=== PATIENT | female | born 1950 | race Caucasian/White ===

== ENCOUNTER 2019-05-24 14:28 | Outpatient (CLI) | payer MEDICARE, SELFPAY ==
--- NOTE | 2019-05-24 13:46 | DI.US_ITS ---
EXAM: US SOFT TISSUE HEAD OR NECK CLINICAL HISTORY: R22.1, LT NECK SWELLING TECHNIQUE: Ultrasound performed using standard protocol. COMPARISON: THYROID ULTRASOUND from 10/21/2012 FINDINGS: There is a 3.3 centimeter nodule in the left lobe of the thyroid. This is not changed from previous ultrasound from 2013. In the area of swelling indicated by the patient, no mass, or adenopathy or fl uid collection is seen. IMPRESSION: Stable left thyroid nodule. A full thyroid ultrasound was not performed.
== END 2019-05-24 14:48 ==
PROVIDERS: PCP Physician Assistant Medical; Visit Provider Physician Assistant Medical
DX: R22.1 Localized swelling, mass and lump, neck (principal); E04.1 Nontoxic single thyroid nodule
CPT/HCPCS: 76536

== ENCOUNTER → 2019-06-17 11:32 | Outpatient (BNVA) | payer MEDICARE, SELFPAY | PROVIDERS: PCP Physician Assistant Medical; Referring Provider Physician Assistant Medical; Visit Provider Physical Therapy Assistant | DX: Z12.11 Encounter for screening for malignant neoplasm of colon (principal); Z80.0 Family history of malignant neoplasm of digestive organs; I10 Essential (primary) hypertension ==

== ENCOUNTER 2019-06-27 01:40 | Outpatient (CLI) | payer MEDICARE, SELFPAY ==
--- NOTE | 2019-06-27 16:15 | DI.MAMMO_ITS ---
EXAM: MAMMO SCREENING CLINICAL HISTORY: SCREENING, Z12.31. TECHNIQUE: Bilateral full field digital CC and MLO mammographic images were obtained with 3D tomosyn thesis and utilizing computer aided detection (CAD). COMPARISON: Available for comparison. FINDINGS: Masses/Architectural Distortion: There is a focal asymmetric density in the outer left breast seen on the craniocaudad view. A biopsy clip is again seen in the upper outer quadrant of the left breast. Microcalcifications: No suspicious pleomorphic-type are seen. Skin Thickening/Nipple Retraction: None. IMPRESSION: 1. Asymmetric density in the outer left breast on the craniocaudad view. 2. Spot compression views of the left breast and left breast ultrasound are recommended for further e valuation. BI-RADS Cat 0 - Assessment Incomplete: Need additional imaging evaluation Breast Density - Category B - Scattered areas of fibroglandular density A negative radiographic report should not delay biopsy if a dominant or clinically suspicious mass is present. Up to ten percent of cancers are not identified on mammography. A negative report may reinforce clinical impression. Adenosis and dense breasts may obscure an underlying neoplasm. False positive reports average 6 to 10%. Patient will receive a letter notifying them of these results.
== END 2019-06-27 02:00 ==
PROVIDERS: PCP Physician Assistant Medical; Visit Provider Physician Assistant Medical
DX: Z12.31 Encounter for screening mammogram for malignant neoplasm of breast (principal); R92.8 Other abnormal and inconclusive findings on diagnostic imaging of breast
CPT/HCPCS: 77063; 77067

== ENCOUNTER 2019-07-01 01:52 | Outpatient (CLI) | payer MEDICARE, SELFPAY ==
--- NOTE | 2019-07-01 14:56 | DI.MAMMO_ITS ---
EXAM: MG MAMMO SCREEN CALL BACK UNI LEFT BREAST CLINICAL HISTORY: F/U MAMMO, ASYMMETRIC DENSITY OUTER LT BREAST, R92.8 TECHNIQUE: A CC spot compression view with tomography was performed of the lateral left breast for a n area of nodular asymmetry. COMPARISON: Is made with exams from 2010 through 2013. FINDINGS: There has been no change in the appearance of the nodule in the upper outer quadrant of the left [address] st when compared with the previous examinations. Biopsy marker is seen adjacent to this nodule. The re are no suspicious findings. IMPRESSION: BI-RADS category 2, negative with benign findings. Yearly screening mammography is recommended. BI-RADS Cat 2 - Benign Findings Breast Density - Category B - Scattered areas of fibroglandular density
== END 2019-07-01 02:12 ==
PROVIDERS: PCP Physician Assistant Medical; Visit Provider Physician Assistant Medical
DX: Z12.31 Encounter for screening mammogram for malignant neoplasm of breast (principal); R92.8 Other abnormal and inconclusive findings on diagnostic imaging of breast; N60.82 Other benign mammary dysplasias of left breast
CPT/HCPCS: 77063; 77067

== ENCOUNTER 2019-07-01 08:36 | Day surgery (SDC) | payer MEDICARE, SELFPAY ==
[2019-07-01 08:50] VITALS: BP 166/90; PULSE 92; RESP 18; TEMP 36.4; O2SAT 96
[2019-07-01] MEDS: Lactated Ringers 1,000 ML 80 ML IV (09:31)
--- NOTE | 2019-07-01 09:42 | W.PM.DSUDISC ---
Discharge Plan Disposition Patient Disposition: HOME Condition: Good Discharge Details Reason For Visit: Colonoscopy Attending Provider: Pamela Rajput Primary Care Provider: Miley Baldwin Home Meds and New Rx's Prescriptions: Continued gabapentin 300 mg capsule 300 mg PO TID RF: 0 losartan 50 mg tablet 50 mg PO DAILY RF: 0 meloxicam 7.5 mg tablet 7.5 mg PO BID RF: 0 nortriptyline 10 mg capsule 20 mg PO QHS RF: 0 metoprolol succinate 25 mg capsule,sprinkle,ER 24hr 25 mg PO DAILY RF: 0 pramipexole [Mirapex] 0.25 mg tablet 0.25 mg PO BID RF: 0 pravastatin 10 MG tablet 20 mg PO DAILY RF: 0 lisinopril 20 MG tablet 20 mg PO DAILY RF: 0 escitalopram oxalate [Lexapro] 20 MG tablet 20 mg PO DAILY RF: 0 trazodone 50 MG tablet 50 mg PO HS RF: 0 sumatriptan succinate [Imitrex] 50 mg tablet 50 mg PO PRN PRN (Reason: headache) RF: 0 cholecalciferol (vitamin D3) 5,000 UNIT tablet 1 tab PO DAILY RF: 0 cyanocobalamin (vitamin B-12) 2,500 MCG tablet 1 tab PO DAILY RF: 0 naproxen [Naprosyn] 500 mg Tablet 500 mg PO BID PRNRF: 0 Discontinued polyethylene glycol 3350 17 gram/dose powder 238 g PO ONCE Qty: 238 RF: 0 bisacodyl [Dulcolax (bisacodyl)] 5 mg tablet,delayed release (DR/EC) 5 mg PO ONCE Qty: 4 RF: 0 Discharge Instructions Additional Instructions: Findings: Your colonoscopy showed diverticulosis. Make sure to take in 30 grams of fiber daily. Follow up: Plan for a colonoscopy in 5 years. Please call if you develop: fevers >101.5 Nausea or Vomiting Abdominal pain that is not transient DAY SURGERY UNIT POST COLONOSCOPY INSTRUCTIONS 1. Because there will be medication in your system for the next 24 hours, you may feel a little sleepy. Your coordination will be affected. Therefore: a. Do not drive or operate dangerous equipment for 24 hours. b. Do not drink alcohol beverages for 24 hours (not even beer). c. Plan to go home and rest for the day. 2. Generally there are no restrictions on your activity after a day or so has gone by, but you may feel a bit fatigued for a few days. 3 After you arrive home you may have a light meal and return to a normal diet as you can tolerate it without feeling sick to your stomach. 4. After surgery, you may feel pain or discomfort. This should be only transient, but if it persists please contact your doctor. 5. If there are any questions regarding the findings of your procedure, please feel free to contact your doctor. 6. If you are unable to contact your doctor with a problem, contact the hospital at [phone]. 7. Continue all your regular medications unless directed otherwise. I understand the above instructions and have no questions. Signature of Patient or Responsible Adult Escort Date/Time Name of Responsible Adult Escort Signature of Nurse Date/Time Activity:: Activity as Tolerated Diet:: As Tolerated Discharge Orders Discharge Orders: Discharge Order (Routine); Ordered 07/01/19 Ordered By: Pamela Rajput DS: Diagnosis Discharge Diagnosis (1) FH: colon cancer: Status: Acute (2) Diverticulosis: Status: Acute
--- NOTE | 2019-07-01 10:39 | COLE_ITS ---
DATE OF PROCEDURE: July 01, 2019 PREOPERATIVE DIAGNOSIS: Family history of colon cancer. POSTOPERATIVE DIAGNOSIS: Mild diverticulosis. PROCEDURE: Colonoscopy. SURGEON: Pamela Rajput M.D. ANESTHESIA: General. INDICATIONS: This is a 68-year-old woman who presents for a routine colon evaluation. Her mother wa s treated for colon cancer in her 30's. The patient estimates her last colonoscopy was 5 or 6 years ago and was normal. She is asymptomatic. PROCEDURE: She was placed in the left Briseno position. Propofol was titrated to sedation. Digital re ctal examination revealed no abnormalities. The scope was advanced to the cecum without difficulty. The ileocecal valve and appendiceal orifice were clearly identified. Her prep was good. The scope was slowly withdrawn with no abnormalities seen within the ascending, transverse or descending colon. In the sigmoid region she was noted to have scattered diverticular change. The rectum was normal, including on retroflex view. She tolerated the procedure well and was stable to recovery. Due to the family history of colon cancer she will need a colonoscopy again in five years. cc: Miley Baldwin PA-C
[2019-07-01 10:41] VITALS: BP 131/69; BP 131/79; PULSE 79; RESP 16; TEMP 36.7; TEMP 36.9; O2SAT 99
== END 2019-07-01 11:37 | disposition home or self-care (01) ==
PROVIDERS: PCP Physician Assistant Medical; Visit Provider Surgery
PROC: 0DJD8ZZ Inspection of Lower Intestinal Tract, Via Natural or Artificial Opening Endoscopic (ICD-10-PCS; CPT 45378; principal; 2019-07-01 09:45)
DX: Z12.11 Encounter for screening for malignant neoplasm of colon (principal); Z80.0 Family history of malignant neoplasm of digestive organs; K57.30 Diverticulosis of large intestine without perforation or abscess without bleeding; I10 Essential (primary) hypertension; K21.9 Gastro-esophageal reflux disease without esophagitis; G47.33 Obstructive sleep apnea (adult) (pediatric)
CPT/HCPCS: G0105; J2001

== ENCOUNTER 2019-08-11 02:42 | Outpatient (CLI) | payer MEDICARE, SELFPAY ==
--- NOTE | 2019-08-11 | DI.DEXA_ITS ---
EXAM: XR DEXA BONE DENSITY W/WO AZEEM INDICATION: POSTMENOPAUSAL, Z78.0. COMPARISON: DEXA BONE DENSITY WITH AZEEM from 09/11/2015 CHEST 2 VIEWS PA,LAT from 12/23/2017 TECHNIQUE: Hologic densitometer FINDINGS: The AZEEM image shows mild anterior wedging of the T9 vertebral body. This appears unchanged when com pared with a previous chest x-ray from 2018. Lumbar spine bone mineral density measurements were not obtained due to a history of previous lumbar surgery. The bone mineral density measurements of the left hip correspond to a total T-score of 0 and a femora l neck T-score of -1.0. This represents a 2.9 percent decrease compared with 2016. The bone mineral density measurements of the left forearm correspond to a T-score of the distal 3rd of -1.2, in the o steopenic range. This is not statistically different when compared with the previous exam. IMPRESSION: Stable mild T9 compression fracture. Osteopenia of the left forearm. Normal bone mineral density of the left hip. DATA REPOSITORY: RADIATION DOSE DELIVERED:
== END 2019-08-11 03:02 ==
PROVIDERS: PCP Physician Assistant Medical; Visit Provider Physician Assistant Medical
DX: M85.88 Other specified disorders of bone density and structure, other site (principal); Z78.0 Asymptomatic menopausal state; M48.54XD Collapsed vertebra, not elsewhere classified, thoracic region, subsequent encounter for fracture with routine healing
CPT/HCPCS: 77080

== ENCOUNTER 2020-02-21 04:54 | Outpatient (CLI) | payer MEDICARE, SELFPAY ==
[2020-02-21 17:11] LABS: Hemoglobin A1C 6.2 % (<5.7)
[2020-02-21 17:34] LABS: Calculated LDL 61 mg/dL (<100); Cholesterol 155 mg/dL (<200); HDL Cholesterol 57 mg/dL (40-60); TSH 3.88 uIU/mL (0.36-3.74); Triglyceride 186 mg/dL (<150)
== END 2020-02-21 05:14 ==
PROVIDERS: PCP Physician Assistant Medical; Visit Provider Physician Assistant Medical
DX: E11.9 Type 2 diabetes mellitus without complications (principal); E07.9 Disorder of thyroid, unspecified; E78.00 Pure hypercholesterolemia, unspecified
CPT/HCPCS: 36415; 80061; 83036; 84443

== ENCOUNTER 2020-05-09 02:40 | Outpatient (CLI) | payer MEDICARE, SELFPAY ==
[2020-05-09 18:42] LABS: Calculated LDL 118 mg/dL (<100); Cholesterol 206 mg/dL (<200); HDL Cholesterol 56 mg/dL (40-60); Triglyceride 163 mg/dL (<150)
[2020-05-09 18:53] LABS: Hemoglobin A1C 6.1 % (<5.7)
== END 2020-05-09 03:00 ==
PROVIDERS: PCP Physician Assistant Medical; Visit Provider Physician Assistant Medical
DX: E11.9 Type 2 diabetes mellitus without complications (principal); E78.00 Pure hypercholesterolemia, unspecified
CPT/HCPCS: 36415; 80061; 83036

== ENCOUNTER 2020-05-23 14:58 | Emergency (ER) | payer MEDICARE, SELFPAY ==
--- NOTE | 2020-05-23 15:00 | DI.RAD_ITS ---
EXAM: XR PELVIS AP CLINICAL HISTORY: fall, pain TECHNIQUE: COMPARISON: CR XR SACRUM COCCYX from 05/23/2020 FINDINGS: AP view of the pelvis and three views of the sacrum and coccyx were obtained. No pelvic, sacral, or coccygeal fracture identified. The SI joints appear well maintained as visualized. Note is made of a right hip prosthesis in position. A pacer overlies the right iliac wing. IMPRESSION: RADIATION DOSE DELIVERED: Total DLP
[2020-05-23 15:04] VITALS: BP 160/76; PULSE 63; RESP 14; TEMP 36; O2SAT 99
--- NOTE | 2020-05-23 15:21 | W.ED.GENAD ---
Discharge Plan Disposition Patient Disposition: HOME Condition: Improving Discharge Details Clinical Impression: Left sided sciatica Primary Care Provider: Miley Baldwin ED Provider: Donis Tabor Home Meds and New Rx's Prescriptions: New prednisone 50 mg tablet 50 mg PO DAILY 5 Days Qty: 5 RF: 0 tramadol 50 mg tablet 50 mg PO BID PRN (Reason: pain) Qty: 10 RF: 0 Continued gabapentin 300 mg capsule 300 mg PO TID RF: 0 losartan 50 mg tablet 50 mg PO DAILY RF: 0 meloxicam 7.5 mg tablet 7.5 mg PO BID RF: 0 nortriptyline 10 mg capsule 20 mg PO QHS RF: 0 metoprolol succinate 25 mg capsule,sprinkle,ER 24hr 25 mg PO DAILY RF: 0 pramipexole [Mirapex] 0.25 mg tablet 0.25 mg PO BID RF: 0 pravastatin 10 MG tablet 20 mg PO DAILY RF: 0 lisinopril 20 MG tablet 20 mg PO DAILY RF: 0 escitalopram oxalate [Lexapro] 20 MG tablet 20 mg PO DAILY RF: 0 trazodone 50 MG tablet 50 mg PO HS RF: 0 sumatriptan succinate [Imitrex] 50 mg tablet 50 mg PO PRN PRN (Reason: headache) RF: 0 cholecalciferol (vitamin D3) 5,000 UNIT tablet 1 tab PO DAILY RF: 0 cyanocobalamin (vitamin B-12) 2,500 MCG tablet 1 tab PO DAILY RF: 0 naproxen [Naprosyn] 500 mg Tablet 500 mg PO BID PRNRF: 0 Discharge Instructions Instructions: Sciatica (ED) Additional Instructions: Prednisone 5 May use tramadol as prescribed, as needed for severe or breakthrough pain. Continue your regularly prescribed medications. Please follow-up with physical therapy. Return to the ER for increasing pain or any other acute concerns. Stand Alone Forms: Physical Therapy Referral Medical Decision Making 69-year-old female presents from home stating she had slip and fall approximately 2 weeks ago landing on her bottom. Now with persistent pain that somewhat worse with movement and radiates from her buttock down her left leg. She is slightly hypertensive but with a reassuring exam. She is tender overlying the left sciatic notch. Read for x-ray of pelvis and coccyx which does not show evidence of fracture, nor displacement of her right prosthetic hip. Given patient description of the pain, tenderness overlying the sciatic notch, I do feel this is consistent with sciatica. Discussed with her options for treatment. We will trial a small burst of prednisone, tramadol if needed for breakthrough pain, as well as referral to physical therapy. She is stable and appropriate for discharge to home. HPI General Mode of arrival: ambulatory. Date/Time Provider Initiated Documentation: 05/23/20 15:09. Limitations to Documentation: no limitations. Information obtained by: patient. History of Present Illness 69 year old F presents to the emergency department with the chief complaint of Slip and fall, left-sided hip pain, described as moderate, Quality is described as dull and constant, and is localized to the pelvis and left. Patient distal. Patient started experiencing this day(s) and it has been intermittent. Rest improves symptom(s), Movement worsens symptoms . Patient notes denies fever/chills and seizure. Patient did receive the following treatments prior to arrival, NSAID Related Data Home Medications Medication Instructions Recorded Confirmed escitalopram oxalate [Lexapro] 20 mg PO DAILY 08/24/13 07/01/19 lisinopril 20 mg PO DAILY 08/24/13 07/01/19 pravastatin 20 mg PO DAILY 08/24/13 07/01/19 trazodone 50 mg PO HS 02/15/15 07/01/19 cholecalciferol (vitamin D3) 1 tab PO DAILY 03/12/15 07/01/19 cyanocobalamin (vitamin B-12) 1 tab PO DAILY 03/12/15 07/01/19 gabapentin 300 mg capsule 300 mg PO TID cap 04/26/19 07/01/19 losartan 50 mg tablet 50 mg PO DAILY 04/26/19 07/01/19 meloxicam 7.5 mg tablet 7.5 mg PO BID tab 04/26/19 07/01/19 metoprolol succinate 25 mg capsule 25 mg PO DAILY 04/26/19 07/01/19 sprinkle, ext. release 24 hr nortriptyline 10 mg capsule 20 mg PO QHS cap 04/26/19 07/01/19 pramipexole 0.25 mg tablet 0.25 mg PO BID tab 04/26/19 07/01/19 sumatriptan succinate 50 mg tablet 50 mg PO PRN PRN tab 04/26/19 07/01/19 naproxen [Naprosyn] 500 mg PO BID PRN 07/01/19 07/01/19 prednisone 50 mg PO DAILY 5 Days #5 tab 05/23/20 tramadol 50 mg PO BID PRN #10 tab 05/23/20 Previous Rx's Medication Instructions Recorded prednisone 50 mg PO DAILY 5 Days #5 tab 05/23/20 tramadol 50 mg PO BID PRN #10 tab 05/23/20 Allergies Allergy/AdvReac Type Severity Reaction Status Date / Time acetaminophen [From Tylenol] Allergy Severe chest pain Unverified 05/23/20 15:07 aspirin Allergy Severe CHEST PAIN Unverified 05/23/20 15:07 General Stated Complaint: Orthopedic KIMBERLY: 4 Review of Systems Narrative: No weakness, no numbness, no tingling, no change to bladder habits. 6 systems reviewed and otherwise negative [facility] Medical History Accelerated essential hypertension Borderline diabetic Cardiac murmur Colon polyp 08/06/2010 Complex regional pain syndrome i of left upper limb Depression Facial pain Fibromyalgia Frequent urination GERD (gastroesophageal reflux disease) Hypercholesterolemia Hyperkalemia Insomnia Migraines Multinodular goiter JANEE (obstructive sleep apnea) Osteoarthritis of right hip Pre-diabetes Restless leg syndrome Thyroid disorder Surgical History (Updated 07/01/19 @ 09:08 by Hilda Luna RN) EGD - MAC (05/02/16) Hx of foot surgery R Hx of total hip arthroplasty R Hx of total knee arthroplasty R x 2 Status post VNS (vagus nerve stimulator) placement Social History Smoking/Tobacco Use Status: Never Smoking risk assessment performed?: Yes Alcohol Intake: current Alcohol Intake frequency: holidays/special occasions only Alcohol type: hard liquor Drug use: Never Substance use type: does not use Do you feel safe at home: Yes Do you feel safe in your relationship?: Yes Exam Narrative Exam Narrative: GEN: awake, alert, oriented 3. Pleasant, well groomed, interactive. HEAD: Normocephalic, atraumatic ENT: Mucous membranes moist, oropharynx unremarkable, External ear exam unremarkable EYES: PERRL, EOMI NECK: Full ROM, no LOIDA, no menigismus CHEST/RESP: Nontender, clear to auscultation bilateral, no wheeze/rhonchi/rales CARDIOVASCULAR: RRR, no murmur, rub issac. 2+ Rad pulse bilateral ABDOMEN: Soft, nontender, no mass. +Bowel sounds Lumbar, no step-off or deformity, no tenderness. Left sciatic notch tenderness to palpation EXT: Full ROM, no edema, no rash Neuro: Grossly normal neurologic exam, conversant, interactive. Psych: Speech fluent, thoughts congruent, affect normal Course Vital Signs Vital signs: Vital Signs Temperature 36 C L 05/23/20 15:04 Pulse 63 05/23/20 15:04 Respiratory Rate 14 05/23/20 15:04 Blood Pressure 160/76 H 05/23/20 15:04 Pulse Oximetry 99 05/23/20 15:04 Temperature 36 C L 05/23/20 15:04 Temperature Source Skin 05/23/20 15:04 Pulse 63 05/23/20 15:04 Respiratory Rate 14 05/23/20 15:04 Respiratory Effort Non-Labored 05/23/20 15:07 Blood Pressure 160/76 H 05/23/20 15:04 Blood Pressure Position Sitting 05/23/20 15:04 Pulse Oximetry 99 05/23/20 15:04 Oxygen Delivery Method Room Air 05/23/20 15:04 Oxygen Flow Rate 0 05/23/20 15:04 Pain Level 4 05/23/20 15:04
[2020-05-23 16:15] VITALS: BP 150/69; PULSE 64; RESP 18; TEMP 36.4; O2SAT 99
[2020-05-23] MEDS: predniSONE 40 MG, predniSONE 10 MG 50 MG PO (16:20)
== END 2020-05-23 16:34 | disposition home or self-care (01) ==
PROVIDERS: Emergency Provider Emergency Medicine; PCP Physician Assistant Medical
DX: M54.32 Sciatica, left side (principal); W18.39XA Other fall on same level, initial encounter; I10 Essential (primary) hypertension
CPT/HCPCS: 99284; 72170; 72220; J7512

== ENCOUNTER 2020-06-11 11:31 | Outpatient (CLI) | payer MEDICARE, SELFPAY ==
[2020-06-11 15:56] LABS: Abs Immature Grans 0.04 10^3/uL (0.0-0.06); Absolute Basophil Count 0.05 10^3/uL (0.0-0.2); Absolute Eosinophil Count 0.36 10^3/uL (0.0-0.7); Absolute Monocyte Count 0.68 10^3/uL (0.1-0.8); Absolute Neutrophil Count 5.75 10^3/uL (1.2-6.7); Basophils % 0.5; Eosinophils % 3.4; HCT 44.8 % (36.0-46.0); HGB 14.8 g/dL (11.2-15.7); Immature Grans % 0.4; Lymphocytes % 35.6; MCH 30.8 pg (27.0-33.0); MCV 93.1 fL (80-95); MPV 9.3 fL (8.0-11.0); Monocytes % 6.4; Neutrophils % 53.7; Nucleated RBC 0 %; Platelet Count 208 10^3/uL (130-400); RBC 4.81 10^6/uL (3.93-5.22); RDW 13.6 % (11.7-14.6); RDW-SD 46.5 fL; WBC 10.68 10^3/uL (4.4-10.8)
[2020-06-11 16:23] LABS: C-Reactive Protein 0.12 mg/dL (0.0-0.3)
[2020-06-11 16:34] LABS: ALT 25 U/L (14-59); AST 14 U/L (15-37); Albumin 3.9 g/dL (3.4-5.0); Alkaline Phosphatase 73 U/L (46-116); Anion Gap 7.8 mmol/L (3-11); BUN 15 mg/dL (7-18); Bilirubin, Total 0.5 mg/dL (0.2-1.0); CO2 24.2 mmol/L (21.0-32.0); CREATININE 0.88 mg/dL (0.55-1.02); Calcium 8.7 mg/dL (8.5-10.1); Chloride 107 mmol/L (98-107); Glucose 90 mg/dL (74-106); Magnesium 2.1 mg/dL (1.8-2.4); Sodium 139 mmol/L (136-145); TSH 6.49 uIU/mL (0.36-3.74); Total Protein 7.9 g/dL (6.4-8.2); Vitamin B12 914 pg/mL (193-986)
[2020-06-11 17:08] LABS: Vitamin D 25 Total 37.8 ng/ml (30-100)
== END 2020-06-11 11:51 ==
PROVIDERS: Physician Assistant Medical; PCP Physician Assistant Medical; Visit Provider Physician Assistant Medical
DX: R41.3 Other amnesia (principal); I10 Essential (primary) hypertension; E07.9 Disorder of thyroid, unspecified; M85.88 Other specified disorders of bone density and structure, other site
CPT/HCPCS: 36415; 80053; 82306; 82607; 83735; 84443; 85025; 86140

== ENCOUNTER → 2020-08-21 14:02 | Outpatient (BNVA) | payer MEDICARE, SELFPAY | PROVIDERS: PCP Physician Assistant Medical; Referring Provider Physician Assistant Medical; Visit Provider Surgery | DX: R13.10 Dysphagia, unspecified (principal) | CPT/HCPCS: 99213 ==

== ENCOUNTER 2020-10-01 02:54 | Outpatient (CLI) | payer MEDICARE, SELFPAY ==
[2020-10-01 10:10] LABS: Source Nasal/Nares
[2020-10-01 16:11] LABS: COVID-19 PCR Negative (Negative)
== END 2020-10-01 02:55 | disposition home or self-care (01) ==
LOC: LBO 02:54
PROVIDERS: PCP Physician Assistant Medical; Visit Provider Surgery
DX: Z20.822 Contact with and (suspected) exposure to COVID-19 (principal); Z01.818 Encounter for other preprocedural examination
CPT/HCPCS: 87635

== ENCOUNTER 2020-10-03 12:42 | Day surgery (SDC) | payer MEDICARE, SELFPAY ==
--- NOTE | 2020-10-03 07:16 | HPE_ITS ---
Date of service: 10/03/20 Assessment and Plan Assessment and plan (1) Dysphagia: Status: Acute Assessment and plan: Mrs. Hinton is a pleasant 70-year-old with a history of peptic ulcer disease who was started on a PPI in 2016 who is here today because she has developed dysphagia again over the last 5 to 6 months. She is no longer taking any antacids. She does not complain of heartburn. She does sometimes have some burning into the chest. She has had no changes in bowel habits, no melena or hematochezia. We discussed repeat upper endoscopy to rule out any ulcerations. The procedure was explained using a pamphlet with pictures. Risks benefits and complications were reviewed as well as Covid testing. Risks, benefits and complications have been reviewed. Complications include but are not limited to bleeding, pain, perforation, sore throat, aspiration, and adverse reaction to the medications. Questions were entertained and answered to their satisfaction and they wished to proceed. No guarantees were given or implied. COVID-19 testing explained to the patient. Reason for test reviewed. Quarantine per state requirements reviewed with patient. Patient understands and agrees to testing. Qualifiers: Dysphagia type: unspecified Qualified Code(s): R13.10 - Dysphagia, unspecified History of Present Illness Narrative: Mrs Hinton is a pleasant 70-year-old female who comes in today because she has been having dysphagia to solids and liquids for the past 5 to 6 months. She has some intermittent burning into the chest. She does not complain of epigastric pain. She has had no nausea or vomiting. She has had no changes in bowel habits. She had an upper endoscopy in 2016 which noted inflammation in the small bowel and stomach with shallow ulcerations. At that time she was started on a PPI. She is no longer taking any antacids. She is not losing any weight. No changes in her health since she was last seen just over 4 weeks ago Review of Systems Cardiovascular Cardiovascular: Denies chest pain, Denies chest pain at rest, Denies irregular h eart rhythm, Denies dyspnea and Denies dyspnea on exertion Respiratory Respiratory: Denies cough, Denies dyspnea and Denies dyspnea on exertion Gastrointestinal Gastrointestinal: Reports as per HPI Genitourinary Genitourinary: Denies dysuria, Denies urinary incontinence and Denies urinary urgency Endocrine Endocrine: Reports system reviewed and no additional complaints, except as documented Hematologic/Lymphatic Hematologic/Lymphatic: Denies easy bruising and Denies lymphadenopathy [facility] Medical History Accelerated essential hypertension Borderline diabetic Cardiac murmur Colon polyp 08/06/2010 Complex regional pain syndrome i of left upper limb Depression Facial pain Fibromyalgia Frequent urination GERD (gastroesophageal reflux disease) History of colon polyps Hypercholesterolemia Hyperkalemia Insomnia Migraines Multinodular goiter JANEE (obstructive sleep apnea) Osteoarthritis of right hip Pre-diabetes Restless leg syndrome Swelling, mass, or lump in head and neck Thyroid disorder Surgical History EGD - MAC (05/02/16) Hx of foot surgery R Hx of total hip arthroplasty R Hx of total knee arthroplasty R x 2 Status post VNS (vagus nerve stimulator) placement Social History Smoking/Tobacco Use Status: Never Smoking risk assessment performed?: Yes Alcohol Intake: current Alcohol Intake frequency: holidays/special occasions only Alcohol type: hard liquor Drug use: Never Substance use type: does not use Current gender identity: female Do you feel safe at home: Yes Do you feel safe in your relationship?: Yes Meds Allergies and Home Medications Allergies Allergy/AdvReac Type Severity Reaction Status Date / Time acetaminophen [From Tylenol] Allergy Severe chest pain Unverified 10/03/20 13:11 aspirin Allergy Severe CHEST PAIN Unverified 10/03/20 13:11 Home Medications Medication Instructions Recorded Confirmed Type escitalopram oxalate [Lexapro] 20 mg PO DAILY 08/24/13 10/03/20 History pravastatin 20 mg PO DAILY 08/24/13 10/03/20 History trazodone 50 mg PO HS 02/15/15 10/03/20 History cholecalciferol (vitamin D3) 1 tab PO DAILY 03/12/15 10/03/20 History cyanocobalamin (vitamin B-12) 1 tab PO DAILY 03/12/15 10/03/20 History gabapentin 300 mg capsule 300 mg PO TID cap 04/26/19 10/03/20 History losartan 50 mg tablet 50 mg PO DAILY 04/26/19 10/03/20 History meloxicam 7.5 mg tablet 7.5 mg PO BID tab 04/26/19 10/03/20 History metoprolol succinate 25 mg capsule 25 mg PO DAILY 04/26/19 10/03/20 History sprinkle, ext. release 24 hr pramipexole 0.25 mg tablet 0.25 mg PO BID tab 04/26/19 10/03/20 History sumatriptan succinate 50 mg tablet 50 mg PO PRN PRN tab 04/26/19 10/03/20 History naproxen [Naprosyn] 500 mg PO BID PRN 07/01/19 10/03/20 History tramadol 50 mg PO BID PRN #10 tab 05/23/20 10/03/20 Rx divalproex 250 mg tablet,extended 250 mg PO DAILY tab 08/09/20 10/03/20 History release 24 hr duloxetine 30 mg capsule,delayed 60 mg PO DAILY cap 08/09/20 10/03/20 History release melatonin 10 mg capsule 10 mg PO HS PRN 08/09/20 10/03/20 History metformin 500 mg tablet 500 mg PO BID 08/09/20 10/03/20 History propranolol 80 mg capsule,24 80 mg PO DAILY 08/09/20 10/03/20 History hr,extended release erenumab-aooe 70 mg SUBCUT QMONTH 10/03/20 10/03/20 History Exam Const General: healthy appearing and comfortable Resp Effort & Inspection: normal respiratory effort Auscultation: clear to auscultation bilaterally Cardio Rate: regular rate Rhythm: regular rhythm Heart Sounds: no click, no gallops and no murmurs
--- NOTE | 2020-10-03 07:16 | ENDO_ITS ---
Date of service: 10/03/20 Time of Service: 15:37 Endoscopy Report DATE OF PROCEDURE: 10/03/20 PRE-OP DIAGNOSIS: Dysphagia POST-OP DIAGNOSIS: same (mild gastritis and esophagitis) PROCEDURE: Egd with biopsies SURGEON: Ngozi Cabral ANESTHESIA TYPE: General:No Airway ESTIMATED BLOOD LOSS: 3 PATHOLOGY: other (Gastric bx, GE junction bx) COMPLICATIONS: None DISPOSITION: same day INDICATIONS: Mrs. Hinton is a pleasant 70-year-old with a history of peptic ulcer disease who was started on a PPI in 2016 who is here today because she has developed dysphagia again over the last 5 to 6 months. She is no longer taking any antacids. She does not complain of heartburn. She does sometimes have some burning into the chest. She has had no changes in bowel habits, no melena or hematochezia. We discussed repeat upper endoscopy to rule out any ulcerations. The procedure was explained using a pamphlet with pictures. Risks benefits and complications were reviewed as well as Covid testing. Risks, benefits and complications have been reviewed. Complications include but are not limited to bleeding, pain, perforation, sore throat, aspiration, and adverse reaction to the medications. Questions were entertained and answered to their satisfaction and they wished to proceed. No guarantees were given or implied. COVID-19 testing explained to the patient. Reason for test reviewed. Quarantine per state requirements reviewed with patient. Patient understands and agrees to testing. PROCEDURE DESCRIPTION: After informed consent was obtained the patient was take to the procedure room and placed in a supine position. Monitors were applied and a time out was done. The patients name, date of , procedure type, allergies to medications and metal in their body was reviewed. A bite block was placed and the patient was sedated. Once sedated and comfortable the gastroscope was advanced through the oropharynx which was grossly normal into the esophagus. The proximal and mid- esophagus were normal. In the distal esophagus there was mild inflammation noted. The scope was advanced into the stomach and through the pylorus into the 3rd portion of the duodenum. The duodenum was noted to be normal. The scope was retracted back into the stomach and biopsies were done to rule out H. pylori. There were no ulcers. The scope was retroflexed. The cardia and fund us were noted to be normal. There was no hiatal hernia noted. The scope was retracted back into the esophagus and biopsies were done of the GE junction to rule out Hines's. The Z line was regular. The GE junction was at 38 cm. The scope was removed and the patient was woken up and taken back to [facility] in stable condition. Follow up: 2 weeks. start on Omeprazole 20 mg daily
--- NOTE | 2020-10-03 07:19 | W.PM.DSUDISC ---
Discharge Plan Disposition Patient Disposition: HOME Condition: Good Discharge Details Reason For Visit: EGD Attending Provider: Ngozi Cabral Primary Care Provider: Miley Baldwin Home Meds and New Rx's Prescriptions: New pantoprazole 20 mg tablet,delayed release (DR/EC) 20 mg PO DAILY Qty: 30 RF: 0 Continued gabapentin 300 mg capsule 300 mg PO TID RF: 0 losartan 50 mg tablet 50 mg PO DAILY RF: 0 meloxicam 7.5 mg tablet 7.5 mg PO BID RF: 0 metoprolol succinate 25 mg capsule,sprinkle,ER 24hr 25 mg PO DAILY RF: 0 pramipexole [Mirapex] 0.25 mg tablet 0.25 mg PO BID RF: 0 duloxetine [Cymbalta] 30 mg capsule,delayed release(DR/EC) 60 mg PO DAILY RF: 0 melatonin 10 mg capsule 10 mg PO HS PRNRF: 0 metformin 500 mg tablet 500 mg PO BID RF: 0 divalproex [Depakote ER] 250 mg tablet extended release 24 hr 250 mg PO DAILY RF: 0 propranolol 80 mg capsule,extended release 24 hr 80 mg PO DAILY RF: 0 pravastatin 10 MG tablet 20 mg PO DAILY RF: 0 escitalopram oxalate [Lexapro] 20 MG tablet 20 mg PO DAILY RF: 0 trazodone 50 MG tablet 50 mg PO HS RF: 0 sumatriptan succinate [Imitrex] 50 mg tablet 50 mg PO PRN PRN (Reason: headache) RF: 0 cholecalciferol (vitamin D3) 5,000 UNIT tablet 1 tab PO DAILY RF: 0 cyanocobalamin (vitamin B-12) 2,500 MCG tablet 1 tab PO DAILY RF: 0 naproxen [Naprosyn] 500 mg Tablet 500 mg PO BID PRNRF: 0 tramadol 50 mg tablet 50 mg PO BID PRN (Reason: pain) Qty: 10 RF: 0 No Action erenumab-aooe 70 mg/mL Auto-Injector 70 mg SUBCUT QMONTH RF: 0 Discharge Instructions Instructions: Gastritis (DC), Esophagitis (DC) Additional Instructions: Findings: mild inflammation of the stomach and esophagus Follow up: 2 weeks Please call if you develop: fevers >101.5 Nausea or Vomiting Abdominal pain that is not transient DAY SURGERY UNIT POST ENDOSCOPY INSTRUCTIONS 1. Because there will be medication in your system for the next 24 hours, you may feel a little sleepy. Your coordination will be affected. Therefore: a. Do not drive or operate dangerous equipment for 24 hours. b. Do not drink alcohol beverages for 24 hours (not even beer). c. Plan to go home and rest for the day. 2. Generally there are no restrictions on your activity after a day or so has gone by, but you may feel a bit fatigued for a few days. 3 After you arrive home you may have a light meal and return to a normal diet as you can tolerate it without feeling sick to your stomach. 4. After surgery, you may feel pain or discomfort. This should be only transient, but if it persists please contact your doctor. 5. If there are any questions regarding the findings of your procedure, please feel free to contact your doctor. 6. If you are unable to contact your doctor with a problem, contact the hospital at [phone]. 7. Continue all your regular medications unless directed otherwise. I understand the above instructions and have no questions. Signature of Patient or Responsible Adult Escort Date/Time Name of Responsible Adult Escort Signature of Nurse Date/Time Referrals: Ngozi Cabral MD [ [facility] STAFF PHYSICIAN] - (10 to 14 days) Activity:: Activity as Tolerated Diet:: As Tolerated Discharge Orders Discharge Orders: Discharge Order (Routine); Ordered 04/21/21 Ordered By: Ngozi Cabral DS: Diagnosis Discharge Diagnosis (1) Dysphagia: Status: Acute
[2020-10-03 13:03] VITALS: BP 156/87; PULSE 87; RESP 17; TEMP 36.4; O2SAT 98
[2020-10-03] MEDS: Lactated Ringers 1,000 ML 80 ML IV (13:30)
--- NOTE | 2020-10-03 14:40 | STOM_PTH ---
PATIENT: Skye Hinton LOC: [facility] U#:[id number] AGE/SX: 70/F ROOM: RE10/03/[address]: Ngozi Cabral MD : 1950 BED: DIS: 10/03/2020 SPEC #: [id number] RECD: 10/03/20 17:45 STATUS: MIKE REGabby #: [id number] PASTOR: 10/03/20 14:[address]: Ngozi Cabral DEPT: Surgical Specimen RECD BY: Cesia Gibson ENTERED: 10/03/20 17:46 SP TYPE: STOMACH OTHR DR: Miley Baldwin Tissues: 1 - STOMACH BIOPSY 2 - ESOPHAGUS BIOPSY 3 - ESOPHAGUS BIOPSY Procedures: GROSS AND MICRO LEVEL 4 Comments: [id number]
[2020-10-03 15:23] VITALS: BP 158/78; PULSE 75; RESP 18; TEMP 36.7; O2SAT 99
[2020-10-03] MEDS: Mylanta Suspension 30 ML CUP PO (15:46)
== END 2020-10-03 16:13 | disposition home or self-care (01) ==
LOC: SUR 12:43
PROVIDERS: PCP Physician Assistant Medical; Visit Provider Surgery
PROC: 0DJ68ZZ Inspection of Stomach, Via Natural or Artificial Opening Endoscopic (ICD-10-PCS; CPT 43235; principal; 2020-10-03 14:30)
DX: R13.10 Dysphagia, unspecified (principal); K29.50 Unspecified chronic gastritis without bleeding; K21.00 Gastro-esophageal reflux disease with esophagitis, without bleeding; Z87.11 Personal history of peptic ulcer disease
CPT/HCPCS: 43239; 88305; NC; J2001

== ENCOUNTER → 2020-10-19 09:32 | Outpatient (BNVA) | payer MEDICARE, SELFPAY | PROVIDERS: PCP Physician Assistant Medical; Referring Provider Physician Assistant Medical; Visit Provider Surgery | DX: Z48.815 Encounter for surgical aftercare following surgery on the digestive system (principal); K21.00 Gastro-esophageal reflux disease with esophagitis, without bleeding | CPT/HCPCS: 99212; 99213 ==

== ENCOUNTER 2020-11-19 00:56 | Outpatient (CLI) | payer MEDICARE, SELFPAY ==
--- NOTE | 2020-11-19 08:45 | DI.NM_ITS ---
APPROVED REPORT Exam: Exercise Treadmill Patient Location: Out-Patient Room/Bed: Stress Nurse: Anny Contreras RN Ordering Provider:SAL DUNLAP, Contact Number: [phone] BMI: 30.85 Baseline Rhythm: Sinus Rhythm Comment: Flipped T waves lead III Medical History Medical History: Hypertension, hyperlipidemia, cardiac murmur, pre-diabetes, obesity, JANEE, fibromyalg ia, hyperkalemia, osteoarthritis R hip Cardiac Medications: Losartan, metoprolol succinate, propranolol, pravastatin, pantoprazole Allergies: Aspirin Cardiac Risk Factors: Hypertension, hyperlipidemia, pre-diabetes, obesity, family hx Previous Cardiac Procedures: None Pretest Chest Pain Characteristics: None Exercise History: Sedentary Physical Disabilities: None Lung Sounds: Clear to auscultation Heart Sounds: Regular Stress Test Details Test: Exercise stress testing was performed using a modified Mookie protocol. Nuclear Acquisition: Rest Tc-99m/Stress Tc-99m 1 day Rest Isotope: Tc-99m Sestamibi. Dose: 11.2 Date: 11/19/2020 Injection Time: 0845 Stress Isotope: Tc-99m Sestamibi. Dose: 37.0 Date: 11/19/2020 Injection Time: 1017 HR Resting HR Supine: 80 bpm Max Heart Rate (APMHR): 150 bpm Resting HR Standin bpm Target HR (85% APMHR): 127 bpm Max HR Achieved: 135 bpm % of APMHR: 90 Recovery HR: 93 bpm HR response to stress: Normal HR response to stress Comment: Metoprolol succinate and propranolol held for 24 hrs. BP Resting BP Supine: 142/96 mmHg Resting BP Standin/100 mmHg Max BP: 190/80 mmHg Recovery BP: 152/90 mmHg BP response to stress: Normal blood pressure response to stress. ECG Resting ECG: Sinus Rhythm Ectopy: None Comment: Flipped T waves lead III Stress ECG: Sinus Tachycardia ST Change: No significant ST segment changes noted Arrhythmia: None Recovery ECG: Sinus Rhythm Recovery ST Change: No significant ST segment changes noted Recovery Arrhythmia: None Clinical Reason for Termination: Fatigue, Dyspnea Stress Symptoms: General Fatigue, Dyspnea Exercise duration: 7 min37 sec Highest Stage Reached: Stage 2: 2.5 mph at 12% grade. Exercise capacity: 7.19 METs Rate Pressure Product: [id number] Stress ECG Conclusion 1. Exercised for 7 minutes (7 METS). Exercise was stopped due to dyspnea. 2. The patient had no symptoms suggestive of ischemia. 3. Patient's blood pressure and heart rate mentate appropriately. 4. EKG portion of this exam was nondiagnostic due to baseline T wave abnormalities. Stress Test Summary STAGE Time (mins) Speed (mph) Grade (%) HR BP SYMPTOMS METS Supine 80 142/96 Standing 84 140/100 mild SOB, SpO2 92% 1 3 1.7 10 112 152/94 moderate SOB, SpO2 88% 4.6 2 6 2.5 12 128 moderate SOB, SpO2 89% 7 1 min recovery 120 190/80 mild SOB, SpO2 98% 3 min recovery 104 174/86 symptoms resolved 6 min recovery 93 152/90 Modified Mookie protocol performed: Stage 3 grade 14.0 speed 2.3 mph. MPI Conclusion Ejection fraction was 76% with stress. There were no wall motion abnormalities. There was no evidence of ischemia on the imaging portion exam. There was a significant amount of melissa l uptake which affected the interpretation of the study. This represents a normal SPECT stress test.
== END 2020-11-19 01:16 ==
PROVIDERS: PCP Physician Assistant Medical; Visit Provider Physician Assistant Medical
DX: R07.9 Chest pain, unspecified (principal); I10 Essential (primary) hypertension; E78.5 Hyperlipidemia, unspecified; R73.03 Prediabetes; E66.9 Obesity, unspecified; Z82.49 Family history of ischemic heart disease and other diseases of the circulatory system
CPT/HCPCS: 78452; 93016; 93018; 93017

== ENCOUNTER 2021-04-29 20:51 | Emergency (ER) | payer MEDICARE, SELFPAY ==
[2021-04-29] VITALS (18 sets, daily range): BP systolic 148–184; BP diastolic 64–87; PULSE 74–99; RESP 10–22; TEMP 37.1; O2SAT 92–98
--- NOTE | 2021-04-29 21:00 | DI.RAD_ITS ---
Exam(s) XR PORTABLE CHEST AP EXAM: XR PORTABLE CHEST AP CLINICAL HISTORY: 2d cough, change to taste TECHNIQUE: 2D digital imaging was performed. COMPARISON: No exams were available for comparison FINDINGS: The lungs are suboptimally inflated. There are mild underlying fibrotic changes. There is questiona ble increased densities at the left lung base, infiltrate versus atelectasis. No effusion or overt p ulmonary edema. Heart size normal. Spinal stimulator leads. Degenerative changes in the spine and shoulders. IMPRESSION: Question of left lower lobe infiltrate versus atelectasis. DATA REPOSITORY: RADIATION DOSE DELIVERED:
[2021-04-29 21:15] LABS: Source Nasal/Nares
--- NOTE | 2021-04-29 21:22 | W.ED.GENAD ---
Discharge Plan Disposition Patient Disposition: HOME Condition: Improving Discharge Details Clinical Impression: Pneumonitis Primary Care Provider: Miley Baldwin ED Provider: Donis Tabor Home Meds and New Rx's Prescriptions: New amoxicillin-pot clavulanate 875-125 mg tablet 1 tab PO BID 9 Days Qty: 18 RF: 0 Continued pantoprazole 40 mg tablet,delayed release (DR/EC) 40 mg PO DAILY Qty: 30 RF: 0 gabapentin 300 mg capsule 300 mg PO TID RF: 0 losartan 50 mg tablet 50 mg PO DAILY RF: 0 meloxicam 7.5 mg tablet 7.5 mg PO BID RF: 0 metoprolol succinate 25 mg capsule,sprinkle,ER 24hr 25 mg PO DAILY RF: 0 pramipexole [Mirapex] 0.25 mg tablet 0.25 mg PO BID RF: 0 duloxetine [Cymbalta] 30 mg capsule,delayed release(DR/EC) 60 mg PO DAILY RF: 0 melatonin 10 mg capsule 10 mg PO HS PRNRF: 0 metformin 500 mg tablet 500 mg PO BID RF: 0 divalproex [Depakote ER] 250 mg tablet extended release 24 hr 250 mg PO DAILY RF: 0 propranolol 80 mg capsule,extended release 24 hr 80 mg PO DAILY RF: 0 pravastatin 10 MG tablet 20 mg PO DAILY RF: 0 escitalopram oxalate [Lexapro] 20 MG tablet 20 mg PO DAILY RF: 0 trazodone 50 MG tablet 50 mg PO HS RF: 0 sumatriptan succinate [Imitrex] 50 mg tablet 50 mg PO PRN PRN (Reason: headache) RF: 0 cholecalciferol (vitamin D3) 5,000 UNIT tablet 1 tab PO DAILY RF: 0 cyanocobalamin (vitamin B-12) 2,500 MCG tablet 1 tab PO DAILY RF: 0 naproxen [Naprosyn] 500 mg Tablet 500 mg PO BID PRNRF: 0 tramadol 50 mg tablet 50 mg PO BID PRN (Reason: pain) Qty: 10 RF: 0 erenumab-aooe 70 mg/mL Auto-Injector 70 mg SUBCUT QMONTH RF: 0 Discharge Instructions Instructions: Pneumonia (ED) Additional Instructions: Home to rest this evening. Please follow-up with [facility] for recheck in the next 5 to 7 days time. Take antibiotics as prescribed until finished. I recommend you take an [id number]-ycwndww probiotic once daily in the middle of the day while on this antibiotic. Return to the ER for any acute concerns. Medical Decision Making This is a 70-year-old female, with a history of diabetes, who presents with 2 days of cough, congestion, subjective fever and chills, malaise, and note of decreased smell. She was exposed to COVID-19 through her daughter. Patient has been immunized for COVID-19. She rushed to the ER oxygenating normally, speaking in full sentences, but with obvious cough. Differential diagnosis includes pneumonitis, pneumonia, bronchitis, dehydration. Patient IV access established, screening laboratories obtained, given fluid bolus and antitussive. Chest x-ray: Faint left basilar opacity. See formal report. Labs: White blood cell count of 11, hematocrit 43, platelets 200. Lactic acid 1.3. SARS-CoV-2 PCR negative. Chemistries. Reassuring Discussed with patient that her negative COVID-19 test is reassuring, there is evidence of developing pneumonia and I will place her on a course of Augmentin. We discussed that there is still a possibility of viral pneumonitis and the patient will follow up with her primary care physician at the [facility] for recheck. HPI General Mode of arrival: ambulatory. Date/Time Provider Initiated Documentation: 04/29/21 20:52. Limitations to Documentation: no limitations. Information obtained by: patient. History of Present Illness 70 year old F presents to the emergency department with the chief complaint of 2 days of cough, congestion, decreased smell, described as moderate, and is localized to the chest. Patient reports no radiation. Patient started experiencing this day(s) and it has been intermittent. No relieving factors improve symptom(s), No exacerbating factors reported . Patient notes cough, fever/chills, loss of appetite, malaise and weakness; denies chest pain, shortness of breath and syncope. Patient did receive the following treatments prior to arrival, none Related Data Home Medications Medication Instructions Recorded Confirmed escitalopram oxalate [Lexapro] 20 mg PO DAILY 08/24/13 10/19/20 pravastatin 20 mg PO DAILY 08/24/13 04/29/21 trazodone 50 mg PO HS 02/15/15 04/29/21 cholecalciferol (vitamin D3) 1 tab PO DAILY 03/12/15 04/29/21 cyanocobalamin (vitamin B-12) 1 tab PO DAILY 03/12/15 04/29/21 gabapentin 300 mg capsule 300 mg PO TID cap 04/26/19 04/29/21 losartan 50 mg tablet 50 mg PO DAILY 04/26/19 04/29/21 meloxicam 7.5 mg tablet 7.5 mg PO BID tab 04/26/19 10/19/20 metoprolol succinate 25 mg capsule 25 mg PO DAILY 04/26/19 04/29/21 sprinkle, ext. release 24 hr pramipexole 0.25 mg tablet 0.25 mg PO BID tab 04/26/19 04/29/21 sumatriptan succinate 50 mg tablet 50 mg PO PRN PRN tab 04/26/19 04/29/21 naproxen [Naprosyn] 500 mg PO BID PRN 07/01/19 04/29/21 tramadol 50 mg PO BID PRN #10 tab 05/23/20 10/19/20 divalproex 250 mg tablet,extended 250 mg PO DAILY tab 08/09/20 10/19/20 release 24 hr duloxetine 30 mg capsule,delayed 60 mg PO DAILY cap 08/09/20 10/19/20 release melatonin 10 mg capsule 10 mg PO HS PRN 08/09/20 04/29/21 metformin 500 mg tablet 500 mg PO BID 08/09/20 04/29/21 propranolol 80 mg capsule,24 80 mg PO DAILY 08/09/20 04/29/21 hr,extended release erenumab-aooe 70 mg SUBCUT QMONTH 10/03/20 10/19/20 pantoprazole 40 mg tablet,delayed 40 mg PO DAILY #30 tab 10/19/20 04/29/21 release amoxicillin-pot clavulanate 1 tab PO BID 9 Days #18 tab 04/29/21 Previous Rx's Medication Instructions Recorded tramadol 50 mg PO BID PRN #10 tab 05/23/20 pantoprazole 40 mg tablet,delayed 40 mg PO DAILY #30 tab 10/19/20 release amoxicillin-pot clavulanate 1 tab PO BID 9 Days #18 tab 04/29/21 Allergies Allergy/AdvReac Type Severity Reaction Status Date / Time acetaminophen [From Tylenol] Allergy Severe chest pain Unverified 04/29/21 21:04 aspirin Allergy Severe CHEST PAIN Unverified 10/19/20 09:32 General Stated Complaint: RespSymp KIMBERLY: 3 Review of Systems Narrative: Decreased smell. Positive sick contact with family member with Covid. Immunized against Covid. No vomiting. Denies shortness of breath. 8 systems reviewed and otherwise negative [facility] Active Problem List Dysphagia (Acute) Type 2 diabetes mellitus (Acute) Obesity (Chronic) Abnormal mammogram (Acute) Non compliance with medical treatment (Acute) Osteopenia of forearm (Acute) Vertigo (Acute) Memory impairment (Acute) Essential tremor (Acute) Balance problem (Acute) Pill esophagitis (Acute) Diverticulosis (Acute) FH: colon cancer (Acute) Closed trimalleolar fracture of right ankle (Acute 08/24/13) Medical History Accelerated essential hypertension Borderline diabetic Cardiac murmur Cervicalgia (08/24/14) -Left-sided. I still believe this is musculoskeletal. I still do not appreciate any evidence of infection. Colon polyp 08/06/2010 Complex regional pain syndrome i of left upper limb Depression Facial pain Fibromyalgia Frequent urination GERD (gastroesophageal reflux disease) History of colon polyps Hypercholesterolemia Hyperkalemia Insomnia Migraines Multinodular goiter AJNEE (obstructive sleep apnea) Osteoarthritis of right hip Pre-diabetes Restless leg syndrome Swelling, mass, or lump in head and neck Thyroid disorder Surgical History EGD - MAC (05/02/16) History of esophagogastroduodenoscopy (EGD) (~09/2020) Hx of foot surgery R Hx of total hip arthroplasty R Hx of total knee arthroplasty R x 2 Status post VNS (vagus nerve stimulator) placement Social History Smoking/Tobacco Use Status: Never Smoking risk assessment performed?: Yes Alcohol Intake: current Alcohol Intake frequency: holidays/special occasions only Alcohol type: hard liquor Drug use: Never Substance use type: does not use Current gender identity: female Do you feel safe at home: Yes Do you feel safe in your relationship?: Yes Exam Narrative Exam Narrative: GEN: awake, alert, oriented 3. Pleasant, well groomed, interactive. HEAD: Normocephalic, atraumatic ENT: Mucous membranes dry EYES: PERRL, EOMI NECK: Full ROM, no LOIDA, no menigismus CHEST/RESP: Nontender, clear to auscultation bilateral, no wheeze/rhonchi/rales, cough noted CARDIOVASCULAR: RRR, no murmur, rub sisac. 2+ Rad pulse bilateral ABDOMEN: Soft, nontender, no mass. +Bowel sounds EXT: Full ROM, no edema, no rash Neuro: Grossly normal neurologic exam, conversant, interactive. Psych: Speech fluent, thoughts congruent, affect normal Course Vital Signs Vital signs: Vital Signs Temperature 37.1 C 04/29/21 21:01 Pulse 92 H 04/29/21 21:01 Respiratory Rate 18 04/29/21 21:01 Blood Pressure 184/87 H 04/29/21 21:01 Pulse Oximetry 95 04/29/21 21:01 Temperature 37.1 C 04/29/21 21:01 Temperature Source Oral 04/29/21 21:01 Pulse 92 H 04/29/21 21:01 Respiratory Rate 18 04/29/21 21:01 Respiratory Effort Non-Labored 04/29/21 21:12 Respiratory Depth Normal 04/29/21 21:12 Blood Pressure 184/87 H 04/29/21 21:01 Pulse Oximetry 95 04/29/21 21:01 Pain Level 8 04/29/21 21:01 Lab/Test Results Lab/Test Results: Laboratory Tests Range/Units 04/29/21 21:10 COVID-19 Source Nasal/Nares
[2021-04-29] MEDS: guaiFENesin/CODEINE PHOSPHATE 10 ML CUP 5 ML PO (21:44)
[2021-04-29] MEDS: Acetaminophen 500 MG TAB 1000 MG PO (21:44)
[2021-04-29 21:55] LABS: Abs Immature Grans 0.05 10^3/uL (0.0-0.06); Absolute Eosinophil Count 0.39 10^3/uL (0.0-0.7); Absolute Monocyte Count 1.01 10^3/uL (0.1-0.8); Absolute Neutrophil Count 5.89 10^3/uL (1.2-6.7); Basophils % 0.4; Eosinophils % 3.5; HCT 43.6 % (36.0-46.0); HGB 14.3 g/dL (11.2-15.7); Immature Grans % 0.4; Lactate 1.3 mmol/L (0.6-1.4); Lymphocytes % 34.3; MCH 30.3 pg (27.0-33.0); MCHC 32.8 % (32.0-36.0); MCV 92.4 fL (80-95); Neutrophils % 52.4; Nucleated RBC 0 %; Platelet Count 200 10^3/uL (130-400); RBC 4.72 10^6/uL (3.93-5.22); RDW 13.2 % (11.7-14.6); RDW-SD 44.9 fL; WBC 11.24 10^3/uL (4.4-10.8)
--- NOTE | 2021-04-29 21:55 | DI.VRAD_ITS ---
PROCEDURE INFORMATION: Exam: XR Chest Exam date and time: 04/29/2021 9:06 PM Age: 70 years old Clinical indication: Patient HX: 2d cough, change to taste TECHNIQUE: Imaging protocol: XR of the chest. Views: 1 view. COMPARISON: CR CHEST 2 VIEWS PA,LAT 12/23/2017 4:23 PM FINDINGS: Lungs: Faint left basilar opacity Pleural spaces: Unremarkable. No pleural effusion. No pneumothorax. Heart/Mediastinum: Unremarkable. No cardiomegaly. Bones/joints: Unremarkable. IMPRESSION: Faintly basilar opacity could represent an infiltrate or atelectasis Dictated and Authenticated by: Arnulfo Hand MD. Ordering:MATTHEW Dykes MD
[2021-04-29] MEDS: Normal Saline 1,000 ML 1000 ML IV (21:56)
[2021-04-29 22:08] LABS: COVID-19 PCR Negative (Negative)
[2021-04-29 22:08] LABS: Absolute Basophil Count 0.04 10^3/uL (0.0-0.2); Absolute Lymphocyte Count 3.86 10^3/uL (1.2-3.4)
[2021-04-29 22:23] LABS: ALT 28 U/L (14-59); AST 17 U/L (15-37); Albumin 3.3 g/dL (3.4-5.0); Alkaline Phosphatase 73 U/L (46-116); Anion Gap 9.2 mmol/L (3-11); BUN 11 mg/dL (7-18); Bilirubin, Total 0.7 mg/dL (0.2-1.0); CO2 26.8 mmol/L (21.0-32.0); CREATININE 0.7 mg/dL (0.55-1.02); Calcium 8.7 mg/dL (8.5-10.1); Chloride 109 mmol/L (98-107); Glucose 140 mg/dL (74-106); Potassium 3.8 mmol/L (3.5-5.1); Sodium 145 mmol/L (136-145); Total Protein 7.5 g/dL (6.4-8.2)
[2021-04-29] MEDS: Amox. 875/Clav. 125, 2 TABS/BTL 1 TAB PO (23:07)
== END 2021-04-29 23:15 | disposition home or self-care (01) ==
PROVIDERS: Emergency Provider Emergency Medicine; PCP Physician Assistant Medical
DX: J18.9 Pneumonia, unspecified organism (principal); Z20.822 Contact with and (suspected) exposure to COVID-19; R43.8 Other disturbances of smell and taste
CPT/HCPCS: 36415; 80053; 87635; 96360; 99284; 71045; 83605; 85025

== ENCOUNTER 2021-06-18 17:39 | Outpatient (REF) | payer MEDICARE, SELFPAY | END 2021-06-18 17:40 | disposition home or self-care (01) | LOC: LBN 17:39 | PROVIDERS: PCP Physician Assistant Medical; Visit Provider Physician Assistant Medical ==

== ENCOUNTER 2021-06-19 04:16 | Outpatient (CLI) | payer MEDICARE, SELFPAY ==
[2021-06-19 12:30] LABS: Abs Immature Grans 0.02 10^3/uL (0.0-0.06); Absolute Basophil Count 0.05 10^3/uL (0.0-0.2); Absolute Eosinophil Count 0.35 10^3/uL (0.0-0.7); Absolute Lymphocyte Count 3.66 10^3/uL (1.2-3.4); Absolute Monocyte Count 0.47 10^3/uL (0.1-0.8); Absolute Neutrophil Count 3.45 10^3/uL (1.2-6.7); Basophils % 0.6; Eosinophils % 4.4; HCT 44.5 % (36.0-46.0); HGB 14.2 g/dL (11.2-15.7); Immature Grans % 0.3; Lymphocytes % 45.8; MCH 29.7 pg (27.0-33.0); MCHC 31.9 % (32.0-36.0); MCV 93.1 fL (80-95); MPV 9.3 fL (8.0-11.0); Monocytes % 5.9; Nucleated RBC 0 %; Platelet Count 219 10^3/uL (130-400); RBC 4.78 10^6/uL (3.93-5.22); RDW 12.8 % (11.7-14.6); RDW-SD 44.5 fL
[2021-06-19 12:43] LABS: Hemoglobin A1C 6.4 % (<5.7)
[2021-06-19 14:03] LABS: COMMENT (LAB VIEW ONLY) 164.02 mg/dL; Microalb ug/mg Crea 10.6 ug/mg Cr
[2021-06-19 14:36] LABS: ALT 52 U/L (14-59); AST 31 U/L (15-37); Albumin 3.8 g/dL (3.4-5.0); Alkaline Phosphatase 74 U/L (46-116); Anion Gap 9.3 mmol/L (3-11); BUN 14 mg/dL (7-18); Bilirubin, Total 0.9 mg/dL (0.2-1.0); CO2 28.7 mmol/L (21.0-32.0); CREATININE 0.8 mg/dL (0.55-1.02); Calcium 8.9 mg/dL (8.5-10.1); Calculated LDL 156 mg/dL (<100); Chloride 104 mmol/L (98-107); Cholesterol 239 mg/dL (<200); Glucose 137 mg/dL (74-106); HDL Cholesterol 58 mg/dL (40-60); Magnesium 1.8 mg/dL (1.8-2.4); Potassium 4.5 mmol/L (3.5-5.1); Sodium 142 mmol/L (136-145); TSH 2.34 uIU/mL (0.36-3.74); Total Protein 7.5 g/dL (6.4-8.2); Triglyceride 128 mg/dL (<150); Vitamin B12 502 pg/mL (193-986)
[2021-06-19 14:47] LABS: C-Reactive Protein 0.42 mg/dL (0.0-0.3)
[2021-06-20 00:51] LABS: Vitamin D 25 Total 31.1 ng/mL (30-100)
== END 2021-06-19 04:17 | disposition home or self-care (01) ==
LOC: LBO 04:16
PROVIDERS: PCP Physician Assistant Medical; Visit Provider Physician Assistant Medical
DX: E11.9 Type 2 diabetes mellitus without complications (principal); R41.3 Other amnesia; E78.00 Pure hypercholesterolemia, unspecified
CPT/HCPCS: 36415; 80053; 80061; 82306; 82043; 82570; 82607; 83036; 83735; 84443; 85025; 86140

== ENCOUNTER 2021-06-19 18:57 | Outpatient (CLI) | payer MEDICARE, SELFPAY | END 2021-06-19 18:58 | disposition home or self-care (01) | LOC: LBO 18:58 | PROVIDERS: PCP Physician Assistant Medical; Visit Provider Physician Assistant Medical ==

== ENCOUNTER 2021-09-04 21:44 | Inpatient (IN) | payer MEDICARE, SELFPAY ==
[2021-09-04] VITALS (17 sets, daily range): BP systolic 134–170; BP diastolic 62–124; PULSE 61–71; RESP 12–25; TEMP 36.5; O2SAT 93–98
--- NOTE | 2021-09-04 22:00 | DI.CT_ITS ---
Exam(s) CT BRAIN NECK CTA CLINICAL HISTORY: AMS, concern for ICH v ischemic stroke. TECHNIQUE: Imaging Protocol: Axial CT angiography was performed with multi-slice acquisition and mu lti-planar and/or 3D reconstructions. CONTRAST MATERIAL: Intravenous: Omnipaque 350 Contrast volume:85 mL COMPARISON: No exams were available for comparison FINDINGS: CT Head W/O and W: Ventricles and Extra axial spaces: Normal in size and morphology for the patient's age. Hemorrhage: None. Cerebral parenchyma: There is no evidence of an acute territorial infarct. There are areas of decrea sed attenuation in the white matter consistent with small vessel ischemic disease. Midline shift: None. Brainstem/Cerebellum: Normal. Calvarium: Normal. Visualized Paranasal sinuses/Mastoids: Clear. Soft Tissues: Unremarkable. Enhancement: Unremarkable. CTA Neck W:The CT angiography of the neck is of poor diagnostic quality. This is in large part due to poor opacification of the vessels.There is also artifact from the patient's cervical spine. Common Carotid: Right: No dissection, occlusion or significant stenosis. Left: No dissection, occlusion or significant stenosis. External Carotid: Right: No occlusion or significant stenosis. Left: No occlusion or significant stenosis. Internal Carotid: Right: No dissection, occlusion or significant stenosis. There is atherosclerosis of the proximal ri ght internal carotid artery. Left: No dissection, occlusion or significant stenosis. There is atherosclerosis of the proximal lef t internal carotid artery. Vertebral Artery:There is poor visualization of the proximal and mid vertebral arteries, particularly the left. The left appears to be smaller in size compared to the right. Lung Apices: Normal. Bones: Within normal limits for the patient's age. Soft Tissues: Normal. Thyroid gland: There is a 3.9 x 3.3 cm hypodense mass in the left neck to the left of the trachea. It displaces the trachea to the right. Differential considerations include cervical adenopathy. The pos sibility of a thyroid mass should also be considered. CTA Brain W: Internal Carotid Arteries: Atherosclerosis. No aneurysm, occlusion or significant stenosis. Anterior Cerebral Arteries: Right: No aneurysm, occlusion or significant stenosis. Left: No aneurysm, occlusion or significant stenosis. Middle Cerebral Arteries: Right: No aneurysm, occlusion or significant stenosis. Left: No aneurysm, occlusion or significant stenosis. Posterior Cerebral Arteries: Right: No aneurysm, occlusion or significant stenosis. Left: No aneurysm, occlusion or significant stenosis. Vertebral Arteries: Right: No aneurysm, occlusion or significant stenosis. Left: No aneurysm, occlusion or significant stenosis. Basilar Artery: No aneurysm, occlusion or significant stenosis. IMPRESSION: 1. Suboptimal CT angiography of the neck. This is due in part to metallic artifact in the cervical sp ine and in part to poor opacification. No definite occlusion or significant stenosis on the CT angiog stephan of the neck. If there is continued clinical concern a repeat examination should be considered. 2. No acute intracranial process. 3. No large vessel occlusion or significant stenosis on the CT angiography of the head. 4. Left neck mass. This may arise from the thyroid. A thyroid ultrasound is recommended for further e valuation. Cervical adenopathy cannot be excluded. RADIATION DOSE DELIVERED: 2,003mGy.cm Total DLP 2,003mGy.cm Total DLP 2,003mGy.cm Total DLP DATA REPOSITORY: All CT scans at this facility are submitted to the National Radiology Data Registry (NRDR) Dose Index Registry (DIR) with the [employer] ([employer]). RADIATION OPTIMIZATION: All CT scans at this facility use at least one of these dose optimization te chniques: automated exposure control; mA and/or kV adjustment per patient size (includes targeted exa ms where dose is matched to clinical indication); or iterative reconstruction.
--- NOTE | 2021-09-04 22:00 | DI.RAD_ITS ---
Exam(s) XR PORTABLE CHEST AP EXAM: XR PORTABLE CHEST AP CLINICAL HISTORY: AMS TECHNIQUE: 2D digital imaging was performed of the chest. One image was obtained. An AP view was ob tained. COMPARISON: CR,XR XR PORTABLE CHEST AP from 04/29/2021 FINDINGS: MEDIASTINUM: Normal. HEART: Normal. PULMONARY VASCULATURE: Normal. LUNGS: Clear. PLEURAL SPACE: No pleural effusion or pneumothorax. BONE:Within normal limits for the patient's age. OTHER FINDINGS:Normal. IMPRESSION: No acute pulmonary findings. DATA REPOSITORY: RADIATION DOSE DELIVERED:
--- NOTE | 2021-09-04 22:24 | ED.GENADUL_ITS ---
Discharge Plan Disposition Patient Disposition: [facility] INPATIENT Condition: Improving Discharge Details Chief Complaint: Headache Clinical Impression: Speech and language deficits, Headache, Altered mental state Primary Care Provider: Miley Baldwin ED Provider: Rashi Antonio [place] Meds and New Rx's Prescriptions: No Action pantoprazole 40 mg tablet,delayed release (DR/EC) 40 mg PO DAILY Qty: 30 0RF gabapentin 300 mg capsule 600 mg PO HS 0RF Rx Instructions: 1 in am, 1 at noon, 3 at bedtime losartan 50 mg tablet 50 mg PO DAILY 0RF meloxicam 7.5 mg tablet 7.5 mg PO BID 0RF metoprolol succinate 25 mg capsule,sprinkle,ER 24hr 25 mg PO DAILY 0RF pramipexole [Mirapex] 0.25 mg tablet 0.25 mg PO BID 0RF Label Comments: Pt states she doesn't think she is on this anymore. duloxetine [Cymbalta] 30 mg capsule,delayed release(DR/EC) 60 mg PO DAILY 0RF melatonin 10 mg capsule 10 mg PO HS PRN0RF metformin 500 mg tablet 500 mg PO BID 0RF divalproex [Depakote ER] 250 mg tablet extended release 24 hr 250 mg PO DAILY 0RF propranolol 80 mg capsule,extended release 24 hr 80 mg PO DAILY 0RF pravastatin 10 MG tablet 20 mg PO DAILY 0RF Label Comments: pt states she is having problem getting her meds. 02/15/15 rl escitalopram oxalate [Lexapro] 20 MG tablet 20 mg PO DAILY 0RF trazodone 50 MG tablet 50 mg PO HS 0RF Label Comments: pt states no longer takes sumatriptan succinate [Imitrex] 50 mg tablet 50 mg PO PRN PRN (Reason: headache) 0RF cholecalciferol (vitamin D3) 5,000 UNIT tablet 1 tab PO DAILY 0RF cyanocobalamin (vitamin B-12) 2,500 MCG tablet 1 tab PO DAILY 0RF naproxen [Naprosyn] 500 mg Tablet 500 mg PO BID PRN0RF omeprazole 20 mg capsule,delayed release(DR/EC) 20 mg PO HS 0RF tramadol 50 mg tablet 50 mg PO BID PRN (Reason: pain) Qty: 10 0RF erenumab-aooe 70 mg/mL Auto-Injector 70 mg SUBCUT QMONTH 0RF Medical Decision Making 71-year-old female history of vertigo, migraines, diabetes, presents with 2 days of gradual onset headache left-sided nature, noted to have confused speech today on the phone and in person when her daughter went to visit her, was last seen normal on Thursday, afebrile nontoxic however appears uncomfortable is wearing sunglasses due to photophobia, moving all extremities, does have confused expressive speech, appears to have tongue deviation to the right. Concern for intracranial hemorrhage versus ischemic stroke versus cerebral edema versus atypical migraine versus less likely meningitis versus must consider encephalitis or encephalopathy related to metabolic derangement or medications or less likely trauma. Screening labs imaging admission likely. Trial of analg esia Resting comfortably, exam improved after analgesia, improved speech coherence, still has mild headache, no focal deficits, CT CTA head neck unremarkable. Likely atypical migraine however given age and severity of symptomatology presentation as well as unresolved completely, will admit for neurology assessment and MRI. Patient does have a spinal nerve stimulator, questionable whether this MRI safe or not. HPI General Date/Time Provider Initiated Documentation: 09/04/21 21:45 . HPI Narrative: 71-year-old female history of diabetes vertigo past history of migraine headaches presents with altered mental status headache over the past several days and confused speech, family found her to be confused, not making sense with her words, last seen normal on Thursday by family. Patient endorses is a headache that began 2 days ago gradual in nature left-sided. Denies blood thin ner use. Denies history of stroke. Related Data Home Medications Medication Instructions Recorded Confirmed escitalopram oxalate 20 mg tablet 20 mg PO DAILY 08/24/13 09/04/21 (Lexapro) pravastatin 10 mg tablet 20 mg PO DAILY 08/24/13 04/29/21 trazodone 50 mg tablet 50 mg PO HS 02/15/15 09/04/21 cholecalciferol (vitamin D3) 125 1 tab PO DAILY 03/12/15 09/04/21 mcg (5,000 unit) tablet cyanocobalamin (vitamin B-12) 1 tab PO DAILY 03/12/15 04/29/21 2,500 mcg tablet gabapentin 300 mg capsule 600 mg PO HS cap 04/26/19 09/04/21 losartan 50 mg tablet 50 mg PO DAILY 04/26/19 09/04/21 meloxicam 7.5 mg tablet 7.5 mg PO BID tab 04/26/19 10/19/20 metoprolol succinate 25 mg capsule 25 mg PO DAILY 04/26/19 09/04/21 sprinkle, ext. release 24 hr pramipexole 0.25 mg tablet 0.25 mg PO BID tab 04/26/19 04/29/21 (Mirapex) sumatriptan succinate 50 mg tablet 50 mg PO PRN PRN tab 04/26/19 04/29/21 (Imitrex) naproxen 500 mg tablet (Naprosyn) 500 mg PO BID PRN 07/01/19 09/04/21 tramadol 50 mg tablet 50 mg PO BID PRN #10 tab 05/23/20 09/04/21 divalproex 250 mg tablet,extended 250 mg PO DAILY tab 08/09/20 10/19/20 release 24 hr (Depakote ER) duloxetine 30 mg capsule,delayed 60 mg PO DAILY cap 08/09/20 09/04/21 release (Cymbalta) melatonin 10 mg capsule 10 mg PO HS PRN 08/09/20 09/04/21 metformin 500 mg tablet 500 mg PO BID 08/09/20 04/29/21 propranolol 80 mg capsule,24 80 mg PO DAILY 08/09/20 09/04/21 hr,extended release erenumab-aooe 70 mg/mL 70 mg SUBCUT QMONTH 10/03/20 10/19/20 subcutaneous auto-injector pantoprazole 40 mg tablet,delayed 40 mg PO DAILY #30 tab 10/19/20 09/04/21 release omeprazole 20 mg capsule,delayed 20 mg PO HS 09/04/21 09/04/21 release Previous Rx's Medication Instructions Recorded tramadol 50 mg tablet 50 mg PO BID PRN #10 tab 05/23/20 pantoprazole 40 mg tablet,delayed 40 mg PO DAILY #30 tab 10/19/20 release Allergies Allergy/AdvReac Type Severity Reaction Status Date / Time acetaminophen [From Tylenol] Allergy Severe chest pain Unverified 09/04/21 22:02 aspirin Allergy Severe CHEST PAIN Unverified 09/04/21 22:02 General Stated Complaint: Headache KIMBERLY: 3 Review of Systems Narrative: Review of Systems Constitutional: negative Eyes: negative ENT: negative Cardiovascular: negative Respiratory: negative Gastrointestinal: negative : negative Musculoskeletal: negative Skin: negative Neurologic: Headache altered speech Psych: negative PFSH All Active Problems (Updated 09/04/21 @ 23:24 by Rashi Antonio MD) Pneumonitis (Acute) Speech and language deficits (Acute) Headache (Acute) Altered mental state (Acute) Dysphagia (Acute) Type 2 diabetes mellitus (Acute) Obesity (Chronic) Abnormal mammogram (Acute) Non compliance with medical treatment (Acute) Osteopenia of forearm (Acute) Vertigo (Acute) Memory impairment (Acute) Essential tremor (Acute) Balance problem (Acute) Pill esophagitis (Acute) Diverticulosis (Acute) FH: colon cancer (Acute) Closed trimalleolar fracture of right ankle (Acute 08/24/13) Active Problem List Dysphagia (Acute) Type 2 diabetes mellitus (Acute) Obesity (Chronic) Abnormal mammogram (Acute) Non compliance with medical treatment (Acute) Osteopenia of forearm (Acute) Vertigo (Acute) Memory impairment (Acute) Essential tremor (Acute) Balance problem (Acute) Pill esophagitis (Acute) Diverticulosis (Acute) FH: colon cancer (Acute) Closed trimalleolar fracture of right ankle (Acute 08/24/13) Medical History Accelerated essential hypertension Borderline diabetic Cardiac murmur Cervicalgia (08/24/14) -Left-sided. I still believe this is musculoskeletal. I still do not appreciate any evidence of infection. Colon polyp 08/06/2010 Complex regional pain syndrome i of left upper limb Depression Facial pain Fibromyalgia Frequent urination GERD (gastroesophageal reflux disease) History of colon polyps Hypercholesterolemia Hyperkalemia Insomnia Migraines Multinodular goiter JANEE (obstructive sleep apnea) Osteoarthritis of right hip Pre-diabetes Restless leg syndrome Swelling, mass, or lump in head and neck Thyroid disorder Surgical History EGD - MAC (05/02/16) History of esophagogastroduodenoscopy (EGD) (~09/2020) Hx of foot surgery R Hx of total hip arthroplasty R Hx of total knee arthroplasty R x 2 Status post VNS (vagus nerve stimulator) placement Social History Smoking/Tobacco Use Status: Never Smoking risk assessment performed?: Yes Alcohol Intake: current Alcohol Intake frequency: holidays/special occasions only Alcohol type: hard liquor Drug use: Never Substance use type: does not use Current gender identity: female Do you feel safe at home: Yes Do you feel safe in your relationship?: Yes Exam Narrative Exam Narrative: Physical Examination General: alert, awake, cooperative, appears uncomfortable appears to have photophobia is wearing sunglasses HEENT: normocephalic, atraumatic; PERRL, EOM intact, conjunctiva normal; no nasal discharge; moist mucous membranes, oral and pharyngeal mucosa normal, tolerating secretions Neck: supple, trachea midline; full ROM Chest: normal to inspection Respiratory: normal respiratory effort, speaking in full sentences, clear to auscultation, no wheezing, rales or rhonchi Cardiac: regular rate, regular rhythm, S1S2 intact, no murmurs rubs or gallops GI: abdomen soft, non-tender, non-distended; no palpable mass or hepatosplenomegaly Skin: no lesions, rashes or trauma appreciated Neuro: Alert to self, confused speech possible mild expressive aphasia, patient appears to have deviation of tongue to the right, extraocular motions intact, no facial droop, patient does have ataxia with ambulation, 5/5 strength upper and l ower extremities bilaterally Psych: Appropriate mood and affect Course Vital Signs Vital signs: Vital Signs Temperature 36.5 C 09/04/21 21:51 Pulse 70 09/04/21 21:51 Respiratory Rate 14 09/04/21 21:51 Blood Pressure 170/71 H 09/04/21 21:51 Pulse Oximetry 98 09/04/21 21:51 Temperature 36.5 C 09/04/21 21:51 Temperature Source Temporal Artery Scan 09/04/21 21:51 Pulse 70 09/04/21 21:51 Respiratory Rate 14 09/04/21 21:51 Respiratory Effort Non-Labored 09/04/21 21:54 Blood Pressure 170/71 H 09/04/21 21:51 Blood Pressure Position Sitting 09/04/21 21:51 Pulse Oximetry 98 09/04/21 21:51 Oxygen Delivery Method Room Air 09/04/21 21:51 Oxygen Flow Rate 0 09/04/21 21:51 Pain Level 8 09/04/21 21:54
[2021-09-04] MEDS: Omnipaque 350 MG/ML 100 ML BTL IJ (22:36)
[2021-09-04 22:53] LABS: Abs Immature Grans 0.03 10^3/uL (0.0-0.06); Absolute Basophil Count 0.05 10^3/uL (0.0-0.2); Absolute Lymphocyte Count 4.33 10^3/uL (1.2-3.4); Absolute Monocyte Count 0.75 10^3/uL (0.1-0.8); Basophils % 0.5; Eosinophils % 4.2; HCT 40.1 % (36.0-46.0); HGB 13.3 g/dL (11.2-15.7); Immature Grans % 0.3; Lymphocytes % 45.3; MCH 30.4 pg (27.0-33.0); MCHC 33.2 % (32.0-36.0); MCV 91.6 fL (80-95); MPV 9.4 fL (8.0-11.0); Monocytes % 7.8; Neutrophils % 41.9; Nucleated RBC 0 %; Platelet Count 221 10^3/uL (130-400); RBC 4.38 10^6/uL (3.93-5.22); RDW 12.4 % (11.7-14.6); RDW-SD 42.1 fL; WBC 9.56 10^3/uL (4.4-10.8)
[2021-09-04] MEDS: MORPHine 4 MG/ML SYR 2 MG IVP (23:02)
[2021-09-04] MEDS: Ondansetron 4 MG/2 ML VIAL IVP (23:02)
--- NOTE | 2021-09-04 23:08 | DI.VRAD_ITS ---
PROCEDURE INFORMATION: Exam: XR Chest Exam date and time: 09/04/2021 22:25 Age: 71 years old Clinical indication: Other: AMS TECHNIQUE: Imaging protocol: XR of the chest. Views: 1 view. COMPARISON: XR PORTABLE CHEST AP 04/29/2021 21:22 FINDINGS: Lungs: Low lung volumes. No airspace consolidation. Pleural spaces: No pleural effusion. No pneumothorax. Heart/Mediastinum: No cardiomegaly. Bones/joints: No acute fracture. IMPRESSION: Negative portable chest. Dictated and Authenticated by: Jelly King MD. Ordering:KACY Markhma MD
--- NOTE | 2021-09-04 23:08 | DI.VRAD_ITS ---
PROCEDURE INFORMATION: Exam: CT Head Without And With Contrast Exam date and time: 09/04/2021 22:10 Age: 71 years old Clinical indication: Other: AMS, concern for ich v ischemic stroke TECHNIQUE: Imaging protocol: Computed tomography of the head without and with intravenous contrast. 3D rendering (Not supervised by radiologist): MIP and/or 3D reconstructed images were created by the technologist. Contrast material: 350; Contrast volume: 85 ml; Contrast route: INTRAVENOUS (IV); COMPARISON: US SOFT TISSUE HEAD OR NECK 05/24/2019 13:46 FINDINGS: Brain: Atrophy and chronic appearing white matter changes. No edema or hemorrhage. No intracranial mass. No worrisome intracranial enhancement. 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 Cerebral ventricles: No ventriculomegaly. Paranasal sinuses: Minor mucosal thickening in the paranasal sinuses. Mastoid air cells: Visualized mastoid air cells are well aerated. Bones/joints: Unremarkable. No acute fracture. Soft tissues: Unremarkable. IMPRESSION: No acute intracranial pathology. Dictated and Authenticated by: Jelly King MD. Ordering:KACY Markham MD
[2021-09-04 23:09] LABS: PTT Activated 23.6 sec (21.0-27.5)
[2021-09-04 23:12] LABS: ALT 32 U/L (14-59); AST 18 U/L (15-37); Albumin 3.7 g/dL (3.4-5.0); Alkaline Phosphatase 77 U/L (46-116); Anion Gap 6.7 mmol/L (3-11); BUN 13 mg/dL (7-18); Bilirubin, Total 0.6 mg/dL (0.2-1.0); CO2 26.3 mmol/L (21.0-32.0); CREATININE 0.7 mg/dL (0.55-1.02); Calcium 8.6 mg/dL (8.5-10.1); Chloride 102 mmol/L (98-107); ETHANOL BLOOD < 3.0 mg/dL (<10); Glucose 155 mg/dL (74-106); Potassium 4.1 mmol/L (3.5-5.1); Sodium 135 mmol/L (136-145); Total Protein 7.4 g/dL (6.4-8.2); Troponin I < 50 ng/L (<or=60)
--- NOTE | 2021-09-04 23:54 | W.PM.HP.N ---
Date of service: 09/04/21 Time of Service: 23:54 Assessment and Plan Assessment and plan (1) Dysarthria: Status: Acute Assessment and plan: This is a 71 yo female with a history of severe migraine and diabetes who presents with dysarthria and headache. He CT imaging was negative for a large acute stroke, however given her symptoms this was the concern. It does seem that this may also be a migraine with aura as she has improvement with migraine treatment, however she will be watched and assess for requiring further work up such as an MRI, echo, etc. She has a nerve stimulator so MRI compatibility of this will need to be assessed. She is out of the window for consideration of tPA. 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: Status: Acute Assessment and plan: Treatment as above - consder neurology consultation to assist in currect care and for future care as she no longer has a neurologist (5) Status post insertion of nerve stimulator: Status: Acute Assessment and plan: Family working on finding out whether it is MRI compatible or not (6) Hyperglycemia: Status: Acute Assessment and plan: - SSI (7) Fibromyalgia: (8) Hyperlipidemia: Status: Acute Assessment and plan: Pravastatin changed to atorvastatin in case of CVA History of Present Illness Narrative: This is a 71 yo female with a history of severe migraines on Erenumab, diabetes and presence of a spinal nerve stimulator for fibromyalgia who presented to the ED after a few days or headache and confused speech. Her daughter spoke with her on the phone and then subsequently visited her where she noted confused speech that prompted her ED visit. Last known normal day was Thursday. She is also experiencing photophobia. Her head imaging is negative for an acute process but did find evidence of an old stroke. I was called for admission due to concern for an acute CVA. In the emergency department she responded favourably to analgesia raising a question of migrain with aura causing her speech impairment. Per family report the spinal nerve stimulator is not very old, but whether it is MRI compatible is unknown at the moment, however her family is working on getting the paperwork for it. On my assessment, she continues to have headache but after treatment for this her speech has normalized and she seems to be mentating appropriately. She continues to have photophobia. There is no muscle weakness. She tells me that she stopped taking her Erenumab a few months ago and is wondering if that is what brought this migraine on. She also no longer has a neurologist as they [place] of [place] and is looking to establish with a provider here. Review of Systems All systems reviewed & are unremarkable except as noted in HPI and below PFSH All Active Problems (Updated 09/05/21 @ 00:12 by Jeannie Aquino MD) Hyperlipidemia (Acute) Hyperglycemia (Acute) Status post insertion of nerve stimulator (Acute) Migraine aura occurring with and without headache (Acute) Dysarthria (Acute) Speech and language deficits (Acute) Headache (Acute) Altered mental state (Acute) Dysphagia (Acute) Type 2 diabetes mellitus (Acute) Obesity (Chronic) Abnormal mammogram (Acute) Non compliance with medical treatment (Acute) Osteopenia of forearm (Acute) Vertigo (Acute) Memory impairment (Acute) Essential tremor (Acute) Balance problem (Acute) Pill esophagitis (Acute) Diverticulosis (Acute) FH: colon cancer (Acute) Closed trimalleolar fracture of right ankle (Acute 08/24/13) Medical History (Updated 09/05/21 @ 00:12 by Jeannie Aquino MD) Accelerated essential hypertension Borderline diabetic Cardiac murmur Cervicalgia (08/24/14) -Left-sided. I still believe this is musculoskeletal. I still do not appreciate any evidence of infection. Colon polyp 08/06/2010 Complex regional pain syndrome i of left upper limb Depression Facial pain Fibromyalgia Frequent urination GERD (gastroesophageal reflux disease) History of colon polyps Hypercholesterolemia Hyperkalemia Insomnia Migraines Multinodular goiter JANEE (obstructive sleep apnea) Osteoarthritis of right hip Pneumonitis Pre-diabetes Restless leg syndrome Swelling, mass, or lump in head and neck Thyroid disorder Surgical History EGD - MAC (05/02/16) History of esophagogastroduodenoscopy (EGD) (~09/2020) Hx of foot surgery R Hx of total hip arthroplasty R Hx of total knee arthroplasty R x 2 Status post VNS (vagus nerve stimulator) placement Social History Smoking/Tobacco Use Status: Never Smoking risk assessment performed?: Yes Alcohol Intake: current Alcohol Intake frequency: holidays/special occasions only Alcohol type: hard liquor Drug use: Never Substance use type: does not use Current gender identity: female Do you feel safe at home: Yes Do you feel safe in your relationship?: Yes Meds Allergies and Home Medications Allergies Allergy/AdvReac Type Severity Reaction Status Date / Time acetaminophen [From Tylenol] Allergy Severe chest pain Unverified 09/04/21 22:02 aspirin Allergy Severe CHEST PAIN Unverified 09/04/21 22:02 Home Medications Medication Instructions Recorded Confirmed Type escitalopram oxalate 20 mg tablet 20 mg PO DAILY 08/24/13 09/04/21 History (Lexapro) pravastatin 10 mg tablet 20 mg PO DAILY 08/24/13 04/29/21 History trazodone 50 mg tablet 50 mg PO HS 02/15/15 09/04/21 History cholecalciferol (vitamin D3) 125 1 tab PO DAILY 03/12/15 09/04/21 History mcg (5,000 unit) tablet cyanocobalamin (vitamin B-12) 1 tab PO DAILY 03/12/15 04/29/21 History 2,500 mcg tablet gabapentin 300 mg capsule 600 mg PO HS cap 04/26/19 09/04/21 History losartan 50 mg tablet 50 mg PO DAILY 04/26/19 09/04/21 History meloxicam 7.5 mg tablet 7.5 mg PO BID tab 04/26/19 10/19/20 History metoprolol succinate 25 mg capsule 25 mg PO DAILY 04/26/19 09/04/21 History sprinkle, ext. release 24 hr pramipexole 0.25 mg tablet 0.25 mg PO BID tab 04/26/19 04/29/21 History (Mirapex) sumatriptan succinate 50 mg tablet 50 mg PO PRN PRN tab 04/26/19 04/29/21 History (Imitrex) naproxen 500 mg tablet (Naprosyn) 500 mg PO BID PRN 07/01/19 09/04/21 History tramadol 50 mg tablet 50 mg PO BID PRN #10 tab 05/23/20 09/04/21 Rx divalproex 250 mg tablet,extended 250 mg PO DAILY tab 08/09/20 10/19/20 History release 24 hr (Depakote ER) duloxetine 30 mg capsule,delayed 60 mg PO DAILY cap 08/09/20 09/04/21 History release (Cymbalta) melatonin 10 mg capsule 10 mg PO HS PRN 08/09/20 09/04/21 History metformin 500 mg tablet 500 mg PO BID 08/09/20 04/29/21 History propranolol 80 mg capsule,24 80 mg PO DAILY 08/09/20 09/04/21 History hr,extended release erenumab-aooe 70 mg/mL 70 mg SUBCUT QMONTH 10/03/20 10/19/20 History subcutaneous auto-injector pantoprazole 40 mg tablet,delayed 40 mg PO DAILY #30 tab 10/19/20 09/04/21 Rx release omeprazole 20 mg capsule,delayed 20 mg PO HS 09/04/21 09/04/21 History release Exam Narrative Exam Narrative: Gen: NAD, normal respiratory effort, well-nourished HENT: PERRL, moist oral mucosa, squinting eyes and photophobic, EOM normal Chest: No respiratory distress, normal appearance of chest, clear to auscultation bilaterally, no crackles or wheezes, normal inspiratory effort Heart: regular rate and rhythym, no murmurs, rubs or gallops Abdomen: Non-distended, soft, non tender Extremities: No clubbing, edema, cyanosis, rashes Neuro: AAOx3 , non focal, 5/5 muscle strength in bilateral legs and arms, normal sensation Psych: cooperative, appropriate mental affect Results Labs Result diagrams: 09/05/21 06:50 09/05/21 06:50 Labs: Laboratory Results - last 24 hr 09/04/21 09/04/21 09/04/21 22:45 22:45 22:45 WBC 9.56 RBC 4.38 Hgb 13.3 Hct 40.1 MCV 91.6 MCH 30.4 MCHC 33.2 RDW 12.4 Plt Count 221 MPV 9.4 Immature Gran % 0.3 Neutrophils % 41.9 Lymphocytes % 45.3 Monocytes % 7.8 Eosinophils % 4.2 Basophils % 0.5 Nucleated RBC % 0 Absolute Neutrophils 4.00 Absolute Lymphocytes 4.33 H Absolute Monocytes 0.75 Absolute Eosinophils 0.40 Absolute Basophils 0.05 PT 10.0 INR 1.0 APTT 23.6 Sodium 135 L Potassium 4.1 Chloride 102 Carbon Dioxide 26.3 Anion Gap 6.7 BUN 13 Creatinine 0.7 Estimated GFR/1.73 m2 >= 60.00 Glucose 155 H Calcium 8.6 Magnesium 2.0 Total Bilirubin 0.6 AST 18 ALT 32 Alkaline Phosphatase 77 Troponin I < 50 Total Protein 7.4 Albumin 3.7 Ethyl Alcohol < 3.0 Last Vital Signs Temp 36.5 C 09/04/21 21:51 Pulse 61 09/04/21 23:00 Resp 14 09/04/21 23:10 BP 145/62 H 09/04/21 23:00 Pulse Ox 96 09/04/21 23:10
[2021-09-05] VITALS (17 sets, daily range): BP systolic 114–179; BP diastolic 61–89; PULSE 57–70; RESP 12–24; TEMP 36.4–37.2; O2SAT 94–98
--- NOTE | 2021-09-05 | DI.US_ITS ---
APPROVED REPORT EXAM: Comprehensive 2D, Doppler, and color-flow Echocardiogram Patient Location: In-Patient Room/Bed: [address] Worker: Zahraa Bennett RDCS (AE) Indications: Concern for TIA/CVA Other Information Study Quality: Adequate Conclusion Normal left ventricular wall thickness and chamber size. Estimated ejection fraction is 55%. Wall m otion is normal Normal right ventricular size and systolic function Both atria are normal in size Aortic valve is sclerotic and trileaflet without stenosis or regurgitation Normal mitral valve with trace to mild regurgitation Normal tricuspid valve with trace regurgitation. Right ventricular systolic pressure could not be es timated Wall motion Left Ventricle The left ventricle is normal size. . The left ventricular systolic function is normal. The left ventr icular ejection fraction is within the normal range. There is normal left ventricular wall thickness. There is normal LV segmental wall motion. There is no ventricular septal defect visualized. LVEF is 55%. Right Ventricle The right ventricle is normal size. The right ventricular systolic function is normal. Atria The left atrium size is normal. The right atrium size is normal. The interatrial septum is intact wit h no evidence for an atrial septal defect. Aortic Valve The Aortic valve is sclerotic. Aortic valve is trileaflet. There is no aortic valvular stenosis. No a ortic regurgitation is present. Mitral Valve The mitral valve is normal in structure. No evidence of mitral valve stenosis. Trace to mild mitral r egurgitation. Tricuspid Valve The tricuspid valve is normal in structure. There is no tricuspid valve stenosis. Trace tricuspid reg urgitation. Unable to assess PA pressure. Pulmonic Valve The pulmonary valve is normal in structure. There is no pulmonic valvular stenosis. There is no pulmo lisa valvular regurgitation. Great Vessels The aortic root is normal in size. The ascending aorta is normal in size. Aortic arch is normal in ca liber. IVC is normal in size and collapses >50% with inspiration. Pericardium There is no pericardial effusion. 2D Dimensions IVSD d PLAX 0.87 cm F: 0.6-1.0 LV Vol A2C d MOD 85.7 mL LVPW d PLAX 0.88 cm F: 0.6 - 1.0 LV Vol A4C d MOD 74.6 mL LVID d PLAX 4.29 cm F: 3.8 - 5.2 LA vol/ BSA A2C s A-L 20.3 mL/m2 LVDs 3.20 cm F: 2.2 - 3.5 LA vol/ BSA A4C s A-L 13.9 mL/m2 Ao Root d 2.53 cm F: 2.7 - 3.3 LA Vol/ BSA Biplane s A-L 17.8 mL/m2 RA Area A4C 7.97 cm2 LA Area A4C s MOD 11.22 cm2 RA Vol/ BSA A4C s A-L 8.0 mL/m2 LA Area A2C s MOD 14.32 cm2 Ao Asc Diam d 3.08 cm F: 2.3 - 3.1 LV EF A4C MOD 55.1 % LV EF Teichholz 48.6 % LV EF A2C MOD 47.0 % LVEF (Huizar's) 51.20 % F: 54 - 74 LV EF Biplane MOD 51.2 % LV Volume 64.58 mL F: 46 - 106 SV 41.61 mL LV Volume Index 38.21 mL/m2 F: 29 - 61 SV Index 24.51 mL/m2 LV Vol Biplane MOD 81.3 mL FS 24.25 % M-Mode TAPSE 1.52 cm (M/F) >1.7 LV Diastology MV E' medial 0.110 (>0.07 m/s) E/A Ratio 0.9 LV E/e MED 7.15 (<14) MV E Vmax 0.79 (0.4-1.3 m/s) MV E' lateral 0.071 (>0.1 m/s) MV A Vmax 0.90 (0.4-1.3 m/s) LV E/e LAT 11.15 (<14) MV E/A Ratio 0.84 MV E/E' medial 7.19 MV E/E' lateral 11.16 Aortic Valve LVOT Area 2.74 cm2 AoV Area Vmax 1.53 cm2 LVOT Vmax 1.15 m/s AoV Area/ BSA (Vmax) 0.90 cm2/m2 LVOT Mean Andres. 0.72 m/s MARGIE Mean Andres. 1.37 cm2 LVOT Peak Grad 5.3 mmHg MARGIE Mean Andres. Index 0.80 cm2/m2 LVOT Mean Grad 2.5 mmHg LVOT VTI 0.289 m LVOT Diam s 1.85 cm AoV Vmax 2.06 m/s Velocity Ratio 0.55 AoV Mean Andres. 1.45 m/s AoV Peak Grad 16.9 mmHg LVOT SV 79.29 mL AoV Mean Grad 9.4 mmHg AoV VTI 0.410 m AoV Area VTI 1.93 cm2 AoV Area/ BSA (VTI) 1.14 cm/m2 Mitral Valve MV DT 253 (160-240 msec) MV PHT 73 msec MV Area PHT 3.00 cm2 MV VTI 0.350 m MV Area VTI 2.27 (4.0-6.0 cm2) Pulmonary Valve PV Vmax 1.01 (0.5-1.5 m/s) RVOT Peak Gr. 2.28 mmHg PV Peak Grad 4.1 mmHg RVOT Mean Gr. 1.30 mmHg PV Mean Grad 2.1 mmHg RVOT VTI 0.179 m PV VTI 0.243 m RVOT Vmax 0.75 m/s
[2021-09-05 00:23] LABS: Source Nasal/Nares
--- NOTE | 2021-09-05 00:30 | RT.EKG_ITS ---
APPROVED REPORT Exam: Resting ECG Reason for Exam: dysarthia Patient Location: I HR:64 bpm ECG Measurements Heart Rate 64 AXIS SD 116 P 15 QRSd 101 QRS 0 QT 429 T 23 QTc 443 Conclusion Sinus rhythm...normal P axis, V-rate 50- 99 Borderline short SD interval...SD int <120mS Posterior infarct, old...prom R T,
[2021-09-05 00:53] LABS: Bilirubin Negative (Negative); Blood Negative (Negative); Clarity Clear (Clear); Glucose Negative (Negative); Ketones Negative (Negative); Leukocyte Esterase Negative (Negative); Nitrite Negative (Negative); Specific Gravity <= 1.005 (1.005-1.025); Urobilinogen 0.2 EU/dL (Up TO 0.2); pH 5.5 (5-8)
[2021-09-05 01:01] LABS: *AMPHETAMINES SCREEN URINE Negative (Negative); *BARBITURATES SCREEN URINE Negative (Negative); *BENZODIAZEPINES SCREEN URINE Negative (Negative); Cannabinoids THC Negative (Negative); Cocaine Screen,Urine Negative (Negative); METHADONE URINE SCREEN Negative (Negative); OPIATES URINE SCREEN Positive (Negative); Tricyclic Antidepressants Negative (Negative)
[2021-09-05] MEDS: Divalproex Sodium 250 MG TAB.ER.24H PO ×2 (01:46→21:17)
[2021-09-05] MEDS: DULoxetine 30 MG CAP 60 MG PO ×2 (01:47→21:17)
[2021-09-05] MEDS: Losartan 50 MG TAB PO ×2 (01:47→21:17)
[2021-09-05] MEDS: Pantoprazole 40 MG TABCR PO ×2 (01:47→21:17)
[2021-09-05] MEDS: Metoprolol CR 25 MG TABCR PO ×2 (01:47→21:17)
[2021-09-05] MEDS: Escitalopram 20 MG TAB PO ×2 (01:48→21:18)
[2021-09-05] MEDS: Atorvastatin 40 MG TAB PO ×2 (01:48→21:17)
[2021-09-05] MEDS: Butalbital/Acetaminophen/Caffeine 50/325/40 TAB PO (01:48)
[2021-09-05] MEDS: traMADol 50 MG TAB PO (03:32)
[2021-09-05] MEDS: SUMAtriptan 50 MG TAB PO ×4 (04:18→21:19)
[2021-09-05 07:06] LABS: Abs Immature Grans 0.03 10^3/uL (0.0-0.06); Absolute Basophil Count 0.06 10^3/uL (0.0-0.2); Absolute Eosinophil Count 0.43 10^3/uL (0.0-0.7); Absolute Lymphocyte Count 4.44 10^3/uL (1.2-3.4); Absolute Monocyte Count 0.81 10^3/uL (0.1-0.8); Absolute Neutrophil Count 4.28 10^3/uL (1.2-6.7); Basophils % 0.6; Eosinophils % 4.3; HCT 43.3 % (36.0-46.0); Immature Grans % 0.3; Lymphocytes % 44.2; MCH 29.3 pg (27.0-33.0); MCHC 32.3 % (32.0-36.0); MCV 90.6 fL (80-95); MPV 9.6 fL (8.0-11.0); Monocytes % 8.1; Neutrophils % 42.5; Nucleated RBC 0 %; Platelet Count 210 10^3/uL (130-400); RBC 4.78 10^6/uL (3.93-5.22); RDW 12.4 % (11.7-14.6); RDW-SD 41.2 fL; WBC 10.05 10^3/uL (4.4-10.8)
[2021-09-05 07:24] LABS: ALT 34 U/L (14-59); AST 24 U/L (15-37); Albumin 3.6 g/dL (3.4-5.0); Alkaline Phosphatase 72 U/L (46-116); Anion Gap 8.4 mmol/L (3-11); BUN 12 mg/dL (7-18); Bilirubin, Total 0.6 mg/dL (0.2-1.0); CO2 25.6 mmol/L (21.0-32.0); CREATININE 0.8 mg/dL (0.55-1.02); Calcium 8.7 mg/dL (8.5-10.1); Chloride 105 mmol/L (98-107); Glucose 115 mg/dL (74-106); Magnesium 2.1 mg/dL (1.8-2.4); Potassium 4.1 mmol/L (3.5-5.1); Sodium 139 mmol/L (136-145); Total Protein 7.5 g/dL (6.4-8.2)
--- NOTE | 2021-09-05 10:35 | INITIAL_ITS ---
- If Service Date Differs Date of service: 09/05/21 Time of Service: 10:35 Care Management Initial Assess REASON FOR HOSPITALIZATION:: Dysarthria PAST MEDICAL HISTORY/PAST SURGICAL HISTORY:: All Active Problems (Updated 09/05/21 @ 00:12 by Jeannie Aquino MD). Hyperlipidemia (Acute). Hyperglycemia (Acute). Status post insertion of nerve stimulator (Acute). Migraine aura occurring with and without headache (Acute). Dysarthria (Acute). Speech and language deficits (Acute). Headache (Acute). Altered mental state (Acute). Dysphagia (Acute). Type 2 diabetes mellitus (Acute). Obesity (Chronic). Abnormal mammogram (Acute). Non compliance with medical treatment (Acute). Osteopenia of forearm (Acute). Vertigo (Acute). Memory impairment (Acute). Essential tremor (Acute). Balance problem (Acute). Pill esophagitis (Acute). Diverticulosis (Acute). FH: colon cancer (Acute). Closed trimalleolar fracture of right ankle (Acute 08/24/13). Medical History (Updated 09/05/21 @ 00:12 by Jeannie Aquino MD). Accelerated essential hyp ertension. Borderline diabetic. Cardiac murmur. Cervicalgia (08/24/14). -Left-sided. I still believe this is musculoskeletal. I still do not appreciate any evidence of infection. Colon polyp. 08/06/2010. Complex regional pain syndrome i of left upper limb. Depression. Facial pain. Fibromyalgia. Frequent urination. GERD (gastroesophageal reflux disease). History of colon polyps. Hypercholesterolemia. Hyperkalemia. Insomnia. Migraines. Multinodular goiter. JANEE (obstructive sleep apnea). Osteoarthritis of right hip. Pneumonitis. Pre-diabetes. Restless leg syndrome. Swelling, mass, or lump in head and neck. Thyroid disorder. Surgical History . EGD - [facility] (05/02/16). History of esophagogastroduodenoscopy (EGD) (~09/2020). Hx of foot surgery. R. Hx of total hip arthroplasty. R. Hx of total knee arthroplasty. R x 2. Status post VNS (vagus nerve stimulator) placement PREVIOUS FUNCTIONAL STATUS/SOCIAL/FAMILY SUPPORTS:: Skye lives alone in an apartment in [place]. She has 2 biological children and 3 step children. She also has several grandchildren. Most of her family is in the area and she describes them as close and supportive except for her 2 stepdaughters who did not have much contact with their father. 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 Skye has recently become eligible for rental assistance and Medicaid, following the of her a few months ago. These services a re now in place. Skye is independent at baseline and continues to drive. CURRENT FUNCTIONAL STATUS:: Skye was sitting up in bed when CM met with her. She was slow to engage with CM but eventually participated fully in the conversation. Skye talked a bit about her struggles financially after her . They had relied on his social security income as well as hers to make ends meet. With the help of her sister, she has been able to connect with [facility] and apply for and receive rental assistance and Medicaid. She does not anticipate needing any additional services when discharged. ADVANCE DIRECTIVES:: On file at [facility]. Heather Soto [facility] Has patient been provided with info about the portal/API?: Yes Did the patient sign up for the portal?: No CODE STATUS:: Full Code INSURANCE COVERAGE / FINANCIAL ISSUES:: Medicare. AARP CURRENT HOME/COMMUNITY SERVICES/EQUIPMENT:: none PRIMARY CARE PHYSICIAN:: Miley Baldwin POTENTIAL DISCHARGE NEEDS:: Follow up with PCP and plan of care PATIENT/FAMILY EDUCATION NEEDS:: Review of discharge instructions, limitations, medications, activity and discuss [employer] Me [employer]. TRANSPORTATION:: via private vehicle with family PLAN:: Skye will likely be discharged home with no new services. She will follow up with her PCP and plan of care and transport with family. CM will continue to support Skye and her discharge needs.
--- NOTE | 2021-09-05 12:00 | DI.US_ITS ---
Exam(s) US CAROTID EXAM: US CAROTID CLINICAL HISTORY: suspected carotid stenosis. TECHNIQUE: Ultrasound carotids performed using grayscale, color-flow, and spectral Doppler imaging. COMPARISON: CT CT HEAD NECK WO/W from 09/04/2021 FINDINGS: RIGHT CAROTID ARTERY: Plaque: No significant plaque identified sonographically. Velocity elevation: None. LEFT CAROTID ARTERY: Plaque: No significant plaque identified sonographically. Velocity elevation: None. VERTEBRAL ARTERIES: Antegrade flow. Measurements: R Bulb: 74.6cm/s PS / 16.7cm/s ED R CCA: 80.3cm/s PS / 16.7cm/s ED R ECA: 79.7cm/s PS / 14.1cm/s ED R ICA Prox: 81.6cm/s PS /23.1cm/s ED R ICA Mid: 79.7cm/s PS / 24.4cm/s ED R ICA Distal: 99.6cm/s PS /26.4cm/s ED R Vert: 40.5cm/s PS / 11cm/s ED R SVR: 1.24 R DVR: 1.58 L Bulb: 81.6cm/s PS /17.9cm/s ED L CCA: 82.7cm/s PS / 22.6cm/s ED L ECA: 110.5cm/s PS /18cm/s ED L ICA Prox:97cm/s PS / 23.1cm/s ED L ICA Mid: 86.8cm/sPS / 25.7cm/s ED L ICA Distal: 95.8cm/s PS / 28.9cm/s ED L Vert: 54.6cm/s PS / 13.5cm/s ED L SVR: 1.17 L DVR: 1.02 IMPRESSION: No evidence for hemodynamically significant carotid stenosis. Criteria for Carotid Stenosis: Normal: ICA PSV <125 cm/s no plaque or intimal thickening is visible. <50% stenosis: ICA PSV <125 cm/s and plaque or intimal thickening is visible. 50-69% stenosis: ICA PSV is 125-250 cm/s and plaque is visible. >70% stenosis to near occlusion: ICA PSV >250 cm/s with visible plaque and luminal narrowing. DATA REPOSITORY:
[2021-09-05 17:12] LABS: COVID-19 PCR Negative (Negative)
--- NOTE | 2021-09-05 17:44 | W.NEUROCONSU ---
Date of service: 09/05/21 Time of Service: 17:46 Assessment and Plan Assessment and plan (1) Altered mental state: Status: Resolved (2) Speech and language deficits: Status: Acute (3) Migraine headache without aura: Status: Acute (4) Chronic headache: Status: Acute Assessment and plan: Ms. Hinton is a 71 year-old, right-handed woman admitted with altered mental status, expressive aphasia, and amnesia, now apparently back to baseline though may still have some element of expressive aphasia. Ddx stroke vs complex migraine/transient global amnesia. She reports her spinal cord stimulator is MRI compatible, placed at [facility]. We are reaching out to confirm. If so, plan is to get an MRI of the brain w/o to help with diagnosis. Continue aspirin 81mg daily along with atorvastatin for presumed secondary stroke prevention. Please note that if MRI shows evidence of old stroke as CTH shows, even if there is no acute event, I would recommend that she continue on aspirin 81mg daily. Agree with check A1c, Lipids. Also recommend ST evaluation given seeming residual speech changes. If MRI confirms stroke, or if we are unable to get MRI, would discharge with 30 day cardiac monitoring. In regards to her headaches, we discussed preventative options. She would like to resume Aimovig. She understands that this won't be started here in the hospital but is agreeable. ADRs discussed. Triptans probably not the best choice for rescue while acute stroke is in the differential. Can use Compazine 5-10mg every 8 hours as needed instead. She should follow-up in the neurology office in 4-6 weeks. History of Present Illness History of Present Illness Chief Complaint: confusion Narrative: Handedness: right. HPI: Ms. Hinton is a 71 year-old, right-handed woman with hypertension, DM2, JANEE intolerant of CPAP, fibromyalgia with spinal cord stimulator, GERD, and migraine headaches. Yesterday, Skye woke up very early in the morning to take a friend to the [facility]. She spent the entire day there with him as he was admitted to the hospital. She cannot tell us what she ate/drank during that time -at one point reported to family she had kinyarwanda fries. At ~5pm, she called her daughter to tell her that she was driving back home (about a [address] However, around 6pm she called her sister telling her she was driving home. She did not get home until 8pm. When she arrived at home, she appeared confused. She couldn't tell family where she had been for the past 3 hours. By 9pm, she was still acting bizarrely (kept talking about her brown shoes, acting very docile/child-like) and was then noted to have word finding problems/difficulty getting her words out. They brought her to the ER where she introduced her sister as her aunt. She couldn't recall her birthday year and stated the current year was 2001. In the ER, Skye complained of a headache and reported increased headaches for the last 1 month and particularly in the last 1 week. She was treated with 2mg IV morphine and 4mg IV Zofran in the ER. As her headache improved, her speech seemed to improve. Today, sister Heather is at bedside and states that Skye seems to be at baseline. Skye herself is still unable to give much details regarding events yesterday. States she remembers being in the ER but can't give me much details. She has a headache at present. She was given sumatriptan 50mg PO just prior to my arrival. She remotely had cluster migraines and was treated by neurologist Dr. Vallejo (now retired). She was previously on Aimovig but stopped this ~6-12 months ago as she had had no headaches in some time. IM sumatriptan is a good rescue medication for her. She is otherwise on several other medications that can reduce headaches including Depakote 250mg HS (Rx'd for mood), duloxetine 60mg daily (Rx'd for pain), gabapentin 600mg HS (Rx'd for pain), and metoprolol (?for tremor? vs HTN vs HR?). She is not sure why her headaches have increased. Denies any significant stressors or changes in her life. She does not take an anti-platelet at home. She remotely used ASA for her headaches recalling that it caused chest pain at that time. She is already on pravastatin 20mg daily. Work-up: -CTH: No acute findings. Moderate chronic vascular changes with ?old right frontal infarct. I reviewed these images personally and this is my personal interpretation. -CTA head/neck: poor study due to mis-timing of the contrast bolus. There is plaque bilaterally but particularly on the L carotid bulb. Rads also noted a L neck mass for which they recommend a tyroid U/S. I reviewed these images personally and this is my personal interpretation. -TTE (09/05/21): EF 55%, no wall motion abnormalities. LA normal. -CUS: no stenosis. Review of Systems All systems reviewed & are unremarkable except as noted in HPI and below PFSH All Active Problems (Updated 09/05/21 @ 19:59 by Claudia Khalil MD) Chronic headache (Acute) Migraine headache without aura (Acute) Discharge planning issues (Acute) DVT prophylaxis (Acute) Hyperlipidemia (Acute) Hyperglycemia (Acute) Status post insertion of nerve stimulator (Acute) Migraine aura occurring with and without headache (Acute) Dysarthria (Acute) Speech and language deficits (Acute) Headache (Acute) Dysphagia (Acute) Type 2 diabetes mellitus (Acute) Obesity (Chronic) Abnormal mammogram (Acute) Non compliance with medical treatment (Acute) Osteopenia of forearm (Acute) Vertigo (Acute) Memory impairment (Acute) Essential tremor (Acute) Balance problem (Acute) Pill esophagitis (Acute) Diverticulosis (Acute) FH: colon cancer (Acute) Closed trimalleolar fracture of right ankle (Acute 08/24/13) Medical History (Updated 09/05/21 @ 19:59 by Claudia Khalil MD) Accelerated essential hypertension Borderline diabetic Cardiac murmur Cervicalgia (08/24/14) -Left-sided. I still believe this is musculoskeletal. I still do not appreciate any evidence of infection. Colon polyp 08/06/2010 Complex regional pain syndrome i of left upper limb Depression Facial pain Fibromyalgia Frequent urination GERD (gastroesophageal reflux disease) History of colon polyps Hypercholesterolemia Hyperkalemia Insomnia Migraines Multinodular goiter JANEE (obstructive sleep apnea) Osteoarthritis of right hip Pneumonitis Pre-diabetes Restless leg syndrome Swelling, mass, or lump in head and neck Thyroid disorder Surgical History E[place] - [facility] [place]05/02/16) History of esophagogastroduodenoscopy (EGD) (~09/2020) Hx of foot surgery R Hx of total hip arthroplasty R Hx of total knee arthroplasty R x 2 Status post VNS (vagus nerve stimulator) placement Social History Smoking/Tobacco Use Status: Never Smoking risk assessment performed?: Yes Alcohol Intake: current Alcohol Intake frequency: holidays/special occasions only Alcohol type: hard liquor Drug use: Never Substance use type: does not use Current gender identity: female Do you feel safe at home: Yes Do you feel safe in your relationship?: Yes Visit Medication and Allergies Active Medications Generic Name Dose Route Start Last Admin Trade Name Freq PRN Reason Stop Dose Admin Acetaminophen 650 mg 09/04/21 23:38 Acetaminophen 650 Mg Supp OH Q4H PRN PRN Acetaminophen/Butalbital/Caffeine 1 tab 09/04/21 23:51 09/05/21 01:48 Butalbital/Acetaminophen/Caffeine 50/325/40 Tab PO 1 tab Q4H PRN PRN Administration Aspirin 81 mg 09/06/21 08:30 Aspirin E.C. 81 Mg Tabec PO DAILY ZACHARY Atorvastatin Calcium 40 mg 09/05/21 00:15 09/05/21 01:48 Atorvastatin 40 Mg Tab PO 40 mg HS ZACHARY Administration Dextrose 0 gm 09/04/21 23:55 Glucose 40% Oral Solution 15 Gm/37.5 Gm Tube PO DIRECTED PRN Dextrose/Water 0 gm 09/04/21 23:55 Dextrose 50%-Water 25 Gm/50 Ml Syr IVP DIRECTED PRN Dimethicone/Zinc Oxide 0 gm 09/04/21 23:38 Carmencita Protect Cream 142 Gm Tube TP PRN PRN Divalproex Sodium 250 mg 09/05/21 00:15 09/05/21 01:46 Divalproex Sodium 250 Mg Tab.Er.24h PO 250 mg HS ZACHARY Administration Duloxetine HCl 60 mg 09/05/21 00:15 09/05/21 01:47 Duloxetine 30 Mg Cap PO 60 mg HS ZACHARY Administration Escitalopram Oxalate 20 mg 09/05/21 00:15 09/05/21 01:48 Escitalopram 20 Mg Tab PO 20 mg HS ZACHARY Administration Hydrocortisone 0 gm 09/05/21 20:00 Hydrocortisone 2.5% Cr 30 Gm Tube TP TID ZACHARY Insulin Aspart 0 units 09/05/21 22:00 Insulin Aspart 300 Units/3 Ml Pen SC 0800,1200,1700,2200 ZACHARY Protocol Losartan Potassium 50 mg 09/05/21 00:15 09/05/21 01:47 Losartan 50 Mg Tab PO 50 mg HS ZACHARY Administration Metoprolol Succinate 25 mg 09/05/21 00:15 09/05/21 01:47 Metoprolol Cr 25 Mg Tabcr PO 25 mg HS ZACHARY Administration Pantoprazole Sodium 40 mg 09/05/21 00:15 09/05/21 01:47 Pantoprazole 40 Mg Tabcr PO 40 mg HS ZACHARY Administration Polyethylene Glycol 17 gm 09/04/21 23:38 Polyethylene Glycol 3350 17 Gm Packet PO DAILY PRN PRN Constipation Sumatriptan Succinate 50 mg 09/05/21 03:18 09/05/21 15:25 Sumatriptan 50 Mg Tab PO 50 mg QID PRN PRN Administration headache Tramadol HCl 50 mg 09/05/21 03:18 09/05/21 03:32 Tramadol 50 Mg Tab PO 50 mg Q4H PRN PRN Administration Allergies acetaminophen [From Tylenol] Allergy (Severe, Unverified 09/04/21 22:02) chest pain aspirin Allergy (Severe, Unverified 09/04/21 22:02) CHEST PAIN Exam Narrative Exam Narrative: Physical Exam: Gen: Patient of apparent stated age, NAD Head and face: no facial or cranial abnormalities Neck: Supple, no meningismus, no occipital tenderness CV: + S1, S2, RRR, no murmur Resp: CTA B/L Abd: soft, nontender, nondistended Ext: No edema. No clubbing or cyanosis. No bony deformity. Neuro Exam: Language: comprehension intact (able to follow a 3-step command across the midline); fluency slightly diminished in my opinion; some naming difficulties; unable to repeat complex statements Mental Status: AAOx3, current events and fund of knowledge limited; Speech: no dysarthria Cranial nerves: Funduscopy: not performed CN II: visual delarosa intact CN III, IV, : extraocular movements intact, no nystagmus, pupils symmetric and reactive to light CN V: face sensation intact to LT; decreased PP in L V2 CN VII: no facial asymmetry noted CN VIII: hearing intact bilaterally CN IX, X: palate rises symmetrically CN XI: trapezius/SCM 5/5 bilaterally CN XII: protrudes tongue symmetrically Sensory: intact to LT, PP, vibration, and joint position in all extremities, Motor: bulk and tone intact. Fine motor movements intact bilaterally. No pronator drift. Strength 5/5 throughout including the deltoids, biceps, triceps, wrist extensors, hip flexors, knee flexors, knee extensors, ankle flexors, and ankle extensors. Reflexes: 2+ at the biceps, triceps, brachioradialis, patella, and achilles tendons bilaterally; toes down going bilaterally; Coordination: FTN and HTS intact bilaterally Gait: not tested Results Last Vital Signs Temp 97.5 F L 09/05/21 15:57 Pulse 61 09/05/21 16:16 Resp 16 09/05/21 15:57 BP 133/79 09/05/21 15:57 Pulse Ox 97 09/05/21 15:57 Labs Result diagrams: 09/05/21 06:50 09/05/21 06:50 Labs: Laboratory Results - last 24 hr 09/04/21 09/04/21 09/04/21 22:45 22:45 22:45 WBC 9.56 RBC 4.38 Hgb 13.3 Hct 40.1 MCV 91.6 MCH 30.4 MCHC 33.2 RDW 12.4 Plt Count 221 MPV 9.4 Immature Gran % 0.3 Neutrophils % 41.9 Lymphocytes % 45.3 Monocytes % 7.8 Eosinophils % 4.2 Basophils % 0.5 Nucleated RBC % 0 Absolute Neutrophils 4.00 Absolute Lymphocytes 4.33 H Absolute Monocytes 0.75 Absolute Eosinophils 0.40 Absolute Basophils 0.05 PT 10.0 INR 1.0 APTT 23.6 Sodium 135 L Potassium 4.1 Chloride 102 Carbon Dioxide 26.3 Anion Gap 6.7 BUN 13 Creatinine 0.7 Estimated GFR/1.73 m2 >= 60.00 Glucose 155 H Calcium 8.6 Magnesium 2.0 Total Bilirubin 0.6 AST 18 ALT 32 Alkaline Phosphatase 77 Troponin I < 50 Total Protein 7.4 Albumin 3.7 Urine Color Urine Clarity Urine pH Ur Specific [place] Urine Protein Urine Ketones Urine Blood Urine Nitrite Urine Bilirubin Urine Urobilinogen Ur Leukocyte Esterase Urine Glucose Urine Opiates Screen Urine Methadone Screen Ur Barbiturates Screen Ur Tricyclics Screen Ur Amphetamines Screen U Benzodiazepines Scrn Urine Cocaine Screen Ur THC Screen Ethyl Alcohol < 3.0 COVID-19 Source SARS-CoV-2 (PCR) 09/05/21 09/05/21 09/05/21 00:13 00:33 00:33 WBC RBC Hgb Hct MCV MCH MCHC RDW Plt Count MPV Immature Gran % Neutrophils % Lymphocytes % Monocytes % Eosinophils % Basophils % Nucleated RBC % Absolute Neutrophils Absolute Lymphocytes Absolute Monocytes Absolute Eosinophils Absolute Basophils PT INR APTT Sodium Potassium Chloride Carbon Dioxide Anion Gap BUN Creatinine Estimated GFR/1.73 m2 Glucose Calcium Magnesium Total Bilirubin AST ALT Alkaline Phosphatase Troponin I Total Protein Albumin Urine Color Yellow Urine Clarity Clear Urine pH 5.5 Ur Specific [place] <= 1.005 Urine Protein Negative Urine Ketones Negative Urine Blood Negative Urine Nitrite Negative Urine Bilirubin Negative Urine Urobilinogen 0.2 Ur Leukocyte Esterase Negative Urine Glucose Negative Urine Opiates Screen Positive A Urine Methadone Screen Negative Ur Barbiturates Screen Negative Ur Tricyclics Screen Negative Ur Amphetamines Screen Negative U Benzodiazepines Scrn Negative Urine Cocaine Screen Negative Ur THC Screen Negative Ethyl Alcohol COVID-19 Source Nasal/Nares SARS-CoV-2 (PCR) Negative 09/05/21 09/05/21 06:50 06:50 WBC 10.05 RBC 4.78 Hgb 14.0 Hct 43.3 MCV 90.6 MCH 29.3 MCHC 32.3 RDW 12.4 Plt Count 210 MPV 9.6 Immature Gran % 0.3 Neutrophils % 42.5 Lymphocytes % 44.2 Monocytes % 8.1 Eosinophils % 4.3 Basophils % 0.6 Nucleated RBC % 0 Absolute Neutrophils 4.28 Absolute Lymphocytes 4.44 H Absolute Monocytes 0.81 H Absolute Eosinophils 0.43 Absolute Basophils 0.06 PT INR APTT Sodium 139 Potassium 4.1 Chloride 105 Carbon Dioxide 25.6 Anion Gap 8.4 BUN 12 Creatinine 0.8 Estimated GFR/1.73 m2 >= 60.00 Glucose 115 H Calcium 8.7 Magnesium 2.1 Total Bilirubin 0.6 AST 24 ALT 34 Alkaline Phosphatase 72 Troponin I Total Protein 7.5 Albumin 3.6 Urine Color Urine Clarity Urine pH Ur Specific [place] Urine Protein Urine Ketones Urine Blood Urine Nitrite Urine Bilirubin Urine Urobilinogen Ur Leukocyte Esterase Urine Glucose Urine Opiates Screen Urine Methadone Screen Ur Barbiturates Screen Ur Tricyclics Screen Ur Amphetamines Screen U Benzodiazepines Scrn Urine Cocaine Screen Ur THC Screen Ethyl Alcohol COVID-19 Source SARS-CoV-2 (PCR)
--- NOTE | 2021-09-05 18:27 | W.PM.PROGNOT ---
Date of Service Date of service: 09/05/21 Time of Service: 17:45 Assessment and Plan Assessment and plan (1) Dysarthria: Status: Acute Assessment and plan: Ddx: CVA vs migraine. We are attempting to establish if her spinal nerve stimulator is MRI compatible. Until then, continue asa (decrease dose to baby), check fasting lipid panel, A1C, TSH, B12. Consult speech therapy (2) Altered mental state: Status: Resolved Assessment and plan: Part of above. As above (3) Migraine aura occurring with and without headache: Status: Acute Assessment and plan: As above (4) Type 2 diabetes mellitus: Status: Acute Assessment and plan: Cover with SSI Check A1C. (5) Status post insertion of nerve stimulator: Status: Acute Assessment and plan: We are requesting [facility] records as to whether it is MRI compatible (6) Hyperlipidemia: Status: Acute Assessment and plan: Continue atorvastatin. Check fasting lipid panel (7) DVT prophylaxis: Status: Acute Assessment and plan: SC enoxaparin (8) Discharge planning issues: Status: Acute Assessment and plan: Full code Continues to require hospitalization Anticipate discharge home tomorrow Discussed with Dr Khalil Subjective Subjective Interval history since last seen: Ms Hinton feels better. She states she does not have a headache now and thinks her speech is near baseline. Her sister thinks so too. Denies nausea, dizziness, chest pain, shortness of breath. States her right foot has been itchy and has had a rash for a couple of months. Exam Narrative Exam Narrative: General: Pleasant tired appearing female who answers all questions appropriately but appears to hesitate when coming up with words, A&Ox3, NAD HEENT: EOMI, MMM Heart: RRR, no m/r/g Lungs: CTAB Abdomen: soft, nontender, nondistended Extremities: no edema BLE's, R foot with erythematous plaques on dorsal surface of the foot Objective Last Vital Signs Temp 36.4 C L 09/05/21 15:57 Pulse 61 09/05/21 16:16 Resp 16 09/05/21 15:57 BP 133/79 09/05/21 15:57 Pulse Ox 97 09/05/21 15:57 Laboratory Results - last 24 hr 09/04/21 09/04/21 09/04/21 22:45 22:45 22:45 WBC 9.56 RBC 4.38 Hgb 13.3 Hct 40.1 MCV 91.6 MCH 30.4 MCHC 33.2 RDW 12.4 Plt Count 221 MPV 9.4 Immature Gran % 0.3 Neutrophils % 41.9 Lymphocytes % 45.3 Monocytes % 7.8 Eosinophils % 4.2 Basophils % 0.5 Nucleated RBC % 0 Absolute Neutrophils 4.00 Absolute Lymphocytes 4.33 H Absolute Monocytes 0.75 Absolute Eosinophils 0.40 Absolute Basophils 0.05 PT 10.0 INR 1.0 APTT 23.6 Sodium 135 L Potassium 4.1 Chloride 102 Carbon Dioxide 26.3 Anion Gap 6.7 BUN 13 Creatinine 0.7 Estimated GFR/1.73 m2 >= 60.00 Glucose 155 H Calcium 8.6 Magnesium 2.0 Total Bilirubin 0.6 AST 18 ALT 32 Alkaline Phosphatase 77 Troponin I < 50 Total Protein 7.4 Albumin 3.7 Urine Color Urine Clarity Urine pH Ur Specific [place] Urine Protein Urine Ketones Urine Blood Urine Nitrite Urine Bilirubin Urine Urobilinogen Ur Leukocyte Esterase Urine Glucose Urine Opiates Screen Urine Methadone Screen Ur Barbiturates Screen Ur Tricyclics Screen Ur Amphetamines Screen U Benzodiazepines Scrn Urine Cocaine Screen Ur THC Screen Ethyl Alcohol < 3.0 COVID-19 Source SARS-CoV-2 (PCR) 09/05/21 09/05/21 09/05/21 00:13 00:33 00:33 WBC RBC Hgb Hct MCV MCH MCHC RDW Plt Count MPV Immature Gran % Neutrophils % Lymphocytes % Monocytes % Eosinophils % Basophils % Nucleated RBC % Absolute Neutrophils Absolute Lymphocytes Absolute Monocytes Absolute Eosinophils Absolute Basophils PT INR APTT Sodium Potassium Chloride Carbon Dioxide Anion Gap BUN Creatinine Estimated GFR/1.73 m2 Glucose Calcium Magnesium Total Bilirubin AST ALT Alkaline Phosphatase Troponin I Total Protein Albumin Urine Color Yellow Urine Clarity Clear Urine pH 5.5 Ur Specific [place] <= 1.005 Urine Protein Negative Urine Ketones Negative Urine Blood Negative Urine Nitrite Negative Urine Bilirubin Negative Urine Urobilinogen 0.2 Ur Leukocyte Esterase Negative Urine Glucose Negative Urine Opiates Screen Positive A Urine Methadone Screen Negative Ur Barbiturates Screen Negative Ur Tricyclics Screen Negative Ur Amphetamines Screen Negative U Benzodiazepines Scrn Negative Urine Cocaine Screen Negative Ur THC Screen Negative Ethyl Alcohol COVID-19 Source Nasal/Nares SARS-CoV-2 (PCR) Negative 09/05/21 09/05/21 06:50 06:50 WBC 10.05 RBC 4.78 Hgb 14.0 Hct 43.3 MCV 90.6 MCH 29.3 MCHC 32.3 RDW 12.4 Plt Count 210 MPV 9.6 Immature Gran % 0.3 Neutrophils % 42.5 Lymphocytes % 44.2 Monocytes % 8.1 Eosinophils % 4.3 Basophils % 0.6 Nucleated RBC % 0 Absolute Neutrophils 4.28 Absolute Lymphocytes 4.44 H Absolute Monocytes 0.81 H Absolute Eosinophils 0.43 Absolute Basophils 0.06 PT INR APTT Sodium 139 Potassium 4.1 Chloride 105 Carbon Dioxide 25.6 Anion Gap 8.4 BUN 12 Creatinine 0.8 Estimated GFR/1.73 m2 >= 60.00 Glucose 115 H Calcium 8.7 Magnesium 2.1 Total Bilirubin 0.6 AST 24 ALT 34 Alkaline Phosphatase 72 Troponin I Total Protein 7.5 Albumin 3.6 Urine Color Urine Clarity Urine pH Ur Specific [place] Urine Protein Urine Ketones Urine Blood Urine Nitrite Urine Bilirubin Urine Urobilinogen Ur Leukocyte Esterase Urine Glucose Urine Opiates Screen Urine Methadone Screen Ur Barbiturates Screen Ur Tricyclics Screen Ur Amphetamines Screen U Benzodiazepines Scrn Urine Cocaine Screen Ur THC Screen Ethyl Alcohol COVID-19 Source SARS-CoV-2 (PCR)
[2021-09-05] MEDS: Insulin Aspart 300 UNITS/3 ML PEN SC (21:31)
[2021-09-06] VITALS (10 sets, daily range): BP systolic 129–157; BP diastolic 62–80; PULSE 58–77; RESP 12–18; TEMP 36.2–36.9; O2SAT 93–97
--- NOTE | 2021-09-06 | DI.US_ITS ---
Exam(s) US THYROID EXAM: US THYROID CLINICAL HISTORY: thyroid mass. TECHNIQUE: Ultrasound thyroid performed using standard protocol. COMPARISON: No exams were available for comparison FINDINGS: ISTHMUS: 2.5 mm RIGHT LOBE: Size: 1.9 cc by 0.9 AP by 1.2 transverse cm Echogenicity: Normal. Vascularity: Normal. Nodules: None. LEFT LOBE: Size: 3.3 cc by 2.5 AP by 2.0 transverse cm Echogenicity: Normal. Vascularity: Normal. Nodules: There is a mixed cystic and solid mass involving the left lobe of the thyroid gland. It gilbert sures 3.6 cc by 3.3 AP by 3.2 transverse cm. It is isoechoic to the thyroid gland. No echogenic foc i are seen. It has smooth margins. It is consistent with a TI-RADS level 4 nodule. OTHER FINDINGS: None. IMPRESSION: 3.6 x 3.3 x 3.2 cm cystic and solid left thyroid nodule. This corresponds to the finding on the CT s can of the head neck from 09/04/2021. This nodule has shown interval increase in size compared to the ultrasound from 10/30/2010. It is consistent with a TI-RADS level 4 nodule. DATA REPOSITORY:
[2021-09-06] MEDS: traMADol 50 MG TAB PO ×3 (02:21→22:01)
[2021-09-06 07:16] LABS: Hemoglobin A1C 6.9 % (<5.7)
[2021-09-06 07:46] LABS: Calculated LDL 99 mg/dL (<100); Cholesterol 171 mg/dL (<200); HDL Cholesterol 50 mg/dL (40-60); TSH (W/Ref FT4) 6.79 uIU/mL (0.36-3.74); Triglyceride 114 mg/dL (<150); Vitamin B12 592 pg/mL (193-986)
[2021-09-06 08:04] LABS: FREE T4 0.89 ng/dL (0.76-1.46)
[2021-09-06] MEDS: SUMAtriptan 50 MG TAB PO (09:26)
[2021-09-06] MEDS: Aspirin E.C. 81 MG TABEC PO (09:26)
[2021-09-06] MEDS: Enoxaparin 40 MG/0.4 ML SYR SC (09:26)
--- NOTE | 2021-09-06 12:03 | W.INDIABCONS ---
Date of service: 09/06/21 Time of Service: 12:03 Diabetes Inpatient Consult Reason for Visit: dm DESCRIPTION/ASSESSMENT: 71 year old female admitted with migraine with hx of obesity, DM, HLD. BMI 31 indicates class 1 obesity. Following diabetic diet with adequate intake. Most recent A1C: 6.4% (06/19/21) indicating good glycemic control on home Dm meds (metformin 500 mg BID). No intervention needed at this time. Will continue to follow and support. Time Spent in Nutritional Counseling and Treatment: 0
[2021-09-06] MEDS: Insulin Aspart 300 UNITS/3 ML PEN SC ×2 (12:30→22:14)
--- NOTE | 2021-09-06 13:40 | PHA.REVIEW ---
Pharmacy Admission Review - Admission Clinical Review (Last Updated 09/05/21 @ 00:07 by Jeannie Aquino MD) Chronic headache (Acute) Migraine headache without aura (Acute) Discharge planning issues (Acute) DVT prophylaxis (Acute) Hyperlipidemia (Acute) Hyperglycemia (Acute) Status post insertion of nerve stimulator (Acute) Migraine aura occurring with and without headache (Acute) Dysarthria (Acute) Speech and language deficits (Acute) Headache (Acute) Type 2 diabetes mellitus (Acute) acetaminophen [From Tylenol] Allergy (Severe, Unverified 09/04/21 22:02) chest pain aspirin Allergy (Severe, Unverified 09/04/21 22:02) CHEST PAIN Resuscitation Status Full Code Height 5 ft Weight 72.575 kg - Renal Dosing Renal Dosing: BUN 12 mg/dL (7-18) 09/05/21 06:50 Creatinine 0.8 mg/dL (0.55-1.02) 09/05/21 06:50 Medications needing adjustments: Reviewed (SCr: 0.8, eCrCl: 57.3mL/min (using adjusted body weight). All medications dosed appropriately.) - Anticoagulation Anticoagulation: Hgb 14.0 g/dL (11.2-15.7) 09/05/21 06:50 Hct 43.3 % (36.0-46.0) 09/05/21 06:50 Plt Count 210 10^3/uL (130-400) 09/05/21 06:50 INR 1.0 (0.9-1.1) 09/04/21 22:45 Creatinine 0.8 mg/dL (0.55-1.02) 09/05/21 06:50 DVT Prophylaxis: Reviewed Medications: Enoxaparin (Enoxaparin 40mg SC Q24H.) - Opiate Usage Evaluate Pain Scale/Pains Meds: Reviewed (Pain scale ratings varied 0-9. Taking Tramadol PRN.) Scheduled Bowel Reg ordered if on Opiates?: No (Miralax PRN ordered) - Relevant Labs Sodium 139 mmol/L (136-145) 09/05/21 06:50 Potassium 4.1 mmol/L (3.5-5.1) 09/05/21 06:50 Chloride 105 mmol/L (98-107) 09/05/21 06:50 Magnesium 2.1 mg/dL (1.8-2.4) 09/05/21 06:50 Electrolytes, C-Reactive P, ESR: Reviewed - DM Control DM Control: Glucose 115 mg/dL (74-106) H 09/05/21 06:50 Hemoglobin A1c 6.9 % (<5.7) H 09/06/21 06:21 Finger Stick Blood Glucose 191 Finger Stick Blood Glucose 191 Finger Stick Blood Glucose 191 Finger Stick Blood Glucose 116 Finger Stick Blood Glucose 116 Insulin Dosing: Reviewed (Blood glucose within normal limits using insulin aspart SS.) - Heart Failure/UT Heart Failure/UT: Troponin I < 50 ng/L (<or=60) 09/04/21 22:45 EF%, SURESH's, B-Blockers, Diuretics: N/A - BP Control BP Control: Blood Pressure 135/75 Blood Pressure 139/80 Blood Pressure 139/77 If elevated: Reviewed (Blood pressure slighlty elevated. Home dose of Losartan 100mg daily.) - Qtc Review If Elevated: N/A (QTc: 443 on admission.) - IV to PO Switch IV Medications: Reviewed - Home Meds Home Med List reviewed: Intervened Relevent Home Meds Not ordered & why?: Divalproex (discontinued recently d/t tremor), Duloxetine (dose increased to 90mg, Escitalopram discontinued), and Losartan (dose increased to 100mg, Metoprolol discontinued). - Current meds Current Medication Order Review: Reviewed - Comments Comments/Follow Ups: Continue to monitor for labs, vitals and for medication changes.
--- NOTE | 2021-09-06 13:55 | W.SPSTE ---
Date of service: 09/06/21 Time of Service: 12:00 Subjective Patient referred for communication evaluation from Dr Qureshi given residual speech and anomia symptoms. Given inclusion of possible stroke in differential diagnosis, also performed swallow evaluation this date. Patient received alert, agreeable to evaluation, able to communicate wants/needs effectively; able to demonstrate comprehension of recommendations for safe p.o. intake upon discharge once deemed medically stable.? Patient reports at onset, she was unable to pronounce her words. After further questioning, she reports this was experienced as difficulty initiating utterances despite knowing the words she wanted to use. Sometimes she would go for long stretches without speaking. Now, she feels this is largely resolved but sometimes will experience a short delay in being able to initiate a word/utterances. Endorses mild word-finding difficulties as well. Regarding swallowing, she states that she has more difficulty since hospitalization. She says her chewing is more labored and prolonged, and she feels as though foods stick in her throat. No coughing. She resolves this with extra swallows, small bites, and liquid wash. She also reports chronic GERD which she controls with OTC medication PRN. Endorses heartburn during and outside of meals. Heartburn outside of meals is often associated with globus sensation. She thinks this sensation is different than the sensation of pharyngeal residue that she reports when eating solid foods. No voice changes reported, no odynophagia. Denies coughing with food or liquid. ? HPI: Pt is a 71 year-old, right-handed woman with hypertension, DM2, JANEE intolerant of CPAP, fibromyalgia with spinal cord stimulator, GERD, and migraine headaches. She was admitted with altered mental status, expressive aphasia, and amnesia, now largely back to baseline though continues to report subtle speech/language symptoms.? Per Neurology, ddx stroke vs complex migraine/transient global amnesia.? All Active Problems?(Updated 09/05/21 @ 19:59 by Claudia Khalil MD) Chronic headache (Acute) Migraine headache without aura (Acute) Discharge planning issues (Acute) DVT prophylaxis (Acute) Hyperlipidemia (Acute) Hyperglycemia (Acute) Status post insertion of nerve stimulator (Acute) Migraine aura occurring with and without headache (Acute) Dysarthria (Acute) Speech and language deficits (Acute) Headache (Acute) Dysphagia (Acute) Type 2 diabetes mellitus (Acute) Obesity (Chronic) Abnormal mammogram (Acute) Non compliance with medical treatment (Acute) Osteopenia of forearm (Acute) Vertigo (Acute) Memory impairment (Acute) Essential tremor (Acute) Balance problem (Acute) Pill esophagitis (Acute) Diverticulosis (Acute) FH: colon cancer (Acute) Closed trimalleolar fracture of right ankle (Acute 08/24/13) Medical History?(Updated 09/05/21 @ 19:59 by Claudia Khalil MD) Accelerated essential hypertension Borderline diabetic Cardiac murmur Cervicalgia (08/24/14) -Left-sided. I still believe this is musculoskeletal. I still do not appreciate any evidence of infection. Colon polyp 08/06/2010 Complex regional pain syndrome i of left upper limb Depression Facial pain Fibromyalgia Frequent urination GERD (gastroesophageal reflux disease) History of colon polyps Hypercholesterolemia Hyperkalemia Insomnia Migraines Multinodular goiter JANEE (obstructive sleep apnea) Osteoarthritis of right hip Pneumonitis Pre-diabetes Restless leg syndrome Swelling, mass, or lump in head and neck Thyroid disorder Surgical History? EGD - MAC (05/02/16) History of esophagogastroduodenoscopy (EGD) (~09/2020) Hx of foot surgery R Hx of total hip arthroplasty RHx of total knee arthroplasty R x 2Status post VNS (vagus nerve stimulator) placement ? Social History/Home Situation: Pt lives independently at her home in [place] ( several months ago). She has family and friends nearby. Objective Objective Mental Status: Oriented to place, time, situation (though patient states she is here due to migraines but says nothing about speech, wordfinding, or altered mental status). Speech: Only notable observation in conversation is low volume - patient endorses this is her baseline speaking volume. Language: Gramatical, subtle pauses (?word finding), verbal expression largely WFL. Pt responds appropriately to all questions in conversation and follows directions, including complex. Significant findings on ORAL-MOTOR EXAM: Mild R tongue deviation to protrusion Mild flattening of R nasolabial folds Mild R upper facial weakness (eyes closed against resistance) Slow rate, groping movement of facial and lingual non-speech AMR's Partially edentulous. Adequate cough strength Informal Speech Tasks indicated the following notable results: Mild irregular rate and rhythm of speech AMR's and SMR's Difficulty sustaining continuous phonation, vocal tremor The Bedside Western Aphasia Battery-Revised (Bedside Record Form), a shortened version of the Western Aphasia Battery Revised (WAB-R), was administered to sample overall language abilities; it is designed to evaluate a patient's language function following stroke, dementia, or other acquired neurological disorder. (Kira, 2006). WAB-R Bedside Subtest Scores are indicated below: Subtest ? Score SPONTANEOUS SPEECH ? Information Content ?02/22 Fluency / Grammatical Competence / Paraphasias ?02/22 Total? ? AUDITORY VERBAL COMPREHENSION ? Yes/No Questions ?02/22 Sequential Commands ?03/24 Total? ? REPETITION ? Total? ?02/22 NAMING & WORD FINDING ? Object Naming ?03/24 Total? ? READING ?n/a WRITING ?n/a APRAXIA ?03/24 Bedside Aphasia Score: 93 PO TRIALS: Food items tested: ?? None. Further swallow assessment not warranted at this time.? Ice: X IDDSI 0: Cup edge x5 IDDSI 1: IDDSI 2: IDDSI 3: IDDSI 4: IDDSI 5: X IDDSI 6: x 6 bites X IDDSI 7: x3 bites Pill/tablet: ? Oral phase: WFL Leakage from mouth Difficulty with bolus manipulation X Difficulty with a-p transport X Difficulty chewing Pocketing X Residue - diffuse ? Pharyngeal phase: WFL X Delayed swallow initiation X Reduced hyolaryngeal elevation/excursion - SUSPECTED Cough after swallow Voice change after swallow? Throat clearing? X Endorsed stasis? ? Strategies: Secondary swallow (+) Liquid wash (+) Small bites (+) ? Education provided: ? Anatomy/physiology of swallowing mechanism ? Overt s/sx aspiration ? Rationale for improved oral care and instructions ? Relationship between respiratory fxn and deglutition ? Rationale for recommended strategies as below ? Reflux precautions ? ? Assessment Speech - WFL in conversation, no dysarthria/apraxia detected in naturalistic tasks, though patient does report continuing to experience difficulty initiating utterances from time to time which could be a motor planning issue. Consistent with findings of difficulty with coordinating rate/rhythm of diadochokinetic tasks as well as non-speech alternating motion for face and tongue muscles. Noting subtle R sided weakness of face and tongue. Suspect these subtle changes may be impacting her own experience of speech but undetectable to others in most contexts. Language - Aphasia screening WNL. No overt wordfinding errors noted in today's exam, though with occasional pausing which could be explained by the above (speech initiation), subtle language deficits, or cognitive component (fatigue, attention, planning). Swallowing - Patient likely with chronic dysphagia with possible GERD component, with acute component which she reports has caused increased pharyngeal stasis. Also demonstrates delayed initiation and prolonged mastication. At this time she appears with safe swallow function with the use of strategies which she has demonstrated excellent use of at baseline. She does not wish to change to a softer diet to decrease mastication burden at this time. Will follow-up on Thursday if she is still inpatient to see if her symptoms are resolving. Increase frequency of oral care to mitigate risks. Patient is aware of indications to seek outpatient ENGINEERING SPECIALIST services. Recommend MBSS if symptoms do not resolve. May benefit from consideration of medical management of GERD. DISCHARGE: Patient should follow up with PCP or other to discuss medical management of GERD. If swallow symptoms do not improve after discharge or with medication, she should return for outpatient MBSS. Recommendations: Diet Texture Modification(s): IDDSI Level(s) 7-Regular Solids or per patient request 0-Thin Liquids Medication Intake: Whole, one at a time, with 0-Thin Liquids or 4-Extremely Thick Liquids Alter medications only as advised by MD or Pharmacist ? RISK MANAGEMENT: Oral hygiene every 4 hours and before/after PO intake using friction with toothbrush on all oral structures as tolerated Upright for all PO intake. Encourage physical mobility as tolerated. ? Level of Assistance/Supervision: Independent PO intake only when awake/alert? ? Strategies/Adaptations/Assistive Equipment: Reduce auditory and/or visual distractions when eating, Small sips and bites when eating, Slow rate of intake, Swallow between bites, Alternate intake of liquids and solids ? Posture/Positioning Needs: Maintain upright position at least 30 minutes after meals, Avoid meals/snacks 2-3 hours prior to reclining/sleeping, Sleep with head of bed elevated to reduce likelihood of nocturnal reflux ? COMMUNICATION: Allow patient additional time to express self and/or multiple attempts to find word(s) For word finding difficulties during conversation: Encourage patient to describe what things look/feel like, where they may be located, how they function, and/or use related words (synonyms) Encourage use of relevant gestures to enhance expression PLAN: ENGINEERING SPECIALIST to follow while on unit. ? Afshan Hubbard Speech Language Pathologist [id number] Time spent: 50 minutes ENGINEERING SPECIALIST CPT Codes: 47770 Clinical Swallowing Evaluation 48592 Speech and Language Evaluation ? Plan ENGINEERING SPECIALIST to follow while on unit. Coding
--- NOTE | 2021-09-06 16:04 | CHAPLAIN ---
Skye was sitting up in bed when I visited. I introduced myself and explained my role. She did not seem interested in further conversation. After reading Care Management notes, I found out the Skye's a few month ago. I will try again to visit Skye next week if she is still here.
[2021-09-06] MEDS: Normal Saline Flush 10 ML SYR ×3 (16:36→18:50)
[2021-09-06] MEDS: Ketorolac 30 MG/ML VIAL IVP (16:37)
--- NOTE | 2021-09-06 17:14 | PDOC.CMPRO ---
- If Service Date Differs Date of service: 09/06/21 Time of Service: 17:14 Care Management Progress Note S/O: Skye was sitting up in bed when CM met with her. She reported that she is still in a lot of pain- 6/10 is the least she has felt today. Per MD, she will change her pain medication in an attempt for better pain relief. Skye stated that she is concerned about going home too soon, as she lives alone. Her sister was in the room, visiting, and offered for her to stay with her over the weekend, if she needs additional support. Skye reported that she has a grand daughter who will be moving in with her in about a month, which will be helpful. CM will continue to follow. A: Skye is a 71 year old female admitted to [facility] on 09/04/21 with dysarthria. P:Skye will likely be discharged home with no new services. She will follow up with her PCP and plan of care and transport with family via private vehicle. CM will continue to support Skye and her discharge needs.
[2021-09-06] MEDS: Butalbital/Acetaminophen/Caffeine 50/325/40 TAB PO (17:20)
[2021-09-06] MEDS: Dexamethasone 10 MG/ML VIAL IVP (18:32)
[2021-09-06] MEDS: MAGNESIUM SULFATE 1 GM/100 ML BAG IVPB (18:34)
--- NOTE | 2021-09-06 19:42 | PGE_ITS ---
Date of Service Date of service: 09/06/21 Time of Service: 15:00 Assessment and Plan Assessment and plan (1) Altered mental state: Status: Resolved Assessment and plan: Favor migraine. Treating with toradol, dexamethasone, magnesium as well as her outpatient tx. (2) Dysarthria: Status: Acute Assessment and plan: Ddx: CVA vs migraine, though migraine is favored at this point. Her spinal cord stimulator is not MRI compatible with our equipment, but may be compatible with [facility] [place] - we will find out. Continue asa. (3) Migraine aura occurring with and without headache: Status: Acute Assessment and plan: As above (4) Type 2 diabetes mellitus: Status: Acute Assessment and plan: Cover with SSI A1c is 6.9 (5) Status post insertion of nerve stimulator: Status: Acute Assessment and plan: Not compatible with our MRI machine, but may be compatible with [facility] - we are going to inquire. (6) Hyperlipidemia: Status: Acute Assessment and plan: Continue atorvastatin. lipids at goal. (7) Thyroid mass: Status: Acute Assessment and plan: Us thyroid done today shows that it is bigger than on prior imaging. Obtain Total T3. will need outpatient MRI. (8) DVT prophylaxis: Status: Acute Assessment and plan: SC enoxaparin (9) Discharge planning issues: Status: Acute Assessment and plan: Full code Anticipate discharge home tomorrow Subjective Subjective Interval history since last seen: Ms Hinton continues to report a migraine - a headache on the L side of her head accompanied by photophobia. She does not feel ready to go home because the headache is that severe. The headache responded somewhat to toradol, but is still too severe for her to feel comfortable. Denies dizziness, chest pain, shortness of breath, nausea. Seen by speech therapy. Recommended outpatient MBS. Exam Narrative Exam Narrative: General: Pleasant tired appearing female who answers all questions appropriately, does not look comfortable with the lights on in the room, having the same hesitancy with answering questions as yesterday, A&Ox3, NAD HEENT: EOMI, MMM Heart: RRR, no m/r/g Lungs: CTAB Abdomen: soft, nontender, nondistended Extremities: no edema BLEs Objective Last Vital Signs Temp 36.7 C 09/06/21 15:19 Pulse 69 09/06/21 15:19 Resp 12 09/06/21 15:19 BP 129/78 09/06/21 15:19 Pulse Ox 97 09/06/21 15:19 Laboratory Results - last 24 hr 09/06/21 09/06/21 06:21 06:21 Hemoglobin A1c 6.9 H Triglycerides 114 Total Cholesterol 171 LDL Cholesterol, Calc 99 HDL Cholesterol 50 Vitamin B12 592 TSH 6.79 H Free T4 0.89
[2021-09-06] MEDS: Normal Saline Flush 10 ML SYR IVP (22:00)
[2021-09-06] MEDS: Divalproex Sodium 250 MG TAB.ER.24H PO (22:12)
[2021-09-06] MEDS: Pantoprazole 40 MG TABCR PO (22:13)
[2021-09-06] MEDS: DULoxetine 30 MG CAP 60 MG PO (22:13)
[2021-09-06] MEDS: Losartan 50 MG TAB PO (22:13)
[2021-09-06] MEDS: Metoprolol CR 25 MG TABCR PO (22:13)
[2021-09-06] MEDS: Atorvastatin 40 MG TAB PO (22:13)
[2021-09-06] MEDS: Escitalopram 20 MG TAB PO (22:13)
[2021-09-07] VITALS (10 sets, daily range): BP systolic 103–169; BP diastolic 60–83; PULSE 58–83; RESP 16–18; TEMP 35.9–37.3; O2SAT 94–98
[2021-09-07] MEDS: traMADol 50 MG TAB PO (01:40)
[2021-09-07] MEDS: SUMAtriptan 50 MG TAB PO ×2 (04:48→08:07)
[2021-09-07] MEDS: Butalbital/Acetaminophen/Caffeine 50/325/40 TAB PO ×3 (08:07→21:30)
[2021-09-07] MEDS: Enoxaparin 40 MG/0.4 ML SYR SC (08:29)
[2021-09-07] MEDS: Insulin Aspart 300 UNITS/3 ML PEN SC ×3 (08:29→21:24)
[2021-09-07] MEDS: Aspirin E.C. 81 MG TABEC PO (08:30)
--- NOTE | 2021-09-07 11:59 | PGE_ITS ---
Date of Service Date of service: 09/07/21 Time of Service: 12:01 Assessment and Plan Assessment and plan (1) Altered mental state: Status: Resolved Assessment and plan: I agree with Dr. Qureshi that this is unlikely related to acute cerebrovascular disease. She did have opiates in her system on UDS 09/05, and I could not find she was given opiates while here. This raises some concern this could have contributed to her change in MS and speech. 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 She had a reassuring CT on admission and CTA head neck yesterday 48 hours after admission. I reviewed neurology recommendations. Plan to discharge with outpatient MRI at [facility] [place] and 30 day monitor when she is ready. (2) Headache: Status: Acute Assessment and plan: Ongoing headache in setting of chronic headache. Severe headache continues to be the main barrier to discharge at this point, as they can be debilitating and she lives alone. I reviewed Dr. Conroy's notes, stop triptan and try compazine starting at 5mg, can go up to 10mg. She is also getting dexamethasone. I also reviewed the last PCP note and med list. Depakote was discontinued, she is on gabapentin, so this was also updated. She is also on montha Aimovig (3) Essential tremor: Status: Acute Assessment and plan: SHe has a tremor now. I am concerned about excess serotonin. Escitalopram should have been discontinued per home records. Also stop tramadol. Depakote also should have been stopped per outpatient records. She is on propranolol as well. (4) DVT prophylaxis: Status: Acute Assessment and plan: stop SCDs, she is getting LMWH (5) Type 2 diabetes mellitus: Status: Acute Assessment and plan: A1c 6.9 without meds, continue to monitor (6) Discharge planning issues: Status: Acute Assessment and plan: She is ready for discharge as soon as we can get the debilitating headaches somewhat controlled. Subjective Subjective Interval history since last seen: Skye had a severe headache again all night starting at around 7pm after feeling a little better yesterday. Her voice is okay, though still had trouble finding words sometimes. She has gotten similar clusters of headaches in the past. Was seeing neurology as outpatient. She can't remember what worked best. She is worried about going home alone feeling like this. She has photophobia and phonophobia. SCD machine annoyed her all night. HOYT is mostly left sided frontal, similar to previous. She states he tremors have been more present for the past couple months. She denies taking any opiate/opioid type medication before coming in. Exam Narrative Exam Narrative: General: Pleasant uncomfortable appearing female sitting in dark room. Only slight hesitancy with answering questions, A&Ox3, NAD HEENT: EOMI, MMM Heart: RRR, no m/r/g Lungs: CTAB Abdomen: soft, nontender, nondistended Extremities: no edema BLEs Neuro: CN 2-12 grossly intact. Nl movement 4 ext, nl coordiation. Speech as above. +tremor when hands extended. No clonus or hyperreflexia Objective Last Vital Signs Temp 36.0 C L 09/07/21 06:36 Pulse 58 L 09/07/21 08:53 Resp 18 09/07/21 06:36 BP 169/83 H 09/07/21 06:36 Pulse Ox 96 09/07/21 06:36
[2021-09-07] MEDS: Prochlorperazine 5 MG TAB PO (12:00)
[2021-09-07] MEDS: Gabapentin 300 MG CAP PO ×2 (15:28→21:29)
[2021-09-07] MEDS: DULoxetine 30 MG CAP 60 MG PO (21:28)
[2021-09-07] MEDS: Pantoprazole 40 MG TABCR PO (21:28)
[2021-09-07] MEDS: Losartan 50 MG TAB 100 MG PO (21:28)
[2021-09-07] MEDS: Metoprolol CR 25 MG TABCR PO (21:29)
[2021-09-07] MEDS: Atorvastatin 40 MG TAB PO (21:29)
[2021-09-07 22:41] LABS: T3, Total 152 ng/dL (97-169)
[2021-09-08] VITALS (11 sets, daily range): BP systolic 110–128; BP diastolic 64–84; PULSE 54–63; RESP 12–18; TEMP 35.7–36.8; O2SAT 95–98
[2021-09-08] MEDS: Butalbital/Acetaminophen/Caffeine 50/325/40 TAB PO ×2 (05:56→11:18)
[2021-09-08] MEDS: Enoxaparin 40 MG/0.4 ML SYR SC (08:33)
[2021-09-08] MEDS: Prochlorperazine 5 MG TAB PO ×2 (08:33→20:56)
[2021-09-08] MEDS: Gabapentin 300 MG CAP PO ×3 (08:33→20:56)
[2021-09-08] MEDS: Aspirin E.C. 81 MG TABEC PO (08:33)
--- NOTE | 2021-09-08 13:10 | PGE_ITS ---
Date of Service Date of service: 09/08/21 Time of Service: 13:13 Assessment and Plan Assessment and plan (1) Altered mental state: Status: Resolved Assessment and plan: Unlikely related to acute cerebrovascular disease. She did have opiates in her system on UDS 08/14: not given opiates while here. This raises some concern this could have contributed to her change in MS and speech. 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 She had a reassuring CT on admission and CTA head neck yesterday 48 hours after admission. Plan to discharge with [place] [facility] [place] 30 day monitor when she is ready. (2) Headache: Status: Acute Assessment and plan: Ongoing headache in setting of chronic headache. Severe headache continues to be the main barrier to discharge at this point, as they can be debilitating and she lives alone. I reviewed Dr. Conroy's notes. No longer taking triptan. Stopped dexamethasone. PRN compazine. Give diphenhydramine 50mg IV and Valproate Na 500mg IV. She had also been on montha Aimovig but stopped; she will restart as outpt. (3) Essential tremor: Status: Acute Assessment and plan: SHe has a tremor now. I am concerned about excess serotonin. Escitalopram should have been discontinued per home records. Also stop tramadol. Depakote also should have been stopped per outpatient records. She is on propranolol as well. (4) DVT prophylaxis: Status: Acute Assessment and plan: stop SCDs, she is getting LMWH (5) Type 2 diabetes mellitus: Status: Acute Assessment and plan: A1c 6.9 without meds, continue to monitor (6) Discharge planning issues: Status: Acute Assessment and plan: She is ready for discharge as soon as we can get the debilitating headaches somewhat controlled. Subjective Subjective Patient reports: no new complaints, still having pain (HOYT: 8/10) and afebrile; denies shortness of breath Exam Narrative Exam Narrative: General: Pleasant uncomfortable appearing female lying in bed, room is darkened. Speaks in soft tones. HEENT: EOMI, MMM Heart: RRR, No murmur Lungs: CTAB Abdomen: soft, nontender, nondistended Extremities: no edema BLEs Neuro: CN 2-12 grossly intact. Nl movement 4 ext, nl coordiation. Speech as above. +tremor when hands extended. No clonus or hyperreflexia Objective Last Vital Signs Temp 36.1 C L 09/08/21 07:40 Pulse 57 L 09/08/21 07:58 Resp 18 09/08/21 07:40 BP 113/72 09/08/21 07:40 Pulse Ox 95 09/08/21 07:40 Laboratory Results - last 24 hr 09/06/21 05:35 Total T3 152
[2021-09-08] MEDS: Normal Saline Flush 10 ML SYR IVP (13:50)
[2021-09-08 14:02] LABS: Platelet Count 252 10^3/uL (130-400)
[2021-09-08] MEDS: VALPROATE SODIUM 500 MG in Normal Saline 50 ML 50 MG IVPB (15:36)
[2021-09-08] MEDS: diphenhydrAMINE 50 MG/ML VIAL IVP (15:36)
[2021-09-08] MEDS: Polyethylene Glycol 3350 17 GM PACKET PO (20:53)
[2021-09-08] MEDS: DULoxetine 30 MG CAP 60 MG PO (21:00)
[2021-09-08] MEDS: Atorvastatin 40 MG TAB PO (21:00)
[2021-09-08] MEDS: Pantoprazole 40 MG TABCR PO (21:00)
[2021-09-08] MEDS: Losartan 50 MG TAB 100 MG PO (21:01)
[2021-09-09 03:13] VITALS: BP 114/62; PULSE 60; RESP 16; TEMP 36.6; O2SAT 94
[2021-09-09] MEDS: Butalbital/Acetaminophen/Caffeine 50/325/40 TAB PO ×3 (03:13→12:21)
[2021-09-09] MEDS: Gabapentin 300 MG CAP PO ×3 (07:45→20:51)
[2021-09-09] MEDS: Aspirin E.C. 81 MG TABEC PO (07:45)
[2021-09-09 08:12] VITALS: BP 112/62; PULSE 61; RESP 16; TEMP 37.1; O2SAT 97
--- NOTE | 2021-09-09 08:58 | PDOC.STREC ---
Date of service: 09/09/21 Time of Service: 08:58 Speech Therapy Recommendations Report ST Recommendations: [employer] Communication / Non-Treatment Note Chart reviewed this date. Plan: [employer] to reassess patient PRN while on unit. Please re-consult as needed. DISCHARGE:?Patient to follow up with PCP or other to discuss medical management of GERD. If swallow symptoms do not improve after discharge or with medication, recommendation is to return for outpatient MBSS. Recommendations: Diet Texture Modification(s): IDDSI Level(s) 7-Regular Solids or per patient request 0-Thin Liquids Medication Intake: Whole, one at a time, with 0-Thin Liquids or 4-Extremely Thick Liquids Alter medications only as advised by MD or Pharmacist ? RISK MANAGEMENT: Oral hygiene every 4 hours and before/after PO intake using friction with toothbrush on all oral structures as tolerated Upright for all PO intake. Encourage physical mobility as tolerated. ? Level of Assistance/Supervision: Independent PO intake only when awake/alert? ? Strategies/Adaptations/Assistive Equipment:? Reduce auditory and/or visual distractions when eating, Small sips and bites when eating, Slow rate of intake, Swallow between bites, Alternate intake of liquids and solids ? Posture/Positioning Needs: Maintain upright position at least 30 minutes after meals, Avoid meals/snacks 2-3 hours prior to reclining/sleeping, Sleep with head of bed elevated to reduce likelihood of nocturnal reflux COMMUNICATION: Allow patient additional time to express self and/or multiple attempts to find word(s) For word finding difficulties during conversation: ?? Encourage patient to describe what things look/feel like, where they may be located, how they function, and/or use related words (synonyms) ?? Encourage use of relevant gestures to enhance expression Tiarra Shin MA CCC-[employer] Speech-Language Pathologist [place]#[phone] Coding
[2021-09-09] MEDS: Enoxaparin 40 MG/0.4 ML SYR SC (11:31)
[2021-09-09 12:11] VITALS: BP 117/60; PULSE 71; RESP 16; TEMP 37; O2SAT 96
[2021-09-09] MEDS: Prochlorperazine 5 MG TAB PO (12:22)
[2021-09-09] MEDS: Doxepin 25 MG CAP PO ×2 (14:04→21:04)
--- NOTE | 2021-09-09 15:04 | PGE_ITS ---
Date of Service Date of service: 09/09/21 Time of Service: 15:47 Assessment and Plan Assessment and plan (1) Altered mental state: Status: Resolved (2) Speech and language deficits: Status: Acute (3) Migraine headache without aura: Status: Acute (4) Chronic headache: Status: Acute Assessment and plan: Ms. Hinton is a 71 year-old, right-handed woman with: #1. Altered mental status, expressive aphasia, and amnesia, now back to baseline. Ddx stroke vs complex migraine/transient global amnesia vs toxic- metabolic encephalopathy (+opioid on UDS with no known source). Continue aspirin 81mg daily along with atorvastatin for presumed secondary stroke prevention. She will be scheduled for outpatient brain MRI w/o at [facility] as we are unable to do here with her spinal cord stimulator. She will also be discharged with 30-day cardiac monitor technician. #2. Chronic daily migraine headaches w/o aura. We have applied for Aimovig as outpatient, but unclear if this will get approved now that she is on Medicare only. I have still not received prior neurology records either, which I have requested. In regards to current headache, we discussed Occipital Nerve Block. She was agreeable. Procedure performed. She tolerated well. Would continue doxepin for migraine prevention but keep at 25mg HS only as she is pretty sedated with this. Please stop Fioricet as this may be contributing to ongoing headaches. Please schedule IV Mag 1gm push over 20 min every 8 hours. Please schedule Compazine IV 5mg every 8 hours. Can use hydroxyzine 25-50mg q6hr prn for breakthrough severe headache in meantime if needed. Will re-assess in am. She should follow-up in the neurology office in 4-6 weeks. Subjective Subjective Interval history since last seen: Ms. Hinton remains inpatient due to ongoing severe headache, particularly since 09/07/21. She is already on gabapentin 300mg TID and duloxetine 60mg HS. She has been treated with various medications including: doxepin 25mg x 1 this afternoon; Fioricet TID, Compazine 5mg TID prn (getting 1-2x per day), IV VPA 500mg + 50mg IV Benadryl x1 yesterday with mild improvement. However, headache has been consistent -01/22. She was asleep when I went in and did take awhile to fully awake. States she has not been sleeping in hospital. Seen by on 09/06/21 with noted disdiadochokinesis of face/mouth muscles. Also with dysphagia, likely chronic and due to GERD. Plan is for MRI brain outpatient at [facility] and d/c home with a 30 day cardiac monitor technician. -A1c 6.9 -LDL 99 -TSH 6.79 -FT4 0.89 -B12 592 Exam Narrative Exam Narrative: Physical Exam: Constitutional: Patient of apparent stated age, well nourished, well developed, no acute distress Neuro: MS/Language/Speech: Alert, oriented, clear language (fluency and comprehension), no dysarthria CN: EOMI, visual delarosa full, trigeminal sensation intact, no facial asymmetry, hearing intact Motor: Normal bulk and tone. FMM intact, no pronator drift. 5/5 strength in bilateral upper and lower extremities Sensation: Intact to light touch throughout Coordination: Finger to nose performed without dysmetria Procedure: Bilateral Greater occipital nerve blocks Indication: Headache, occipital tenderness Consent: Indication, risks, benefits, and alternatives discussed with the patient, which included bleeding, infection, permanent numbness, and medication reaction. Consent form signed and placed in chart. Time out: A timeout was performed Location: The greater occipital nerve was located by first palpating the mastoid and midline occipital ridge. Next the nerve was palpated at 2/3 the distance toward the occipital ridge. It was coincident with maximal tenderness. Medication: 50:50 mixture of 2% Lidocaine and 0.25% bupivacaine. Technique: The area was cleaned with 2 alcohol swabs while using clean gloves. Using a 5 cc syringe with a 25 toñito, 4cc of the medication mixture was injected in multiple tissue planes in the area around each greater occipital nerve. Prior to each injection the plunger was pulled to ensure the needle was not in a blood vessel. The patient tolerated the procedure well. Complications: none Blood loss: < 1cc Objective Last Vital Signs Temp 98.6 F 09/09/21 12:11 Pulse 71 09/09/21 12:11 Resp 16 09/09/21 12:11 BP 117/60 09/09/21 12:11 Pulse Ox 96 09/09/21 12:11
[2021-09-09 15:55] VITALS: BP 123/72; PULSE 72; RESP 18; TEMP 36.5; O2SAT 99
[2021-09-09] MEDS: MAGNESIUM SULFATE 1 GM/100 ML BAG IVPB ×2 (17:43→23:24)
--- NOTE | 2021-09-09 17:55 | PDOC.CMPRO ---
- If Service Date Differs Date of service: 09/09/21 Time of Service: 17:55 Care Management Progress Note S/O: Skye was sitting up in bed when CM met with her. She reported that her pain is down to a 7 today, which is better than she has felt earlier in this admission. Per report, she will be seen by Neuro today, and may receive a nerve block. Per provider, if this helps with her pain control, she may be ready for discharge tomorrow with outpatient follow up. CM discussed returning home, or going to stay with her sister, who is supportive. CM will continue to follow. A: Skye is a 71 year old female admitted to [facility] on 09/04/21 with dysarthria. P:Skye will likely be discharged home with no new services. She will follow up with her PCP and plan of care and transport with family via private vehicle. CM will continue to support Skye and her discharge needs.
[2021-09-09 20:58] VITALS: BP 124/69; PULSE 65
[2021-09-09] MEDS: DULoxetine 30 MG CAP 60 MG PO (21:00)
[2021-09-09] MEDS: Atorvastatin 40 MG TAB PO (21:00)
[2021-09-09] MEDS: Metoprolol CR 25 MG TABCR PO (21:01)
[2021-09-09] MEDS: Losartan 50 MG TAB 100 MG PO (21:01)
[2021-09-09] MEDS: Pantoprazole 40 MG TABCR PO (21:01)
[2021-09-09] MEDS: Normal Saline Flush 10 ML SYR IVP (23:24)
[2021-09-09 23:37] VITALS: BP 110/67; PULSE 76; RESP 17; TEMP 36.2; O2SAT 97
--- NOTE | 2021-09-10 00:55 | NUR.NOTE ---
Nursing Note: Pt has magnesium sulfate 1 gram/100 ml ordered. Pt last magnesium result was on 09/05/21, RN notify the charge nurse about the medication and lab result. Charge nurse told this RN to give the medication and that lab draw will de drawn in the morning..
[2021-09-10 03:08] VITALS: BP 105/55; PULSE 65; RESP 15; TEMP 36.3; O2SAT 97
[2021-09-10] MEDS: Prochlorperazine 5 MG TAB PO (05:32)
[2021-09-10 06:51] LABS: HCT 42.1 % (36.0-46.0); HGB 13.5 g/dL (11.2-15.7); MCH 30.1 pg (27.0-33.0); MCHC 32.1 % (32.0-36.0); MPV 9.8 fL (8.0-11.0); Platelet Count 217 10^3/uL (130-400); RBC 4.48 10^6/uL (3.93-5.22); RDW 12.7 % (11.7-14.6); RDW-SD 43.6 fL; WBC 12.24 10^3/uL (4.4-10.8)
[2021-09-10 07:43] LABS: Anion Gap 6.6 mmol/L (3-11); BUN 27 mg/dL (7-18); CO2 30.4 mmol/L (21.0-32.0); CREATININE 1.3 mg/dL (0.55-1.02); Calcium 8.9 mg/dL (8.5-10.1); Chloride 104 mmol/L (98-107); Estimated GFR 40.38 (mL/min/1.73m2); Glucose 125 mg/dL (74-106); Magnesium 2.5 mg/dL (1.8-2.4); Potassium 4.2 mmol/L (3.5-5.1); Sodium 141 mmol/L (136-145)
[2021-09-10 08:19] VITALS: BP 106/66; PULSE 60; RESP 18; TEMP 37.1; O2SAT 95
[2021-09-10] MEDS: MAGNESIUM SULFATE 1 GM/100 ML BAG IVPB (08:40)
[2021-09-10] MEDS: Aspirin E.C. 81 MG TABEC PO (08:41)
[2021-09-10] MEDS: Normal Saline Flush 10 ML SYR IVP (08:41)
[2021-09-10] MEDS: Gabapentin 300 MG CAP PO ×2 (08:41→16:16)
--- NOTE | 2021-09-10 11:00 | W.ANESPROC ---
Lumbar Puncture Date Performed: 09/10/21 Procedure Time: 10:30 Requesting Provider: Rashi Eduardo Procedure Location: Med/Surg Standard Monitors Applied: None Used Patient Position: Left Lateral Decubitus Timeout Performed: Yes Sedation Given (Indicate Dose Given): No Sedation given Patient Mental Status: Awake Sterility: Hand Hygiene, Surgical Cap, Surgical Mask, Sterile Gloves, Sterile Drape/Sheet, Sterile Gown and Chlorhexidine Placement Site: L2-L3 Interspace Spinal Needle Type: Quincke 22 Gauge Needle Length: 3.5 Inch Lumbar Puncture Procedure: Site Prepped, Sterile Drape Placed, 1% Lidocaine to skin and subcutaneous tissue with 25G needle, Negative Heme, Positive CSF Flow and CSF Specimen placed into Tubes in Sequential Order Ultrasound: Used to cesario site Opening CSF Pressure (cmH2O): 21 Paresthesia: None Number of Previous Attempts by Other Providers: 0 Number of Attempts (See previous attempts in note section): 2 Procedure Tolerated: No Complications and Patient tolerated well Procedure Outcome: Successful Procedure Comment:: first attempt at L3-4 without success. Performed By: Donta Mendez
--- NOTE | 2021-09-10 11:08 | CMPROGNOTE_ITS ---
- If Service Date Differs Date of service: 09/10/21 Time of Service: 11:08 Care Management Progress Note S/O: Skye A: Skye is a 71 year old female admitted to [facility] on 09/04/21 with dysarthria. P:Skye will likely be discharged home with no new services. She will follow up with her PCP and plan of care and transport with family via private vehicle. CM will continue to support Skye and her discharge needs.
[2021-09-10 11:10] LABS: Glucose (CSF) 78 mg/dL (40-70); Total Protein (CSF) 67 mg/dL (15-45)
[2021-09-10 11:14] LABS: Clarity Clear; RBC 0 /mm3 (0-5); Tube # 4; WBC 0 /uL (0-5); Xanthochromia Absent
--- NOTE | 2021-09-10 15:34 | DSE_ITS ---
Date of service: 09/10/21 Time of Service: 15:34 DS: Diagnosis Discharge Diagnosis (1) Altered mental state: Status: Resolved (2) Speech and language deficits: Status: Acute (3) Migraine headache without aura: Status: Acute (4) Chronic headache: Status: Acute Discharge Plan Disposition Patient Disposition: HOME Condition: Improving Discharge Details Reason For Visit: Dysarthria Admit Date/Time: 09/04/21 23:38 Admit Provider: Inocente Luo Attending Provider: Inocente Luo Primary Care Provider: Miley Baldwin Hospital Course Hospital Course: This is a 71 yo female with a history of severe migraines on Erenumab, diabetes and presence of a spinal nerve stimulator for fibromyalgia who presented to the ED after a few days or headache and confused speech. Her daughter spoke with her on the phone and then subsequently visited her where she noted confused speech that prompted her ED visit. Last known normal day was Thursday. She is also experiencing photophobia. Her head imaging is negative for an acute process but did find evidence of an old stroke. I was called for admission due to concern for an acute CVA. In the emergency department she responded favourably to analgesia raising a question of migrain with aura causing her speech impairment. Per family report the spinal nerve stimulator is not very old, but whether it is MRI compatible is unknown at the moment, however her family is working on getting the paperwork for it. On my assessment, she continues to have headache but after treatment for this her speech has normalized and she seems to be mentating appropriately. She jean-claude nues to have photophobia. There is no muscle weakness. She tells me that she stopped taking her Erenumab a few months ago and is wondering if that is what brought this migraine on. She also no longer has a neurologist as they moved out of state and is looking to establish with a provider here. CTA of head and neck were unremarkable than a known thyroid mass that was followed up with an ultrasound that showed a 3.6 x 3.3 x 3.2 cm cystic and solid left thyroid nodule.? This corresponds to the finding on the CT scan of the head neck from 09/04/2021.? This nodule has shown interval increase in size compared to the ultrasound from 10/30/2010.? It is consistent with a TI-RADS? level 4 nodule. Patient to follow up with PCP to discuss outpt follow up of the thyroid nodule. Unable to perform MRI, but her initial possibly stroke symptoms resolved. Neurology consulted and recommended Aimovig as an outpt. Unfortunately patient was never able to start this medication previously d/t not being covered by her insurance. Dexamethason and magnesium administered for the headache that persisted. PRN toradol and compazine also given. Her headache persisted at a 7-8/10 consistently. Doxepin was added and 3 IV doses of magnesium 1 gram Q8 hours administered. On the day of discharge she was better and felt she could manage at home. Doxepin 50mg QHS to be continued. She will also see if Aimovig is now covered by her insurance; it was 7-8 months ago that it had been prescribed and found to not be covered. She will follow up with her PCP in 1-2 weeks and scheduled an appt with Dr Khalil, Neurology. Home Meds and New Rx's Prescriptions: New Aimovig Autoinjector 70 mg/mL auto-injector 70 mg subcut QMONTH Qty: 1 1RF metoprolol succinate 25 mg Tablet Extended Release 24 Hr 25 mg PO HS Qty: 0 0RF pantoprazole 40 mg Tablet,Delayed Release (Dr/Ec) 40 mg PO HS Qty: 0 0RF aspirin 81 mg Tablet,Delayed Release (Dr/Ec) 81 mg PO DAILY Qty: 0 0RF atorvastatin 40 mg Tablet 40 mg PO HS Qty: 30 0RF doxepin 25 mg Capsule 50 mg PO HS Qty: 30 0RF Continued gabapentin 300 mg capsule See Rx Instructions .ROUTE .COMPLEX 0RF Rx Instructions: 1 in am, 1 at noon, 3 at bedtime losartan 50 mg tablet 100 mg PO DAILY 0RF pramipexole [Mirapex] 0.25 mg tablet 0.5 mg PO HS 0RF Label Comments: Pt states she doesn't think she is on this anymore. duloxetine [Cymbalta] 30 mg capsule,delayed release(DR/EC) 90 mg PO DAILY 0RF melatonin 10 mg capsule 10 mg PO HS PRN0RF propranolol 80 mg capsule,extended release 24 hr 80 mg PO DAILY 0RF cholecalciferol (vitamin D3) 5,000 UNIT tablet 1 tab PO DAILY 0RF omeprazole 20 mg capsule,delayed release(DR/EC) 20 mg PO HS 0RF albuterol sulfate 90 mcg/actuation HFA aerosol inhaler 2 puff INHALATION Q4H PRN0RF Label Comments: INHALE 1 TO 2 PUFFS BY MOUTH EVERY 4 HOURS NEEDED FOR BREATHING Discontinued sumatriptan succinate [Imitrex] 50 mg tablet 100 mg PO PRN PRN (Reason: headache) 0RF Label Comments: 100MG AT ONSET OF MIGRAINE, MRX1 AFTER 2 HOURS naproxen [Naprosyn] 500 mg Tablet 500 mg PO BID PRN0RF erenumab-aooe 70 mg/mL Auto-Injector 70 mg SUBCUT QMONTH 0RF Discharge Instructions Referrals: Miley Baldwin [Primary Care Provider] - 09/18/21 1:45 pm Claudia Khalil MD [ [facility] STAFF PHYSICIAN] - (Follow up of chronic headaches) Activity:: Activity as Tolerated Equipment/Supplies:: No Equipment Needed Diet:: Resume usual diet Discharge Orders Discharge Orders: Discharge Order (Routine); Ordered 09/10/21 Ordered By: Rashi Eduardo DS: Summary Time Spent with Patient providing and/or coordinating discharge services: Greater than 30 minutes Status at Discharge Functional status at discharge: independent ambulation Overall status at discharge: patient is progressing back to baseline Mental Status: mental status grossly normal Speech and Movement: speech clear Mood: congruent mood Affect: normal affect Exam Narrative Exam Narrative: General: Pleasant, sitting in chair. Lights in room are on; has typically had the room darkened during this stay. HEENT: EOMI, MMM Heart: RRR, No murmur Lungs: CTAB Abdomen: soft, nontender, nondistended Extremities: no edema BLEs Neuro: CN 2-12 grossly intact. Nl movement 4 ext, nl coordiation. Speech as above. +tremor when hands extended. No clonus or hyperreflexia Psych Mental Status: mental status grossly normal Speech and Movement: speech clear Mood: congruent mood Affect: normal affect DS: Data Vitals/I&O Vitals and I&O: Vital Signs Temperature 37.1 C 09/10/21 08:19 Temperature Source Tympanic 09/10/21 08:19 Pulse 60 09/10/21 08:19 Pulse Rhythm Regular 09/10/21 13:01 Pulse 70 09/05/21 00:20 Respiratory Rate 18 09/10/21 08:19 Respiratory Effort Non-Labored 09/10/21 13:01 Respiratory Depth Normal 09/10/21 13:01 Respiratory Pattern Normal 09/10/21 13:01 Blood Pressure 106/66 09/10/21 08:19 Blood Pressure Mean 75 09/05/21 00:16 Blood Pressure Position Sitting 09/04/21 21:51 Pulse Oximetry 95 09/10/21 08:19 Oxygen Delivery Method Room Air 09/10/21 08:19 Oxygen Flow Rate 0 09/10/21 08:19 Pain Level 5 09/10/21 08:19 Comment 09/06/21 23:45 Intake & Output 09/09/21 09/10/21 09/10/21 23:59 11:59 23:59 Intake Total 495 / 735 100 / 5100 5000 / 5100 Balance 495 / 735 100 / 5100 5000 / 5100 Intake: IV 255 / 255 100 / 100 Oral 240 / 480 5000 / 5000 Other: Comment voiding independently Voided in toilet Voiding Methods Toilet Toilet Data Completed and Pending Labs on day of discharge: Labs from last 24 hours 09/10/21 09/10/21 09/10/21 10:40 10:40 10:40 WBC RBC Hgb Hct MCV MCH MCHC RDW Plt Count MPV Xanthochromia Absent Sodium Potassium Chloride Carbon Dioxide Anion Gap BUN Creatinine Estimated GFR/1.73 m2 Glucose Calcium Magnesium CSF Tube Number 4 CSF Color Colorless CSF Clarity Clear CSF WBC 0 CSF RBC 0 CSF Diff Comment Not Applicable CSF Glucose 78 H CSF Total Protein 67 H CSF VDRL CSF CMV Specimen Source Pending Adenovirus Source Pending Adenovirus (PCR) Pending CMV DNA Qual PCR Pending EBV DNA, Quant 09/10/21 09/10/21 09/10/21 10:40 06:45 06:45 WBC RBC Hgb Hct MCV MCH MCHC RDW Plt Count MPV Xanthochromia Sodium 141 Potassium 4.2 Chloride 104 Carbon Dioxide 30.4 Anion Gap 6.6 BUN 27 H Creatinine 1.3 H Estimated GFR/1.73 m2 40.38 Glucose 125 H Calcium 8.9 Magnesium 2.5 H CSF Tube Number CSF Color CSF Clarity CSF WBC CSF RBC CSF Diff Comment CSF Glucose CSF Total Protein CSF VDRL Pending CSF CMV Specimen Source Adenovirus Source Adenovirus (PCR) CMV DNA Qual PCR EBV DNA, Quant Pending 09/10/21 06:45 WBC 12.24 H RBC 4.48 Hgb 13.5 Hct 42.1 MCV 94.0 MCH 30.1 MCHC 32.1 RDW 12.7 Plt Count 217 MPV 9.8 Xanthochromia Sodium Potassium Chloride Carbon Dioxide Anion Gap BUN Creatinine Estimated GFR/1.73 m2 Glucose Calcium Magnesium CSF Tube Number CSF Color CSF Clarity CSF WBC CSF RBC CSF Diff Comment CSF Glucose CSF Total Protein CSF VDRL CSF CMV Specimen Source Adenovirus Source Adenovirus (PCR) CMV DNA Qual PCR EBV DNA, Quant 09/10/21 10:40 Cerebrospinal Fluid Body Fluid Culture - Pending Preliminary micro results at discharge 09/10/21 10:40 Body Fluid Culture - Pending Cerebrospinal Fluid PFSH All Active Problems Thyroid mass (Acute) Chronic headache (Acute) Migraine headache without aura (Acute) Discharge planning issues (Acute) DVT prophylaxis (Acute) Hyperlipidemia (Acute) Hyperglycemia (Acute) Status post insertion of nerve stimulator (Acute) Migraine aura occurring with and without headache (Acute) Dysarthria (Acute) Speech and language deficits (Acute) Headache (Acute) Dysphagia (Acute) Type 2 diabetes mellitus (Acute) Obesity (Chronic) Abnormal mammogram (Acute) Non compliance with medical treatment (Acute) Osteopenia of forearm (Acute) Vertigo (Acute) Memory impairment (Acute) Essential tremor (Acute) Balance problem (Acute) Pill esophagitis (Acute) Diverticulosis (Acute) FH: colon cancer (Acute) Closed trimalleolar fracture of right ankle (Acute 08/24/13) Medical History Accelerated essential hypertension Borderline diabetic Cardiac murmur Cervicalgia (08/24/14) -Left-sided. I still believe this is musculoskeletal. I still do not appreciate any evidence of infection. Colon polyp 08/06/2010 Complex regional pain syndrome i of left upper limb Depression Facial pain Fibromyalgia Frequent urination GERD (gastroesophageal reflux disease) History of colon polyps Hypercholesterolemia Hyperkalemia Insomnia Migraines Multinodular goiter JANEE (obstructive sleep apnea) Osteoarthritis of right hip Pneumonitis Pre-diabetes Restless leg syndrome Swelling, mass, or lump in head and neck Thyroid disorder Surgical History EGD - MAC (05/02/16) History of esophagogastroduodenoscopy (EGD) (~09/2020) Hx of foot surgery R Hx of total hip arthroplasty R Hx of total knee arthroplasty R x 2 Status post VNS (vagus nerve stimulator) placement Social History Smoking/Tobacco Use Status: Never Smoking risk assessment performed?: Yes Alcohol Intake: current Alcohol Intake frequency: holidays/special occasions only Alcohol type: hard liquor Drug use: Never Substance use type: does not use Current gender identity: female Do you feel safe at home: Yes Do you feel safe in your relationship?: Yes
--- NOTE | 2021-09-10 16:06 | PDOC.CMDIS ---
- If Service Date Differs Date of service: 09/10/21 Time of Service: 16:06 LACE Index Scoring Tool - Questions: Length of Stay (in days): 4 - 6 Acuity (Admit via E.D.?): Yes Comorbidities: Diabetes w/o Complication E.D. Visits: 2 - Answers: Total Score: 10 Risk of Readmission: High Risk Care Management Discharge Reason for Hospitalization: Dysarthria Discharge Plan: Skye will be discharged home with no new services. She will follow up with her PCP and plan of care and transport with family. Patient/Family Education Needs: Review of discharge instructions, limitations, medications, activity and discuss Ask Me Three
[2021-09-12 13:00] LABS: Adenovirus PCR Negative (Negative); Specimen Source CSF
[2021-09-12 13:07] LABS: VDRL, CSF Negative (Negative)
[2021-09-12 18:20] LABS: EBV DNA Detect/Quant, P Undetected IU/mL (Undetected)
[2021-09-12 19:52] LABS: Cytomegalovirus PCR Negative (Negative); Specimen Source CSF
== END 2021-09-10 16:50 | disposition home or self-care (01) | DRG 103 ==
LOC: ER 09-05 00:23 → MS 09-05 00:35
PROVIDERS: Emergency Medicine; Family Medicine; Internal Medicine; Student in an Organized Health Care Education/Training Program; Admitting Provider Family Medicine; Emergency Provider Emergency Medicine; PCP Physician Assistant Medical; Visit Provider Family Medicine
DX: G43.109 Migraine with aura, not intractable, without status migrainosus (principal); R47.1 Dysarthria and anarthria; E11.9 Type 2 diabetes mellitus without complications; R41.82 Altered mental status, unspecified; M79.7 Fibromyalgia; E78.5 Hyperlipidemia, unspecified; H53.143 Visual discomfort, bilateral; E66.9 Obesity, unspecified; R41.3 Other amnesia; F32.A Depression, unspecified; E78.00 Pure hypercholesterolemia, unspecified; G47.33 Obstructive sleep apnea (adult) (pediatric); G25.81 Restless legs syndrome; G47.00 Insomnia, unspecified; K21.9 Gastro-esophageal reflux disease without esophagitis; R35.0 Frequency of micturition; E04.2 Nontoxic multinodular goiter; Z68.31 Body mass index [BMI] 31.0-31.9, adult; Z91.19 Patient's noncompliance with other medical treatment and regimen; Z79.899 Other long term (current) drug therapy; Z96.82 Presence of neurostimulator; G25.0 Essential tremor
CPT/HCPCS: 62270; 36415; 36416; 70496; 70498; 80048; 80053; 80061; 80307; 82945; 82962; 85027; 87635; 87798; 87799; 89050; 89051; 92610; 93306; 96374; 96375; 99223; 99232; 99285; J1650; U0005; 70470; 70492; 71045; 76536; 80320; 81003; 82607; 83036; 83735; 84157; 84439; 84443; 84480; 84484; 85025; 85049; 85610; 85730; 86592; 87070; 87205; 87496; 92507; 93005; 93010; 93880; 99233; 99239; J1100; J1200; J1885; J2270; J2405; J3475; J3490

== ENCOUNTER → 2021-09-05 07:43 | Outpatient (BNVA) | payer MEDICARE, SELFPAY | PROVIDERS: PCP Physician Assistant Medical; Referring Provider Physician Assistant Medical; Visit Provider Psychiatry & Neurology Neurology | DX: R69 Illness, unspecified (principal) ==

== ENCOUNTER 2021-09-30 09:59 | Outpatient (REF) | payer MEDICARE, SELFPAY ==
[2021-10-01 15:25] LABS: COVID-19 RT-PCR UVMMC Result Negative (Negative)
== END 2021-09-30 10:00 | disposition home or self-care (01) ==
LOC: LBN 09:59
PROVIDERS: PCP Physician Assistant Medical; Visit Provider Physician Assistant Medical
DX: Z20.822 Contact with and (suspected) exposure to COVID-19 (principal)
CPT/HCPCS: U0003; U0005

== ENCOUNTER 2021-12-30 01:32 | Outpatient (CLI) | payer MEDICARE, SELFPAY ==
--- OUTSIDE RECORDS SUMMARY | 2021-12-30 01:42 | XMS_ITS | Encounter Summary ---
:1950 Author Organization [facility] Address [address] [place] [address] Care Team Providers Name Role Phone Noa Washington APRN Primary Care Provider Encounter Details Date Type Department Care Team Description 10/12/2018 Hospital Encounter XRay [place] [facility] Daniella Scanlon MD Complex regional [address] [place] [address] Dr [facility] pain syndrome type 1 [place], [place] [address] of both [facility] [address] PAIN MANAGEMENT extremities [phone] [place] [address] Social History Tobacco Use Types Packs/Day Years Used Date Never Smoker Smokeless Tobacco: Never Used Sex Assigned at Date Recorded Not on file documented as of this encounter Medications at Time of Discharge Medication Sig Dispensed Refills Start Date End Date metoclopramide (REGLAN) take 1 tablet by 0 2018 10 mg Tablet mouth every 8 hours if needed for nausea or migraines escitalopram oxalate Take 20 mg by mouth 0 (LEXAPRO) 20 mg Tablet daily. DULoxetine (CYMBALTA) 60 Take 60 mg by mouth 0 mg capsule 2 times daily. cephALEXin (KEFLEX) 250 take 1 capsule by 0 06/2212/06/2018 mg Capsule mouth three times a day UNTIL GONE lisinopril Take 20 mg by mouth 0 11/26 (PRINIVIL;ZESTRIL) 20 mg daily. Tablet gabapentin (NEURONTIN) 3 times daily. 0 5 11/26/2018 300 mg Capsule omeprazole (PRILOSEC) 40 40 mg daily as 0 015 11/26/2018 mg Capsule, Delayed needed. Release(E.C.) pravastatin (PRAVACHOL) Take 20 mg by mouth 0 12/06/2018 20 mg Tablet daily. SUMAtriptan (IMITREX) 50 Take 50 mg by mouth 0 11/26/2018 mg Tablet as needed. Cholecalciferol, Vitamin Take by mouth daily. 0 11/26/2018 D3, (VITAMIN D-3) 5,000 unit Tab documented as of this encounter Plan of Treatment Not on filedocumented as of this encounter Procedures Procedure Name Priority Date/Time Associated Diagnosis Comme nts XR CERVICAL SPINE 2 Routine 10/12/2018 2:48 PM Complex regiona l Results for this OR 3 VIEWS EDT pain syndrome type 1 procedu re are in of both upper the results extremities section. documented in this encounter Results XR Cervical Spine 2 Or 3 Views (10/12/2018 2:48 PM EDT) Anatomical Region Laterality Modality C-spine N/A Digital Radiography Specimen (Source) Anatomical Location Collection Method / Collectio n Time Received Time / Laterality Volume Impressions 10/12/2018 2:58 PM EDT Proximal tips of spinal cord stimulator device approximate the posterior elements of C1. Cervical spine alignment normal. Mild C6-7 arthropathy. Thank you for letting us participate in the care of this patient. For questions regarding this report, please contact e number below. ? Narrative 10/12/2018 2:58 PM EDT EXAMINATION: XR CERVICAL SPINE 2 OR 3 VIEWS CLINICAL HISTORY: spinal cord stimulator placement at C2, visualize for positioning of electrodes, AP and latera l TECHNIQUE: 2 views of the cervical spine COMPARISON: None FINDINGS: Proximal tips of spinal cord stimulator device approximate the posterior elements of C1. Cervical spine alignment normal. Mild C6-7 arthropathy. Procedure Note Inocente Batista MD - 10/12/2018Form atting of this note might be different from the original. EXAMINATION: XR CERVICAL SPINE 2 OR 3 EWS CLINICAL HISTORY: spinal cord stimulator placement at C2, visualize for positioning of electrodes, AP and latera l TECHNIQUE: 2 views of the cervical spine COMPARISON: None FINDINGS: Proximal tips of spinal cord stimulator device approximate the posterior elements of C1. Cervical spine alignment normal. Mild C6-7 arthropathy. IMPRESSION Proximal tips of spinal cord stimulator device approximate the posterior elements of C1. Cervical spine alignment normal. Mild C6-7 arthropathy. Thank you for letting us participate in the care of this patient. For questions regarding this report, please contact e number below. Daniella Scanlon MD IMG DX ORDERABLES documented in this encounter Visit Diagnoses Diagnosis Complex regional pain syndrome type 1 of both upper extremities documented in this encounter Care Teams T Rail Turner Relationship Specialty Start Date End Date Noa Washington APRN PCP - General Family Medicine 04/20/15 [place] [address] documented as of this encounter
--- OUTSIDE RECORDS SUMMARY | 2021-12-30 01:42 | XMS_ITS | Encounter Summary ---
:1950 Author Organization [facility] Address [address] [place] [address] Care Team Providers Name Role Phone Kizzy Nunez APRN Primary Care Provider Encounter Details Date Type Department Care Team Description 05/05/2012 External Results [place] [facility] Mcnulty [address] [place] [address] [place] [address] [facility] [phone] ENDOCRINOLOGY [place], [place] [address] (Wo rk) Social History Tobacco Use Types Packs/Day Years Used Date Never Smoker Sex Assigned at Date Recorded Not on file documented as of this encounter Plan of Treatment Not on filedocumented as of this encounter Procedures Procedure Name Priority Date/Time Associated Diagnosis Comme nts PET SCAN (SCAN) Routine 05/04/2012 documented in this encounter Results Scan Doc: PET Scan (05/04/2012) Anatomical Region Laterality Modality Other Narrative This result has an attachment that is no t available. Winston Hood MD MEDIA MGR SCAN EXT ORDR/RSL T documented in this encounter Visit Diagnoses Not on filedocumented in this encounter Care Teams Boiler Tenders Supervisor Relationship Specialty Start Date End Date Kizzy Nunez, MOSES PCP - General 04/07/12 04/19/15 TAMIR [address] [place] [address] documented as of this encounter
--- OUTSIDE RECORDS SUMMARY | 2021-12-30 01:42 | XMS_ITS | Encounter Summary ---
:1950 Author Organization [facility] Address [address] [place] [address] Care Team Providers Name Role Phone MeghnaricoNoa main MOSES Primary Care Provider Reason for Visit Reason Comments Pain Management Encounter Details Date Type Department Care Team Description 01/31/2019 Office Visit [facility] Lamont Vasquez C omplex regional pain at [facility] PA syndrome type 2 of [facility] upper [address] [place] [phone] Social History Tobacco Use Types Packs/Day Years Used Date Never Smoker Smokeless Tobacco: Never Used Sex Assigned at Date Recorded Not on file documented as of this encounter Last Filed Vital Signs Vital Sign Reading Time Taken Comments Blood Pressure 140/62 01/31/2019 10:01 AM EDT Pulse 64 01/31/2019 10:01 AM EDT Temperature - - Respiratory Rate - - Oxygen Saturation 96% 01/31/2019 10:01 AM EDT Inhaled Oxygen Concentration - - Weight 73.7 kg (162 lb 6.4 oz) 01/31/2019 10:01 AM EDT Height 152.4 cm (5') 01/31/2019 10:01 AM EDT Body Mass Index 31.72 01/31/2019 10:01 AM EDT documented in this encounter Progress Notes Lamont Vasquez PA - 01/31/2019 10:00 AM EDT PAIN CLINIC FOLLOW-UP DATE OF VISIT 01/31/2019 Patient Skye Hinton 1950 PRIMARY CARE PROVIDER Noa Washington APRN CHIEF COMPLAINT: Post SCS generator swap follow up HPI: Skye Hinton is a 68 y.o. female is here today accompanied by her [facility] for post SCS generator swap follow up. I saw her 12/06/2018 after her generator swapthat was done 11/26/2018. This history was noted at that visit: Skye Hinton is a 68 y.o. female seen in the [facility] pain clinic 10/12/2018 where this history was noted: ?? Skye Hinton??is a??68 y.o.??year old female??with a PMH of complex regional pain syndrome type 1 of her bilateral upper extremity and fibromyalgia and she is status post a spinal cord stimulator implantation about 12??years ago. She was last seen in clinic by Dr Sánchez on 07/27/2015. ?? Patient reports she had a spinal cord stimulator ([employer]) placed in 2006 which was complicated byelectrode loosening and IPG battery erosion where she was taken back to OR for IPG battery revision.This was done by a pain clinic in [place]. She is getting adequate paresthesia coverage when he turns on the spinal cord stimulator, however, for the past six months, she noted overheating at the IPG battery site when she charges. She also notes decreased efficacy of the spinal cord stimulator programtowards the end of the day. ?? Patient is also seen by [employer] customer success representative today in clinic. Her spinal cord stimulator was placed in 2006 with two 90cm electrodes located at the C2 level. ?? She currently takes Gabapentin and duloxetine for pain.? She was scheduled for a generator explant and replacement that was done 11/26/2018. She now comes to clinic for follow up. She's accompanied by her . Interval history: She says she was in torture for a few days. She had a fall onto her behind but doesn't think she did any damage. She was on wet grass. She believes the device has been functioning well. She can't feel it but believes it's working. She says she can't write. She's shaking with a tremor(her says) even when she's not writing. ?? She's uncomfortable sitting and is lying on the exam cot. She says she's walking much better since the new battery was put in. ? ADLS/Functioning: She's been active and isn't having any problems with her daily activites. ?? We agreed to a follow up in 8 weeks at that visit to make sure her new SCS was working to her satisfaction and she now returns for that visit. INTERVAL HISTORY: She was expecting the [employer] rep to be at this visit. She's not been in touch with them since her SCS was replaced 11/26/2018. She feels like the pain has calmed down some. But, her left neck swells up and her left arm has morning pain. She doesn't know if it's the machine or her body or what. She can't lay on her side withouther left arm hurting. She's not opened the box from [employer]. She says she didn't have anything explained. She's not done anything with the device. She's not touched anything related to it. They traveled 150 miles round trip to make this appointment. She brought her old device and the new one but she's not been able to get any information. Pain Assessment: Description: Stabbing pain in left trapezius area; and stiffness in left arm Location:neck and LUE Weakness, numbness, tingling: yes in upper arm and elbow (like it's asleep) Other associated symptoms: none Alleviating factors: rubbing; sling position on pillow Aggravating factors: sleeping on left side; reaching up; Pain today: 5-6/10 Best in past week: 5/10 Worst in past week: 10/10--first thing in the morning PAST THERAPIES: Acetaminophen:helps some ( NSAID: naproxen, Opioids: none Storage of opioids:na Antidepressants:none for a long time Anticonvulsants: used to take gabapentin Muscle relaxants: none Topicals: lidocaine cream and biofreeze Herbal supplements/vitamins:none Injections: none Surgery: none Physical Therapy: most recent 4-5 months TENS: none Acupuncture: none Chiropractic: none Massage: none CBT,Meditation/Imagery:none Yoga/Milo Chi/ Movement: none Marijuana: none Other:CBD oil MEDICATIONS Medications 01/31/19 1001 Medication Sig Taking? pravastatin (PRAVACHOL) 20 mg Tablet Take 20 mg by mouth nightly. Yes ibuprofen (ADVIL;MOTRIN) 800 mg Tablet Take 1 tablet by mouth every 8 hours as needed for Pain. Makesure to take this with food and water. Yes metoprolol tartrate (LOPRESSOR) 25 mg Tablet Take 25 mg by mouth as needed. Yes losartan (COZAAR) 50 mg Tablet Take 50 mg by mouth daily. Yes pramipexole (MIRAPEX) 0.25 mg Tablet Take 0.25 mg by mouth 2 times daily. Yes escitalopram oxalate (LEXAPRO) 20 mg Tablet Take 20 mg by mouth daily. Yes metoclopramide (REGLAN) 10 mg Tablet take 1 tablet by mouth every 8 hours if needed for nausea or migraines nortriptyline (PAMELOR) 10 mg Capsule TAKE 1 TO 2 CAPSULES BY MOUTH AT BEDTIME FOR SLEEP AND MIGRAINE PREVENTION methocarbamol (ROBAXIN) 500 mg Tablet Take 1 tablet by mouth 3 times daily. Patient not taking: Reported on 01/31/2019 DULoxetine (CYMBALTA) 60 mg capsule Take 60 mg by mouth 2 times daily. DC and OR Prescription Monitoring Program were checked and 1 prescription was reported. 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 Aspirin Other (See Comments) 04/07/2012 ??? Tylenol [acetaminophen] Palpitations 07/13/2012 REVIEW OF SYSTEMS: Constitutional Denies Fevers, Chills, loss of weight gained 3 lbs HEENT Denies new hearing problems, vision problems or dental problems. Cardiovascular Denies chest pain, palpitations, IL, hypertension, heart murmur. Respiratory Denies cough, SOB, wheezing, asthma. GI Denies N/V, Hepatits, yellow jaudice, liver problems. Stool incontinence Denies kidney problems, infections, blood in urine, or kidney stones Musculoskeletal Denies other joint pains, see HPI. Neurologic Denies seizures, convulsions, stroke, shock, frequent headaches migraines, dizziness or passing out. Sleep is not good (takes melatonin). Psychiatric Denies depression, anxiety, stress or suicidal ideation. Hematologic Denies prolonged bleeding, easy bruising, lymph gland swelling Dermatologic Denies rashes, or other skin problems PHYSICAL EXAMINATION Body mass index is 31.72 kg/m??. BP 140/62 Pulse 64 Ht 152.4 cm (5') Wt 73.7 kg (162 lb 6.4 oz) Appearance/ Behavior Well groomed, good eye contact, relaxed, cooperative, normal speech, no acute distress. HEENT Sclera non-icteric, conjunctiva clear. Hearing grossly intact. Lungs Clear to ausculation bilaterally Cardiovascular Regular rate and rhythm Psychiatric Pleasant mood, cooperative, oriented to person, place, and date Extremities No peripheral edema or digital cyanosis Skin No rash, lesions or ulcers Psych Alert and oriented to person, place and time, cooperative, pleasant affect MSK Tenderness to palpation of the subacromial bursa. She has tenderness over her left trapezius muscle. Positive impingement sign on left shoulder. Neuro No apparent sensory deficits in upper extremities. DIAGNOSTIC STUDIES No new studies for this visit. ASSESSMENT Skye Hinton is a 68 y.o. female is here today accompanied by her [facility] generator swap follow up. I saw her 12/06/2018. She had not been in touch with the [employer] rep and they were not able to attend that visit on 12/06. She was expecting them to be here today. But, they are not here. She has not been in touch with them and has not touched the device since her implantation 12/06. We will schedule a follow up visit here with the [employer] rep. She will try to contact them to see ifthey will agree to meet her at a more convenient location sooner. Insofar as she has not touched her device since implant, it is clear she is not taking maximal advantage of what this technology can offer. We will try to find out what her current programs and any reprogramming can do to cover her pain complaints. Recommendations: FOLLOW UP: f/u with [employer] in attendance Skye Renee Mary Jane had the opportunity to ask questions and indicated that all questions were answered to her satisfaction. Lamont Vasquez PA-C Physician Wildlife Refuge Manager [facility] [address] [address] / [facility] documented in this encounter Plan of Treatment Not on filedocumented as of this encounter Visit Diagnoses Diagnosis Complex regional pain syndrome type 2 of both upper extremities documented in this encounter Care Teams Sr. Operations Manager Relationship Specialty Start Date End Date Noa Washington APRN PCP - General Family Medicine 04/20/[address] [place] [address] documented as of this encounter
--- OUTSIDE RECORDS SUMMARY | 2021-12-30 01:42 | XMS_ITS | Encounter Summary ---
:1950 Author Organization [facility] Address [address] [place] [address] Care Team Providers Name Role Phone Kizzy Nunez APRN Primary Care Provider Encounter Details Date Type Department Care Team Description 05/04/2012 Orders Only Endocrinology at [facility] Winston De Leon [facility] [place] [address] [facility] [phone] ENDOCRINOLOGY [place], [place] [address] (Wo rk) Social History Tobacco Use Types Packs/Day Years Used Date Never Smoker Sex Assigned at Date Recorded Not on file documented as of this encounter Plan of Treatment Not on filedocumented as of this encounter Procedures Procedure Name Priority Date/Time Associated Diagnosis Comme nts FILM LIBRARY Routine 05/04/2012 9:15 AM Results f or this STORAGE ONLY EST procedure are i n NUCLEAR MEDICINE the results section. documented in this encounter Results FILM LIBRARY- STORAGE ONLY NUCLEAR MEDICINE (05/04/2012 9:15 AM EST) Specimen (Source) Anatomical Collection Method Collection Time Re ceived Time Location / / Volume Laterality 05/04/2012 9:15 AM EST Narrative RAD - 01/02/2014 7:03 PM EDT This is a non-reportable exam. Procedure Note Renzo Vasquez - 01/02/2014Formatti ng of this note might be different from the original. This is a non-reportable exam. Winston Hood MD IMAnais FILM LIBRARY ORDERABLES Performing Organization Address City/State/ZIP Code Phon e Number [facility] [address] [place] [address] documented in this encounter Visit Diagnoses Not on filedocumented in this encounter Care Teams Local Hazmat Driver Relationship Specialty Start Date End Date Kizzy Nunez APRN PCP - General 04/07/12 04/19/15 TAMIR [address] [place] [address] documented as of this encounter
--- OUTSIDE RECORDS SUMMARY | 2021-12-30 01:42 | XMS_ITS | Encounter Summary ---
:1950 [place] [address] Care Team Providers Name Role Phone Noa Washington APRN Primary Care Provider Encounter Details Date Type Department Care Team Description 11/02/2018 Telephone Pain Management [place] [address] Social History Tobacco Use Types Packs/Day Years Used Date Never Smoker Smokeless Tobacco: Never Used Sex Assigned at Date Recorded Not on file documented as of this encounter Miscellaneous Notes Telephone Encounter - Demetra Stallings - 11/02/2018 10:33 AM EDT Skye Hinton called at 10:30am today to check what her date for surgery would be. She advised thatduring her pre-admit call she was told that her date had been changed to the 14th, she wanted to confirm this with someone in the Pain Clinic. I clarified with Irma Mckeon. The patient should not needa call back. documented in this encounter Plan of Treatment Not on filedocumented as of this encounter Visit Diagnoses Not on filedocumented in this encounter Care Teams Foreign Language Teacher Relationship Specialty Start Date End Date Noa Washington APRN PCP - General Family Medicine 04/20/15 [place] [address] documented as of this encounter
--- OUTSIDE RECORDS SUMMARY | 2021-12-30 01:42 | XMS_ITS | Clinical Summary ---
:1950 Author Organization [facility] [place] [address] Care Team Providers Name Role Phone Noa Washington APRN Primary Care Provider Allergies Active Allergy Reactions Severity Noted Date Comments Aspirin Other (See Comments) 04/07/2012 Chest p ain Acetaminophen Palpitations 07/13/2012 Medications Medication Sig Dispensed Refills Start Date End Date Status DULoxetine (CYMBALTA) 60 Take 60 mg by 0 Active mg capsule mouth 2 times daily. escitalopram oxalate Take 20 mg by 0 Active (LEXAPRO) 20 mg Tablet mouth daily. metoprolol tartrate Take 25 mg by 0 Active (LOPRESSOR) 25 mg Tablet mouth as needed. losartan (COZAAR) 50 mg Take 50 mg by 0 Active Tablet mouth daily. pramipexole (MIRAPEX) Take 0.25 mg by 0 Active 0.25 mg Tablet mouth 2 times daily. methocarbamol (ROBAXIN) Take 1 tablet by 5 tablet 0 9 Active 500 mg Tablet mouth 3 times daily. Additional Information Patient not taking. Reported on 01/31/2019 ibuprofen (ADVIL;MOTRIN) 800 Take 1 tablet by mouth 30 tablet 12 11/29/2018 Active mg Tablet every 8 hours as needed for Pain. Make sure to take this with food and water. metoclopramide (REGLAN) 10 take 1 tablet by mouth 0 06/18/2018 Active mg Tablet every 8 hours if needed for nausea or migraines nortriptyline (PAMELOR) 10 TAKE 1 TO 2 CAPSULES BY 0 10/14/2018 Active mg Capsule MOUTH AT BEDTIME FOR SLEEP AND MIGRAINE PREVENTION pravastatin (PRAVACHOL) 20 Take 20 mg by mouth 0 Active mg Tablet nightly. Active Problems Problem Noted Date CRPS (complex regional pain syndrome), upper limb 07/16 Family History Medical History Relation Comments Heart Disease Father Cancer Mother Relation Status Comments Father Mother Social History Tobacco Use Types Packs/Day Years Used Date Never Smoker Smokeless Tobacco: Never Used Sex Assigned at Date Recorded Not on file Last Filed Vital Signs Vital Sign Reading Time Taken Comments Blood Pressure 140/62 01/31/2019 10:01 AM EDT Pulse 64 01/31/2019 10:01 AM EDT Temperature 36.4 ??C (97.5 ??F) 11/26/2018 9:48 AM EDT Respiratory Rate 16 11/26/2018 11:45 AM EDT Oxygen Saturation 96% 01/31/2019 10:01 AM EDT Inhaled Oxygen Concentration - - Weight 73.7 kg (162 lb 6.4 oz) 01/31/2019 10:01 AM EDT Height 152.4 cm (5') 01/31/2019 10:01 AM EDT Body Mass Index 31.72 01/31/2019 10:01 AM EDT Plan of Treatment Health Maintenance Due Date Last Done Comments Covid-19 Vaccine (#1) 1955 Hepatitis C Screening 1968 Tdap adult 1969 Tetanus vaccine 1969 Breast Cancer Share Decision Needed 1990 Colonoscopy 1995 Breast Cancer screening 2000 Zoster vaccine (1 of 2) 2000 Advance Directive 2005 Bone Density Scan 2015 Pneumoccocal Vaccine: 65+ (1 - PCV) 2015 Influenza (Flu) vaccine (1 of 1 - Influenza standard 02/13/2022 series) Medical Devices Implanted Type Area Ux Lead Device Shelf Model / Identifier Expiration Serial / Date Lot Proclaim 5 Elite Implantable Pulse Generator Right: [employer] 10/26/2020 [id number] / Implanted: Qty: 1 on 11/26/2018 by Jose Francisco Alfred MD at [facility] Back [id number] / Insurance Payer Benefit Plan / Subscriber ID Effective Phone Address T ype Group Dates MEDICARE MEDICARE PART A [id number] 2003-Prese [phone] SECURITY [place] MD [place] [phone] AARP SUPPLEMENT AARP SUPPLEMENT [id number] 2003-[place] [id number] [place] [address] Advance Directives Latest Code Status on File Code Status Date Activated Date Inactivated Comments Full Code 11/26/2018 8:28 AM 11/26/2018 1:49 PM Does patient have capacity to make decision: Yes Care Teams Spray Ii Painter Relationship Specialty Start Date End Date Noa Washington APRN PCP - General Family Medicine 04/20/15 [address] [place], [place] [address]
--- OUTSIDE RECORDS SUMMARY | 2021-12-30 01:42 | XMS_ITS | Encounter Summary ---
:1950 Author Organization [facility] [place] [address] Care Team Providers Name Role Phone MeghnaricoNoa main MOSES Primary Care Provider Reason for Visit Reason Comments Pain Management post op IPG SWAP Encounter Details Date Type Department Care Team Description 12/06/2018 Office Visit Pain Management at Lamont Vasquez Comp miguel regional pain Isabela GALINDO syndrome type 2 of [facility] [address] [place] [id number] [phone] Social History Tobacco Use Types Packs/Day Years Used Date Never Smoker Smokeless Tobacco: Never Used Sex Assigned at Date Recorded Not on file documented as of this encounter Last Filed Vital Signs Vital Sign Reading Time Taken Comments Blood Pressure 134/78 12/06/2018 11:45 AM EDT Pulse 59 12/06/2018 11:45 AM EDT Temperature - - Respiratory Rate - - Oxygen Saturation 99% 12/06/2018 11:45 AM EDT Inhaled Oxygen Concentration - - Weight 71.7 kg (158 lb) 12/06/2018 11:45 AM EDT Height - - Body Mass Index 30.86 11/26/2018 7:15 AM EDT documented in this encounter Patient Instructions Patient InstructionsLamont Vasquez PA - 12/06/2018 11:45 AM EDT Recommendations: #1 Medications:No new medications at this time #2 Procedures:None at this time #3 Imaging:None at this time #4 Referrals:None at this time #5 Behavioral Medicine:None at this time #6 Physical Medicine:None at this time #7 Education:None at this time FOLLOW UP:F/u in 8 weeks, call or return if symptoms worsen or fail to improve documented in this encounter Progress Notes Lamont Vasquez PA - 12/06/2018 11:45 AM EDT [facility] [place] [address] Phone: PAIN MANAGEMENT FOLLOW UP DATE OF VISIT 12/06/2018 Patient Skye Hinton 1950 REFERRING PROVIDER Noa Washington APRN [facility] [place] [address] PRIMARY CARE PROVIDER Noa Washington APRN CHIEF COMPLAINT: Post Op follow up to SCS generator swap done 11/26/2018 HPI Skye Hinton is a 68 y.o. female seen in the [facility] pain clinic 10/12/2018 where this history was noted: Skye Hinton is a 68 y.o. year old female with a PMH of complex regional pain syndrome type 1 of her bilateral upper extremity and fibromyalgia and she is status post a spinal cord stimulator implantation about 12 years ago. She was last seen in clinic by Dr Sánchez on 07/27/2015. ?? Patient reports she had a spinal cord stimulator ([employer]) placed in 2006 which was complicated byelectrode loosening and IPG battery erosion where she was taken back to OR for IPG battery revision.This was done by a pain clinic in [place]. She is getting adequate paresthesia coverage when he turns on the spinal cord stimulator, however, for the past six months, she noted overheating at the IPG battery site when she charges. She also notes decreased efficacy of the spinal cord stimulator programtowards the end of the day. ?? Patient is also seen by [employer] goodwill representative today in clinic. Her spinal cord stimulator was placed in 2006 with two 90cm electrodes located at the C2 level. ?? She currently takes Gabapentin and duloxetine for pain. She was scheduled for a generator explant [...] tremor(her says) even when she's not writing. She's uncomfortable sitting and is lying on the exam cot. She says she's walking much better since the new battery was put in. ADLS/Functioning: She's been active and isn't having any problems with her daily activites. ANALGESIA: Pain today: 12/22--because she's been sitting so much Best in last week: 07/25--a couple of times Worst in past week: 03/24--in the first days after the surgery PDMP was checked and 2 prescriptions were reported. MEDICATIONS Medications 12/06/18 1144 Medication Sig Taking? metoclopramide (REGLAN) 10 mg Tablet take 1 tablet by mouth every 8 hours if needed for nausea or migraines Yes ibuprofen (ADVIL;MOTRIN) 800 mg Tablet Take [...] Take 20 mg by mouth daily. Yes DULoxetine (CYMBALTA) 60 mg capsule Take 60 mg by mouth 2 times daily. Yes nortriptyline (PAMELOR) 10 mg Capsule TAKE 1 TO 2 CAPSULES BY MOUTH AT BEDTIME FOR SLEEP AND MIGRAINE PREVENTION methocarbamol (ROBAXIN) 500 mg Tablet Take 1 tablet by mouth 3 times daily. REVIEW OF SYSTEMS: Constitutional Denies Fevers, Chills, loss of weight HEENT Denies new hearing problems, vision problems or dental problems. Cardiovascular Denies chest pain, palpitations, NM, hypertension, heart murmur. Respiratory Denies cough, SOB, wheezing, asthma. GI Denies N/V, Hepatits, yellow jaudice, liver problems. Stool incontinence Denies kidney problems, infections, blood in urine, or kidney stones Musculoskeletal Denies other joint pains, see HPI. Neurologic Denies seizures, convulsions, stroke, shock, frequent headaches, dizziness or passing out. Sleep is not that good. She's not a good sleeper to start with. She was kept awake taking toradol. Psychiatric Denies depression, anxiety, stress or suicidal ideation. Hematologic Denies prolonged bleeding, easy bruising has been true for a while, lymph gland swelling Dermatologic Denies rashes, or other skin problems PHYSICAL EXAMINATION Most Recent Vitals: 12/06/18 1145 BP: 134/78 Pulse: 59 SpO2: 99% PainSc: 6 Body mass index is 30.86 kg/m??. BP 134/78 Pulse 59 Wt 71.7 kg (158 lb) No flowsheet data found. Appearance/ Behavior Well groomed, good eye contact, relaxed, cooperative, normal speech, no acute distress. HEENT Sclera non-icteric, conjunctiva clear. Hearing grossly intact. Lungs Clear to ausculation bilaterally Cardiovascular Regular rate and rhythm without murmur, no carotid bruits Abdomen Soft, non tender, non-distended, audible bowel sounds, no hepatosplenomegaly Psychiatric Pleasant mood, cooperative, oriented to person, place, and date Extremities No peripheral edema or digital cyanosis Skin No rash, lesions or ulcers Psych Alert and oriented to person, place and time, cooperative, pleasant affect MSK No tenderness, erythema, swelling, exudate at surgical site. Neuro Sensation to light touch is intact. No hypersensitivity or allodynia. Imaging: No new imaging Assessment: Skye Hinton is here for a post-op visit following a battery replacement surgery for herSCS that was done 11/26/2018. She had severe pain for 2-3 days following the surgery but says things have settled down. I asked if she's been in touch with the [employer] rep. She says she has not but that she is seeing them immediately when she's done with my visit today. I said I wanted to be sure she's getting all the right programming to take advantage of the device. The surgical site is without erythema, swelling or warmth. No exudate. Site is well healed. I took aphoto and entered it into the medical record using Flared3D software. The site was prepped and with sterile gloves danitza were removed. Band aids were placed over the area with instructions not to soak the area (baths, pools etc) for another week. Call or return if there is any new redness, swelling or tenderness. Ms. Hinton and her were given an opportunity to ask any further questions and had none at this time. The [facility] was not able to make it to this visit. So, she will contact him to follow up on her programming questions. Recommendations: #1 Medications:No new medications at this time #2 Procedures:None at this time #3 Imaging:None at this time #4 Referrals:None at this time #5 Behavioral Medicine:None at this time #6 Physical Medicine:None at this time #7 Education:None at this time FOLLOW UP:F/u in 8 weeks, call or return if symptoms worsen or fail to improve Skye Hinton had the opportunity to ask questions and indicated that all questions were answered to their satisfaction. BECKY FerreraC Physician Litigation Docket Manager [facility] [address] [id number] / [facility] documented in this encounter Plan of Treatment Not on filedocumented as of this encounter Visit Diagnoses Diagnosis Complex regional pain syndrome type 2 of both upper extremities documented in this encounter Care Teams Water Resource Engineering Specialist Relationship Specialty Start Date End Date Noa Washington APRN PCP - General Family Medicine 04/20/15 [place] [address] documented as of this encounter
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
--- OUTSIDE RECORDS SUMMARY | 2021-12-30 01:42 | XMS_ITS | Encounter Summary ---
:1950 [address] [facility] [place] [address] Care Team Providers Name Role Phone Noa Washington ROPE TIER Primary Care Provider Encounter Details Date Type Department Care Team Description 11/26/2018 Orders Only [facility] Unknown [facility] [place] [phone] Social History Tobacco Use Types Packs/Day Years Used Date Never Smoker Smokeless Tobacco: Never Used Sex Assigned at Date Recorded Not on file documented as of this encounter Plan of Treatment Pending Results Name Type Priority Associated Diagnoses Date/Ti me EKG 12 Lead ECG Routine 11/26/2018 11:0 6 AM EDT documented as of this encounter Procedures Procedure Name Priority Date/Time Associated Diagnosis Comme nts EKG 12-LEAD Routine 11/26/2018 11:06 AM Results for this EDT procedure are i n the results section . EKG 12-LEAD Routine 11/26/2018 11:06 AM EDT documented in this encounter Results EKG 12 Lead (11/26/2018 11:06 AM EDT) Component Value Ref Range Test Analysis Performed Pathologis t Method Time At Signature Ventricular rate 62 BPM MUSE SYSTEM Atrial Rate 62 BPM MUSE SYSTEM P-R Interval 140 ms MUSE SYSTEM QRS Duration 70 ms MUSE SYSTEM Q-T Interval 438 ms MUSE SYSTEM QTC Calculated 444 ms MUSE SYSTEM (Bezet) Calculated P Laughlin 49 degrees MUSE SYSTEM Calculated R Laughlin 0 degrees MUSE SYSTEM Calculated T Laughlin 15 degrees MUSE SYSTEM INTERPRETATION Normal sinus rhythm MUSE SYSTEM Normal ECG When compared with ECG of 26-NOV-2018 11:04, (unconfirmed) No significant change was found Confirmed by MD Torin, Francisco Javier ([id number]) on 11/26/2018 2:44:39 PM Specimen Anatomical Collection Method Collection Time Receive d Time (Source) Location / / Volume Laterality 11/26/2018 11:06 11/26/2018 2:44 AM EDT PM EDT Unknown ECG ORDERABLES Performing Organization Address City/State/ZIP Code Phon e Number MUSE SYSTEM documented in this encounter Visit Diagnoses Not on filedocumented in this encounter Care Teams Dairy Supplies Sales Representative Relationship Specialty Start Date End Date Noa Washington APRN PCP - General Family Medicine 04/20/15 [address] [place] [address] documented as of this encounter
--- OUTSIDE RECORDS SUMMARY | 2021-12-30 01:42 | XMS_ITS | Encounter Summary ---
:1950 Author Organization [facility] [place] [address] Care Team Providers Name Role Phone Noa Washington APRN Primary Care Provider Encounter Details Date Type Department Care Team Description 11/26/2018 Hospital Encounter Same Day Program at [facility], Complex regional Jena Valencia MD pain syndrome type [address] [place] [address] DR maria luisa [place] [id number] [phone] Social History Tobacco Use Types Packs/Day Years Used Date Never Smoker Smokeless Tobacco: Never Used Sex Assigned at Date Recorded Not on file documented as of this encounter Last Filed Vital Signs Vital Sign Reading Time Taken Comments Blood Pressure 167/75 11/26/2018 1:45 PM EDT Pulse 70 11/26/2018 9:48 AM EDT Temperature 36.4 ??C (97.5 ??F) 11/26/2018 9:48 AM EDT Respiratory Rate 16 11/26/2018 11:45 AM EDT Oxygen Saturation 97% 11/26/2018 1:45 PM EDT Inhaled Oxygen Concentration - - Weight 71.7 kg (158 lb) 11/26/2018 7:15 AM EDT Height 152.4 cm (5') 11/26/2018 7:15 AM EDT Body Mass Index 30.86 11/26/2018 7:15 AM EDT documented in this encounter Discharge Instructions Discharge InstructionsIsrael Chand RN - 11/26/2018 9:57 AM EDT POST ANESTHESIA INSTRUCTIONS Go home, rest, use caution on stairs. Change positions slowly. Do not smoke if you are alone. Diet light to regular as tolerated today. If nausea occurs start with clear liquids and progress slowly. No driving, operating machinery, alcoholic beverages and no important decisions for 24 hours. Monitor IV site for signs and symptoms of infection: increasing redness, swelling, foul drainage, ifoccurs contact M.D. Patients who have had endotrachial tubes (this tube, used by anesthesia department, is passed down your throat after you are asleep, to ensure safe air passage during your operation). A sore throat is normal due to the tube. Cold liquids or soothing lozenges will help ease the discomfort. The generalized muscle aches are due to the medication given to you just before the tube is inserted. As the medication wears off, you may develop muscle soreness, which usually goes away in 12-24 hours. Patient InstructionsAshwin Salmon MD - 11/26/2018 9:57 AM EDT DBS IPG REPLACEMENT DISCHARGE INSTRUCTIONS PRESCRIPTION INSTRUCTIONS: Please see the medication reconciliation list on this discharge summary for a current list of your medications. Stop the use of blood thinning medications until instructed otherwise by your surgical team. This includes medications known as antiplatelet, anticoagulant, and non-steroidal anti-inflammatory (NSAIDs)drugs. Common fide-ekj-iqazjjr medications which should be avoided include Aspirin, ibuprofen, and naproxen among others. These medications are sometimes combined with other drugs or are sold under a trade name. Common prescription medications which should be avoided include Plavix (clopidogrel) and Coumadin (warfarin) among others. The following medications are commonly prescribed after surgery. An [X] indicates that these medications have been prescribed for you. [ X ] Tylenol- Pain relief Your pain will be well controlled with this medication. If you continue you have pain or it is not improved with Tylenol, please call the clinic. [ ] Opioids - Pain relief: medications such as Roxicodone (oxycodone) or Dilaudid (hydromorphone) Opioids are commonly prescribed after surgery for severe pain. DO NOT use alcohol, drive, or operateheavy machinery while taking these medications. These medications may cause constipation. Stool softeners - Constipation relief: medications such as docusate or senakot Stool softeners are commonly used after surgery to help make stools easier to pass. These medications can be obtained [id number] and their use is recommended on an as needed basis for hard or difficult stools. They should be discontinued for loose stools and diarrhea. WHEN TO SEEK MEDICAL CARE: - Signs or symptoms of an infection - Fever over 101F - Redness, swelling, or increasing pain around your incision - Drainage of pus, blood, or clear fluid from your incision - New neurologic symptoms - Worsening headaches not controlled with your pain medication - Drowsiness, confusion, and lethargy - Visual changes - Difficulty speaking or slurred speech - Facial droop - New weakness or sensory changes - New unsteadiness when walking - Seizures - Constipation not relieved by diet and over the counter stool softeners and laxatives - Nausea/vomiting (upset stomach) not controlled with your anti-nausea medication - Symptoms of a deep venous thrombosis (DVT) or pulmonary embolism (PE): -swelling/warmth/redness of the leg -pain in the leg, which can be worse with standing or walking -chest pain or shortness of breath To help prevent a DVT: -Exercise regularly. Walking, at least several times daily, is helpful. -Ankle pump exercises (like pressing and releasing the gas pedal) should be done regularly. -Keep hydrated with water or other clear liquids (coffee/tea/cola can dehydrate you). -Avoid alcohol and crossing your legs. -Remember not to sit or lay in bed, while awake, for prolonged amounts of time. WOUND CARE: - Keep incisional site clean and dry. If you have a dressing, it can be removed 2 days after surgery. - You may shower and shampoo incisional site, per your usual routine, 4 days after surgery. - Your incisions were closed with surgical glue and absorbable sutures. The sutures will dissolve ontheir own and do not need to be removed. DIET: - You may resume your usual diet. - A well-balanced diet is recommended for wound healing. - Prune juice or prunes can be added to your diet to assist with any constipation. ACTIVITY: - You may increase your activities as tolerated. - Restrict strenuous activity (such as running, jumping, jogging, shoveling, etc.) until cleared by your surgical team DRIVING: - You may return to driving 2 days after surgery. FOLLOW UP PLAN: [ X ] Your scheduled postoperative follow up appointments are listed under the Future Appointments and Orders section of this document documented in this encounter Medications at Time of Discharge Medication Sig Dispensed Refills Start Date End Date metoclopramide (REGLAN) take 1 tablet by 0 2018 10 mg Tablet mouth every 8 hours if needed for nausea or migraines nortriptyline (PAMELOR) TAKE 1 TO 2 CAPSULES 0 10 mg Capsule BY MOUTH AT BEDTIME FOR SLEEP AND MIGRAINE PREVENTION metoprolol tartrate Take 25 mg by mouth 0 (LOPRESSOR) 25 mg Tablet as needed. losartan (COZAAR) 50 mg Take 50 mg by mouth 0 Tablet daily. pramipexole (MIRAPEX) Take 0.25 mg by 0 0.25 mg Tablet mouth 2 times daily. methocarbamol (ROBAXIN) Take 1 tablet by 5 tablet 0 2018 500 mg Tablet mouth 3 times daily. escitalopram oxalate Take 20 mg by mouth 0 (LEXAPRO) 20 mg Tablet daily. DULoxetine (CYMBALTA) 60 Take 60 mg by mouth 0 mg capsule 2 times daily. cephALEXin (KEFLEX) 250 take 1 capsule by 0 06/2212/06/2018 mg Capsule mouth three times a day UNTIL GONE traMADol (ULTRAM) 50 mg Take 1 tablet by 10 tablet 0 201812/06/2018 Tablet mouth every 6 hours as needed for Pain. pravastatin (PRAVACHOL) Take 20 mg by mouth 0 12/06/2018 20 mg Tablet daily. documented as of this encounter Progress Notes Natalia Wei RN - 11/26/2018 2:02 PM EDT 11/29/2018 Patient very upset when post procedure call done. 8 pain all w/e. Called Dr. Alfred's office, who suggested calling pain service. Spoke with pain service who will have one of the nurses do afollow up call to patient. Israel Chand RN - 11/26/2018 1:46 PM EDT Patient alert and oriented, vital signs stable. Reviewed discharge instructions; patient and husbandverbalized understanding. Copy of instruction sheet with contact numbers for questions/concerns withhusband. Pain assessment documented - improving. IV removed. Patient escorted out of department via wheelchair with staff. Israel Chand RN - 11/26/2018 11:02 AM EDT VSS. Team notified about left shoulder arm pain. EKG ordered. Evaluation by neuro/anesthesia. 1200 - pain management continues, muscle relaxant given and team will check back in 45 min. Heat packs applied and pillow support. 1345 - pt having some relief from the muscle relaxant and pain is now 6/10. Pt feels this is manageable to go home. Israel Chand RN - 11/26/2018 10:32 AM EDT VSS. Patient c/o left arm/wrist pain. No chest pain. Heat pack applied. 6/10 and increasing to 9/10. documented in this encounter H&P Notes Ashwin Salmon MD - 11/26/2018 8:32 AM EDT Neurosurgery Pre-operative H&P 11/26/2018 Skye Hinton [id number] 1950 CC: IPG replacement HPI: Skye Hinton is a 68 y.o. female presents for scheduled elective [IPG replacement. All questions answered. No complaints. Denies headache, nausea, vomiting, numbness, weakness, paresthesias, LOC, seizures, difficulties with balance, visual or auditory symptoms. Denies bowel or bladder symptoms. PMH/PSH: Past Medical History: Diagnosis Date ??? Anemia ??? Anxiety ??? Depression ??? Encounter for blood transfusion ??? Headache(784.0) ??? Hypertension Past Surgical History: Procedure Laterality Date ??? APPENDECTOMY ??? CHOLECYSTECTOMY ??? DEEP BRAIN STIMULATOR PLACEMENT SCS for pain 2006 in [place] ??? HYSTERECTOMY ??? JOINT REPLACEMENT right knee X 2 ??? ORTHOPEDIC SURGERY Right foot surgeries due to fx- has plates ??? ORTHOPEDIC SURGERY Left shoulder surgery many years ago ??? SPINE SURGERY L5-S1 posterior fusion 03/10/03 Medications: No current facility-administered medications on file prior to encounter. Current Outpatient Medications on File Prior to Encounter Medication Sig Dispense Refill ??? losartan (COZAAR) 50 mg Tablet Take 50 mg by mouth daily. ??? pramipexole (MIRAPEX) 0.25 mg Tablet Take 0.25 mg by mouth 2 times daily. ??? escitalopram oxalate (LEXAPRO) 20 mg Tablet Take 20 mg by mouth daily. ??? pravastatin (PRAVACHOL) 20 mg Tablet Take 20 mg by mouth daily. ??? DULoxetine (CYMBALTA) 60 mg capsule Take 60 mg by mouth 2 times daily. ??? metoprolol tartrate (LOPRESSOR) 25 mg Tablet Take 25 mg by mouth as needed. ??? [DISCONTINUED] lisinopril (PRINIVIL;ZESTRIL) 20 mg Tablet Take 20 mg by mouth daily. ??? [DISCONTINUED] gabapentin (NEURONTIN) 300 mg Capsule 3 times daily. ??? [DISCONTINUED] omeprazole (PRILOSEC) 40 mg Capsule, Delayed Release(E.C.) 40 mg daily as needed. ??? [DISCONTINUED] SUMAtriptan (IMITREX) 50 mg Tablet Take 50 mg by mouth as needed. 0 ??? [DISCONTINUED] Cholecalciferol, Vitamin D3, (VITAMIN D-3) 5,000 unit Tab Take by mouth daily. Allergies: Reviewed Family Hx: Reviewed, noncontributory Social Hx: Nonsmoker Drinks alcohol occasionally Denies illicits ROS: Constitutional: No recent weight loss / fevers / chills / night sweats. HEENT: No recent visual changes / hearing changes. Cardiovascular: No chest pain / palpitations. Pulmonary: No shortness of breath / cough GI: No abdominal pain / vomiting / change in bowel pattern : No dysuria / urinary retention / urinary incontinence. Physical Exam: Vital Signs: BP 160/63 (BP Location (NBP): Right arm) Pulse 59 Temp 36.5 ??C (97.7 ??F) (Temporal) Resp 16 Ht 152.4 cm (5') Wt 71.7 kg (158 lb) SpO2 98% BMI 30.86 kg/m?? General: NAD CVS: RRR Resp: CTAB HEENT: Atraumatic, normocephalic Neuro: Mental Status/Cognitive: Awake, alert, oriented x3 Speech: Fluent, appropriate Cranial Nerves: CN II - Visual acuity and delraosa grossly intact, PERRL CN III, IV, - EOMI CN VII - No facial asymmetry CN IX, X - Palate and uvula midline CN XI - Trapezius 5/5 bilat CN XII - Tongue midline Motor: No pronator drift. Tone: Normal Power: Segment Muscle Action Right Left C5 Biceps Elbow flexion 5 5 C6 Extensor carpi radialis Wrist extension 5 5 C7 Triceps Elbow extension 5 5 C8, T1 Hand intrinsics Grasp 5 5 L2 Iliopsoas Hip flexion 5 5 L3 Quadriceps Knee extension 5 5 L4 Tibialis anterior Dorsiflexion 5 5 L5 Extensor hallucis Great toe extension 5 5 S1 Gastrocnemius Plantar flexion 5 5 Reflexes: 2+ and symmetric throughout Sensation in the extremities: Light touch: Intact x 4 Cerebellar exam: Dysmetria: None Dysdiadochokinesia Gait: Not assessed Labs: No results for input(s): NA, K, CL, CO2, BUN, CREATININE, GLUCOSE, CALCIUM, MAGNESIUM, PHOS in the last 72 hours. Invalid input(s): CAION No results for input(s): WBC, HGB, HCT, MCV, PLATELET in the last 72 hours. Invalid input(s): RDW No results for input(s): PT, INR, FIBRINOGEN in the last 72 hours. Invalid input(s): PROTHROMBIN No results for input(s): AST, ALT, ALKPHOS, ALB, LIPASE in the last 72 hours. Invalid input(s): TBILI, TP No results for input(s): HDL in the last 72 hours. Invalid input(s): CHOLESTEROL, LDL, TG Assessment and Plan: -Pre-operative labs -OR planning documented in this encounter Miscellaneous Notes Op Note - Ashwin Salmon MD - 11/26/2018 12:45 PM EDT Operative Note Patient Name: Skye Hinton : [id number] MR#: [id number] Case Date: 11/26/2018 Surgeon: Surgeon(s) and Role: * [facility] MD - Primary * Ashwin Salmon MD - Resident Preoperative diagnosis: CRPS Postoperative diagnosis: CRPS Procedure(s) (LRB): INSERT OR REPLACE SPINAL NEUROSTIMULATOR (WRVU 5.19) (Right) MODIFIER,NEUROSTIMULATOR,RECHARGEABLE (Right) 1. Explantation of IPG at end of service 2. Revision of pocket 3. Placement of new IPG Anesthesia: MAC Findings: IPG successfully replaced and found to have appropriate impedance on interrogation. The patient was deemed appropriate for the above procedure. Indications, procedures, risks, complications and alternatives were explained and full informed consent was obtained from the patient. Risks for surgical intervention include but are not limited to, pain, scar, hemorrhage, infection, stroke, s eizure, CSF leak, weakness, paralysis, numbness, tingling, no improvement in patient's condition, possible need for further surgical intervention, coma, and . Procedure Detail: The patient was brought to the operating room where a timeout was performed to verify the correct patient, procedure, and surgical site. The patient then underwent successful induction of anesthesia. IVs and lines were placed by the anesthesia service. DVT prophylaxis in the form of SCDs was initiated. IV antibiotics were administered by the anesthesia service. All extremities and pressure points were adequately padded and accounted for. The patient was positioned supine. The prior IPG incision was located on the right flank. The area was then prepped and draped in the usual sterile fashion. Local anesthetic was injected along the planned incision. Skin incision was made using a #15 blade. Hemostasis was obtained.. We then used blunt dissection to dissect in the pocketuntil we encountered the capsule around the previous battery. The capsule was opened. A new pocket was fashioned in a plane deep to the original pocket. Hemostasis was obtained. We then removed the depleted battery from the pocket, removed the electrodes from the old battery, and removed the battery from the field. A new battery was bought in to the field and connected to the leads. The leads were secured to the battery, and the pocket was copiously irrigated with bacitracin irrigation. The excess wire was coiled behind the battery and the battery was replaced in to the pocket. It was tested and found to be worked correctly with appropriate impedances. The pocket was closed using interrupted 3-0 vicryl sutures, followed by a layer of deep dermal 3-0 vicryl sutures, and the skin was closed with surgical danitza. A sterile dressing was applied over the incision. The patient was then allowed to awaken from anesthesia and was successfully extubated. The patient was then taken to the recovery room having suffered no untoward event. All sponge, needle, and instrument counts were correct. ?? Dr. Alfred was present for the entirety of the case. Complications: None Estimated Blood Loss: 5 mL Specimens removed during surgery: None Implants: Implant Name Type Inv. Item Serial No. Hand Potter Lot No. LRB No. Used Action [employer] 5 Elite Implantable Pulse Generator [id number] [employer] [facility] Right 1 Implanted Drains: None Disposition: awakened from anesthesia, extubated and taken to the recovery room in a stable condition, having suffered no apparent untoward event. Brief Op Note - [facility] MD - 11/26/2018 9:37 AM EDT Brief Operative Note Patient Name: Skye Hinton : [id number] MR#: [id number] Case Date: 11/26/2018 Surgeon: Surgeon(s) and Role: * [facility] MD - Primary * Ashwin Salmon MD - Resident Preoperative diagnosis: CRPS Postoperative diagnosis: CRPS Procedure(s) (LRB): INSERT OR REPLACE SPINAL NEUROSTIMULATOR (WRVU 5.19) (Right) MODIFIER,NEUROSTIMULATOR,RECHARGEABLE (Right) Anesthesia: MAC Findings: satisfactory impedences Intake: 500cc Output: Estimated Blood Loss: 5cc Specimens removed during surgery: None Attestation: Case Date: 11/26/2018 I was present and I participated during the entire procedure (does not need to include opening and closing). (Please see the Surgical Encounter Summary for any Implant and Specimen details pertinent to this patient.) documented in this encounter Plan of Treatment Scheduled Orders Name Type Priority Associated Diagnoses Order S chedule XR Fluoro No Rad <1Hr Imaging Routine Once P RN (for Radiant use) - OR Use for 1 Occurrenc es starting 11/26/2018 unti l 11/26/2018 documented as of this encounter Procedures Procedure Name Priority Date/Time Associated Comments Diagnosis IMPLANTABLE DEVICES 11/29/2018 12:00 Resu lts for this SCAN AM EDT procedure are i n the results section. EKG 12-LEAD STAT 11/26/2018 11:04 Complex regional Results for this AM EDT pain syndrome type procedure are in 1 of both upper the results extremities section. MODIFIER,NEUROSTIMULATO 11/26/2018 8:38 CRPS R,RECHARGEABLE AM EDT INSERT OR REPLACE 11/26/2018 8:38 CRPS SPINAL NEUROSTIMULATOR AM EDT (WRVU 5.19) documented in this encounter Results SCAN DOC: IMPLANTABLE DEVICES (11/29/2018 12:00 AM EDT) Narrative 11/29/2018 12:00 AM EDT This result has an attachment that is no t available. Ordered by an unspecified provider. Scanning Provider MEDIA MGR SCAN EXT ORDR/RSLT EKG 12 Lead (11/26/2018 11:04 AM EDT) Component Value Ref Range Test Analysis Performed Pathologis t Method Time At Signature Ventricular rate 59 BPM MUSE SYSTEM Atrial Rate 59 BPM MUSE SYSTEM P-R Interval 144 ms MUSE SYSTEM QRS Duration 70 ms MUSE SYSTEM Q-T Interval 438 ms MUSE SYSTEM QTC Calculated 433 ms MUSE SYSTEM (Bezet) Calculated P [place] 37 degrees MUSE SYSTEM Calculated R [place] 3 degrees MUSE SYSTEM Calculated T [place] 15 degrees MUSE SYSTEM INTERPRETATION Sinus bradycardia MUSE SY STEM Nonspecific ST abnormality Abnormal ECG When compared with ECG of 20-JAN-1995 17:00, No significant change was found Confirmed by MD Torin, Francisco Javier ([id number]) on 11/26/2018 2:44:35 PM Specimen Anatomical Collection Method Collection Time Receive d Time (Source) Location / / Volume Laterality 11/26/2018 11:04 11/26/2018 2:44 AM EDT PM EDT Patria Harkins CAFETERIA HELPER ECG ORDERABLES Performing Organization Address City/State/ZIP Code Phon e Number [email or web address] documented in this encounter Visit Diagnoses Diagnosis Complex regional pain syndrome type 1 of both upper extremities documented in this encounter Administered Medications Inactive Administered Medications - up to 3 most recent administrations Medication Order MAR Action Action Date Dose Rate Site ketorolac (TORADOL) 15 mg/mL Given 11/26/2018 11:30 AM EDT 30 mg injection 1 dose, Starting on Thu11/26/18 at 1122, Until Thu11/26/18 at 1130, [place] CHAND: cabinet override methocarbamol (ROBAXIN) tablet 500 mg Given 11/26/2018 12:00 PM EDT 500 mg 500 mg, Oral, ONCE, 1 dose, On Thu11/26/18 at 1200, Routine documented in this encounter Active and Recently Administered Medications Times are shown in EDT. Scheduled Medication Order 11/24/2018 11/25/2018 11/26/2018 methocarbamol (ROBAXIN) tablet 500 mg 1200 (Given - Provider: Lynda Powell RN) 500 mg, Oral, ONCE, 1 dose, Thu11/26/18 at 1200, Routine Continuous Medication Order 11/24/2018 11/25/2018 11/26/2018 lactated ringers infusion (CANCELED) 0840 (New Bag - Provider: Zachary Humphreys MD)0849 (Canceled Entry - Provider: Zachary Humphreys MD)0930 (Anesthesia Volume Adjustment - Provider: Zachary Humphreys MD) 1,000 mL, at 100 mL/hr, Intravenous, CON TINUOUS, Starting Thu11/26/18 at 0745, Until Thu11/26/18 at 1349, Day of Surgery (Day of Procedure) PRN Medication Order 11/24/2018 11/25/2018 11/26/2018 bacitracin injection (CANCELED) 0905 (Given - Provider: [facility] Alfred MD - Comment: Bacitracin 10,000 units diluted in 1 liter of NaCl 0.9%.) ONCE PRN, Starting Thu11/26/18 at 0905, Until Thu11/26/18 at 1606, Intra- Operative (Intra-Procedure), Routine lidocaine-EPINEPHrine 1 %-1:200,000 injection (CANCELED) 0905 (Given - Provider: [facility] Alfred MD) ONCE PRN, Starting Thu11/26/18 at 0905, Until Thu11/26/18 at 1606, Intra- Operative (Intra-Procedure), Routine No Frequency Medication Order 11/24/2018 11/25/2018 11/26/2018 ketorolac (TORADOL) 15 mg/mL injection (COMPLETED) 1130 (Given - Provider: Israel Chand, RN) 1 dose, Starting Thu11/26/18 at 1122, Un til Thu11/26/18 at 1130, [place] CHAND.: cabinet override documented in this encounter Care Teams Infantry Operations Specialist Relationship Specialty Start Date End Date Noa Washington APRN PCP - General Family Medicine 04/20/15 [place] [address] documented as of this encounter
--- OUTSIDE RECORDS SUMMARY | 2021-12-30 01:42 | XMS_ITS | Encounter Summary ---
:1950 Author Organization [facility] [place] [address] Care Team Providers Name Role Phone Noa Washington APRN Primary Care Provider Encounter Details Date Type Department Care Team Description 11/29/2018 Orders Only Pain Management Brian Ron, [facility] jhoan HOWARD [facility] [place] [address] ANESTHESIOLOGY DEPT [phone] [place], [place] [address] (Wo rk) Social History Tobacco Use Types Packs/Day Years Used Date Never Smoker Smokeless Tobacco: Never Used Sex Assigned at Date Recorded Not on file documented as of this encounter Progress Notes Brian Gonzalez MD - 11/29/2018 12:42 PM EDT Patient calls with complaints of 8 out of 10 pain in the operative site. She had an IPG swap with Dr. anton on Thursday. She was sent home with 10 tabs of 50 mg of tramadol. She has been taking this with Tylenol; however, she states that this is not adequately covering her pain. I asked her if she is tried any ibuprofen. She tells me she has not. I told her that for this type of surgery we typically do not write for large doses of opioids. I will send a prescription for ibuprofen 800 mg every 8 hours as needed to her pharmacy in [place]. Brian Gonzalez MD Pain Fellow documented in this encounter Plan of Treatment Not on filedocumented as of this encounter Visit Diagnoses Not on filedocumented in this encounter Care Teams Triage Registered Nurse Relationship Specialty Start Date End Date Noa Washington APRN PCP - General Family Medicine 04/20/15 [place] [address] documented as of this encounter
--- OUTSIDE RECORDS SUMMARY | 2021-12-30 01:42 | XMS_ITS | Encounter Summary ---
:1950 Author Organization [place] [address] Care Team Providers Name Role Phone Kizzy Nunez APRN Primary Care Provider Encounter Details Date Type Department Care Team Description 05/14/2012 Orders Only Endocrinology at [facility] C Suryadevara, Hyperthyroidism [facility] Víctor Verma (Primary Dx) [place] [address] [place] [address] ENDOCRINOLOGY [place], [place] [address] Social History Tobacco Use Types Packs/Day Years Used Date Never Smoker Sex Assigned at Date Recorded Not on file documented as of this encounter Plan of Treatment Scheduled Orders Name Type Priority Associated Diagnoses Order S chedule T4, free Lab Routine Hyperthyroidism Expected: , Expires: 05/14/2013 T3 Lab STAT Hyperthyroidism Expected: (Approximate), Expires: 2012 documented as of this encounter Visit Diagnoses Diagnosis Hyperthyroidism - Primary Thyrotoxicosis without mention of goiter or other cause, without mention of thyrotoxic crisis or storm documented in this encounter Care Teams Foundry Operator Relationship Specialty Start Date End Date Kizzy Nunez APRN PCP - General 04/07/12 04/19/15 T[facility] [address] [place] [address] documented as of this encounter
--- OUTSIDE RECORDS SUMMARY | 2021-12-30 01:42 | XMS_ITS | Encounter Summary ---
:1950 [place] [address] Care Team Providers Name Role Phone Noa Washington APRN Primary Care Provider Encounter Details Date Type Department Care Team Description 12/06/2018 Notes [place] [address] Social History Tobacco Use Types Packs/Day Years Used Date Never Smoker Smokeless Tobacco: Never Used Sex Assigned at Date Recorded Not on file documented as of this encounter Plan of Treatment Not on filedocumented as of this encounter Visit Diagnoses Not on filedocumented in this encounter Care Teams Marker Machine Relationship Specialty Start Date End Date Noa Washington APRN PCP - General Family Medicine 04/20/15 [place] [address] documented as of this encounter
--- OUTSIDE RECORDS SUMMARY | 2021-12-30 01:42 | XMS_ITS | Encounter Summary ---
:1950 Author [place] [address] Care Team Providers Name Role Phone Kizzy Nunez MOSES Primary Care Provider Encounter Details Date Type Department Care Team Description 05/07/2012 Hospital Encounter Nuclear Medicine at CLINIC, DR AMADO dangelo [facility] Roberto Justice MD [facility] DR [place] [address] [place] [phone] Social History Tobacco Use Types Packs/Day Years Used Date Never Smoker Sex Assigned at Date Recorded Not on file documented as of this encounter Medications at Time of Discharge Medication Sig Dispensed Refills Start Date End Date DULoxetine (CYMBALTA) 60 mg Take 60 mg by 0 capsule mouth 2 times daily. atenolol (TENORMIN) 25 mg Take 1 tablet by 30 tablet 3 03/1707/03/2015 tablet mouth daily. hydrochlorothiazide Take 25 mg by 0 (HYDRODIURIL) 25 mg tablet mouth daily. Cholecalciferol, Vitamin D3, Take by mouth 0 11/26/2018 (VITAMIN D-3) 5,000 unit Tab daily. lisinopril (PRINIVIL;ZESTRIL) Take 5 mg by 0 07/27/2015 5 mg tablet mouth daily. zolpidem (AMBIEN) 10 mg 10mg, PO, QHS 0 03/07/200 2 07/03/2015 tablet documented as of this encounter Plan of Treatment Not on filedocumented as of this encounter Procedures Procedure Name Priority Date/Time Associated Diagnosis Comme nts NM I 131 INITIAL Routine 05/07/2012 1:20 PM Toxic multinodul R esults for this THERAPY EST goiter procedure are i n the results section. documented in this encounter Results NM I-131cap ther per mCi (05/07/2012 1:20 PM EST) Anatomical Region Laterality Modality Other Specimen (Source) Anatomical Collection Method Collection Time Re ceived Time Location / / Volume Laterality 05/07/2012 1:20 PM EST Narrative 05/07/2012 1:28 PM EST Examination I-131 INITIAL THERAPY Clinical History [facility] goiter with hyperthyroidism. Getting scan at outside hospital. Comparison None ?? Technique The treatment of hyperthyroidism using r adioactive iodine, as well as alternative forms of therapy were discus sed with the patient. The patient was told about possible side effect and nece ssary precautions. Possible outcomes, including the potential of permanent hyp othyroidism were mentioned. Informed consent was signed. The patient received 30.7mCi of I-131 administered orally and left the department in good c ondition. Findings/Impression 30.7 mCi of I-131 was administered witho ut complication. Procedure Note Abdiaziz Tovar MD - 05/07/2012Formatti ng of this note might be different from the original. Examination I-131 INITIAL THERAPY Clinical History [facility] goiter with hyperthyroidism. Getting scan at outside hospital. Comparison None Technique The treatment of hyperthyroidism using r adioactive iodine, as well as alternative forms of therapy were discus sed with the patient. The patient was told about possible side effect and nece ssary precautions. Possible outcomes, including the potential of permanent hyp othyroidism were mentioned. Informed consent was signed. The patient received 30.7mCi of I-131 administered orally and left the department in good c ondition. Findings/Impression 30.7 mCi of I-131 was administered witho ut complication. 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
--- OUTSIDE RECORDS SUMMARY | 2021-12-30 01:42 | XMS_ITS | Encounter Summary ---
:1950 [place] [address] Care Team Providers Name Role Phone Kizzy Nunez MOSES Primary Care Provider Encounter Details Date Type Department Care Team Description 04/13/2012 Orders Only Endocrinology at [facility] C Suryadevara, Toxic multinodul [facility] Víctor Verma goiter (Primary Dx) [place] [address] ENDOCRINOLOGY [place], [place] [address] Social History Tobacco Use Types Packs/Day Years Used Date Never Smoker Sex Assigned at Date Recorded Not on file documented as of this encounter Plan of Treatment Not on filedocumented as of this encounter Results NM I-131cap ther per [...] encounter Visit Diagnoses Diagnosis Toxic multinodul goiter - Primary 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
--- OUTSIDE RECORDS SUMMARY | 2021-12-30 01:42 | XMS_ITS | Encounter Summary ---
:1950 [place] [address] Care Team Providers Name Role Phone Noa Washington APRN Primary Care Provider Encounter Details Date Type Department Care Team Description 10/12/2018 Notes [place] [address] Social History Tobacco Use Types Packs/Day Years Used Date Never Smoker Smokeless Tobacco: Never Used Sex Assigned at Date Recorded Not on file documented as of this encounter Plan of Treatment Not on filedocumented as of this encounter Visit Diagnoses Not on filedocumented in this encounter Care Teams Sounding Device Operator Relationship Specialty Start Date End Date Noa Washington APRN PCP - General Family Medicine 04/20/15 [place] [address] documented as of this encounter
--- OUTSIDE RECORDS SUMMARY | 2021-12-30 01:42 | XMS_ITS | Encounter Summary ---
:1950 [place] [address] Care Team Providers Name Role Phone Noa Washington RESEARCH PHARMACIST Primary Care Provider Encounter Details Date Type Department Care Team Description 11/26/2018 Anesthesia Event Main Operating Room Omar Méndez MD [facility] [place] [address] [facility] Cheng Hemphill MD [facility] [place] [address] [place] [address] Anesthesia Record Procedure Summary Procedure Name Responsible Anesthesia Start Anesthesia Stop Anesthesiologist Time Time INSERT OR REPLACE SPINAL Renzo Méndez MD 11/26/18 0839 11/26/18 0950 NEUROSTIMULATOR (WRVU 5.19) (Right Back) Events Date Time Event Comment 11/26/2018 0838 0839 AN Verify 0839 Start 0839 An Start Data 0840 Anesthesia Ready 0905 Procedure Start 0937 Procedure Stop 0938 an stop data 0946 Recovery or ICU Handoff Patient care was transferred to the destination unit staff after review of the patient's medica l history, current anesthetic/surgi lois status and plan, according to the Provider Handoff Checklist. 0950 Recovery or ICU Handoff Patient care was transferred to the destination unit staff after review of the patient's medica l history, current anesthetic/surgi lois status and plan, according to the Provider Handoff Checklist. 0950 Stop Name Total Midazolam 2 mg Propofol 10 mg Propofol INF 541.34 mg ceFAZolin 2 g lactated ringers infusion 500 mL Agents Name O2 Air N2O Sevoflurane (et) O2 Auxiliary Flowmeter 1 Blood No blood administrations on file. Lines, Drains, and Airways Type Details Placement Removal Incision 11/26/18; 09; back 11/26/18 0905 by Katie Mesa RN PIV 11/26/18; 0848; metacarpal 11/26/18 0848 by Juanita roa, 11/26/18 1355 by deanna Chand (top of hand), left; MD Yazan Hair RN 20 gauge; 11/26/18; 1355 documented in this encounter Social History Tobacco Use Types Packs/Day Years Used Date Never Smoker Smokeless Tobacco: Never Used Sex Assigned at Date Recorded Not on file documented as of this encounter OR Notes Anesthesia Postprocedure Evaluation - Zachary Humphreys MD - 11/26/2018 9:49 AM EDT Department of Anesthesiology Post-procedure Note Patient: Skye Hinton Procedure Summary Date: 11/26/18 Room / Location: [address] MAIN OR Anesthesia Start: 08 Anesthesia Stop: Procedures: INSERT OR REPLACE SPINAL NEUROSTIMULATOR (WRVU 5.19) (Right Back) MODIFIER,NEUROSTIMULATOR,RECHARGEABLE (Right Back) Diagnosis: (CRPS) Surgeon: Jose Francisco Alfred MD Responsible Provider: Renzo Méndez MD Anesthesia Type: MAC ASA Status: 2 All Anesthesia Providers: Anesthesiologist: Renzo Méndez MD Machine Tailer: Cheng Hemphill MD; Zachary Humphreys MD Vitals Value Taken Time BP Temp Pulse Resp SpO2 99 % 11/26/2018 9:48 AM Pain Level Vitals shown include unvalidated device data. Patient Location: PACU/[facility] Level of Consciousness: Awake and Alert Pain Management: Satisfactory Analgesia PONV: Cardiovascular Status: At Baseline Respiratory Status: At Baseline Postoperative Fluid Status: Intravascular EUvolemia Possible Anesthetic Complications: NONE apparent at time of evaluation Final Primary Anesthesia Type: MAC (The anesthetic type performed was the same as planned.) Comments: Anesthesia Preprocedure Evaluation - Renzo Méndez MD - 11/25/2018 4:42 PM EDT Pre-Anesthesia Evaluation for: Skye Hinton a 68 y.o. female. Procedure(s): INSERT OR REPLACE SPINAL NEUROSTIMULATOR (WRVU 5.19) MODIFIER,NEUROSTIMULATOR,RECHARGEABLE Patient Active Problem List Diagnosis ??? CRPS (complex regional pain syndrome), upper limb Past Medical History: Diagnosis Date ??? Anemia ??? Anxiety ??? Depression ??? Encounter for blood transfusion ??? Headache(784.0) ??? Hypertension Past Surgical History: Procedure Laterality Date ??? APPENDECTOMY ??? CHOLECYSTECTOMY ??? DEEP BRAIN STIMULATOR PLACEMENT SCS for pain 2006 in [place] ??? HYSTERECTOMY ??? JOINT REPLACEMENT right knee X 2 ??? ORTHOPEDIC SURGERY Right foot surgeries due to fx- has plates ??? ORTHOPEDIC SURGERY Left shoulder surgery many years ago ??? SPINE SURGERY L5-S1 posterior fusion 03/10/03 Social History Tobacco Use ??? Smoking status: Never Smoker ??? Smokeless tobacco: Never Used Substance Use Topics ??? Alcohol use: Not on file Social History Substance and Sexual Activity Drug Use Not on file Allergies Allergen Reactions ??? Aspirin Other (See Comments) Chest pain ??? Tylenol [Acetaminophen] Palpitations Medications: MAR and/or home medications have been reviewed. Physical Exam: There were no vitals filed for this visit. There is no height or weight on file to calculate BMI. Airway Assessment: Mallampati: III TM distance: >3 FB Neck ROM: full Cardiovascular Assessment: Rhythm: regular Rate: normal Pulmonary Assessment: breath sounds clear to auscultation Dental Assessment: - normal exam Misc Assessment: Anesthesia Plan: ASA 2 MAC, with a(n) intravenous induction 68 y.o. year old female with a PMH of hyperthyroidism (s/p radio ablation), complex regional pain syndrome type 1 of her bilateral upper extremity and fibromyalgia. S/p spinal cord stimulator implantation in 2006 at C2 level. Will undergo spinal cord stimulator battery replacement. Relevant medications include lisinopril, gabapentin, duloxetine and escitalopram. Per chart review no notable pulmonary or heart disease. No hx of anesthesia complications. Plan likely for MAC with IV propofol. Standard ASA monitoring. Region - Other Informed Consent: Anesthetic plan and risks discussed with patient. Use of blood products discussed with patient who. Plan discussed with attending and resident. PAT Clinic Note documented in this encounter Miscellaneous Notes Addendum Note - Zachary Humphreys MD - 11/26/2018 11:10 AM EDT Addendum created 11/26/18 1110 by Zachary Humphreys MD Order list changed documented in this encounter Plan of Treatment Not on filedocumented as of this encounter Visit Diagnoses Not on filedocumented in this encounter Administered Medications Inactive Administered Medications - up to 3 most recent administrations Medication Order MAR Action Action Date Dose Rate Site ceFAZolin (ANCEF) 1g in dextrose 5% Given 11/26/2018 9:03 AM EDT 2 g 50mL PRN, Starting on Thu11/26/18 at 0903, Until Thu11/26/18 at 0950, Administer over 30 Minutes, Anesthesia Intra-op lactated ringers infusion New Bag 11/26/2018 8:40 AM EDT 1,000 mL, at 100 mL/hr, Intravenous, CONTINUOUS, Starting on Thu11/26/18 at 0745, Until Thu11/26/18 at 1349, Day of Surgery (Day of Procedure) midazolam (PF) (VERSED) multi-dose injec tion Given 11/26/2018 8:44 AM EDT 1 mg PRN, Starting on Thu11/26/18 at 0839, Until Thu11/26/18 at 0950, Anesthesia Intra-op, Routine Given 11/26/2018 8:39 AM EDT 1 mg propofol (DIPRIVAN) 10 mg/mL bolus injection Given 9 9:06 AM EDT 10 mg (Anesthesia) PRN, Starting on Thu11/26/18 at 0906, Until Thu11/26/18 at 0950, Anesthesia Intra-op propofol (DIPRIVAN) Rate/Dose 11/26/2018 9:15 130 mcg/kg/min 55.9 mL /hr infusion Change AM EDT CONTINUOUS PRN, Starting on Thu11/26/18 at 0842, Until Thu11/26/18 at 0950, Anesthesia Intra-op, Routine Rate/Dose Change 11/26/2018 9:06 AM EDT 120 mcg/kg/min 51.6 mL/hr New Bag 11/26/2018 8:42 AM EDT 80 mcg/kg/min 34.4 mL/hr documented in this encounter Care Teams Pitching Coach Relationship Specialty Start Date End Date Noa Washnigton APRN PCP - General Family Medicine 04/20/15 [place] [address] documented as of this encounter
--- OUTSIDE RECORDS SUMMARY | 2021-12-30 01:42 | XMS_ITS | Encounter Summary ---
:1950 [place] [address] Care Team Providers Name Role Phone Kizzy Nunez APRN Primary Care Provider Reason for Visit Reason Onset Date Comments Medication Refill 09/20/2014 Encounter Details Date Type Department Care Team Description 09/20/2014 Refill Pain Management at Roque Villanueva MD Chronic pain [facility] [address] PAIN CLINIC [phone] [place], [place] [address] (Wo rk) Social History Tobacco Use Types Packs/Day Years Used Date Never Smoker Sex Assigned at Date Recorded Not on file documented as of this encounter Plan of Treatment Not on filedocumented as of this encounter Visit Diagnoses Diagnosis Chronic pain Other chronic pain documented in this encounter Care Teams Communications Marketing Intern Relationship Specialty Start Date End Date Kizzy Nunez APRN PCP - General 04/07/12 04/19/15 [facility] [address] [place] [address] documented as of this encounter
--- OUTSIDE RECORDS SUMMARY | 2021-12-30 01:42 | XMS_ITS | Encounter Summary ---
:1950 Author Organization [facility] Address [address] [address] Care Team Providers Name Role Phone MeghnaricoNoa main MOSES Primary Care Provider Reason for Visit Reason Comments Pain Management Low Back Pain Encounter Details Date Type Department Care Team Description 07/27/2015 Office Visit Pain Management at Uri Sánchez plex regional pain Isabela Dye MD syndrome type 1 of [facility] [address] [place] [facility] [id number] [place], [place] [id number] [phone] Social History Tobacco Use Types Packs/Day Years Used Date Never Smoker Smokeless Tobacco: Never Used Sex Assigned at Date Recorded Not on file documented as of this encounter Last Filed Vital Signs Vital Sign Reading Time Taken Comments Blood Pressure 145/76 07/27/2015 10:38 AM EST Pulse 84 07/27/2015 10:38 AM EST Temperature - - Respiratory Rate - - Oxygen Saturation 98% 07/27/2015 10:38 AM EST Inhaled Oxygen Concentration - - Weight 73 kg (161 lb) 07/27/2015 10:38 AM EST Height 152.4 cm (5') 07/27/2015 10:38 AM EST Body Mass Index 31.44 07/27/2015 10:38 AM EST documented in this encounter Progress Notes Uri Sánchez MD - 07/27/2015 11:08 AM EST Ms. Hinton presents today having already seen Dr. Simmons whom she did not really care for and Ms. Veliz who referred her to me because she had questions regarding her spinal cord stimulating device. She has a [facility] [employer] spinal cord stimulating device and the plan was that she would come and see me once I have the [place] paperwork to review. She states that she has requested the [place] paperwork and was told three weeks ago that it would sent, but we have not received it. She has complex regional pain syndrome type 1 of her bilateral upper extremities. She has a paresthesia that covers her painful topography entirely. She states it is not helping as much as it used to. The sensation that she experiences now is unpleasant. She has been reprogrammed once by the [facility]'s rep approximately seven months ago and was told she needed a new machine which she now has. We discussed the functional caodaism program with her but she is not really interested. We discussed IV ketamine with her, but her insurance will not cover it and she cannot afford it and we discussed medical marijuana with her and she would like to give that a try. The gentleman who she is with today and I neglected to ask whether or not it was her or significant other, but he has a medical marijuana card for his hip pain and knee pain in the [facility] and it seems to work very well for him, she has not tried it and she would like to obtain a medical marijuana card herself she thinks. We do not have a randy steve physician-patient relationship with her and so I suggested that she discuss this Ms. Vaughan to see if she would be willing to complete the paperwork for her, I think it would be a reasonable option for her. She is going to call the number for the [facility] and try to arrange to have him see her again either in [facility] or the day when Dr. Simmons is not in the office because she does not really want to bump into him or back down here on a day when Dr. Simmons is not down here. I any case, I am not scheduling him for a followup visit. There is really nothing else I can offer her. We spent 25 minutes together today, 15 of which was spent with explaining about the spinal cord stimulator, the medical marijuana, the IV ketamine, and the functional caodaism program. documented in this encounter Plan of Treatment Not on filedocumented as of this encounter Visit Diagnoses Diagnosis Complex regional pain syndrome type 1 of both upper extremities documented in this encounter Care Teams Postbed Stitcher Relationship Specialty Start Date End Date Noa Washington APRN PCP - General Family Medicine 04/20/15 [address] [place] [address] documented as of this encounter
--- OUTSIDE RECORDS SUMMARY | 2021-12-30 01:42 | XMS_ITS | Encounter Summary ---
:1950 [place] [address] Care Team Providers Name Role Phone Kizzy Nunez APRN Primary Care Provider Reason for Visit Reason Onset Date Comments Other 04/20/2012 Encounter Details Date Type Department Care Team Description 04/20/[address] [facility] C Geno Dhaliwal CDE [facility] [place] [address] ENDOCRINOLOGY DEPT. [phone] [place], [place] [address] (Wo rk) Social History Tobacco Use Types Packs/Day Years Used Date Never Smoker Sex Assigned at Date Recorded Not on file documented as of this encounter Miscellaneous Notes Telephone Encounter - Geno Dhaliwal, RN - 04/20/2012 10:28 AM EST This patient wants you to call her please. She didn't give a reason. [phone] documented in this encounter Plan of Treatment Not on filedocumented as of this encounter Visit Diagnoses Not on filedocumented in this encounter Care Teams Accelerator Systems Director Relationship Specialty Start Date End Date Kizzy Nunez APRN PCP - General 04/07/12 04/19/15 [facility] [address] [place] [place] [address] documented as of this encounter
--- OUTSIDE RECORDS SUMMARY | 2021-12-30 01:42 | XMS_ITS | Encounter Summary ---
:1950 Author Organization [facility] Address [address] [place] [address] Care Team Providers Name Role Phone Kizzy Nunez APRN Primary Care Provider Reason for Visit Reason Comments Advice Only Encounter Details Date Type Department Care Team Description 04/07/2012 Office Visit Endocrinology at [facility] Roberto Saul Goiter [facility] [place] [address] [facility] [phone] ENDOCRINOLOGY DE PT. [place], [place] [address] (Wo rk) Social History Tobacco Use Types Packs/Day Years Used Date Never Smoker Sex Assigned at Date Recorded Not on file documented as of this encounter Last Filed Vital Signs Vital Sign Reading Time Taken Comments Blood Pressure 151/85 04/07/2012 9:10 AM EDT Pulse 93 04/07/2012 9:10 AM EDT Temperature - - Respiratory Rate - - Oxygen Saturation - - Inhaled Oxygen Concentration - - Weight 72.7 kg (160 lb 3.2 oz) 04/07/2012 9:10 AM EDT Height 152.4 cm (5') 04/07/2012 9:10 AM EDT Body Mass Index 31.29 04/07/2012 9:10 AM EDT documented in this encounter Progress Notes Roberto Justice MD - 04/07/2012 4:17 PM EDT I saw this patient with Dr Kay. I reviewed the pierson portions of the history and physical exam,and reviewed pertinent lab data. I answered all patient questions. I was involved in all medical decision making and agree with this plan. Winston Mcnulty - 04/07/2012 9:33 AM EDT Ms Hinton is a 61 yo female who presents for evaluation of hyperthyroidism. She started its gettingbigger. She started to notice that its getting bigger since one year. US thyroid last year stated that its goiter. Feels food is stuck right there. FNA biopsy was done and was told it was benign.And they found two nodules on both sides of lobes which were biopsied. Weight loss/gain- no Sleep disturbances- Takes ambien CR and it helps Forgetfulness- Yes - short term memory Depression- no Vision/eye problems- More on left side it hurts Heat sensitivity- Cannot tolerate heat feels she is burning Dry skin- No Fatigue- Fatigue yes for about a month or two Hair change- No Palpitations- Yes - occurs once in while Increased appetite- no Hyperdefication- No Menstrual irregularities- menopausal since 25 yrs age she was on OCP for 10 yrs Irritability/nervousness- yes Muscle weakness/tremor- No Clammy skin- Yes in hands and face Intolerance to cold- No Globus sensation- no Difficulty swallowing- Yes- same over the past yr Difficulty breathing- no Hoarseness or voice change- yes Signs- Tachycardia, lid lag, stare, proptosis, goiter, resting tremor, hyperreflexia, warm/moist/smooth skin. Rare- pre-tibial myxedema, thyroid acropachy(clubbing), PMH: Fibromyalgia Migraines HTN PSH: Hysterectomy with salpingo oopherectomy Lt shoulder operated Fusion of 5th lumbar spine ANS implant Rt knee partial replacement Cholecystectomy Appendectomy FH: MGM - thyroidectomy Father - thyroid cancer - 50 s Nephew - thyroidectomy - Graves when he was 12 yrs old Father - liver cancer - alcohol Mother- at 34 with uterine cancer Father - CAD MGM- angina Sisters - Cancer one of them throat, one base of neck Social: Never smoked Alcohol - rarely No illicit drugs Retired on disability Live with your Two kids Allergies: Aspirin - chest pain, palpitations Meds Reviewed ROS: Constitutional: No recent weight loss, fevers, chills, night sweats. HEENT: No recent visual changes, hearing changes, headache. Cardiovascular: No chest pain, palpitations, orthopnea. Pulmonary: No shortness of breath. No cough, no wheezing. GI: No abdominal pain, vomiting, significant change in bowel habits. : No dysuria, urinary retention, urinary incontinence. Musculoskeletal: No joint pain. Endocrine: No heat/cold intolerance, polyuria. Skin: No rashes. Neuro: See HPI. PE: Blood pressure 151/85, pulse 93, height 152.4 cm (5'), weight 72.666 kg (160 lb 3.2 oz). General: well nourished, in no distress Head/Eyes: anicteric, PERRL, No conjunctival injection, mild Proptosis on left normal on right, positive lid lag, there is 2 mm difference between both eyes ENT: without Lesions/exudates Neck: Supple, full ROM, no LAD or masses Thyroid: enlarged goiter, with no nodules, no bruit CV: RRR, no murmur/gallops/rubs Pulm: Non-labored, CTAB Abd: ND, positive bowel sounds, soft, NT, no masses Peripheral: No edema, palpable DP pulses Neuro: CN intact including visual delarosa, sensation intact to light touch, reflexes in bl knees normal. Skin: no rashes, not dry. A: Suppressed TSH, normal Free t4, with eye symptoms of hyperthyroidism and Graves: Most recent labs one month ago showed subclinical hyperthyroidism due to slightly suppressed TSH. She does appear clinically hyperthyroid (tachycardia - 93, lid lag, slight proptosis of lt eye, heat intolerance). She also has a h/o multinodular goiter. So she could have subclinical hyperthyroidism from MNG or from Graves.We will get records from [facility] for US. We will also work her up for Graves. In early Graves and in pts with MNG they can have t3 toxicosis so we will also check total t3. P: TSH Total T3 TSI Anti TPO Free t4 Winston Mcnulty Endocrine Fellow documented in this encounter Plan of Treatment Scheduled Orders Name Type Priority Associated Diagnoses Order S chedule T4, free Lab Routine Goiter Expected: 04/07 (Approximate), Expires: 2012 documented as of this encounter Procedures Procedure Name Priority Date/Time Associated Comments Diagnosis THYROID STIMULATING Routine 04/07/2012 10:40 Goiter Resu lts for this IMMUNOGLOBULIN-[place] AM EDT procedur e are in the results section. THYROID PEROXIDASE Routine 04/07/2012 10:40 Goiter Resul ts for this ANTIBODY AM EDT procedure are i n the results section. T3 TOTAL Routine 04/07/2012 10:40 Goiter Results for this AM EDT procedure are i n the results section. TSH Routine 04/07/2012 10:40 Goiter Results for this AM EDT procedure are i n the results section. documented in this encounter Results Thyroid peroxidase antibody (04/07/2012 10:40 AM EDT) athologist Signature Thyroperox Ab 17 <=34 IU/mL [facility] Specimen Anatomical Collection Method Collection Time Receive d Time (Source) Location / / Volume Laterality Blood specimen 04/07/2012 10:40 2 2:15 (specimen) AM EDT PM EDT Resulting Agency Comment Spec In Lab Roberto Justice MD IMMUNOLOGY ORDERABLES Performing Organization Address City/State/ZIP Code Phon e Number [address] [facility] (ABNORMAL) T3 (04/07/2012 10:40 AM EDT) athologist Signature T3, Total 172 (H) 75 - 170 CERNER ng/dL [facility] Specimen Anatomical Collection Method Collection Time Receive d Time (Source) Location / / Volume Laterality Blood specimen 04/07/2012 10:40 2 (specimen) AM EDT 10:47 AM EDT Resulting Agency Comment Spec In Lab Roberto Justice MD CHEMISTRY ORDERABLES Performing Organization Address City/State/ZIP Code Phon e Number [address] [facility] Thyroid Stimulating Immunoglobulin (04/07/2012 10:40 AM EDT) athologist Signature I-Sharp <1.0 <=1.3 TSI [facility] index [facility] Comment: Test Performed by: [address] [address] Math Professor: Bradly rich III, M.D. Specimen Anatomical Collection Method Collection Time Receive d Time (Source) Location / / Volume Laterality Blood specimen 04/07/2012 10:40 2 1:18 (specimen) AM EDT PM EDT Resulting Agency Comment Spec In Lab Roberto Justice MD IMMUNOLOGY ORDERABLES Performing Organization Address City/Va Hospital/ZIP Code Phon e Number [address] CERNER [facility] (ABNORMAL) TSH (04/07/2012 10:40 AM EDT) P athologist Signature TSH 0.15 (L) 0.27 - 4.20 CERNER mcIU/mL [facility] Specimen Anatomical Collection Method Collection Time Receive d Time (Source) Location / / Volume Laterality Blood specimen 04/07/2012 10:40 2 (specimen) AM EDT 10:47 AM EDT Resulting Agency Comment Spec In Lab Roberto Justice MD CHEMISTRY ORDERABLES Performing Organization Address City/Va Hospital/ZIP Code Phon e Number [address] [facility] documented in this encounter Visit Diagnoses Diagnosis Goiter Goiter, unspecified documented in this encounter Care Teams Ship Design Teacher Relationship Specialty Start Date End Date Kizzy Nunez APRN PCP - General 04/07/12 04/19/15 TAMIR [address] [place] [address] documented as of this encounter
--- OUTSIDE RECORDS SUMMARY | 2021-12-30 01:42 | XMS_ITS | Encounter Summary ---
:1950 [address] [facility] [place] [address] Care Team Providers Name Role Phone Kizzy Nunez APRN Primary Care Provider Encounter Details Date Type Department Care Team Description 05/14/2012 Orders Only Endocrinology at [facility] Karen Mcnulty [facility] Víctor Verma (Primary Dx) [place] [address] [place] [address] ENDOCRINOLOGY DEPT [place], [place] [address] Social History Tobacco Use Types Packs/Day Years Used Date Never Smoker Sex Assigned at Date Recorded Not on file documented as of this encounter Plan of Treatment Not on filedocumented as of this encounter Results (ABNORMAL) T3 (07/13/2012 2:22 PM EST) athologist Signature T3, Total 175 (H) 75 - 170 CERNER ng/dL [facility] Specimen Anatomical Collection Method Collection Time Receive d Time (Source) Location / / Volume Laterality Blood specimen 07/13/2012 2:22 PM 013 2:35 (specimen) EST PM EST Resulting Agency Comment Spec In Lab Robreto Justice MD CHEMISTRY ORDERABLES Performing Organization Address City/State/[place] [address] CERNER [facility] T4, free (07/13/2012 2:22 PM EST) athologist Signature Free T4 1.17 0.90 - 1.60 CERNER ng/dL [facility] Specimen Anatomical Collection Method Collection Time Receive d Time (Source) Location / / Volume Laterality Blood specimen 07/13/2012 2:22 PM 013 2:35 (specimen) EST PM EST Resulting Agency Comment Spec In Lab Roberto Justice MD CHEMISTRY ORDERABLES Performing Organization Address City/State/[place] [address] [facility] documented in this encounter Visit Diagnoses Diagnosis Hyperthyroidism - Primary Thyrotoxicosis without mention of goiter or other cause, without mention of thyrotoxic crisis or storm documented in this encounter Care Teams Ballast Cleaning Machine Operator Relationship Specialty Start Date End Date Kizzy Nunez, MOSES PCP - General 04/07/12 04/19/15 TAMIR [address] [place] [place] [address] documented as of this encounter
--- OUTSIDE RECORDS SUMMARY | 2021-12-30 01:43 | XMS_ITS | Encounter Summary ---
:1950 Author Organization [facility] [place] [address] Care Team Providers Name Role Phone Noa Washington APRN Primary Care Provider Encounter Details Date Type Department Care Team Description 06/03/2001 Orders Only Radiology and Cardiology Apd Conversion, Results Results Provider, [address] [place] [phone] Social History Tobacco Use Types Packs/Day Years Used Date Never Assessed Sex Assigned at Date Recorded Not on file documented as of this encounter Plan of Treatment Not on filedocumented as of this encounter Procedures Procedure Name Priority Date/Time Associated Diagnosis Comme nts SEDIMENTATION RATE Routine 06/03/2001 4:55 PM Res ults for this EST procedure are i n the results section. documented in this encounter Results (ABNORMAL) Sedimentation rate (06/03/2001 4:55 PM EST) P athologist Signature Sed Rate 16 0 - 30 ANGELICA [facility] (External mm/hr CONVERSION Lab) Specimen (Source) Anatomical Collection Method Collection Time Re ceived Time Location / / Volume Laterality 06/03/2001 4:55 PM EST Results Provider Apd Conversion HEMATOLOGY ORDERABL ES Performing Organization Address City/State/ZIP Code Phon e Number ANGELICA [facility] CONVERSION [address] [place], [place] [address] ANGELICA [facility] CONVERSION documented in this encounter Visit Diagnoses Not on filedocumented in this encounter Care Teams Creative Director Relationship Specialty Start Date End Date Noa Washington APRN PCP - General Family Medicine 04/20/15 [place] [address] documented as of this encounter
--- OUTSIDE RECORDS SUMMARY | 2021-12-30 01:43 | XMS_ITS | Encounter Summary ---
:1950 Author Organization [facility] Address [address] [place] [address] Care Team Providers Name Role Phone Kizzy Nunez CEMETERY WARDEN Primary Care Provider Encounter Details Date Type Department Care Team Description 03/22/2019 Historical Results [facility] - Miley Baldwin, [place] [facility] - Main [facility] [address] [facility] [address] [place], [place] [address] [place] [address] [phone] Social History Tobacco Use Types Packs/Day Years Used Date Never Assessed Sex Assigned at Date Recorded Not on file documented as of this encounter Plan of Treatment Upcoming Encounters Date Type Specialty Care Team Description 03/24/2022 Office Visit Neurology Alexandria Ann MD [address] [facility] [address] [place] [address] (Wo rk) documented as of this encounter Procedures Procedure Name Priority Date/Time Associated Diagnosis Comme nts BACTERIAL CULTURE, Routine 03/22/2019 10:00 Resul ts for this URINE EDT procedure are i n the results section. documented in this encounter Results BACTERIAL CULTURE, URINE (03/22/2019 10:00 EDT) USUAL UROGENITAL [facility] - [facility] CitrateConcentration <10,000 CFU/ML [facility] Specimen Narrative [facility] - 019 11:30 EDT Does PT Have a Latex Allergy? NO Performing Organization Address City/State/ZIP Code Phon e Number [facility] [address] [place] [address] [facility] documented in this encounter Visit Diagnoses Not on filedocumented in this encounter Care Teams Rotor Balancer Relationship Specialty Start Date End Date Kizzy Nunez, CEMETERY WARDEN PCP - General 12/09/[address] [place] [phone] documented as of this encounter
--- OUTSIDE RECORDS SUMMARY | 2021-12-30 01:43 | XMS_ITS | Encounter Summary ---
:1950 Author Organization [facility] Address [address] [place] [address] Care Team Providers Name Role Phone Kizzy Nunez SUPERVISOR URANIUM PROCESSING Primary Care Provider Encounter Details Date Type Department Care Team Description 12/30/2016 Historical Results Only [facility] - ByReva zavala PA [facility] - Main [facility] [address] [place] [phone] Social History Tobacco Use Types Packs/Day Years Used Date Never Assessed Sex Assigned at Date Recorded Not on file documented as of this encounter Plan of Treatment Upcoming Encounters Date Type Specialty Care Team Description 03/24/2022 Office Visit Neurology Alexandria Ann MD [address] [facility] [address] [place] [address] (Wo rk) documented as of this encounter Procedures Procedure Name Priority Date/Time Associated Comments Diagnosis GLYCOHEMOGLOBIN POC - Routine 12/30/2016 9:11 Res ults for this [facility] EDT procedure are i n the results section. documented in this encounter Results (ABNORMAL) GLYCOHEMOGLOBIN POC - [facility] (12/30/2016 9:11 EDT) Pathologist Sig nature Hemoglobin A1c 6.0 4.0 - 6.0 % [facility] AVG CALCULATED 120 (H) 60 - 115 MG/DL [facility] GLUCOSE - [facility] Specimen Performing Organization Address City/State/ZIP Code Phon e Number [facility] [address] [place] [address] [facility] documented in this encounter Visit Diagnoses Not on filedocumented in this encounter Care Teams Industrial Pharmacist Relationship Specialty Start Date End Date Kizzy Nunez, SUPERVISOR URANIUM PROCESSING PCP - General 12/09/[address] [place] [phone] documented as of this encounter
--- OUTSIDE RECORDS SUMMARY | 2021-12-30 01:43 | XMS_ITS | Encounter Summary ---
:1950 Author Organization [facility] Address [address] [place] [address] Care Team Providers Name Role Phone Kizzy Nunez MECHANICAL SERVICE SPECIALIST Primary Care Provider Encounter Details Date Type Department Care Team Description 10/12/2018 Historical Results Only [facility] - Kendy Rome, ERICA [facility] Lab - Main [facility] [address] [place], [place] [phone] Social History Tobacco Use Types Packs/Day Years Used Date Never Assessed Sex Assigned at Date Recorded Not on file documented as of this encounter Plan of Treatment Upcoming Encounters Date Type Specialty Care Team Description 03/24/2022 Office Visit Neurology Alexandria Ann MD [address] [facility] [address] [place] [address] (Wo rk) documented as of this encounter Procedures Procedure Name Priority Date/Time Associated Comments Diagnosis FREE T3 POC - CV Routine 10/12/2018 13:03 Resul ts for this EDT procedure are i n the results section. LIPID PANEL POC - CV Routine 10/12/2018 13:03 R esults for this EDT procedure are i n the results section. COMPREHENSIVE METABOLIC Routine 10/12/2018 13:03 Results for this POC - [facility] EDT procedure are i n the results section. GLYCOHEMOGLOBIN POC - Routine 10/12/2018 13:03 Re sults for this [facility] EDT procedure are i n the results section. FREE T4 POC - [facility] Routine 10/12/2018 13:03 Resul ts for this EDT procedure are i n the results section. THYROID STIM HORMONE POC Routine 10/12/2018 13:03 Results for this - [facility] EDT procedure are i n the results section. POCT CHOLESTEROL LDL Routine 10/12/2018 13:03 Res ults for this ([facility]) EDT procedure are i n the results section. MICROALBUMIN, URINE Routine 10/12/2018 10:40 Resu lts for this EDT procedure are i n the results section. URINE Routine 10/12/2018 10:40 Results for this [id number] EDT proced ure are in RATIO (ACR) the results section. documented in this encounter Results THYROID STIM HORMONE POC - [facility] (10/12/2018 13:03 EDT) Pathologist Sig [facility] THYROID STIM HORMONE 3.16 0.45 - 5.33 [facility]ML C[facility] LAB Specimen Performing Organization Address City/[facility] Code Phon e Number [facility] [address] LAB (ABNORMAL) LIPID PANEL POC - [facility] (10/12/2018 13:03 EDT) Pathologist Sig [facility] Triglyceride 152 (H) 0.00 - 150.00 MG/DL [facility] Cholesterol 199 0.00 - 200.00 MG/DL [facility] HDL 63 (H) 40.00 - 60.00 MG/DL [facility] LAB Specimen Performing Organization Address City/[facility] Code Phon e Number [facility] [address] LAB (ABNORMAL) POCT CHOLESTEROL LDL ([facility]) (10/12/2018 13:03 EDT) Pathologist Sig [facility] LDL CHOLESTEROL - [facility] 106 (H) 60 - 100 MG/DL [facility] LAB Specimen Performing Organization Address City/[facility] Phon e Number [facility] [address] LAB (ABNORMAL) GLYCOHEMOGLOBIN POC - [facility] (10/12/2018 13:03 EDT) Pathologist Sig [facility] Hemoglobin A1c 6.0 4.0 - 6.0 % [facility] AVG CALCULATED 120 (H) 60 - 115 MG/DL [facility] GLUCOSE [facility] LAB Specimen Performing Organization Address City/State/ZIP Code Phon e Number [facility] [address] [place] [address] [facility] FREE T4 POC - [facility] (10/12/2018 13:03 EDT) Pathologist Sig nature FREE T4 - [facility] 0.73 0.58 - 1.64 NG/DL [facility] Specimen Performing Organization Address City/[facility]/ZIP Code Phon e Number [facility] [address] [place] [address] [facility] FREE T3 POC - [facility] (10/12/2018 13:03 EDT) Pathologist Sig nature T3,FREE - [facility] 3.89 2.40 - 4.00 PG/ML [facility] Specimen Performing Organization Address City/[facility] Code Phon e Number [facility] [address] [place] [phone] [place] [address] LAB (ABNORMAL) COMPREHENSIVE METABOLIC POC - [facility] (10/12/2018 13:03 EDT) Pathologist Sig nature ALBUMIN - [facility] 4.4 3.50 - 5.00 [facility] G/DL [place] [facility] ALKALINE PHOSPHATASE - 74 38.00 - 126.00 [facility] U/L [place] [facility] BILIRUBIN TOTAL 1.1 0.20 - 1.30 [facility] MG/DL [place] [facility] BUN - [facility] 11 7.00 - 20.00 [facility] MG/DL [place] [facility] CALCIUM - [facility] 9.9 8.50 - 10.50 [facility] MG/DL [place] [facility] Chloride 110 (H) 98.00 - 107.00 [facility] MMOL/L [place] [facility] CO2 Total 25 22.00 - 30.00 [facility] MMOL/L [place] [facility] CREATININE 0.6 (L) 0.70 - 1.50 [facility] MG/DL [place] [facility] Anion Gap 9 7 - 17 MMOL/L [facility] GLUCOSE - [facility] 100 70.00 - 100.00 [facility] MG/DL [place] [facility] Potassium 4.6 3.50 - 5.10 [facility] MMOL/L [place] [facility] Sodium 144 137.00 - 145.00 [facility] MMOL/L [place] [facility] TOTAL PROTEIN - [facility] 7.8 6.30 - 8.20 [facility] G/DL CENTER LAB SGOT/AST - [facility] 26 15.00 - 46.00 [facility] U/L [place] [facility] SGPT/ALT - [facility] 16 13.00 - 69.00 [facility] U/L CENTER LAB Specimen Performing Organization Address [facility] Phon e Number [facility] [address] [place] [phone] [place] [address] LAB MICROALBUMIN, URINE (10/12/2018 10:40 EDT) Albumin, Urine 1.10 <1.7 mg/dL [facility] Lab Urine Albumin 8.4 ug/mg [facility] to Creatinine Ratio Comment: [facility] LAB Normal: <30 ug/mg Creat Microalbuminuria: 30-300 ug/mg Creat Clinical albuminuria: >300 ug/mg Creat Creatinine, Urine 130.00 mg/dL [facility] LAB Specimen Narrative [facility] - 13:59 EDT Does PT Have a Latex Allergy? NO WHAT TYPE OF COLLECTION IS THIS URINE? R ANDOM URINE Performing Organization Address [facility] Phon e Number [facility] [address] [place] [phone] [place] [address] LAB ALBUMIN, URINE (10/12/2018 10:40 EDT) Albumin, Urine 1.10 <1.7 mg/dL [facility] Lab Urine Albumin 8.4 ug/mg [facility] to Creatinine Ratio Comment: [facility] LAB Normal: <30 ug/mg Creat Microalbuminuria: 30-300 ug/mg Creat Clinical albuminuria: >300 ug/mg Creat Creatinine, Urine 130.00 mg/dL [facility] Specimen Narrative [facility] - 13:59 EDT Does PT Have a Latex Allergy? NO WHAT TYPE OF COLLECTION IS THIS URINE? R ANDOM URINE Performing Organization Address [facility] Phon e Number [facility] [address] LAB documented in this encounter Visit Diagnoses Not on filedocumented in this encounter Care Teams Baffle Installer Relationship Specialty Start Date End Date Kizzy Nunez NP PCP - General 12/09/[address] [place] [phone] documented as of this encounter
--- OUTSIDE RECORDS SUMMARY | 2021-12-30 01:43 | XMS_ITS | Encounter Summary ---
:1950 Author Organization [facility] Address [address] [place] [address] Care Team Providers Name Role Phone Kizzy Nunez SOCIAL SCIENCE RESEARCH ASSISTANT Primary Care Provider Encounter Details Date Type Department Care Team Description 12/22/2016 Historical Results Only [facility] - [place] Reva barkley PA [facility] Lab - Main [facility] [address] [place] [phone] Social History Tobacco Use Types Packs/Day Years Used Date Never Assessed Sex Assigned at Date Recorded Not on file documented as of this encounter Plan of Treatment Upcoming Encounters Date Type Specialty Care Team Description 03/24/2022 Office Visit Neurology Alexandria Ann MD 130 [facility] [address] [place] [address] (Wo rk) documented as of this encounter Procedures Procedure Name Priority Date/Time Associated Diagnosis Comme nts MAGNESIUM POC - Routine 12/22/2016 13:00 Results for this [facility] EDT procedure are i n the results section. HEPATITIS C AB W Routine 12/22/2016 8:30 EDT Resu lts for this REFLEX TO HCV RNA procedure are in BY PCR the results section. documented in this encounter Results MAGNESIUM POC - [facility] (12/22/2016 13:00 EDT) Pathologist Sig nature Magnesium 1.70 1.60 - 2.30 MG/DL [facility] TER LAB Specimen Performing Organization Address City/State/ZIP Code Phon e Number [facility] [address] [place] [address] [facility] HEPATITIS C AB W REFLEX TO HCV RNA BY PCR (12/22/2016 8:30 EDT) HEPATITIS C AB NegativeComment: [facility] W/REFLEX - [facility] Expected Values: [facility] Negative. Specimen Narrative [facility] - 017 14:16 EDT Does PT Have a Latex Allergy? NO Performing Organization Address City/State/ZIP Code Phon e Number [facility] [address] [place] [address] [facility] documented in this encounter Visit Diagnoses Not on filedocumented in this encounter Care Teams Locks Tender Relationship Specialty Start Date End Date Kizzy Nunez, SOCIAL SCIENCE RESEARCH ASSISTANT PCP - General 12/09/[address] [place] [phone] documented as of this encounter
--- OUTSIDE RECORDS SUMMARY | 2021-12-30 01:43 | XMS_ITS | Encounter Summary ---
:1950 Author Organization [facility] [place] [address] [place] [address] Care Team Providers Name Role Phone Noa Washington APRN Primary Care Provider Encounter Details Date Type Department Care Team Description 06/03/2001 Orders Only Radiology and Cardiology Apd Conversion, Results Results Provider, [address] [place] [phone] Social History Tobacco Use Types Packs/Day Years Used Date Never Assessed Sex Assigned at Date Recorded Not on file documented as of this encounter Plan of Treatment Not on filedocumented as of this encounter Procedures Procedure Name Priority Date/Time Associated Diagnosis Comme nts TSH Routine 06/03/2001 4:55 PM Results f or this EST procedure are i n the results section . FERRITIN Routine 06/03/2001 4:55 PM Results f or this EST procedure are i n the results section . documented in this encounter Results (ABNORMAL) Ferritin (06/03/2001 4:55 PM EST) athologist Signature Ferritin 130.0 10.2 - 265 [facility] (External NG/ML CONVERSION Lab) Specimen (Source) Anatomical Collection Method Collection Time Re ceived Time Location / / Volume Laterality 06/03/2001 4:55 PM EST Results Provider Apd Conversion CHEMISTRY ORDERABLE S Performing Organization Address City/State/ZIP Code Phon e Number [facility] CONVERSION [address] [place], [place] [address] [facility] CONVERSION (ABNORMAL) TSH (06/03/2001 4:55 PM EST) athologist Signature TSH 0.17 0.46 - [facility] (ExtL) 4.68 mIU/L CONVERSION Specimen (Source) Anatomical Collection Method Collection Time Re ceived Time Location / / Volume Laterality 06/03/2001 4:55 PM EST Results Provider Apd Conversion MD CHEMISTRY ORDERABLE S Performing Organization Address City/State/ZIP Code Phon e Number [facility] CONVERSION [address] [place], [place] [address] [facility] documented in this encounter Visit Diagnoses Not on filedocumented in this encounter Care Teams Local Superintendent Relationship Specialty Start Date End Date Noa Washington APRN PCP - General Family Medicine 04/20/15 [address] [place] [address] documented as of this encounter
--- OUTSIDE RECORDS SUMMARY | 2021-12-30 01:43 | XMS_ITS | Encounter Summary ---
:1950 Author Organization [facility] Address [address] [place] [address] Care Team Providers Name Role Phone Kizzy Nunez NECKTIES PAINTER Primary Care Provider Encounter Details Date Type Department Care Team Description 08/08/2019 Results Only [facility] Reva Santacruz PA [phone] [address] [place], [place] [address] (Wo rk) Social History Tobacco Use Types Packs/Day Years Used Date Never Assessed Sex Assigned at Date Recorded Not on file documented as of this encounter Plan of Treatment Upcoming Encounters Date Type Specialty Care Team Description 03/24/2022 Office Visit Neurology Alexandria Ann MD [address] [place] [address] [address] [place] [address] (Wo rk) documented as of this encounter Procedures Procedure Name Priority Date/Time Associated Comments Diagnosis GLYCOHEMOGLOBIN POC - Routine 08/08/2019 12:26 Re sults for this [facility] [place] procedure are i n the results section. documented in this encounter Results (ABNORMAL) GLYCOHEMOGLOBIN POC - [facility] (08/08/2019 12:26 EST) Pathologist Sig nature Hemoglobin A1c 6.6 (H) 4.0 - 6.0 % [facility] AVG CALCULATED 140 (H) 60 - 115 MG/DL [facility] GLUCOSE - [facility] LAB Specimen Narrative [facility] - 020 12:27 EST CHRONIC RENAL IMPAIRMENT IS DEFINED GFR <60 MULTIPLY RESULT BY 1.210 FOR PAMELA RICAN PATIENTS EGFR CALCULATED USING THE IDMS-TRACEABLE MDRD STUDY Performing Organization Address City/State/ZIP Code Phon e Number [facility] [address] [place] [address] [facility] documented in this encounter Visit Diagnoses Not on filedocumented in this encounter Care Teams Sign Language Translator Relationship Specialty Start Date End Date Kizzy Nunez, NECKTIES PAINTER PCP - General 12/09/[address] [place] [phone] documented as of this encounter
--- OUTSIDE RECORDS SUMMARY | 2021-12-30 01:43 | XMS_ITS | Encounter Summary ---
:1950 Author Organization [facility] Address [address] [place] [address] Care Team Providers Name Role Phone Kizzy Nunez PREFLIGHT INSPECTOR Primary Care Provider Encounter Details Date Type Department Care Team Description 09/30/2021 Lab Requisition [facility] Outr Resulting Lab, Pathology & Laboratory Provider [facility] [address] [place] [address] Social History Tobacco Use Types Packs/Day Years Used Date Never Smoker Smokeless Tobacco: Never Used Sex Assigned at Date Recorded Not on file documented as of this encounter Functional Status Functional Status Response Date of Assessment Because of a physical, mental, or emotional condition, Yes 07/02/2021 does this person have difficulty doing errands alone such as visiting a doctor's office or shopping? Cognitive Status Response Date of Assessment Because of a physical, mental, or emotional condition, Yes 07/02/2021 does this person have serious difficulty concentrating, remembering, or making decisions? documented as of this encounter Plan of Treatment Upcoming Encounters Date Type Specialty Care Team Description 03/24/2022 Office Visit Neurology Alexandria Ann MD [address] [place] [address] [address] [place] [address] (Wo rk) documented as of this encounter Procedures Procedure Name Priority Date/Time Associated Diagnosis Comme nts COVID-19 TEST [facility] Today 09/30/2021 9:35 EDT LAB PCR COVID-19 TESTING Routine 09/30/2021 9:35 EDT Resu lts for this procedure are i n the results section. documented in this encounter Results COVID-19 TEST [facility] LAB PCR (09/30/2021 9:35 EDT) Specimen Swab Performing Organization Address City/[facility]/ZIP Code Phon e Number [facility] [address] [place] [address] SERVICES COVID-19 TESTING (09/30/2021 9:35 EDT) COVID-19 rt-PCR Negative Negative [facility] Result Comment: [facility] This test has not been FDA c leared or approved. This test has been authorized by FDA under an EUA for use by authorized laboratories. This test has been authorized only for detection of nucleic acid fro SERVICES m 2019-nCoV, not for any oth er viruses or pathogens. This test is only authorized for the duration of the declaration that circumstances exist justifying the authorization of emergency use of in vitro d iagnostic tests for detectio n and/or diagnosis of 2019-nCoV under section 564(b)(1) of Act, 21 U.S.C ?? 360bbb-3(b) (1), unless the authorization is terminated or revoked sooner. Negative results do not prec lude 2019-nCoV infection and should not be used as the sole basis for treatment or other patient management decisions. Negative results must be combined with clinical observa tions, patient history, and epidemiological informatio n. Testing was performed using the dayne SARS-CoV-2 assay ([employer] on the Dayne 6800 System Performing Lab Dayne [address] [facility] Lab [facility] SERVICES Specimen Swab Performing Organization Address City/[facility]/ZIP Code Phon e Number [facility] [address] [place] [address] SERVICES documented in this encounter Visit Diagnoses Not on filedocumented in this encounter Care Teams Dairy Department Manager Relationship Specialty Start Date End Date Kizzy Nunez NP PCP - General 12/09/[address] [place] [phone] documented as of this encounter
--- OUTSIDE RECORDS SUMMARY | 2021-12-30 01:43 | XMS_ITS | Encounter Summary ---
:1950 Author Organization [facility] Address [address] [place] [address] Care Team Providers Name Role Phone Kizzy Nunez ELECTRICAL APPLIANCE REPAIRER Primary Care Provider Encounter Details Date Type Department Care Team Description 12/22/2016 Historical Results Only [facility] - ByReva zavala PA [facility] Lab - Main [facility] [address] [place] [id number] Social History Tobacco Use Types Packs/Day Years Used Date Never Assessed Sex Assigned at Date Recorded Not on file documented as of this encounter Plan of Treatment Upcoming Encounters Date Type Specialty Care Team Description 03/24/2022 Office Visit Neurology Alexandria Ann MD 130 [facility] [address] [place] [address] (Wo rk) documented as of this encounter Procedures Procedure Name Priority Date/Time Associated Comments Diagnosis POCT CHOLESTEROL LDL Routine 12/22/2016 13:00 Res ults for this ([facility]) EDT procedure are i n the results section. documented in this encounter Results POCT CHOLESTEROL LDL ([facility]) (12/22/2016 13:00 EDT) Pathologist Sig nature LDL CHOLESTEROL - [facility] 70 60 - 100 mg/dl [facility] Specimen Performing Organization Address City/State/ZIP Code Phon e Number [facility] [address] [place] [address] [facility] documented in this encounter Visit Diagnoses Not on filedocumented in this encounter Care Teams Director Graphics Relationship Specialty Start Date End Date Kizzy Nunez NP PCP - General 12/09/[address] [phone] documented as of this encounter
--- OUTSIDE RECORDS SUMMARY | 2021-12-30 01:43 | XMS_ITS | Encounter Summary ---
:1950 Author Organization [facility] Address [address] [place] [address] Care Team Providers Name Role Phone Kizzy Nunez APPLICATIONS PACKAGER Primary Care Provider Encounter Details Date Type Department Care Team Description 03/22/2019 Results Only [facility] - [facility] Miley Baldwin PA Lab - [facility] [address] [address] [phone] Social History Tobacco Use Types Packs/Day Years Used Date Never Assessed Sex Assigned at Date Recorded Not on file documented as of this encounter Plan of Treatment Upcoming Encounters Date Type Specialty Care Team Description 03/24/2022 Office Visit Neurology Alexandria Ann MD 130 [facility] [address] [place] [address] (Wo rk) documented as of this encounter Procedures Procedure Name Priority Date/Time Associated Diagnosis Comme nts POCT URINALYSIS Routine 03/22/2019 9:47 EDT Resul ts for this procedure are i n the results section. documented in this encounter Results (ABNORMAL) POCT URINALYSIS (03/22/2019 9:47 EDT) URINE APPEARANCE - Clear CLEAR [facility] URINE BILIRUBIN - Negative NEGATIVE [facility] DIPSTICK - [facility] LAB URINE BLOOD - [facility] Negative NEGATIVE [facility] URINE COLOR - [facility] Yellow YELLOW [facility] LAB URINE GLUCOSE - Negative NEGATIVE [facility] DIPSTICK - [facility] LAB URINE KETONE - [facility] Negative NEGATIVE [facility] URINE LEUK ESTERASE - Trace NEGATIVE [facility] URINE NITRITE - Negative NEGATIVE [facility] DIPSTICK - [facility] LAB URINE PH - [facility] 6.0 () [facility] URINE PROTEIN - Negative NEGATIVE [facility] DIPSTICK - [facility] URINE SPECIFIC >=1.030 (H) () [facility] GRAVITY - [facility] LAB URINE UROBILINOGEN - 1.0 0.2 - 1.0 EU/DL [facility]ICK [facility] Specimen Performing Organization Address City/State/ZIP Code Phon e Number [facility] [address] [place] [address] [facility] documented in this encounter Visit Diagnoses Not on filedocumented in this encounter Care Teams Rod Piler Relationship Specialty Start Date End Date Kizzy Nunez, ERICA PCP - General 12/09/[address] [place] [phone] documented as of this encounter
--- OUTSIDE RECORDS SUMMARY | 2021-12-30 01:43 | XMS_ITS | Encounter Summary ---
:1950 Author Organization [facility] Address [address] [place] [address] Care Team Providers Name Role Phone Kizzy Nunez TELECOM NETWORK MANAGER Primary Care Provider Encounter Details Date Type Department Care Team Description 05/06/[address] [facility] - Kendy Rome, ERICA [facility] Lab - Main [facility] [address] [place], [place] [phone] Social History Tobacco Use Types Packs/Day Years Used Date Never Assessed Sex Assigned at Date Recorded Not on file documented as of this encounter Plan of Treatment Upcoming Encounters Date Type Specialty Care Team Description 03/24/2022 Office Visit Neurology Alexandria Ann MD [address] [facility] [address] [place] [address] (Wo rk) documented as of this encounter Procedures Procedure Name Priority Date/Time Associated Comments Diagnosis GLYCOHEMOGLOBIN POC - Routine 05/06/2017 9:04 Res ults for this [facility] EST procedure are i n the results section. documented in this encounter Results (ABNORMAL) GLYCOHEMOGLOBIN POC - [facility] (05/06/2017 9:04 EST) Pathologist Sig nature Hemoglobin A1c 6.3 (H) 4.0 - 6.0 % [facility] AVG CALCULATED 130 (H) 60 - 115 MG/DL [facility] GLUCOSE - [facility] LAB Specimen Performing Organization Address City/State/ZIP Code Phon e Number [facility] [address] [place] [address] [facility] documented in this encounter Visit Diagnoses Not on filedocumented in this encounter Care Teams Brand Development Manager Relationship Specialty Start Date End Date Kizzy Nunez, TELECOM NETWORK MANAGER PCP - General 12/09/[address] [place] [phone] documented as of this encounter
--- OUTSIDE RECORDS SUMMARY | 2021-12-30 01:43 | XMS_ITS | Encounter Summary ---
:1950 Author Organization [facility] Address [address] [place] [address] Care Team Providers Name Role Phone Kizzy Nunez ROLL PRESS OPERATOR Primary Care Provider Encounter Details Date Type Department Care Team Description 07/08/2016 Historical Results Only [facility] - ByReva zavala PA [facility] - Main [facility] [address] [place] [phone] Social History Tobacco Use Types Packs/Day Years Used Date Never Assessed Sex Assigned at Date Recorded Not on file documented as of this encounter Plan of Treatment Upcoming Encounters Date Type Specialty Care Team Description 03/24/2022 Office Visit Neurology Alexandria Ann MD [address] [facility] [place] [address] (Wo rk) documented as of this encounter Procedures Procedure Name Priority Date/Time Associated Diagnosis Comme nts BASIC METABOLIC Routine 07/08/2016 13:17 Results for this PANEL POCT - [facility] EST procedure are in the results section. documented in this encounter Results (ABNORMAL) BASIC METABOLIC PANEL POCT - [facility] (07/08/2016 13:17 EST) Pathologist Sig nature BUN - [facility] 10 7.00 - 20.00 MG/DL [facility] CALCIUM - [facility] 9.3 8.50 - 10.50 MG/DL [facility] Chloride 106 98.00 - 107.00 [facility] MMOL/L [facility] CO2 Total 22 22.00 - 30.00 [facility] MMOL/L [facility] CREATININE 0.6 (L) 0.70 - 1.50 MG/DL [facility] Anion Gap 14 7 - 17 [facility] GLUCOSE - [facility] 107 (H) 70.00 - 100.00 [facility] MG/DL [facility] Potassium 4.3 3.50 - 5.10 MMOL/L [facility] Sodium 142 137.00 - 145.00 [facility] MMOL/L [facility] Specimen Performing Organization Address City/State/ZIP Code Phon e Number [facility] [address] [place] [address] [facility] documented in this encounter Visit Diagnoses Not on filedocumented in this encounter Care Teams Frame Stripper And Crusher Relationship Specialty Start Date End Date Kizzy Nunez, ERICA PCP - General 12/09/[address] [place] [phone] documented as of this encounter
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
--- OUTSIDE RECORDS SUMMARY | 2021-12-30 01:43 | XMS_ITS | Encounter Summary ---
:1950 Author Organization [facility] Address [address] [place] [address] Care Team Providers Name Role Phone Noa Washington APRN Primary Care Provider Encounter Details Date Type Department Care Team Description 06/03/2001 Orders Only Radiology and Cardiology Apd Conversion, Results Results Provider, [address] [place] [phone] Social History Tobacco Use Types Packs/Day Years Used Date Never Assessed Sex Assigned at Date Recorded Not on file documented as of this encounter Plan of Treatment Not on filedocumented as of this encounter Procedures Procedure Name Priority Date/Time Associated Diagnosis Comme nts VITAMIN B12 Routine 06/03/2001 4:55 PM Results f or this EST procedure are i n the results section . documented in this encounter Results (ABNORMAL) Vitamin B12 (06/03/2001 4:55 PM EST) Analysis Performed At [facility] Time Signature Vitamin B-12 535.0 199 - 732 [facility] (External pg/mL CONVERSION Lab) Specimen (Source) Anatomical Collection Method Collection Time Re ceived Time Location / / Volume Laterality 06/03/2001 4:55 PM EST Results Provider Apd Conversion CHEMISTRY ORDERABLE S Performing Organization Address City/State/ZIP Code Phon e Number [facility] CONVERSION [address] [place], [place] [address] [facility] [address] [facility] CONVERSION documented in this encounter Visit Diagnoses Not on filedocumented in this encounter Care Teams Child Life Therapist Relationship Specialty Start Date End Date Noa Washington APRN PCP - General Family Medicine 04/20/15 [address] [place] [address] (work) documented as of this encounter
--- OUTSIDE RECORDS SUMMARY | 2021-12-30 01:43 | XMS_ITS | Encounter Summary ---
:1950 Author Organization [facility] Address [address] [place] [address] Care Team Providers Name Role Phone Kizzy Nunez SWITCH FOREMAN Primary Care Provider Encounter Details Date Type Department Care Team Description 08/07/2017 Historical Results Only [facility] - Kendy Rome, ERICA [facility] Lab - Main [facility] [address] [place], [place] [phone] Social History Tobacco Use Types Packs/Day Years Used Date Never Assessed Sex Assigned at Date Recorded Not on file documented as of this encounter Plan of Treatment Upcoming Encounters Date Type Specialty Care Team Description 03/24/2022 Office Visit Neurology Alexandria Ann MD [address] [facility] [address] [place] [address] (Wo rk) documented as of this encounter Procedures Procedure Name Priority Date/Time Associated Comments Diagnosis GLYCOHEMOGLOBIN POC - Routine 08/07/2017 16:33 Re sults for this [facility] EST procedure are i n the results section. documented in this encounter Results (ABNORMAL) GLYCOHEMOGLOBIN POC - [facility] (08/07/2017 16:33 EST) Pathologist Sig nature Hemoglobin A1c 6.1 (H) 4.0 - 6.0 % [facility] AVG CALCULATED 123 (H) 60 - 115 MG/DL [facility] GLUCOSE - [facility] LAB Specimen Performing Organization Address City/State/ZIP Code Phon e Number [facility] [address] [place] [address] [facility] documented in this encounter Visit Diagnoses Not on filedocumented in this encounter Care Teams Canoe Inspector Relationship Specialty Start Date End Date Kizzy Nunez, SWITCH FOREMAN PCP - General 12/09/[address] [place] [phone] documented as of this encounter
--- OUTSIDE RECORDS SUMMARY | 2021-12-30 01:43 | XMS_ITS | Encounter Summary ---
:1950 Author Organization [facility] Address [address] [place] [address] Care Team Providers Name Role Phone Kizzy Nunez MANAGER OF DRILLING Primary Care Provider Encounter Details Date Type Department Care Team Description 08/08/2019 Results Only [facility] Reva Santacruz PA [phone] [address] [place], [place] [address] (Wo rk) Social History Tobacco Use Types Packs/Day Years Used Date Never Assessed Sex Assigned at Date Recorded Not on file documented as of this encounter Plan of Treatment Upcoming Encounters Date Type Specialty Care Team Description 03/24/2022 Office Visit Neurology Alexandria Ann MD [address] [place] [address] [address] [place] [address] (Wo rk) documented as of this encounter Procedures Procedure Name Priority Date/Time Associated Diagnosis Comme nts LIPID PANEL POC - Routine 08/08/2019 12:26 Result s for this [facility] EST procedure are i n the results section. documented in this encounter Results (ABNORMAL) LIPID PANEL POC - [facility] (08/08/2019 12:26 EST) Pathologist Sig nature Triglyceride 127 0.00 - 150.00 MG/DL [facility] Cholesterol 186 0.00 - 200.00 MG/DL [facility] HDL 62 (H) 40.00 - 60.00 MG/DL [facility] Specimen Narrative [facility] - 020 12:27 EST CHRONIC RENAL IMPAIRMENT IS DEFINED GFR <60 MULTIPLY RESULT BY 1.210 FOR PAMELA RICAN PATIENTS EGFR CALCULATED USING THE IDMS-TRACEABLE MDRD STUDY Performing Organization Address City/State/ZIP Code Phon e Number [facility] [address] [place] [address] [facility] documented in this encounter Visit Diagnoses Not on filedocumented in this encounter Care Teams Water Maintenance Supervisor Relationship Specialty Start Date End Date Kizzy Nunez, ERICA PCP - General 12/09/[address] [place] [phone] documented as of this encounter
--- OUTSIDE RECORDS SUMMARY | 2021-12-30 01:43 | XMS_ITS | Encounter Summary ---
:1950 Author Organization [facility] Address [address] [place] [address] Care Team Providers Name Role Phone Kizzy Nunez DERRICK OPERATOR Primary Care Provider Encounter Details Date Type Department Care Team Description 08/08/2019 Results Only [facility] Reva Santacruz PA [phone] [address] [place], [place] [address] (Wo rk) Social History Tobacco Use Types Packs/Day Years Used Date Never Assessed Sex Assigned at Date Recorded Not on file documented as of this encounter Plan of Treatment Upcoming Encounters Date Type Specialty Care Team Description 03/24/2022 Office Visit Neurology Alexandria Ann MD [address] [facility] [address] [place] [address] (Wo rk) documented as of this encounter Procedures Procedure Name Priority Date/Time Associated Comments Diagnosis POCT CHOLESTEROL LDL Routine 08/08/2019 12:26 Res ults for this ([facility] [place]) EST procedure are i n the results section. documented in this encounter Results POCT CHOLESTEROL LDL ([facility] [place]) (08/08/2019 12:26 EST) Pathologist Sig nature LDL CHOLESTEROL - [facility] [place] 99 60 - 100 mg/dl [facility] Specimen Narrative [facility] - 020 12:27 EST CHRONIC RENAL IMPAIRMENT IS DEFINED GFR <60 MULTIPLY RESULT BY 1.210 FOR PAMELA RICAN PATIENTS EGFR CALCULATED USING THE IDMS-TRACEABLE MDRD STUDY Performing Organization Address City/State/ZIP Code Phon e Number [facility] [address] [place] [address] [facility] documented in this encounter Visit Diagnoses Not on filedocumented in this encounter Care Teams Child Protective Services Social Worker Relationship Specialty Start Date End Date Kizzy Nunez, DERRICK OPERATOR PCP - General 12/09/[address] [place] [phone] documented as of this encounter
--- OUTSIDE RECORDS SUMMARY | 2021-12-30 01:43 | XMS_ITS | Encounter Summary ---
:1950 Author Organization [facility] Address [address] [place] [address] Care Team Providers Name Role Phone Kizzy Nunez MEMORIAL MARKER DESIGNER Primary Care Provider Encounter Details Date Type Department Care Team Description 12/22/2016 Historical Results Only [facility] - ByReva zavala PA [facility] [place] [facility] [address] [place] [address] [phone] Social History Tobacco Use Types Packs/Day Years Used Date Never Assessed Sex Assigned at Date Recorded Not on file documented as of this encounter Plan of Treatment Upcoming Encounters Date Type Specialty Care Team Description 03/24/2022 Office Visit Neurology Alexandria Ann MD [address] [facility] [address] [place] [address] (Wo rk) documented as of this encounter Procedures Procedure Name Priority Date/Time Associated Comments Diagnosis COMPREHENSIVE Routine 12/22/2016 13:00 Results fo r this METABOLIC POC - [facility] EDT procedu re are in the results section. documented in this encounter Results (ABNORMAL) COMPREHENSIVE METABOLIC POC - [facility] (12/22/2016 13:00 EDT) Pathologist Sig nature ALBUMIN - [facility] 3.9 3.50 - 5.00 [facility] G/DL CENTER LAB ALKALINE PHOSPHATASE - 84 38.00 - 126.00 [facility] U/L CENTER LAB BILIRUBIN TOTAL 1.2 0.20 - 1.30 [facility] MG/DL CENTER LAB BUN - [facility] 17 7.00 - 20.00 [facility] MG/DL CENTER LAB CALCIUM - [facility] 9.3 8.50 - 10.50 [facility] MG/DL [facility] Chloride 108 (H) 98.00 - 107.00 [facility] MMOL/L [facility] CO2 Total 23 22.00 - 30.00 [facility] MMOL/L [facility] CREATININE 0.5 (L) 0.70 - 1.50 [facility] MG/DL [facility] Anion Gap 10 7 - 17 [facility] GLUCOSE - [facility] 107 (H) 70.00 - 100.00 [facility] MG/DL [facility] Potassium 4.1 3.50 - 5.10 [facility] MMOL/L [facility] Sodium 141 137.00 - 145.00 [facility] MMOL/L [facility] TOTAL PROTEIN - [facility] 7.1 6.30 - 8.20 [facility] G/DL [facility] SGOT/AST - [facility] 22 15.00 - 46.00 [facility] U[facility] SGPT/ALT - [facility] 26 13.00 - 69.00 [facility] U/[facility] Specimen Performing Organization Address City/State/[facility] Code Phon e Number [facility] [address] [place] [address] [facility] documented in this encounter Visit Diagnoses Not on filedocumented in this encounter Care Teams Collection Administrator Relationship Specialty Start Date End Date Kizzy Nunez, ERICA PCP - General 12/09/[address] [place] [phone] documented as of this encounter
--- OUTSIDE RECORDS SUMMARY | 2021-12-30 01:43 | XMS_ITS | Encounter Summary ---
:1950 Author Organization [facility] Address [address] [place] [address] Care Team Providers Name Role Phone Kizzy Nunez ENGINE LATHE OPERATOR Primary Care Provider Encounter Details Date Type Department Care Team Description 09/07/2021 Lab Requisition [facility] Outr Resulting Lab, Pathology & Laboratory Provider [facility] [address] [place] [address] Social History Tobacco Use Types [...] 03/24/2022 Office Visit Neurology Alexandria Ann MD [address] [place] [address] [address] [place] [address] (Wo rk) documented as of this encounter Procedures Procedure Name Priority Date/Time Associated Diagnosis Comme nts T3, TOTAL Routine 09/06/2021 5:35 EDT Results for this procedure are i n the results section . documented in this encounter Results T3, TOTAL (09/06/2021 5:35 EDT) Pathologist Sig nature T3, Total 152 97 - 169 ng/dL [facility] Specimen Blood - Venous blood (substance) Performing Organization Address City/State/ZIP Code Phon e Number [facility] [address] [place] [address] SERVICES documented in this encounter Visit Diagnoses Not on filedocumented in this encounter Care Teams Coppersmith Apprentice Relationship Specialty Start Date End Date Kizzy Nunez, ERICA PCP - General 12/09/[address] [place] [phone] documented as of this encounter
--- OUTSIDE RECORDS SUMMARY | 2021-12-30 01:43 | XMS_ITS | Encounter Summary ---
:1950 Author Organization [facility] Address [address] [place] [address] Care Team Providers Name Role Phone Kizzy Nunez NEWS CAMERA OPERATOR Primary Care Provider Encounter Details Date Type Department Care Team Description 10/04/2020 Lab Requisition [facility] Gordon Cabral, Pathology & MD Laura unspecified Laboratory Medicine [address] [place], [place] [address] [facility] [address] [place], [place] [phone] Social History Tobacco Use Types Packs/Day Years Used Date Never Assessed Sex Assigned at Date Recorded Not on file documented as of this encounter Plan of Treatment Upcoming Encounters Date Type Specialty Care Team Description 03/24/2022 Office Visit Neurology Alexandria Ann MD [address] [place] [address] [address] [place] [address] (Wo rk) documented as of this encounter Procedures Procedure Name Priority Date/Time Associated Diagnosis Comme nts SURGICAL PATHOLOGY Today 10/03/2020 14:40 Dysphagia, Resul ts for this EDT unspecified procedure are i n the results section. documented in this encounter Results SURGICAL PATHOLOGY (10/03/2020 14:40 EDT) Final Diagnosis A. STOMACH, ANTRUM, BIOPSY: [facility] - Gastric antral and fundic mucosa with no significant diagnostic abnormalities. CENTER - Negative for Helicobacter pylori on H&E stained sect ions. LABORATORY SERVICES B. GASTROESOPHAGEAL JUNCTION, BIOPSY: - Mild chronic inflammation of squamocolumnar mucosa. - Negative for intestinal metaplasia and dysplasia. C. ESOPHAGUS, DISTAL, BIOPSY: - Consistent with reflux esophagitis. Attestation By the signature [facility] Electronica lly below, the attending CENTER signed by Lyn Burnett, physician certifies LABORATORY Ronny Ricks MD on that they have 1) SERVICES 10/04/2020 at 1633 personally conducted a gross and/or microscopic examination of the described specimen(s), and/or personally interpreted the results of laboratory testing of the described specimen(s), and 2) personally rendered or confirmed the above diagnosis. Clinical History Dysphagia [facility] Gross Description A. [facility] Received in formalin ancelmo d with proper patient identification (initials B, G) and antrum Bx are four benavidez irregular to nodular tissues ranging from 0.2 x 0.2 x 0.2 cm to 0.4 x 0.3 x 0.2 cm. Entirely submitted in A1. CENTER LABORATORY B. SERVICES Received in formalin ancelmo d with proper patient identification (initials B, G) and GE junction Bx is a benavidez nodular tissue, 0.3 x 0.2 x 0.2 cm. Entirely submitted in B1. C. Received in formalin ancelmo d with proper patient identification (initials B, G) and distal esophagus Bx are 2 irregular to membranous tissues, 0.1 cm in greatest dimension and 0.5 x 0.2 x 0.1 cm. Entirely submitted in C1. MATEO ALDRICH(ASCP) 10/04/2020 8:38 Performing Lab [facility] Scanned Images [facility] Specimen Tissue - Entire esophagus (body structur e) Tissue specimen (specimen) - Entire esop hago-gastric mucosal junction (body structure) Tissue specimen (specimen) - Entire esop hagus (body structure) Performing Organization Address City/State/ZIP Code Phon e Number [facility] [address] [place] [address] SERVICES documented in this encounter Visit Diagnoses Diagnosis Dysphagia, unspecified documented in this encounter Care Teams Water Valve Repairer Relationship Specialty Start Date End Date Kizzy Nunez NP PCP - General 12/09/[address] [place] [phone] documented as of this encounter
--- OUTSIDE RECORDS SUMMARY | 2021-12-30 01:44 | XMS_ITS | Encounter Summary ---
:1950 Author Organization [facility] Address [address] [place] [address] Care Team Providers Name Role Phone Kizzy Nunez BILINGUAL TEACHER Primary Care Provider Encounter Details Date Type Department Care Team Description 04/15/2016 Historical Results Only [facility] - ByReva zavala PA [facility] Lab - Main [facility] [address] [place] [phone] Social History Tobacco Use Types Packs/Day Years Used Date Never Assessed Sex Assigned at Date Recorded Not on file documented as of this encounter Plan of Treatment Upcoming Encounters Date Type Specialty Care Team Description 03/24/2022 Office Visit Neurology Alexandria Ann MD [address] [facility] [address] [place] [address] (Wo rk) documented as of this encounter Procedures Procedure Name Priority Date/Time Associated Comments Diagnosis SURVEILLANCE CULTURE Routine 04/15/2016 12:50 Res ults for this - [facility] EDT procedure are i n the results section. documented in this encounter Results SURVEILLANCE CULTURE - [facility] (04/15/2016 12:50 EDT) Surveillance Culture NO STAPH COAGULASE [facility] (NO MRSA) Surveillance Culture NO ENTEROCOCCUS [facility] SPECIES ISOLATED (NO MED CENTER LAB VRE) Specimen Narrative [facility] - 016 12:21 EDT Does PT Have a Latex Allergy? NO Performing Organization Address City/State/ZIP Code Phon e Number [facility] [address] [place] [address] [facility] documented in this encounter Visit Diagnoses Not on filedocumented in this encounter Care Teams Erection Shop Supervisor Relationship Specialty Start Date End Date Kizzy Nunez, BILINGUAL TEACHER PCP - General 12/09/[address] [place] [phone] documented as of this encounter
--- OUTSIDE RECORDS SUMMARY | 2021-12-30 01:44 | XMS_ITS | Encounter Summary ---
:1950 Author Organization [facility] Address [address] [place] [address] Care Team Providers Name Role Phone Kizzy Nunez DYE REEL OPERATOR HELPER Primary Care Provider Encounter Details Date Type Department Care Team Description 05/02/2016 Results Only [facility]- [facility] Rosa Da Silva DO [phone] [facility] [facility] [place] [address] (Wo rk) Social History Tobacco Use Types Packs/Day Years Used Date Never Assessed Sex Assigned at Date Recorded Not on file documented as of this encounter Plan of Treatment Upcoming Encounters Date Type Specialty Care Team Description 03/24/2022 Office Visit Neurology Alexandria Ann MD [address] [place] [address] [address] [place] [address] (Wo rk) documented as of this encounter Procedures Procedure Name Priority Date/Time Associated Diagnosis Comme [facility] SURGICAL PATHOLOGY Routine 05/02/2016 8:35 EST Re sults for this procedure are i n the results section. documented in this encounter Results SURGICAL PATHOLOGY (05/02/2016 8:35 EST) Pathology Report: SURGICAL PATHOLOGY REPORT [facility] Reports generated via electronic interface contain felix ginal data; LABORATORY however they are lacking the format of the original re port. SERVICES Caution should be taken when reading/interpreting unfo rmatted reports. Name: ? TONY HINTON ? Accession #: ? [id number] ? : ? 1950 (Age: [age]) ??F ? Collect Date: ? 05/02/2016 ? Location: ? [facility] ? Receive Date: ? 016 ? Provider: ROSA DA SILVA DO Copy to: ? Final Pathologic Diagnosis: A. SMALL INTESTINE, DUODENUM, BIOPSY: - ??Duodenal mucosa with no specific pathologic featur es. B. STOMACH, ANTRUM, BIOPSY: - ??Gastric antral mucosa with reactive (chemical) gas tropathy. - ??No histological evidence of H. pylori on H&E stain . Document reviewed and electronically signed by: ARMAND MENDOZA MD Report ??Date: 05/05/2016 17:04 By the signature above, the attending physician certif ies that he/she has personally conducted a gross and/or microscopic examin ation of the described specimens and rendered or confirmed the above diagnosi s. Specimen(s) Received: A. ??Duodenum bx B. ??Gastric antrum Clinical History: Dysphagia Gross Description: A. ?Received in formalin labelled with proper p atient identification (initials B, G) and duodenu m bx are three pink-benavidez tissues (0.2 x 0.1 x 0.1 cm to 0.4 x 0.2 x 0.2 cm). Entirely submitted in block A1 . B. ?Received in formalin labelled with proper p atient identification (initials B, G) and gastric antrum are three pink-benavidez tissues (0.2 x 0.2 x 0.1 cm to 0.3 x 0.3 x 0.1 cm). Entirely submitted in block B1. MATEO Senior (ASCP) 05/05/2016 9:09 AM End of Report Specimen Performing Organization Address City/State/ZIP Code Phon e Number [facility] [address] [place] [phone] SERVICES documented in this encounter Visit Diagnoses Not on filedocumented in this encounter Care Teams Leather Patcher Relationship Specialty Start Date End Date Kizzy Nunez, DYE REEL OPERATOR HELPER PCP - General 12/09/[address] [place] [phone] documented as of this encounter
--- OUTSIDE RECORDS SUMMARY | 2021-12-30 01:44 | XMS_ITS | Encounter Summary ---
:1950 Author Organization [facility] Address [address] [place] [address] Care Team Providers Name Role Phone Unavailable Primary Care Provider Unavailable Encounter Details Date Type Department Care Team Description 12/07/2012 Results Only [facility] Shawn Zuleta , Laboratory Services - [address] TAMIR CAIN [address] [place] [address] [place] [address] [phone] Social History Tobacco Use Types Packs/Day Years Used Date Never Assessed Sex Assigned at Date Recorded Not on file documented as of this encounter Plan of Treatment Upcoming Encounters Date Type Specialty Care Team Description 03/24/2022 Office Visit Neurology Alexandria Ann MD [address] [place] [address] [address] [place] [address] (Wo rk) documented as of this encounter Procedures Procedure Name Priority Date/Time Associated Diagnosis Comme nts CYTOPATHOLOGY Routine 12/07/2012 0:00 EDT Results for this procedure are i n the results section . documented in this encounter Results CYTOPATHOLOGY (12/07/2012 0:00 EDT) Pathology Report: CYTOPATHOLOGY REPORT [facility] Reports generated via electronic interface contain felix ginal data; however they are lacking the format of the original re port. Caution should be taken when reading/interpreting unfo rmatted reports. Name: ? SKYE HINTON ? Accession #: ? [id number] : ? 1950 (Age: 62) ??F ?Collect Date: ? 11/14 Location: ? [facility] ? Receive Date : ? 12/08/2012 Provider: ? SHAWN ZULETA DO Copy to: ?TK ZACARIAS BPO SPECIALIST ? CYTOLOGIC DIAGNOSIS: THYROID, LEFT LOWER LOBE, PA RTIALLY CYSTIC NODULE, ULTRASOUND GUIDED FINE NEEDLE ASPIRATION: - Benign follicular nodule. - Background of chronic lymphocytic thyroiditis. See terrance crisostomo. ? COMMENT: Cytologic evaluation reveals bland follicular cells pr esent in sheets and occasional complex microfoll icular arrangements. ??Some of the follicular cells display Hurtheloid changes. ??A moderate amount of col loid is noted in the background. ??Lymphocytic in flammation is present imbedded within the follicular cell sheets. ??(Dr. Mcdonald)/[facility] Document reviewed and electronically signed by: ? JORY RENNER MD Report Date: ??12/08/2012 17:36 By the signature above, the attending physician certif ies that he/she has personally conducted a gross and/or microscopic examin ation of the described specimens and rendered or confirmed the above diagnosi s. Specimen Type: ? Thyroid, Fine Needle Aspiration, Left lower lobe Clinical History: ? Left lower lobe thyroid nodule. ??Family history of th yroid cancer. ? Rapid Interpretation: THYROID, LEFT LOWER POLE, PA RTIALLY CYSTIC NODULE, ULTRASOUND GUIDED FINE NEEDLE ASPIRATION: Evaluation 1: ? Pass 1-3 : ? Follicular cells and Hurthle cells, adequate but given scant nature, additional ?requested. ?Pass 4-5: ? Follicular and Hurthle cells. (Dr. Shahid Newton; 12/07/12 at 2:55 PM_ Gross Description: ? 9 fixed prepared slides, 2 a ir dried prepared slides, and 1 tube of Cytolyt were received and processed by selective cellular enhanceme nt technique. ? End of Report Specimen Performing Organization Address City/State/ZIP Code Phon e Number [facility] [address] [place] [address] SERVICES [facility] [address] [place] [address] documented in this encounter Visit Diagnoses Not on filedocumented in this encounter
[2021-12-30 13:14] LABS: TSH (W/Ref FT4) 1.08 uIU/mL (0.36-3.74)
== END 2021-12-30 01:33 | disposition home or self-care (01) ==
LOC: LOS 01:32
PROVIDERS: PCP Physician Assistant Medical; Visit Provider Registered Nurse Maternal Newborn
DX: E04.1 Nontoxic single thyroid nodule (principal)
CPT/HCPCS: 36415; 84443

== ENCOUNTER → 2022-01-28 01:00 | Outpatient (CLI) | payer MEDICARE, SELFPAY ==
--- NOTE | 2022-01-28 09:55 | DI.MAMMO_ITS ---
Exam(s) MAMMO SCREENING EXAM: MAMMO SCREENING CLINICAL HISTORY: YEARLY SCREENING, Z12.31. TECHNIQUE: Bilateral full field digital CC and MLO mammographic images were obtained with 3D tomosyn thesis and utilizing computer aided detection (CAD). COMPARISON: Prior mammograms were reviewed, the most recent being June 2019. FINDINGS: Small nodular density laterally in the right breast is unchanged from 2013 and therefore benign. Small nodular density adjacent to biopsy marker clip in the left breast is also unchanged. Another asymmetric density in left breast is unchanged from prior studies and has appearance of proba ble benign intramammary lymph node. There are no malignant-appearing microcalcification groups in this region nor elsewhere in either debi ast. There is no significant Architectural distortion or skin thickening-traction. IMPRESSION: No radiographic evidence of malignancy. Stable benign-appearing findings in both breast. BI-RADS Category 2 - Benign Findings Breast Density - Category B - Scattered areas of fibroglandular density Breast density Category C or D implies that the patient has dense breast tissue. Dense breast tissue can make it harder to find cancer on a mammogram. Dense breast tissue is also associated with an incr eased risk of breast cancer. This information about the result of the mammogram report was provided to the patient to raise their awareness. Use this report when you speak with the patient about their risks for breast cancer, which includes their family history. At that time, you may recommend additional screening tests (Ultrasoun d or MRI) as these tests may add significant information. A negative radiographic report should not delay biopsy if a dominant or clinically suspicious mass is present. Up to ten percent of cancers are not identified on mammography. A negative report may reinforce clinical impression. Adenosis and dense breasts may obscure an underlying neoplasm. False positive reports average 6 to 10%. Patient will receive a letter notifying them of these results.
== END ==
PROVIDERS: PCP Physician Assistant Medical; Visit Provider Physician Assistant Medical
DX: Z12.31 Encounter for screening mammogram for malignant neoplasm of breast (principal); R92.8 Other abnormal and inconclusive findings on diagnostic imaging of breast
CPT/HCPCS: 77063; 77067

== ENCOUNTER → 2022-02-18 15:38 | Outpatient (CLI) | payer MEDICARE, SELFPAY ==
--- NOTE | 2022-02-18 | DI.US_ITS ---
Exam(s) US UPPER EXTREMITY VENOUS LT EXAM: US UPPER EXTREMITY VENOUS LT CLINICAL HISTORY: ARM PAIN LT, M79.602, SWELLING LT ARM, M79.89. TECHNIQUE: Ultrasound examination of the left upper extremity venous system(s) is performed using gr ayscale, color-flow, and spectral Doppler analysis. COMPARISON: No exams were available for comparison FINDINGS: The left internal jugular, axillary, subclavian, cephalic, basilic, and brachial veins are patent wit hout evidence of thrombosis. No cystic or solid masses are seen sonographically in the area of inter est in the distal upper arm. IMPRESSION: No evidence of a left upper extremity DVT. DATA REPOSITORY:
== END ==
PROVIDERS: PCP Physician Assistant Medical; Visit Provider Physician Assistant Medical
DX: M79.602 Pain in left arm (principal); M79.89 Other specified soft tissue disorders
CPT/HCPCS: 93971

== ENCOUNTER → 2022-03-27 01:21 | Outpatient (CLI) | payer MEDICARE, SELFPAY ==
--- NOTE | 2022-03-27 06:45 | DI.US_ITS ---
Exam(s) US THYROID EXAM: US THYROID CLINICAL HISTORY: Thyroid mass E07.9 DISORDER OF THYROID E04.2 GOITER. TECHNIQUE: Ultrasound thyroid performed using standard protocol. COMPARISON: US US THYROID from 09/06/2021 FINDINGS: ISTHMUS: 2.7 mm RIGHT LOBE: Size: 1.4 x 0.9 x 0.8 cm Echogenicity: Normal. Vascularity: Normal. Nodules: None. LEFT LOBE: Size: 4.5 x 3.3 x 2.9 cm Echogenicity: Normal. Vascularity: Normal. Nodules: There is again seen a mixed cystic and solid mass in the left lobe measuring 3.5 x 3.2 x 2.7 cm. This compares to 3.6 x 3.3 x 3.2 cm on the prior examination. No echogenic foci are seen. It has smooth borders. It is consistent with a TI rads level 4 nodule. OTHER FINDINGS: None. IMPRESSION: Stable left thyroid nodule. DATA REPOSITORY:
== END ==
PROVIDERS: PCP Physician Assistant Medical; Visit Provider Registered Nurse Maternal Newborn
DX: E04.2 Nontoxic multinodular goiter (principal)
CPT/HCPCS: 76536

== ENCOUNTER → 2022-04-16 01:25 | Outpatient (CLI) | payer MEDICARE, SELFPAY ==
--- NOTE | 2022-04-16 12:52 | DI.CT_ITS ---
Exam(s) CT HEAD WO EXAM: CT HEAD WO CLINICAL HISTORY: MEMORY DEFICIT R41.3 INCREASE IN FALLS RECENT FACIAL TRAUMA. TECHNIQUE: Imaging Protocol: Axial computed tomography images with coronal and sagittal reformatted images were created and reviewed COMPARISON: CT CT BRAIN NECK CTA from 09/04/2021 FINDINGS: Ventricles and Extra axial spaces: Normal in size and morphology for the patient's age. Hemorrhage: None. Cerebral parenchyma: Mild atrophy. White matter changes consistent with small vessel disease. Midline shift: None. Brainstem/Cerebellum: Normal. Calvarium: Normal. Visualized Paranasal sinuses/Mastoids: Clear. IMPRESSION: No acute abnormality. RADIATION DOSE DELIVERED: 683.12mGy.cm Total DLP 683.12mGy.cm Total DLP DATA REPOSITORY: All CT scans at this facility are submitted to the National Radiology Data Registry (NRDR) Dose Index Registry (DIR) with the [employer] (ACR). RADIATION OPTIMIZATION: All CT scans at this facility use at least one of these dose optimization te chniques: automated exposure control; mA and/or kV adjustment per patient size (includes targeted exa ms where dose is matched to clinical indication); or iterative reconstruction.
== END ==
PROVIDERS: PCP Physician Assistant Medical; Visit Provider Physician Assistant Medical
DX: R41.3 Other amnesia (principal)
CPT/HCPCS: 70450

== ENCOUNTER → 2022-04-29 02:46 | Outpatient (CLI) | payer MEDICARE, SELFPAY ==
--- NOTE | 2022-04-29 07:30 | DI.US_ITS ---
Exam(s) US NEEDLE LOCAL OTHER WO RAD EXAM: US NEEDLE LOCAL OTHER WO RAD CLINICAL HISTORY: mutinodular goiter,ultrasond guided fna, thyroid mass, e07.9. COMPARISON: US US THYROID from 03/27/2022 TECHNIQUE: Ultrasound guidance was provided during ultrasound-guided FNA a left thyroid nodule FINDINGS: Submitted images including cine clips reveal the FNA passes into the nodule. Radiologist was not present for this procedure. IMPRESSION: Ultrasound guided FNA left thyroid nodule. DATA REPOSITORY:
--- NOTE | 2022-04-29 11:35 | PAPNONF_PTH ---
PATIENT: Skye Hinton LOC: [facility] U#:[id number] AGE/SX: 74/F ROOM: RE04/29/[address]: Sue Olvera : 1950 BED: DIS: SPEC #: [id number] RECD: 04/29/22 12:53 STATUS: MIKE REGabby #: [id number] PASTOR: 04/29/22 11:[address]: Sue Olvera DEPT: [facility] Cytology RECD BY: Cesia Gibson ENTERED: 04/29/22 12:54 SP TYPE: CORINNA LEIVA DR: Miley Baldwin Tissues: 1 - BODY FLUID CYTO-FINE NEEDLE ASPIRATE-[facility] Procedures: BODY FLUID CYTO-FINE NEEDLE ASPIRATE-[facility] Comments: [id number] (FNA PATH CONSULT) (REFRIGERATED)
--- NOTE | 2022-04-29 12:55 | W.PROCNOTE ---
Date of service: 04/29/22 Time of Service: 11:00 Procedure Note Procedure: Ultrasound-guided FNA, left thyroid nodule Surgeon/Proceduralist/Physician: Ruslan López Procedure Diagnosis: Left thyroid nodule Procedure Indications: I reviewed the findings with the patient. Options were explained regarding further management. She wished to undergo FNA of the left thyroid nodule. Risks and benefits as well as the procedure were discussed at length. Written consent was obtained. The below was then performed. Procedure Description: The patient was positioned in a supine position with her neck slightly extended. The left thyroid nodule was visualized using the ultrasound and then the patient was prepped and draped in appropriate fashion. 1% lidocaine with 1/100,000 epinephrine was injected in the skin and subcutaneous tissues overlying the nodule and then a 25-gauge needle passed repeatedly into the nodule. The aspirate was mostly serous in nature. Slides were prepared by pathology and found to be paucicellular but the aspirate was largely placed in CytoLyt given the fluid quality of the aspirate. Sterile dressing was applied and adequate hemostasis was verified. The patient was then able to sit up and stand without difficulty. Her vital signs remained stable. The patient tolerated the procedure well. She is aware that she should call if she does not hear from me within 1 week with regard to pathology. Further care will depend upon the findings. I suspect this represents a large colloid nodule.
== END ==
PROVIDERS: PCP Physician Assistant Medical; Visit Provider Registered Nurse Maternal Newborn
DX: E04.1 Nontoxic single thyroid nodule
CPT/HCPCS: 10005; 76942; 88104

== ENCOUNTER 2022-07-31 17:37 | Emergency (ER) | payer MEDICARE, SELFPAY ==
[2022-07-31] VITALS (40 sets, daily range): BP systolic 151–206; BP diastolic 67–94; PULSE 69–86; RESP 11–26; TEMP 36.6; O2SAT 94–99
--- NOTE | 2022-07-31 18:00 | RT.EKG_ITS ---
APPROVED REPORT Exam: Resting ECG Reason for Exam: neck pain Patient Location: E HR:75 bpm ECG Measurements Heart Rate 75 AXIS PA 141 P 27 QRSd 90 QRS -5 QT 400 T 32 QTc 446 Conclusion Sinus rhythm...normal P axis, V-rate 60- 99 Narrow complex normal sinus rhythm at a rate of 75. Left axis deviation no signs of LVH. Intervals within normal limits. T wave flattening in lead III appears similar to prior dated last year. No ac [facility] injury pattern.
--- NOTE | 2022-07-31 18:00 | DI.CT_ITS ---
Exam(s) CT CAROTID NECK CTA EXAM: CT CAROTID NECK CTA CLINICAL HISTORY: swelling neck and chest, hx of thyroid mass. TECHNIQUE: Imaging Protocol: Axial CT angiography was performed with multi-slice acquisition and mul ti-planar and/or 3D reconstructions. CONTRAST MATERIAL: Intravenous: Omnipaque 350 Contrast volume:85 mL COMPARISON: US US THYROID from 04/08/2010 US THYROID ULTRASOUND from 10/21/2012 CR RIGHT THUMB from 03/07/[address] BRAIN NECK CTA from 09/04/2021 US US CAROTID from 09/05/[address] HEAD WO from 04/16/[address] THORAX CTA from 07/31/2022 FINDINGS: Common Carotid: Right: No dissection, occlusion or significant stenosis. Left: No dissection, occlusion or significant stenosis. External Carotid: Right: No dissection, occlusion or significant stenosis. Left: No dissection, occlusion or significant stenosis. Internal Carotid: Right: Minimal plaque. No dissection, occlusion or significant stenosis. Left: Minimal plaque. No dissection, occlusion or significant stenosis. Vertebral Artery: Right: No dissection, occlusion or significant stenosis. Left: No dissection, occlusion or significant stenosis. Basilar Artery: No aneurysm, occlusion or significant stenosis. Lung Apices: Normal. Bones: Normal. Soft Tissues: Left of thyroid nodule, seen on prior exams back to 2012.. Spinal stimulator device no bill. IMPRESSION: Minimal plaque in the common carotid bulbs. No significant stenosis. No evidence of dissection. RADIATION DOSE DELIVERED: Total DLP DATA REPOSITORY: All CT scans at this facility are submitted to the National Radiology Data Registry (NRDR) Dose Index Registry (DIR) with the [employer] (ACR). RADIATION OPTIMIZATION: All CT scans at this facility use at least one of these dose optimization te chniques: automated exposure control; mA and/or kV adjustment per patient size (includes targeted exa ms where dose is matched to clinical indication); or iterative reconstruction.
[2022-07-31 18:33] LABS: Abs Immature Grans 0.03 10^3/uL (0.0-0.06); Absolute Basophil Count 0.04 10^3/uL (0.0-0.2); Absolute Eosinophil Count 0.35 10^3/uL (0.0-0.7); Absolute Lymphocyte Count 3.45 10^3/uL (1.2-3.4); Absolute Monocyte Count 0.48 10^3/uL (0.1-0.8); Absolute Neutrophil Count 3.33 10^3/uL (1.2-6.7); Basophils % 0.5; Eosinophils % 4.6; HCT 41.9 % (36.0-46.0); HGB 13.5 g/dL (11.2-15.7); Immature Grans % 0.4; Lymphocytes % 44.9; MCH 29.3 pg (27.0-33.0); MCHC 32.2 % (32.0-36.0); MCV 91 fL (80-95); MPV 9.1 fL (8.0-11.0); Monocytes % 6.3; Neutrophils % 43.3; Platelet Count 233 10^3/uL (130-400); RDW 12.8 % (11.7-14.6); RDW-SD 41.7 fL; WBC 7.68 10^3/uL (4.4-10.8)
[2022-07-31 18:50] LABS: ALT 49 U/L (14-59); AST 35 U/L (15-37); Albumin 4.2 g/dL (3.4-5.0); Alkaline Phosphatase 103 U/L (46-116); Anion Gap 7.8 mmol/L (3-11); BUN 9 mg/dL (7-18); CO2 29.2 mmol/L (21.0-32.0); CREATININE 0.8 mg/dL (0.55-1.02); Calcium 9.5 mg/dL (8.5-10.1); Chloride 101 mmol/L (98-107); Creatine Kinase 111 U/L (26-192); Estimated GFR 78.72 (mL/min/1.73m2); Glucose 137 mg/dL (74-106); Potassium 3.6 mmol/L (3.5-5.1); Sodium 138 mmol/L (136-145); Total Protein 8.5 g/dL (6.4-8.2); Troponin I < 50 ng/L (<or=60)
[2022-07-31] MEDS: fentaNYL 100 MCG/2 ML VIAL 50 MCG IVP (21:32)
[2022-07-31 21:55] LABS: Troponin I < 50 ng/L (<or=60)
--- NOTE | 2022-07-31 22:00 | DI.CT_ITS ---
Exam(s) CT THORAX CTA EXAM: CT THORAX CTA CLINICAL HISTORY: swelling chest and neck. TECHNIQUE: Imaging Protocol: Axial CT angiography was performed with multi-slice acquisition and mu lti-planar reconstructions as well as axial, coronal and sagittal MIP reconstructions. CONTRAST MATERIAL: Intravenous: Omnipaque 350 Contrast volume:100 ml COMPARISON: CT CT BRAIN NECK CTA from 09/04/[address] CAROTID NECK CTA from 07/31/2022 FINDINGS: Pulmonary Arteries: No evidence of filling defect to suggest pulmonary emboli. Tracheobronchial tree: Patent where visualized. Mediastinum and Felisha: No dominant adenopathy or fluid collection. Pulmonary parenchyma: No consolidation or dominant measurable mass. Pleura: No effusion or pneumothorax. Heart: The heart is not dilated. No coronary artery calcifications are seen. Aorta: Thoracic aorta non-dilated. No aneurysm. No dissection. Mild atherosclerotic changes. Upper abdomen: Hepatic steatosis. Some atrophy of the pancreas. Bones: There of the changes in the thoracic spine. Tubes, Catheters, and Lines: Spinal stimulator device in cervical region. Soft tissues: Unremarkable. No edema or abscess visible. IMPRESSION: No evidence of pulmonary embolism or aortic dissection. No acute abnormality in the chest.. RADIATION DOSE DELIVERED: 777.66 mGy.cm Total DLP DATA REPOSITORY: All CT scans at this facility are submitted to the National Radiology Data Registry (NRDR) Dose Index Registry (DIR) with the [employer] (ACR). RADIATION OPTIMIZATION: All CT scans at this facility use at least one of these dose optimization te chniques: automated exposure control; mA and/or kV adjustment per patient size (includes targeted exa ms where dose is matched to clinical indication); or iterative reconstruction.
[2022-07-31] MEDS: Normal Saline - Diluent 50 ML VIAL 100 ML IJ (22:33)
--- NOTE | 2022-07-31 22:48 | DI.VRAD_ITS ---
PROCEDURE INFORMATION: Exam: CTA Neck With Contrast Exam date and time: 07/31/2022 10:14 PM Age: 71 years old Clinical indication: Other: Swelling neck and chest; Additional info: Swelling left neck and upper chest x3days TECHNIQUE: Imaging protocol: Computed tomographic angiography of the neck with contrast. 3D rendering (Not supervised by radiologist): MIP and/or 3D reconstructed images were created by the technologist. Contrast material: [id number]; Contrast volume: 85 ml; Contrast route: INTRAVENOUS (IV); COMPARISON: CT BRAIN NECK CTA 09/04/2021 10:10 PM FINDINGS: Right common carotid artery: No stenosis. No dissection or occlusion. Right internal carotid artery: Mild calcified plaque. No stenosis of the extracranial segment. No dissection or occlusion. Right external carotid artery: No occlusion or stenosis of the origin. Left common carotid artery: No stenosis. No dissection or occlusion. Left internal carotid artery: Mild calcified plaque. No stenosis of the extracranial segment. No dissection or occlusion. Left external carotid artery: No occlusion or stenosis of the origin. Right vertebral artery: No stenosis. No dissection or occlusion. Left vertebral artery: No stenosis. No dissection or occlusion. Soft tissues: Enlarged left lobe of the thyroid with a hypodense heterogeneous lesion measuring at least 3.5 cm extending into the superior mediastinum No significant soft tissue swelling. Bones/joints: No acute fracture. IMPRESSION: No stenosis or occlusion. Large left-sided thyroid lesion with superior mediastinal extension. Findings are grossly stable when compared to prior thyroid ultrasound REFERENCES: NASCET CRITERIA. The degree of stenosis in the cervical segment of the internal carotid artery is based on NASCET criteria. Normal is no stenosis. Mild is less than 50% stenosis. Moderate is 50-69% stenosis. Severe is 70% to 99% stenosis. Total occlusion is no detectable patent lumen. Dictated and Authenticated by: Logan Castanon MD. Ordering:RAY Callaway MD
--- NOTE | 2022-07-31 22:49 | DI.VRAD_ITS ---
PROCEDURE INFORMATION: Exam: CTA Chest With Contrast Exam date and time: 07/31/2022 10:14 PM Age: 71 years old Clinical indication: Other: Swelling left neck and upper chest x3days TECHNIQUE: Imaging protocol: Computed tomographic angiography of the chest with contrast. 3D rendering (Not supervised by radiologist): MIP and/or 3D reconstructed images were created by the technologist. Contrast material: [id number]; Contrast volume: 70 ml; Contrast route: INTRAVENOUS (IV); COMPARISON: XR PORTABLE CHEST AP 09/04/2021 10:25 PM FINDINGS: Pulmonary arteries: No pulmonary emboli. Aorta: No aortic aneurysm. No aortic dissection. Lungs: No consolidation. No masses. Pleural spaces: No pneumothorax. No pleural effusion. Heart: Mild cardiomegaly. No pericardial effusion. Lymph nodes: No enlarged lymph nodes. Bones/joints: No acute fracture. Soft tissues: Large left-sided thyroid nodule with superior mediastinal extension measuring approximally 3.5 cm Fatty infiltration of the liver IMPRESSION: No pulmonary emboli observed Nonurgent findings as noted Dictated and Authenticated by: Logan Castanon MD. Ordering:RAY Callaway MD
--- NOTE | 2022-07-31 23:16 | ED.GENADUL_ITS ---
Discharge Plan Disposition Patient Disposition: Home Discharge Details Clinical Impression: Thyroid nodule, Back pain Primary Care Provider: Miley Baldwin ED Provider: Cesia Kumar Home Meds and New Rx's Prescriptions: New cyclobenzaprine 5 mg tablet 5 mg PO TID PRNQty: 10 0RF Continued gabapentin 300 mg capsule See Rx Instructions .ROUTE .COMPLEX Rx Instructions: 1 in am, 1 at noon, 3 at bedtime losartan 50 mg tablet 100 mg PO DAILY pramipexole [Mirapex] 0.25 mg tablet 0.5 mg PO HS Patient Comments: Pt states she doesn't think she is on this anymore. duloxetine [Cymbalta] 30 mg capsule,delayed release(DR/EC) 90 mg PO DAILY melatonin 10 mg capsule 10 mg PO HS PRN propranolol 80 mg capsule,extended release 24 hr 80 mg PO DAILY amitriptyline 25 mg tablet 25 mg PO QHS sumatriptan succinate 100 mg tablet 100 mg PO ONCE levothyroxine 50 mcg tablet See Rx Instructions .ROUTE .COMPLEX Qty: 30 1RF Dose Instruction: TAKE ONE TABLET BY MOUTH EVERY DAY Rx Instructions: TAKE ONE TABLET BY MOUTH EVERY DAY cholecalciferol (vitamin D3) 5,000 UNIT tablet 1 tab PO DAILY omeprazole 20 mg capsule,delayed release(DR/EC) 20 mg PO HS Aimovig Autoinjector 70 mg/mL auto-injector 70 mg subcut QMONTH Qty: 1 1RF metoprolol succinate 25 mg Tablet Extended Release 24 Hr 25 mg PO HS Qty: 0 0RF aspirin 81 mg Tablet,Delayed Release (Dr/Ec) 81 mg PO DAILY Qty: 0 0RF atorvastatin 40 mg Tablet 40 mg PO HS Qty: 30 0RF Discharge Instructions Instructions: Back Pain (ED) Additional Instructions: Please take Flexeril as needed for pain I recommend taking 5 mg, you may take 10 mg if you do not have good effect and it does not make you too drowsy Take Tylenol as needed for pain Please follow-up with your doctor, your thyroid nodule is quite large and should have additional evaluation I recommend calling tomorrow Return earlier should you have new or worsening complaints Also follow-up regarding her blood pressure is mildly elevated today Referrals: Miley Baldwin [Primary Care Provider] - Discharge Data Discharge Date/Time-TO BE ENTERED AT DEPARTURE: 07/31/22 23:42 Medical Decision Making This 72-year-old female presents with report of swelling and pain to her left neck and chest Patient appears well although quite anxious, initially her blood pressure was elevated, it is now 150/70 at time of discharge and her vitals are overall st able Labs are reassuring CTA of neck and chest was ordered to exclude thrombus, this does not show significant acute abnormality per virtual radiology interpretation my review Low suspicion for cardiology etiology of patient's complaints Negative troponin, nonacute EKG Placed on muscle relaxants and encouraged to follow-up with primary care physician tomorrow Large thyroid nodule will need reassessment, refer back to primary care physician for further evaluation and observation Return precautions reviewed and patient expressed understanding HPI General Date/Time Provider Initiated Documentation: 07/31/22 17:52 . HPI Narrative: 72-year-old female presents with past medical history of depression, fibromyalgia, hypertension, thyroid nodule presents with left-sided neck swelling that started 2 days ago per patient. She states the pain radiates from her neck into her chest. She denies any fever or chills. She denies any history of similar symptoms in the past. She states that the radiational pain started with the notable swelling per patient. Related Data Home Medications Medication Instructions Recorded Confirmed cholecalciferol (vitamin D3) 125 1 tab PO DAILY 03/12/15 08/04/22 mcg (5,000 unit) tablet gabapentin 300 mg capsule See Rx Instructions .Route .COMPLEX 04/26/19 08/04/22 losartan 50 mg tablet 100 mg PO DAILY 04/26/19 08/04/22 pramipexole 0.25 mg tablet 0.5 mg PO HS 04/26/19 08/04/22 (Mirapex) duloxetine 30 mg capsule,delayed 90 mg PO DAILY 08/09/20 08/04/22 release (Cymbalta) melatonin 10 mg capsule 10 mg PO HS PRN 08/09/20 08/04/22 propranolol 80 mg capsule,24 80 mg PO DAILY 08/09/20 08/04/22 hr,extended release omeprazole 20 mg capsule,delayed 20 mg PO HS 09/04/21 08/04/22 release erenumab-aooe 70 mg/mL 70 mg subcut QMONTH #1 mL 09/09/21 08/04/22 subcutaneous auto-injector (Aimovig Autoinjector) aspirin 81 mg tablet,delayed 81 mg PO DAILY #0 tabs 09/10/21 08/04/22 release atorvastatin 40 mg tablet 40 mg PO HS #30 tabs 09/10/21 08/04/22 metoprolol succinate 25 mg 25 mg PO HS #0 tabs 09/10/21 08/04/22 tablet,extended release 24 hr amitriptyline 25 mg tablet 25 mg PO QHS 10/07/21 08/04/22 sumatriptan succinate 100 mg tablet 100 mg PO ONCE 10/07/21 08/04/22 levothyroxine 50 mcg tablet See Rx Instructions .Route 03/12/22 08/04/22 .COMPLEX #30 tabs cyclobenzaprine 5 mg tablet 5 mg PO TID PRN #10 tabs 07/31/22 08/04/22 Previous Rx's Medication Instructions Recorded erenumab-aooe 70 mg/mL 70 mg subcut QMONTH #1 mL 09/09/21 subcutaneous auto-injector (Aimovig Autoinjector) aspirin 81 mg tablet,delayed 81 mg PO DAILY #0 tabs 09/10/21 release atorvastatin 40 mg tablet 40 mg PO HS #30 tabs 09/10/21 metoprolol succinate 25 mg 25 mg PO HS #0 tabs 09/10/21 tablet,extended release 24 hr levothyroxine 50 mcg tablet See Rx Instructions .Route 03/12/22 .COMPLEX #30 tabs cyclobenzaprine 5 mg tablet 5 mg PO TID PRN #10 tabs 07/31/22 Allergies Allergy/AdvReac Type Severity Reaction Status Date / Time acetaminophen [From Tylenol] Allergy Severe chest pain Unverified 08/04/22 14:07 aspirin Allergy Severe CHEST PAIN Unverified 08/04/22 14:07 General Stated Complaint: Nk/Back Pain KIMBERLY: 3 PFSH All Active Problems (Updated 08/04/22 @ 16:45 by Ruslan López MD) Nasal septal perforation (Acute) Thyroid nodule (Acute) Back pain (Acute) Thyroid nodule (Acute) Thyroid mass (Acute) Chronic headache (Acute) Migraine headache without aura (Acute) Hyperlipidemia (Acute) Status post insertion of nerve stimulator (Acute) Migraine aura occurring with and without headache (Acute) Dysphagia (Acute) Type 2 diabetes mellitus (Acute) Obesity (Chronic) Abnormal mammogram (Acute) Non compliance with medical treatment (Acute) Osteopenia of forearm (Acute) Vertigo (Acute) Memory impairment (Acute) Essential tremor (Acute) Balance problem (Acute) Pill esophagitis (Acute) Diverticulosis (Acute) FH: colon cancer (Acute) Closed trimalleolar fracture of right ankle (Acute 08/24/13) Medical History Abnormal mammogram of left breast Accelerated essential hypertension Borderline diabetic Cardiac murmur Cervicalgia (08/24/14) -Left-sided. I still believe this is musculoskeletal. I still do not appreciate any evidence of infection. Chest pain Colon polyp 08/06/2010 Complex regional pain syndrome i of left upper limb Cough due to SURESH inhibitor Depression Facial pain Fibromyalgia Frequent urination GERD (gastroesophageal reflux disease) History of colon polyps Hypercholesterolemia Hyperkalemia Insomnia Migraines Multinodular goiter Neck swelling Noncompliance with medication regimen JANEE (obstructive sleep apnea) Osteoarthritis of right hip Osteopenia Pneumonitis Postmenopause atrophic vaginitis Pre-diabetes Restless leg syndrome Swelling, mass, or lump in head and neck Thyroid disorder Surgical History EGD - MAC (05/02/16) History of esophagogastroduodenoscopy (EGD) (~09/2020) Hx of foot surgery R Hx of total hip arthroplasty R Hx of total knee arthroplasty R x 2 S/P insertion of spinal cord stimulator Status post VNS (vagus nerve stimulator) placement Social History Smoking/Tobacco Use Status: Never Smoking risk assessment performed?: Yes Alcohol Intake: current Alcohol Intake frequency: holidays/special occasions only Alcohol type: hard liquor Drug use: Never Substance use type: does not use Current gender identity: female Do you feel safe at home: Yes Do you feel safe in your relationship?: Yes Exam Narrative Exam Narrative: Patient appears anxious, she is alert and oriented She has some mild swelling to the left side of her neck and is quite tender over her SCM region She also has what appears to be thyromegaly, no carotid bruit or pulsatile mass, neurovascularly intact, fully alert and oriented Rate rhythm regular cardiovascularly, lungs clear to auscultation bilaterally, tenderness with rotation of neck, mild tenderness with flexion and extension No abdominal tenderness, ambulatory with steady gait, no significant acute distress Course Vital Signs Vital signs: Vital Signs Temperature 36.6 C 07/31/22 17:45 Pulse 80 07/31/22 17:45 Respiratory Rate 20 07/31/22 17:45 Blood Pressure 206/91 H 07/31/22 17:45 Pulse Oximetry 98 07/31/22 17:45 Temperature 36.6 C 07/31/22 17:45 Temperature Source Tympanic 07/31/22 17:45 Pulse 71 07/31/22 21:16 Pulse 73 07/31/22 21:16 Respiratory Rate 16 07/31/22 21:16 Respiratory Effort Normal 07/31/22 17:48 Blood Pressure 159/73 H 07/31/22 21:16 Blood Pressure Mean 91 07/31/22 21:16 Blood Pressure Position Sitting 07/31/22 17:45 Pulse Oximetry 96 07/31/22 21:16 Oxygen Delivery Method Room Air 07/31/22 17:45 Oxygen Flow Rate 0 07/31/22 17:45 Pain Level 3 07/31/22 22:03 Lab/Test Results Lab/Test Results: Laboratory Tests Range/Units 07/31/22 07/31/22 07/31/22 18:20 18:20 21:27 WBC (4.4-10.8) 10^3/uL 7.68 RBC (3.93-5.22) 10^6/uL 4.60 Hgb (11.2-15.7) g/dL 13.5 Hct (36.0-46.0) % 41.9 MCV (80-95) fL 91 MCH (27.0-33.0) pg 29.3 MCHC (32.0-36.0) % 32.2 RDW (11.7-14.6) % 12.8 Plt Count (130-400) 10^3/uL 233 MPV (8.0-11.0) fL 9.1 Immature Gran % 0.4 Neutrophils % 43.3 Lymphocytes % 44.9 Monocytes % 6.3 Eosinophils % 4.6 Basophils % 0.5 Nucleated RBC % (0.0-0.3) % 0.0 Absolute Neutrophils (1.2-6.7) 10^3/uL 3.33 Absolute Lymphocytes (1.2-3.4) 10^3/uL 3.45 H Absolute Monocytes (0.1-0.8) 10^3/uL 0.48 Absolute Eosinophils (0.0-0.7) 10^3/uL 0.35 Absolute Basophils (0.0-0.2) 10^3/uL 0.04 Sodium (136-145) mmol/L 138 Potassium (3.5-5.1) mmol/L 3.6 Chloride (98-107) mmol/L 101 Carbon Dioxide (21.0-32.0) mmol/L 29.2 Anion Gap (3-11) mmol/L 7.8 BUN (7-18) mg/dL 9 Creatinine (0.55-1.02) mg/dL 0.8 Est GFR (CKD-EPI 2020) (mL/min/1.73m2) 78.72 Glucose (74-106) mg/dL 137 H Calcium (8.5-10.1) mg/dL 9.5 Total Bilirubin (0.2-1.0) mg/dL 1.0 AST (15-37) U/L 35 ALT (14-59) U/L 49 Alkaline Phosphatase (46-116) U/L 103 Creatine Kinase (26-192) U/L 111 Troponin I (<or=60) ng/L < 50 < 50 Total Protein (6.4-8.2) g/dL 8.5 H Albumin (3.4-5.0) g/dL 4.2
[2022-07-31] MEDS: Cyclobenzaprine 10 MG TAB 5 MG PO (23:35)
== END 2022-07-31 23:42 | disposition home or self-care (01) ==
PROVIDERS: Emergency Provider Physician Assistant; PCP Physician Assistant Medical
DX: E04.1 Nontoxic single thyroid nodule (principal); R22.2 Localized swelling, mass and lump, trunk; R22.1 Localized swelling, mass and lump, neck; M54.9 Dorsalgia, unspecified; R07.9 Chest pain, unspecified; F32.A Depression, unspecified; I10 Essential (primary) hypertension; Z79.82 Long term (current) use of aspirin; M79.7 Fibromyalgia
CPT/HCPCS: 36415; 70498; 71275; 80053; 82550; 93005; 96361; 96374; 96376; 99285; 84484; 85025; 93010; 99284; J3010

== ENCOUNTER 2023-03-06 10:41 | Outpatient (CLI) | payer MEDICARE, SELFPAY ==
[2023-03-06 17:28] LABS: TSH 1.46 uIU/mL (0.36-3.74)
== END 2023-03-06 10:42 | disposition home or self-care (01) ==
LOC: LBO 03-10 10:41
PROVIDERS: PCP Physician Assistant Medical; Visit Provider Nurse Practitioner Adult Health
DX: E89.0 Postprocedural hypothyroidism (principal)
CPT/HCPCS: 36415; 84443

== ENCOUNTER → 2023-03-26 14:13 | Outpatient (CLI) | payer MEDICARE, SELFPAY ==
--- NOTE | 2023-03-26 13:15 | DI.CT_ITS ---
Exam(s) CT HEAD FACIAL WO EXAM: CT HEAD FACIAL WO CLINICAL HISTORY: fall and struck face. Persistent pain, R51.9. TECHNIQUE: Imaging Protocol: Axial computed tomography images with coronal and sagittal reformatted images were created and reviewed COMPARISON: CT CT HEAD WO from 04/16/2022 FINDINGS: CT Head: Ventricles and Extra axial spaces: Normal in size and morphology for the patient's age. Hemorrhage: None. Cerebral parenchyma: There are areas of decreased attenuation in the white matter consistent with sma ll vessel ischemic disease. There is an old right parietal lacunar infarct. Midline shift: None. Brainstem/Cerebellum: Normal. Calvarium: Normal. Visualized Paranasal sinuses/Mastoids: Clear. Soft Tissues: Unremarkable. CT Face: There is artifact from the patient's dental amalgam. Facial Bones: No definite fracture is noted in facial bones. Sinuses and Mastoids: Unremarkable. Globes, extraocular muscles, optic nerves and retrobulbar fat: Normal. Upper aerodigestive tract: Normal. Mandible and bilateral temporomandibular joints: Normal. Soft tissues: Normal. IMPRESSION: 1. No acute intracranial process. 2. No acute facial fracture. RADIATION DOSE DELIVERED: Total DLP DATA REPOSITORY: All CT scans at this facility are submitted to the National Radiology Data Registry (NRDR) Dose Index Registry (DIR) with the [employer] (ACR). RADIATION OPTIMIZATION: All CT scans at this facility use at least one of these dose optimization te chniques: automated exposure control; mA and/or kV adjustment per patient size (includes targeted exa ms where dose is matched to clinical indication); or iterative reconstruction.
== END ==
PROVIDERS: PCP Physician Assistant Medical; Visit Provider Physician Assistant
DX: R51.9 Headache, unspecified (principal)
CPT/HCPCS: 70450; 70486

== ENCOUNTER → 2023-04-28 00:01 | Outpatient (CLI) | payer MEDICARE, SELFPAY ==
--- NOTE | 2023-04-28 07:15 | DI.US_ITS ---
Exam(s) US THYROID EXAM: US THYROID CLINICAL HISTORY: Assess for change, biopsy benign,thyroid nodule,e04.1. TECHNIQUE: Ultrasound thyroid performed using standard protocol. COMPARISON: CT CT CAROTID NECK CTA from 07/31/2022 FINDINGS: Status post thyroidectomy. No thyroid tissue visible. Previous CT showed a left nodule. This is no t identified on the current exam. IMPRESSION: Status post thyroidectomy. Previously noted left-sided nodule is not identified on the current study . DATA REPOSITORY:
== END ==
PROVIDERS: PCP Physician Assistant Medical; Visit Provider Otolaryngology
DX: E04.1 Nontoxic single thyroid nodule (principal); Z98.890 Other specified postprocedural states
CPT/HCPCS: 76536

== ENCOUNTER 2023-06-23 18:52 | Emergency (ER) | payer MEDICARE, SELFPAY ==
[2023-06-23 18:58] VITALS: BP 183/93; PULSE 85; RESP 18; TEMP 37.1; O2SAT 96
--- NOTE | 2023-06-23 19:54 | W.ED.GENAD ---
HPI General Stated Complaint: Nausea/Vomit/Diar Mode of arrival: ambulatory. KIMBERLY: 3 Date/Time Provider Initiated Documentation: 06/23/23 19:06. Limitations to Documentation: no limitations. Information obtained by: patient, family, RN notes reviewed and old records reviewed. HPI Narrative: 72-year-old female presents to the ER with a chief complaint of nausea vomiting which began yesterday. She reports she is unable to keep down water. She is positive for COVID also complains of chills. Denies diarrhea. Related Data Home Medications Medication Instructions Recorded Confirmed cholecalciferol (vitamin D3) 125 1 tab PO DAILY 03/12/15 06/23/23 mcg (5,000 unit) tablet gabapentin 300 mg capsule See Rx Instructions .Route .COMPLEX 04/26/19 06/23/23 losartan 50 mg tablet 100 mg PO DAILY 04/26/19 06/23/23 duloxetine 30 mg capsule,delayed 90 mg PO DAILY 08/09/20 06/23/23 release (Cymbalta) melatonin 10 mg capsule 10 mg PO HS PRN 08/09/20 06/23/23 propranolol 80 mg capsule,24 80 mg PO DAILY 08/09/20 06/23/23 hr,extended release omeprazole 20 mg capsule,delayed 20 mg PO HS 09/04/21 06/23/23 release aspirin 81 mg tablet,delayed 81 mg PO DAILY #0 tabs 09/10/21 06/23/23 release atorvastatin 40 mg tablet 40 mg PO HS #30 tabs 09/10/21 06/23/23 metoprolol succinate 25 mg 25 mg PO HS #0 tabs 09/10/21 06/23/23 tablet,extended release 24 hr amitriptyline 25 mg tablet 25 mg PO QHS 10/07/21 06/23/23 cyclobenzaprine 5 mg tablet 5 mg PO TID PRN #10 tabs 07/31/22 06/23/23 levothyroxine 50 mcg tablet 100 mcg PO DAILY 04/28/23 06/23/23 Previous Rx's Medication Instructions Recorded aspirin 81 mg tablet,delayed 81 mg PO DAILY #0 tabs 09/10/21 release atorvastatin 40 mg tablet 40 mg PO HS #30 tabs 09/10/21 metoprolol succinate 25 mg 25 mg PO HS #0 tabs 09/10/21 tablet,extended release 24 hr cyclobenzaprine 5 mg tablet 5 mg PO TID PRN #10 tabs 07/31/22 Allergies Allergy/AdvReac Type Severity Reaction Status Date / Time acetaminophen [From Tylenol] Allergy Severe chest pain Unverified 06/23/23 19:01 aspirin Allergy Severe CHEST PAIN Unverified 06/23/23 19:01 Review of Systems All systems reviewed & are unremarkable except as noted in HPI and below Gastrointestinal Gastrointestinal: Denies diarrhea, Reports nausea and Reports vomiting PFSH All Active Problems (Updated 06/23/23 @ 21:18 by Pam Garcias NP) Nausea & vomiting (Acute) COVID (Acute) Pharyngoesophageal dysphagia (Acute) Nasal septal perforation (Acute) Thyroid nodule (Acute) Thyroid mass (Acute) Chronic headache (Acute) Migraine headache without aura (Acute) Hyperlipidemia (Acute) Status post insertion of nerve stimulator (Acute) Migraine aura occurring with and without headache (Acute) Dysphagia (Acute) Type 2 diabetes mellitus (Acute) Obesity (Chronic) Abnormal mammogram (Acute) Non compliance with medical treatment (Acute) Osteopenia of forearm (Acute) Vertigo (Acute) Memory impairment (Acute) Essential tremor (Acute) Balance problem (Acute) Pill esophagitis (Acute) Diverticulosis (Acute) FH: colon cancer (Acute) Closed trimalleolar fracture of right ankle (Acute 08/24/13) Medical History Cough due to SURESH inhibitor Postmenopause atrophic vaginitis Neck swelling Abnormal mammogram of left breast Noncompliance with medication regimen Osteopenia Chest pain Pneumonitis Cervicalgia (08/24/14) -Left-sided. I still believe this is musculoskeletal. I still do not appreciate any evidence of infection. History of colon polyps Swelling, mass, or lump in head and neck Pre-diabetes Facial pain Restless leg syndrome Multinodular goiter Insomnia Hypercholesterolemia Accelerated essential hypertension Osteoarthritis of right hip JANEE (obstructive sleep apnea) Cardiac murmur Migraines Thyroid disorder GERD (gastroesophageal reflux disease) Depression Complex regional pain syndrome i of left upper limb Hyperkalemia Colon polyp 08/06/2010 Fibromyalgia Borderline diabetic Frequent urination Surgical History History of lobectomy of thyroid Left, 12/2022, benign nodule S/P insertion of spinal cord stimulator History of esophagogastroduodenoscopy (EGD) (~09/2020) Status post VNS (vagus nerve stimulator) placement Hx of foot surgery R Hx of total hip arthroplasty R Hx of total knee arthroplasty R x 2 EGD - MAC (05/02/16) Social History Smoking/Tobacco Use Status: Never Smoking risk assessment performed?: Yes Alcohol Intake: current Alcohol Intake frequency: holidays/special occasions only Alcohol type: hard liquor Drug use: Never Substance use type: does not use Current gender identity: female Do you feel safe at home: Yes Do you feel safe in your relationship?: Yes Exam Narrative Exam Narrative: Constitutional: Alert and oriented x3. Appears stated age. Normal body habitus. Head: Normocephalic, no trauma. Eyes: Pupils PERRL, Red reflex noted, EOM's intact. Eyelids symmetrical without lesions, discharge, or swelling. ENT: Bilateral TM's WNL, External ear normal to inspection, no mastoid TTP, swelling, or erythema, Nasal turbinates WNL, no nasal discharge. Normal dentition, Posterior pharynx WNL, no exudate. Chest: RRR, Normal S1, S2, distal pulses intact. Resp: Lungs clear to auscultation bilaterally, no wheezes, rales, or rhonchi. Abdomen: Soft, non-distended, Normoactive bowel sounds all 4 quads. Musculoskeletal: Normal gait, 5/5 strength to all four extremities. Skin: No suspicious rashes or lesions. Capillary refill less than 2 sec. Neurologic: Cranial nerves II-XII intact. Alert and oriented x 3. Motor: No deficits noted. Sensory: Intact bilaterally all 4 extremities. Reflexes: DTR's intact bilaterally.. Hematologic/Lymphatic: No ecchymosis, no lymphadenopathy. Course Vital Signs Vital signs: Vital Signs Temperature 37.1 C 06/23/23 18:58 Pulse 85 06/23/23 18:58 Respiratory Rate 18 06/23/23 18:58 Blood Pressure 183/93 H 06/23/23 18:58 Pulse Oximetry 96 06/23/23 18:58 Temperature 37.1 C 06/23/23 18:58 Temperature Source Temporal Artery Scan 06/23/23 18:58 Pulse 85 06/23/23 18:58 Respiratory Rate 18 06/23/23 18:58 Blood Pressure 183/93 H 06/23/23 18:58 Pulse Oximetry 96 06/23/23 18:58 Oxygen Delivery Method Room Air 06/23/23 18:58 Oxygen Flow Rate 0 06/23/23 18:58 Pain Level 2 06/23/23 18:58 Lab/Test Results Lab/Test Results: Laboratory Tests Range/Units 06/23/23 19:07 COVID-19 Source Cancelled SARS-CoV-2 (PCR) Cancelled Influenza Type A (PCR) Cancelled Influenza Type B (PCR) Cancelled RSV (PCR) Cancelled Medical Decision Making 72-year-old female presents to the ER with a chief complaint of nausea vomiting which began yesterday. She reports she is unable to keep down water. She is positive for COVID also complains of chills. Denies diarrhea. Labs ordered including CBC CMP rapid COVID flu, positive for COVID, liter normal saline and Zofran. Abdomen is soft nondistended. Labs show no leukocytosis, CMP largely within normal limits glucose 195 magnesium slightly low 1.6 bilirubin is 1.3 most likely due to the vomiting. AST is 48, Patient received a liter of normal saline and Zofran and is tolerating [place] donna and crackers prior to discharge. COVID swab is positive. Given 4 tablets of Zofran ODT to go. Given discharge instructions. This text was generated using [employer] dictation system, please disregard any oddities of phrase or misspellings. Lab Data Lab results reviewed: Yes I reviewed the patient's lab results. Labs: Laboratory Tests Range/Units 06/23/23 06/23/23 06/23/23 19:07 19:57 20:37 WBC (4.4-10.8) 10^3/uL 9.10 RBC (3.93-5.22) 10^6/uL 4.70 Hgb (11.2-15.7) g/dL 13.8 Hct (36.0-46.0) % 41.4 MCV (80-95) fL 88 MCH (27.0-33.0) pg 29.4 MCHC (32.0-36.0) % 33.3 RDW (11.7-14.6) % 13.1 Plt Count (130-400) 10^3/uL 184 MPV (8.0-11.0) fL 9.2 Immature Gran % 0.4 Neutrophils % 68.7 Lymphocytes % 21.4 Monocytes % 8.8 Eosinophils % 0.3 Basophils % 0.4 Nucleated RBC % (0.0-0.3) % 0.0 Absolute Neutrophils (1.2-6.7) 10^3/uL 6.24 Absolute Lymphocytes (1.2-3.4) 10^3/uL 1.95 Absolute Monocytes (0.1-0.8) 10^3/uL 0.80 Absolute Eosinophils (0.0-0.7) 10^3/uL 0.03 Absolute Basophils (0.0-0.2) 10^3/uL 0.04 Sodium Cancelled 136 Potassium Cancelled 3.9 Chloride Cancelled 102 Carbon Dioxide Cancelled 25.4 Anion Gap Cancelled 8.6 BUN Cancelled 8 Creatinine Cancelled 0.8 Est GFR (CKD-EPI 2020) Cancelled 78.24 Glucose Cancelled 195 H Calcium Cancelled 8.9 Magnesium Cancelled 1.6 L Total Bilirubin Cancelled 1.3 H AST Cancelled 48 H ALT Cancelled 46 Alkaline Phosphatase Cancelled 88 Total Protein Cancelled 7.8 Albumin Cancelled 3.4 COVID-19 Source Cancelled SARS-CoV-2 (PCR) Cancelled Influenza Type A (PCR) Cancelled Influenza Type B (PCR) Cancelled RSV (PCR) Cancelled Quality:SDOH Health Related Social Needs: No Data to Display Discharge Plan Disposition Patient Disposition: Home Condition: Stable Discharge Details Clinical Impression: COVID, Nausea & vomiting Primary Care Provider: Miley Baldwin ED Provider: Pam Garcias Home Meds and New Rx's Prescriptions: No Action levothyroxine 50 mcg tablet 100 mcg PO DAILY gabapentin 300 mg capsule See Rx Instructions .ROUTE .COMPLEX Rx Instructions: 1 in am, 1 at noon, 3 at bedtime losartan 50 mg tablet 100 mg PO DAILY duloxetine [Cymbalta] 30 mg capsule,delayed release(DR/EC) 90 mg PO DAILY melatonin 10 mg capsule 10 mg PO HS PRN propranolol 80 mg capsule,extended release 24 hr 80 mg PO DAILY amitriptyline 25 mg tablet 25 mg PO QHS cholecalciferol (vitamin D3) 5,000 UNIT tablet 1 tab PO DAILY omeprazole 20 mg capsule,delayed release(DR/EC) 20 mg PO HS metoprolol succinate 25 mg Tablet Extended Release 24 Hr 25 mg PO HS Qty: 0 0RF aspirin 81 mg Tablet,Delayed Release (Dr/Ec) 81 mg PO DAILY Qty: 0 0RF atorvastatin 40 mg Tablet 40 mg PO HS Qty: 30 0RF cyclobenzaprine 5 mg tablet 5 mg PO TID PRNQty: 10 0RF Discharge Instructions Instructions: Acute Nausea and Vomiting (ED), COVID-19 (Coronavirus Disease 2019) (ED) Additional Instructions: Please take the nausea medication as directed up to three times daily. Follow up with primary care provider in 3-5 days. Return to ED sooner if any worsening or concerns. Increase oral fluids. Continue to quarantine as directed by CDC and wear a mask. Referrals: Miley Baldwin [Primary Care Provider] - 5 days
[2023-06-23 20:02] LABS: Abs Immature Grans 0.04 10^3/uL (0.0-0.06); Absolute Basophil Count 0.04 10^3/uL (0.0-0.2); Absolute Eosinophil Count 0.03 10^3/uL (0.0-0.7); Absolute Lymphocyte Count 1.95 10^3/uL (1.2-3.4); Absolute Neutrophil Count 6.24 10^3/uL (1.2-6.7); Basophils % 0.4; Eosinophils % 0.3; HCT 41.4 % (36.0-46.0); HGB 13.8 g/dL (11.2-15.7); Immature Grans % 0.4; Lymphocytes % 21.4; MCH 29.4 pg (27.0-33.0); MCHC 33.3 % (32.0-36.0); MCV 88 fL (80-95); MPV 9.2 fL (8.0-11.0); Monocytes % 8.8; Neutrophils % 68.7; Platelet Count 184 10^3/uL (130-400); RDW 13.1 % (11.7-14.6); RDW-SD 42.7 fL
[2023-06-23] MEDS: Ondansetron 4 MG/2 ML VIAL IVP (20:19)
[2023-06-23] MEDS: Normal Saline 1,000 ML 1000 ML IV (20:20)
[2023-06-23 21:01] LABS: ALT 46 U/L (14-59); AST 48 U/L (15-37); Albumin 3.4 g/dL (3.4-5.0); Alkaline Phosphatase 88 U/L (46-116); Anion Gap 8.6 mmol/L (3-11); BUN 8 mg/dL (7-18); Bilirubin, Total 1.3 mg/dL (0.2-1.0); CO2 25.4 mmol/L (21.0-32.0); CREATININE 0.8 mg/dL (0.55-1.02); Calcium 8.9 mg/dL (8.5-10.1); Chloride 102 mmol/L (98-107); Estimated GFR 78.24 (mL/min/1.73m2); Glucose 195 mg/dL (74-106); Magnesium 1.6 mg/dL (1.8-2.4); Potassium 3.9 mmol/L (3.5-5.1); Sodium 136 mmol/L (136-145); Total Protein 7.8 g/dL (6.4-8.2)
[2023-06-23] MEDS: Ondansetron O.D.T. 4 MG TABEF, 3 TABS/BTL PO (21:28)
== END 2023-06-23 21:37 | disposition home or self-care (01) ==
PROVIDERS: Emergency Provider Registered Nurse Emergency; PCP Physician Assistant Medical
DX: U07.1 COVID-19 (principal); I10 Essential (primary) hypertension; E11.9 Type 2 diabetes mellitus without complications; Z79.84 Long term (current) use of oral hypoglycemic drugs; Z11.52 Encounter for screening for COVID-19; Z79.82 Long term (current) use of aspirin
CPT/HCPCS: 80053; 87426; 87637; 96361; 96374; 99283; 83735; 85025; J2405

== ENCOUNTER → 2023-08-13 02:44 | Outpatient (CLI) | payer MEDICARE, SELFPAY ==
--- NOTE | 2023-08-13 | DI.DEXA_ITS ---
Exam(s) XR DEXA BONE DENSITY W/WO AZEEM EXAM: XR DEXA BONE DENSITY W/WO AZEEM CLINICAL HISTORY: OSTEOPENIA, M85.89, OTHER SPECIFIED DISORDERS BONE DENSITY/STRUCTURES TECHNIQUE: COMPARISON: CR XR DEXA BONE DENSITY W/WO AZEEM from 08/11/2019 FINDINGS: Lateral Spine Image: Unremarkable. No compression deformities identified. Left hip: Total T-Score: 0.3. This compares to 0.0 on the prior examination. Total Z-Score: 2.0 T- and Z-scores: Within normal limits. Left forearm: Total T-Score: -0.8. This compares to -0.8 on the prior examination. Total Z-Score: 1.5 T- and Z-scores: Within normal limits. IMPRESSION: No evidence of osteoporosis.
== END ==
PROVIDERS: PCP Physician Assistant Medical; Visit Provider Physician Assistant Medical
DX: M85.89 Other specified disorders of bone density and structure, multiple sites (principal); Z13.820 Encounter for screening for osteoporosis
CPT/HCPCS: 77080

== ENCOUNTER 2023-10-16 21:03 | Outpatient (REF) | payer MEDICARE, SELFPAY | END 2023-10-16 21:04 | disposition home or self-care (01) | LOC: LBN 21:03 | PROVIDERS: PCP Physician Assistant Medical; Visit Provider Physician Assistant Medical | DX: N76.4 Abscess of vulva (principal) | CPT/HCPCS: 87070; 87205 ==

== ENCOUNTER 2024-03-24 01:03 | Outpatient (CLI) | payer MEDICARE, SELFPAY ==
--- NOTE | 2024-03-24 13:30 | DI.MAMMO_ITS ---
Exam(s) MAMMO SCREENING EXAM: MAMMO SCREENING CLINICAL HISTORY: SCREENING MAMMO Z12.31. TECHNIQUE: Bilateral full field digital CC and MLO mammographic images were obtained with 3D tomosyn thesis and utilizing computer aided detection (CAD). COMPARISON: Prior mammograms were reviewed. FINDINGS: There has been no significant change in the appearance and distribution of the fibroglandular tissue. Asymmetric density in the left breast on the MLO view is unchanged prior mammograms dating back at 2019. There are no new spiculated masses nor malignant appearing microcalcification groups. No new significant findings in the immediate vicinity of a biopsy marker clip in the left breast. There is no significant architectural distortion nor skin thickening-retraction. IMPRESSION: No radiographic evidence of malignancy. Stable benign-appearing findings. BI-RADS Category 2 - Benign Findings Breast Density - Category C - Heterogeneously dense Breast density Category C or D implies that the patient has dense breast tissue. Dense breast tissue can make it harder to find cancer on a mammogram. Dense breast tissue is also associated with an incr eased risk of breast cancer. This information about the result of the mammogram report was provided to the patient to raise their awareness. Use this report when you speak with the patient about their risks for breast cancer, which includes their family history. At that time, you may recommend additional screening tests (Ultrasoun d or MRI) as these tests may add significant information. A negative radiographic report should not delay biopsy if a dominant or clinically suspicious mass is present. Up to ten percent of cancers are not identified on mammography. A negative report may reinforce clinical impression. Adenosis and dense breasts may obscure an underlying neoplasm. False positive reports average 6 to 10%. Patient will receive a letter notifying them of these results.
== END 2024-03-24 01:23 ==
LOC: DI 01:03
PROVIDERS: PCP Physician Assistant Medical; Visit Provider Physician Assistant Medical
DX: Z12.31 Encounter for screening mammogram for malignant neoplasm of breast (principal)
CPT/HCPCS: 77063; 77067

== ENCOUNTER 2024-05-05 02:07 | Outpatient (CLI) | payer MEDICARE, SELFPAY ==
--- NOTE | 2024-05-05 | DI.RAD_ITS ---
Exam(s) XR HIP RT COMPLETE AP PELVIS EXAM: XR HIP RT COMPLETE AP PELVIS CLINICAL HISTORY: RT HIP PAIN, M25.551. TECHNIQUE: 2D digital imaging was performed. Three views. COMPARISON: CR XR PELVIS AP from 05/23/2020 FINDINGS: BONES: No acute fracture is present. No bony destructive lesion is seen. Stable appearance of right h ip prosthesis and surrounding bone. Enthesophytes again noted at iliac wings and greater trochanters . JOINTS: No dislocation present. SI joints and pubic symphysis to mild degenerative changes. Left h ip joint space is maintained. Mild acetabular spurring. SOFT TISSUE: Spinal stimulator device projecting over right iliac wing. IMPRESSION: Stable appearance of right hip prosthesis. DATA REPOSITORY: RADIATION DOSE DELIVERED:
== END 2024-05-05 02:27 ==
LOC: DI 02:07
PROVIDERS: PCP Physician Assistant Medical; Visit Provider Physician Assistant Medical
DX: Z47.1 Aftercare following joint replacement surgery (principal); Z96.641 Presence of right artificial hip joint
CPT/HCPCS: 73502

== ENCOUNTER 2024-05-05 14:04 | Outpatient (CLI) | payer MEDICARE, SELFPAY ==
--- OUTSIDE RECORDS SUMMARY | 2024-05-05 14:07 | XMS_ITS | Continuity of Care Document ---
Author Organization [place] [facility], Medical Address [address] [place] [address] Assessment No assessment recorded. Plan of Treatment Reminders Order Date Submit Date Provider Last Modified By Organization Details Last Modified Time Details Appointments None recorded. Lab None recorded. Referral neurologis t referral - please contact [phone] Trina Heather with appointpati 2023 024 [facility], [address] [place] [address] , [place], [address], 4 16:35:56 physical therapist referral - please contact [phone] Trina - RzyHeather with appointpati 2023 024 [facility], [address] [place], [address], 4 16:31:39 sleep medicine referral - please contact [phone] Trina Heather with [facility] tsPlease call me with any questions - Katie [phone] 09. 2023 024 [facility], [address] [place] [address] Dr [facility], [place], [address], 4 07:03:08 Procedures None recorded. Surgeries None recorded. Imaging MRI, brain, w/o contrast - please contact [phone] Trina - QydHeather with appointmen 2023 024 [facility], [address], [place], [address], 4 06:43:10 XR, hip, unilateral - please contact - Heather with appointmen ts 2023 024 [email or web address], [address], [place], [address], 4 12:52:11 Medication Orders None recorded. Patient TargetsNo targets recorded. Patient Instructions Encounter Date Encounter Id Patient Instructions Last Modified By Organization Details Last Modified Time 05/03/2024 [id number] please contact [phone] - Heather [facility] Not available 05/03/2024 14:36:13 Reason for Referral Sleep Medicine Referral for Snoring please contact [phone] Belkis Romero with appointmentsPlease call me with any questions - Katie [phone]. Referring Physician: Reva Santacruz [facility], Encounter Date: 05/03/2024 Neurologist Referral for Poo r balance please contact [phone] Belkis Romero with appointments Referring Physician: Reva Santacruz [facility], Encounter Date: 05/03/2024 Physical Therapist Referral for Poor balance please contact [phone] - Heather with appointments Referring Physician: Reva Santacruz [facility], Encounter Date: 05/03/2024 Problems Name Problem SNOMED Code Status Onset Date Resolution Date Notes Provider Name and Address Organization Details Recorded Time [facility] tremor 439873234 Active 2019 Tremor, [facility]; Entered By: Reva Santacruz PA-C Sig paulino By: Reva Santacruz PA-C Not Available [facility] 4 03:43:34 Hypercho lesterol emia 45564420 Active 2015 Hypercho lesterol emia; Entered By: Reva Santacruz PA-C Sig paulino By: Reva Santacruz PA-C Sto p Reason: Changed Hypercho lesterol emia; Entered By: Ranjana Weathers Si gned By: Ranjana Weathers Not Available [facility] 4 03:43:33 Refracto ry migraine with aura 256031932 Active 2019 Migraine with aura, with intracta ble migraine , so stated, without mention of status migraino mary; Entered By: Aime Vallejo MD Dalia d By: Aime Vallejo MD Not Available [facility] 4 03:43:34 Dysphagi a 50002987 Active 2015 Dysphagi a, unspecif ied; Entered By: Reva Santacruz PA-C Sig paulino By: Reva Santacruz PA-C Not Available [facility] 4 03:43:34 Chest pain 95652717 Active 2020 Chest pain; Entered By: Reva Santacruz PA-C Sig paulino By: Reva Santacruz PA-C Not Available [facility] 4 03:43:33 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 Implanta tion spinal cord stimulat or; Entered By: Reva Santacruz PA-C Sig paulino By: Reva Santacruz PA-C Not Available [facility] 4 03:43:34 Impaired fasting glycemia 526548324 Completed 201607/27/2022 Abnormal fasting glucose; Entered By: Reva Santacruz PA-C Sig paulino By: Reva Santacruz PA-C Sto p Reason: Changed Not Available [facility] 3 14:03:53 Multinod ular goiter 296448500 Completed 201507/27/2022 Multinod ular goiter; Entered By: Ranjana Weathers Si gned By: Ranjana Weathers St op Reason: Inactive Multino dular goiter; Entered By: Reva Santacruz PA-C Sig paulino By: Reva Santacruz PA-C Sto p Reason: Removed Not Available [facility] 3 14:03:53 Insomnia 330794135 Active 2015 Insomnia ; Entered By: Reva Santacruz PA-C Sig paulino By: Reva Santacruz PA-C Not Available [facility] 4 03:43:33 Osteopen ia 010832488 Active 2019 Osteopen ia, forearm; Entered By: Ana montgomery By: Lexii Merino MA Not Available [facility] 4 03:43:33 Obesity 858367636 Active 2017 Obesity; Entered By: Kendy Redd SENIOR MARKETING MANAGER Sig paulino By: Kendy Redd APRN Not Available [facility] 4 03:43:34 Mammogra phy abnormal 304797823 Active 2019 Abnormal mammogra m, left breast; Entered By: Reva Santacruz PA-C Sig paulino By: Reva Santacruz PA-C Not Available [facility] 4 03:43:33 Atrophic vaginiti s 33011333 Active 2018 Postmeno pausal atrophic vaginiti s; Entered By: Miley Baldwin PA-C Sig paulino By: Miley Baldwin PA-C Not Available [facility] 4 03:43:34 Increase d frequenc y of urinatio n 002930118 Active 2018 Frequenc y of urinatio n; Entered By: Miley Baldwin PA-C Sig paulino By: Miley Baldwin PA-C Not Available [facility] 4 03:43:33 Obstruct umair sleep apnea syndrome 72267173 Completed 202107/27/2022 Obstruct umair sleep apnea; Entered By: Ranjana Weathers Si gned By: Ranjana Weathers St op Reason: Inactive Obstruc tive sleep apnea; Entered By: Miley Baldwin PA-C Sig paulino By: Miley Baldwin PA-C Sto p Reason: Removed JANEE, moderate ; Entered By: Reva Santacruz PA-C Sig paulino By: Reva Santacruz PA-C; Start Date : 04/15/20 16 Not Available [facility] 3 14:03:54 Noncompl iance with treatmen t 1544775 Active 2019 Noncompl iance uses Rx intermit tently; Entered By: Miley Baldwin PA-C Sig paulino By: Miley Baldwin PA-C Not Available [facility] 4 03:43:34 Preventi ve procedur e Active 2018 [facility]; Entered By: Miley Baldwin PA-C Sig paulino By: Miley Baldwin PA-C [facility]; Entered By: Reva Santacruz PA-C Sig paulino By: Reva Santacruz PA-C Sto p Reason: Removed; Start Date : 07/25/19 [facility]; Entered By: Ranjana Weathers Si gned By: Ranjana Thomas op Reason: Inactive ; Start Date : 07/25/19 17 Not Available [facility] 4 03:43:33 Pain in left arm 006036744 Active 2021 Arm pain, left; Entered By: Reva Santacruz PA-C Sig paulino By: Reva Santacruz PA-C Not Available [facility] 4 03:43:33 Migraine 95800190 Completed 201509/23/2021 Migraine s; Entered By: Ranjana Weathers Si gned By: Ranjana Thomas op Reason: Inactive Migrain es; Entered By: Reva Santacruz PA-C Sig paulino By: Reva Santacruz PA-C Sto p Reason: Removed Not Available [facility] 3 14:03:57 Localize d swelling , mass and lump, neck Active 2018 Swelling in neck; Entered By: Reva Santacruz PA-C Sig paulino By: Reva Santacruz PA-C Not Available [facility] 4 03:43:33 Depressi ve disorder 16353598 Completed 201507/27/2022 Depressi on; Entered By: Reva Santacruz PA-C Sig paulino By: Reva Santacruz PA-C Sto p Reason: Changed Depressi on; Entered By: Ranjana Weathers Si gned By: Ranjana Weathers Not Available [facility] 3 14:03:58 Heart murmur 50542999 Active 2015 Cardiac murmur; Entered By: Reva Santacruz PA-C Sig paulino By: Reva Santacruz PA-C Not Available [facility] 4 03:43:34 Impairme nt of balance 646743753 Active 2021 Balance problem; Entered By: Miley Baldwin PA-C Sig paulino By: Miley Baldwin PA-C Bal ance problem; Entered By: Reva Santacruz PA-C Sig paulino By: Reva Santacruz PA-C; Start Date : 05/04/20 Not Available [facility] 4 03:43:34 Memory impairme nt 300564924 Active 2021 Memory deficit; Entered By: Miley Baldwin PA-C Sig paulino By: Miley Baldwin PA-C Mem ory impairme nt; Entered By: Reva Santacruz PA-C Sig paulino By: Reva Santacruz PA-C; Start Date : 05/04/20 Not Available [facility] 4 03:43:34 Benign paroxysm al position al vertigo 475831509 Completed 201907/27/2022 Benign position al vertigo; Entered By: Reva Santacruz PA-C Sig paulino By: Reva Santacruz PA-C Sto p Reason: Changed Not Available [facility] 3 14:03:59 Pre-surg tamara evaluati on Completed 201809/23/2021 Preopera tive exam; Entered By: Ranjana Weathers Si gned By: Ranjana Weathers St op Reason: Inactive Preoper ative exam; Entered By: Monse Martin PA-C Sig paulino By: Monse Martin PA-C Sto p Reason: Removed Not Available [facility] 3 14:03:59 Pill esophagi tis 08369437 Active 2020 Pill esophagi tis; Entered By: Reva Santacruz PA-C Sig paulino By: Reva Santacruz PA-C Not Available [facility] 4 03:43:33 Fibromyo sitis 05118130 Active 2015 Fibromya lgia; Entered By: Reva Santacruz PA-C Sig paulino By: Reva Santacruz PA-C Not Available [facility] 4 03:43:33 Pain in face 76105357 Completed 201607/27/2022 Facial pain; Entered By: Ranjana Weathers Si gned By: Ranjana Weathers St op Reason: Inactive Facial pain; Entered By: Adeline Gutierrez PA-C Sig paulino By: Adeline Guteirrez PA-C Sto p Reason: Removed Not Available [facility] 3 14:04:00 Impaired glucose toleranc e 2721135 Completed 201607/27/2022 Prediabe kevin; Entered By: Reva Santacruz PA-C Sig paulino By: Reva Santacruz PA-C Sto p Reason: Changed Not Available [facility] 3 14:04:00 Vertigo 093512798 Active 2019 Vertigo; Entered By: Adeline Gutierrez PA-C Sig paulino By: Adeline Gutierrez PA-C Not Available [facility] 4 03:43:34 Complex regional pain syndrome 834187854 Active 2015 Complex regional pain syndrome (L arm); Entered By: Reva Santacruz PA-C Sig paulino By: Reva Santacruz PA-C Not Available [facility] 4 03:43:33 Disorder of thyroid gland 17349985 Completed 201507/27/2022 Thyroid disorder ; Entered By: Reva Santacruz PA-C Sig paulino By: Reva Santacruz PA-C Sto p Reason: Changed Not Available [facility] 3 14:04:01 Gastroes ophageal reflux disease 204857731 Active 2015 GERD; Entered By: Reva Santacruz PA-C Sig paulino By: Reva Santacruz PA-C Not Available [facility] 4 03:43:33 Tinea pedis 2496104 Active 2021 Tinea pedis; Entered By: Miley Baldwin PA-C Sig paulino By: Miley Baldwin PA-C Not Available [facility] 4 03:43:34 Hyperkal emia 62063446 Completed 201607/27/2022 Hyperkal emia; Entered By: Reva Santacruz PA-C Sig paulino By: Reva Santacruz PA-C Dulce belinda Stop Date: Hyperka lemia; Entered By: Reva Santacruz PA-C Sig paulino By: Reva Santacruz PA-C Sto p Reason: Changed Not Available [facility] 3 14:04:02 Restless legs 28862913 Active 2015 Restless leg syndrome ; Entered By: Reva Santacruz PA-C Sig paulino By: Reva Santacruz PA-C Not Available [facility] 4 03:43:33 Cough 30075324 Completed 201709/23/2021 Cough due to SURESH inhibito r; Entered By: Ranjana Weathers Si gned By: Ranjana Weathers St op Reason: Inactive Cough due to SURESH inhibito r; Entered By: Miley Baldwin PA-C Sig paulino By: Miley Baldwin PA-C Sto p Reason: Removed Cough; Entered By: Kendy Redd APRN Sig paulino By: Kendy Redd APRN; Start Date : 10/21/19 18 Not Available [facility] 3 14:04:02 Neck pain 32193361 Active 2020 Neck pain; Entered By: Reva Santacruz PA-C Sig paulino By: Reva Santacruz PA-C Not Available [facility] 4 03:43:34 Arthriti s of hip 80826828 Completed 201507/27/2022 Arthriti s, right hip; Entered By: Reva Santacruz PA-C Sig paulino By: Reva Santacruz PA-C Sto p Reason: Changed Not Available [facility] 3 14:04:03 Hyperten sive disorder 17593477 Active 2015 Hyperten saray; Entered By: Reva Santacruz PA-C Sig paulino By: Reva Santacruz PA-C Not Available [facility] 4 03:43:34 Thyroid nodule 231012828 Completed 202107/27/2022 Thyroid nodule; Entered By: Ranjana Weathers Si gned By: Ranjana Weathers St op Reason: Inactive Thyroid nodule; Entered By: Miley Baldwin PA-C Sig paulino By: Miley Baldwin PA-C Sto p Reason: Removed Thyroid nodule; Entered By: Ranjana Weathers Si gned By: Ranjana Weathers; Start Date : 04/15/20 16 Not Available [facility] 3 14:04:03 Osteoart hritis of hip 349522225 Active 2015 OA, right hip; Entered By: Ranjana Weathers Si gned By: Ranjana Weathers Not Available [facility] 4 03:43:33 Pneumoni a 927180230 Active 2020 Pneumoni a; Entered By: Lilia Otto Sig paulino By: Reva Santacruz PA-C Not Available [facility] 4 03:43:33 Type 2 diabetes mellitus 91006943 Active 2016 Diabetes mellitus , type II; Entered By: Reva Santacruz PA-C Sig paulino By: Reva Santacruz PA-C Not Available [facility] 4 03:43:34 Polyp of colon 45330931 Active 2018 Polyp of colon; Entered By: Miley Baldwin PA-C Sig paulino By: Miley Baldwin PA-C Not Available [facility] 4 03:43:34 Notes:Some problems listed i n Documents: #[id number], #[id number], #[id number] could not be added to this patient's chart. Please review these documents and add these problems to the patient's chart manually as needed. Problem Notes None recorded. Medical Equipment None Reported. Allergies Allergen ID Allergen Name Allergen Category Reaction Reaction Severity Criticality Documentation Date Start Date Code Code System Note Provider Name and Address Organization Details Recorded Time 38017 aspirin medicatio n chest pain moderate Not available 07/26/20222015 1191 RxNorm React ion: chest pain; Sever ity: Moder ate; Comme nt: Enter ed By: Reva Santacruz PA-C Dalia d By: Reva Santacruz PA-C Type: GPI C ode: [id number] Unco ded: N; Not Available [facility] 3 17:34:10 78224 Tylenol medicatio n Not available Not available Not available 07/26/20222015 3 RxNorm React ion: detox ;Luana rity: Mild; Comme nt: Enter ed By: Reva montgomery By: Reva Santacruz PA-C Type: GPI C ode: [id number] Unco ded: N; Not Available [facility] 3 17:34:10 Medications Name Sig Start Date Stop Date Status Note LastModified by Organization Details LastModified Time freestyle freedom lite lancets use 1 lancet 2x daily for blood sugar monitori ng 2023 active Not Available Not Available Not Avai lable glucomete r active Not Available Not Available Not Available Pravachol 40 mg tablet 1 at night 04/15 completed Entered By: Ashlee montgomery By: Reva Chang PA-C [facility] himanshu: N BMN: N Not Available Not Available Not Available losartan 50 mg tablet Take 2 tablet by mouth once a day until 100mg tablets are availabl e 07/16 completed Entered By: Joy montgomery By: Joy Brooks RN Clini lois Date: Rx ID: [id number] Authori zed By: Reva Santacruz PA-C [facility] himanshu: N BMN: N Not Available Not Available Not Available atorvasta tin 40 mg tablet TAKE ONE TABLET BY MOUTH AT BEDTIME active Not Available Not Available No t Available metformin 500 mg tablet Take 2 tablet by mouth twice daily for diabetes 2023 active Not Available Not Available Not Avai lable doxepin 50 mg capsule Take 1 capsule by mouth every evening for sleep 09/19 completed Entered By: Miley Baldwin PA-C Sig paulino By: Miley Baldwin PA-C Cli nical Date: Rx ID: [id number] Authori zed By: Miley Tompkins himanshu: N BMN: N Not Available Not Available Not Available gabapenti n 600 mg tablet 1/2 each am and at noon, 1-1/2-2 at bedtime 04/15 completed Entered By: Reva Chang PA-C Sig paulino By: Reva Chang PA-C [facility] himanshu: N BMN: N Not Available Not Available Not Available azithromy jorje 250 mg tablet 2 day one then one a day for 4 more days 11/02 completed Not Available Not Available Not Available benzonata te 200 mg capsule Take 1 capsule by mouth twice a day 05/08 completed Entered By: Reva Chang PA-C Sig paulino By: Reva Burks nical Date: 021 Rx ID: [id number] Authori zed By: Reva Tompkins himanshu: N BMN: N Not Available Not Available Not Available metoprolo l succinate ER 50 mg tablet,ex tended release 24 hr One tab once daily for blood pressure and migraine preventi on 10/26 completed Entered By: Reva Chang PA-C Sig paulino By: Reva Burks nical Date: 020 Rx ID: [id number] Authori zed By: Reva Santacruz PA-C [facility] himanshu: N BMN: N Not Available Not Available Not Available sumatript an 100 mg tablet Take 1 tablet by mouth single dose for migraine take right away for migraine headache may repeat in 2 hours if headache not better 01/09 completed Entered By: Karen Reilly LPN Sign ed By: Karen Reilly LPN Clin ical Date: Rx ID: [id number] Authori zed By: Miley Baldwin PA-C [facility] himanshu: N BMN: N Not Available Not Available Not Available hydrocodo ne 5 mg-acetam inophen 325 mg tablet 1/2 to one before bed for cugh 10/12 completed Entered By: Marilyn Maria LPN Sign ed By: Marilyn Maria LPN Unco ded: N BMN: N Not Available Not Available Not Available FreeStyle Lancets 28 gauge USE ONE LANCET TWO TIMES A DAY FOR BLOOD SUAGR MONITORI NG 2023 active Not Available Not Available Not Avai lable lisinopri l 20 mg tablet one daily for high blood pressure 04/15 completed Entered By: Adeline Pickering PA-C Sig paulino By: Adeline Pickering PA-C [facility] himanshu: N BMN: N Not Available Not Available Not Available prednison e 20 mg tablet Take three tablets one time per day 10/12 completed Entered By: Marilyn Maria LPN Sign ed By: Marilyn Maria LPN Unco ded: N BMN: N Not Available Not Available Not Available Imitrex STATdose Pen 6 mg/0.5 mL subcutane ous pen injector Inject 1 pen injector subcutan eously single dose 01/09 completed Entered By: Miley Baldwin PA-C Sig paulino By: Miley Baldwin PA-C Cli nical Date: Rx ID: [id number] Authori zed By: Miley Baldwin PA-C [facility] himanshu: N BMN: N Not Available Not Available Not Available metoprolo l succinate ER 100 mg tablet,ex tended release 24 hr one daily for migraine preventi on and tremor 08/09 completed Entered By: Aime Jacob MD Dalia d By: Aime Jacob MD Clini lois Date: Rx ID: [id number] Authori zed By: Reva Santacruz PA-C [facility] himanshu: N BMN: N Not Available Not Available Not Available Syed Low Dose Aspirin 81 mg tablet,de layed release Take 1 tablet by mouth once a day 2021 active Not Available Not Available Not Avai lable penicilli n V potassium 500 mg tablet Take one tablet four times per day 10/19 completed Entered By: Adeline Pickering PA-C Sig paulino By: Adeilne Pickering PA-C Cli nical Date: Rx ID: [id number] Authori zed By: Adeline Gutierrez PA-C [facility] himanshu: N BMN: N Not Available Not Available Not Available Zyrtec 10 mg tablet once daily 10/12 completed Entered By: Marilyn Maria LPN Sign ed By: Marilyn Maria LPN Unco ded: N BMN: N Not Available Not Available Not Available omeprazol e 40 mg capsule,d elayed release one daily as needed for acid reflux 10/26 completed Entered By: Reva Chang PA-C Sig paulino By: Reva Burks nical Date: Rx ID: [id number] Authori zed By: Reva Santacruz PA-C [facility] himanshu: N BMN: N Not Available Not Available Not Available tramadol 50 mg tablet one up to three times per day as needed for pain 07/08 completed Entered By: Lexii Gómez d By: Reva Chang PA-C [facility] himanshu: N BMN: N Not Available Not Available Not Available triamcino lone acetonide 0.1 % topical cream Apply 1 a small amount to affected area four times a day for bug bites this is a steroid 07/08 completed PT states no longer using Not Available Not Available Not Available pramipexo le 0.5 mg tablet TAKE ONE TABLET BY MOUTH AT BEDTIME active Not Available Not Available No t Available meloxicam 7.5 mg tablet one by mouth twice daily 05/23 completed Entered By: Reva Chang PA-C Sig paulino By: Reva Chang PA-C [facility] himanshu: N BMN: N Not Available Not Available Not Available levothyro xine 100 mcg tablet TAKE ONE TABLET BY MOUTH EVERY DAY active Not Available Not Available No t Available Lamisil AT 1 % topical cream Apply 1 liberall y to affected area twice a day for athletes foot 07/08 completed PT states no longer using Not Available Not Available Not Available Tessalon Perles 100 mg capsule 1 capsules up to 3 times per day as needed for cough 05/03 completed Not Available Not Available Not Available terbinafi ne HCl 250 mg tablet Take 1 tablet by mouth once a day for athletes foot 12/18 completed Entered By: Miley Baldwin PA-C Sig paulino By: Miley Baldwin PA-C Cli nical Date: Rx ID: [id number] Authori zed By: Miley Baldwin PA-C [facility] himanshu: N BMN: N Not Available Not Available Not Available amitripty line 25 mg tablet TAKE ONE TABLET BY MOUTH EVERY MORNING active Not Available Not Available No t Available Mirapex 0.25 mg tablet One tab twice daily for rstless legs 02/01 completed Entered By: Brittani Sneed MA Dalia d By: Brittani Sneed MA Clini lois Date: Rx ID: [id number] Authori zed By: Aime Vallejo MD Uncod ed: N BMN: N Not Available Not Available Not Available meclizine 25 mg tablet 1/2 to 1 tab up three times per day for dizzines s 11/17 completed Entered By: Reva Chang PA-C Sig paulino By: Reva Chang PA-C [facility] himanshu: N BMN: N Not Available Not Available Not Available dexametha sone 2 mg tablet 4 tab time 1, 3 tabs daily times 1 then 2 tabs a day time 1 and then 1 benavidez times 1 day 11/07 completed Entered By: Marilyn Maria LPN Sign ed By: Marilyn Maria LPN Clin ical Date: 018 Rx ID: [id number] Authori zed By: Kendy Redd APRN [facility] himanshu: N BMN: N Not Available Not Available Not Available levothyro xine 50 mcg tablet TAKE ONE TABLET BY MOUTH EVERY DAY 09/14 completed Not Available Not Available Not Available cephalexi n 500 mg capsule TAKE ONE EVERY 6 HRS DIRETCED 09/03 completed Entered By: Reva Chang PA-C Sig paulino By: Reva Chang PA-C [facility] himanshu: N BMN: N Not Available Not Available Not Available pantopraz ole 40 mg tablet,de layed release TAKE 1 TABLET BY MOUTH EVERY NIGHT 09/18 completed Entered By: Karey Vo Sign ed By: Karey Vo Unco ded: N BMN: N Not Available Not Available Not Available nortripty line 10 mg capsule Take 3 tablets at bedtime 04/25 completed Entered By: Aime Jacob MD Dalia d By: Aime Jacob MD Uncod ed: N BMN: N Not Available Not Available Not Available propranol ol ER 80 mg capsule,2 4 hr,extend ed release Take 1 capsule every day by oral route. 2023 active Not Available Not Available Not Avai lable losartan 25 mg tablet One tab once daily for blood pressure 04/15 completed Entered By: Kendy Redd APRN Sig paulino By: Kendy Redd APRN Cli nical Date: Rx ID: [id number] Authori zed By: Kendy Redd APRN [facility] himanshu: N BMN: N Not Available Not Available Not Available indometha jorje 25 mg capsule one capsule with food or milk twice day orally 3 days 12/22 completed Entered By: Rodo Suresh LPN Sign ed By: Miley Baldwin PA-C Cli nical Date: Rx ID: [id number] Authori zed By: Kendy Redd APRN [facility] himanshu: N BMN: N Not Available Not Available Not Available gabapenti n 300 mg capsule TAKE 3 CAPSULES BY MOUTH AT BEDTIME 2023 active Not Available Not Available Not Avai lable omeprazol e 20 mg capsule,d elayed release TAKE ONE CAPSULE BY MOUTH EVERY DAY IN THE MORNING active Not Available Not Available No t Available cyanocoba kory (vit B-12) 1,000 mcg sublingua l tablet one a day 05/04 completed Entered By: Lexii Merino MA Dalia d By: Lexii Merino MA Clini lois Date: Rx ID: [id number] Authori zed By: Miley Baldwin PA-C [facility] himanshu: N BMN: N Not Available Not Available Not Available pravastat in 20 mg tablet Take one tablet every night for high choleste rol 05/04 completed Entered By: Lexii [place] By: Lexii Merino MA [facility]ini [facility] Date: Rx ID: [id number] Authori zed By: Reva Santacruz PA-C [facility] himanshu: N BMN: N Not Available Not Available Not Available Levaquin 500 mg tablet one a day for 7 days for infectio n 10/12 completed Entered By: Marilyn Maria LPN Sign ed By: Marilyn Maria LPN Unco ded: N BMN: N Not Available Not Available Not Available gabapenti n 100 mg capsule 100mg in am and at noon - increase by 1 tab each dose eveyr 1-5 days to max of 600mg am and noon - continue 900mg at bedtime 11/02 completed Entered By: Reva Chang PA-C Sig paulino By: Reva Chang PA-C Cli nical Date: Rx ID: [id number] Authori zed By: Reva Santacruz PA-C [facility] himanshu: N BMN: N Not Available Not Available Not Available metoprolo l succinate ER 25 mg tablet,ex tended release 24 hr 1 tablet every night 09/18 completed Entered By: Karey Vo Sign ed By: Karey Vo Clin ical Date: Rx ID: [id number] Authori zed By: Miley Baldwin PA-C [facility] himanshu: N BMN: N Not Available Not Available Not Available ergocalci ferol (vitamin D2) 1,250 mcg (50,000 unit) capsule TAKE 1 CAPSULE BY MOUTH EVERY WEEK active Not Available Not Available No t Available ibuprofen 600 mg tablet Take one tablet three times per day as needed for pain 09/09 completed Entered By: Brittani [place] By: Brittani Sneed MA Uncod ed: N BMN: N Not Available Not Available Not Available oxybutyni n chloride 5 mg tablet one three times a day for urinary urgency 05/23 completed Entered By: Lexii [place] By: Reva Chang PA-C Cli nical Date: Rx ID: [id number] Authori zed By: Miley Baldwin PA-C [facility] himanshu: N BMN: N Not Available Not Available Not Available losartan 100 mg tablet TAKE ONE TABLET BY MOUTH EVERY DAY active Not Available Not Available No t Available cholecalc iferol (vitamin D3) 125 mcg (5,000 unit) capsule One cap once daily 05/04 completed Entered By: Lexii [place] By: Lexii Merino MA Uncod ed: N BMN: N Not Available Not Available Not Available naproxen 500 mg tablet Take one tablet two times per day for pain 07/25 completed Entered By: Reva Chang PA-C [facility] By: Reva Chang PA-C [facility] him[facility]hu: N BMN: N Not Available Not Available Not Available metoclopr amide 10 mg tablet Take one tablet every eight hours as needed for nausea / migraine 10/12 completed Entered By: Marilyn Maria LPN Sign ed By: Marilyn Maria LPN Unco ded: N BMN: N Not Available Not Available Not Available Ventolin HFA 90 mcg/actua tion aerosol inhaler Inhale 2 puffs every 4 hours by inhalati on route. 2023 active Not Available Not Available Not Avai lable ropinirol e 4 mg tablet 1 at night 04/15 completed Entered By: Ashlee [place] By: Reva Chang PA-C Cli nical Date: Rx ID: [id number] Authori zed By: Reva Santacruz PA-C [facility] him[facility]hu: N BMN: N Not Available Not Available Not Available oxycodone 5 mg tablet Take one tablet one time per day 12/30 completed Entered By: Adeline Pickering PA-C Sig [facility] By: Adeline Pickering PA-C [facility] him[facility]hu: N BMN: N Not Available Not Available Not Available Estrace 0.01% (0.1 mg/gram) vaginal cream Apply twice weekly intra-va ginally 05/23 completed Entered By: Lexii [place] By: Reva Chang PA-C Cli nical Date: Rx ID: [id number] Authori zed By: Miley Baldwin PA-C [facility] himanshu: N BMN: N Not Available Not Available Not Available Lexapro 20 mg tablet one daily for depressi on 04/15 completed Entered By: Adeline Pickering PA-C Sig paulino By: Adeline Pickering PA-C Cli nical Date: Rx ID: [id number] Authori zed By: Miley Baldwin PA-C [facility] him[facility]hu: N BMN: N Not Available Not Available Not Available Depakote ER 250 mg tablet,ex tended release 2 tablet by mouth every night as directed 07/09 completed Entered By: Brittani [place] By: Brittani Sneed MA Uncod ed: N BMN: N Not Available Not Available Not Available duloxetin e 30 mg capsule,d elayed release TAKE THREE CAPSULES BY MOUTH ONCE DAILY DIRECTED FOR DEPRESSI ON 07/08 completed PT states she does not take Not Available Not Available Not Available FreeStyle Valentine kit use 2x daily for blood sugar monitori ng 2023 active Not Available Not Available Not Avai lable FreeStyle Lite Strips Take 2 strips every day by miscell. route as directed for 90 days. 2023 active Not Available Not Available Not Avai lable Adacel (Tdap Adolesn/A dult)(PF) 2 Lf-(2.5-5 -3-5)-5 Lf/0.5 mL IM syringe Inject 1 syringe intramus cularly single dose tetanus 03/19 completed Entered By: Miley Baldwin PA-C Sig pa[facility]ino By: Miley Baldwin PA-C [facility] himanshu: N BMN: N Not Available Not Available Not Available Requip XL 4 mg tablet,ex tended release 1-2 at bedtime for restless legs 04/15 completed Entered By: Reva Chang PA-C Sig pa[facility]ino By: Reva Burks nical Date: Rx ID: [id number] Authori zed By: Reva Santacruz PA-C [facility] himanshu: N BMN: N Not Available Not Available Not Available Vitamin D 5,000 unit tablet Take 1 tablet every day by oral route. 05/03 completed Not Available Not Available Not Available Prevnar 13 (PF) 0.5 mL intramusc ular syringe disp and administ er one dose 10/20 completed Entered By: Brittani [place] By: Kendy Redd APRN [facility] himanshu: N BMN: N Not Available Not Available Not Available Lois-Citra te 250 mg-2.5 mcg (100 unit) tablet take 1200 mg daily 05/04 completed Entered By: Lexii [place] By: Lexii Merino MA Uncod ed: N BMN: N Not Available Not Available Not Available B12 2500MG DAILY 07/08 completed Entered By: Lexii [place] By: Reva Chang PA-C Cli nical Date: Rx ID: [id number] Authori zed By: Miley Baldwin PA-C [facility] him[facility]hu: Y BMN: N Not Available Not Available Not Available Aerochamb er Mini Use 1 device as directed as directed 07/08 completed Pt states she does not use Not Available Not Available Not Available melatonin 10 mg capsule Take 1 capsule every day by oral route at bedtime. 2023 active Not Available Not Available Not Avai lable Hair,Skin ,Nails with Biotin 7.5 mg-7.5 unit-1,25 0 mcg chewable tablet Take two tablets one time per day 12/30 completed Entered By: Reva Chang PA-C Sig [facility] By: Reva Chang PA-C [facility] him[facility]hu: N BMN: N Not Available Not Available Not Available Breo Ellipta 200 mcg-25 mcg/dose powder for inhalatio n one inhalati on daily for asthma 10/12 completed Entered By: Marilyn Maria LPN Sign ed By: Marilyn Maria LPN Unco ded: N BMN: N Not Available Not Available Not Available Shingrix (PF) 50 mcg/0.5 mL intramusc ular suspensio n, kit Inject 1 ml intramus cularly single dose repeat a second dose in 2-6 months 03/19 completed Entered By: Miley aBldwin PA-C Sig paulino By: Miley Baldwin PA-C Cli nical Date: Rx ID: [id number] Authori zed By: Miley Baldwin PA-C [facility] himanshu: N BMN: N Not Available Not Available Not Available Aimovig Autoinjec tor 70 mg/mL subcutane ous auto-inje ctor Inject 1 pen subcutan eously once a month 10/17 completed Entered By: Karey Vo Sign ed By: Karey Vo Unco ded: N BMN: N Not Available Not Available Not Available Ajovy 225 mg/1.5 mL subcutane ous auto-inje ctor Inject 1 pen injector subcutan eously once a month 05/20 completed Entered By: Aime Jacob MD Dalia d By: Aime Jacob MD [facility] Date: Rx ID: [id number] Authori zed By: Aime Vallejo MD Uncod ed: N BMN: N Not Available Not Available Not Available Vitals Date Recorded Body height Body mass index (BMI) Body weight Heart rate Oxygen saturation Oxygen saturation in Arterial blood by Pulse oximetry Systolic blood pressure Diastolic blood pressure Provider Name and Address Organization Details Last Updated DateTime 4 152.4 cm 32 kg/m2 65160.1 5 g 56 /min 97 % 97 % 140 mm[Hg] 86 mm[Hg] Jelena Huizar [place] - [facility] 4 13:14:26 Social History None recorded. Functional Status None recorded. Mental Status None recorded. Family History Nothing Reported Notes:Mother at age 34 for ovarian cancer, Father: at age 80 lung diease, Brother - may [place] (age 57), Sister - may [place] (age 49) Medical History No medical history recorded. Gynecological HistoryNo gynecological history recorded. Obstetrics History GPAL:G 0 P 0 0 0 0 Immunizations Vaccine Type Date Status Provider Name and Address Organization Details Recorded Time COVID-19, mRNA, LNP-S, bivalent, PF, 30 mcg/0.3 mL dose 03/19/2022 completed Not Available [facility] 07/11/2023 03:43:34 COVID-19, mRNA, LNP-S, bivalent, PF, 30 mcg/0.3 mL dose 10/04/2022 completed Not Available [facility] 07/11/2023 03:43:34 COVID-19, mRNA, LNP-S, bivalent, PF, 50 mcg/0.5 mL or 25mcg/0.25 mL dose 07/23/2020 completed Not Available [facility] 07/11/2023 03:43:34 COVID-19, mRNA, LNP-S, bivalent, PF, 50 mcg/0.5 mL or 25mcg/0.25 mL dose 08/20/2020 completed Not Available [facility] 07/11/2023 03:43:34 COVID-19, mRNA, LNP-S, bivalent, PF, 50 mcg/0.5 mL or 25mcg/0.25 mL dose 05/20/2021 completed Not Available [facility] 07/11/2023 03:43:34 Pneumococcal conjugate PCV 13 05/11/2017 completed Not Available [facility] 07/11/2023 03:43:34 Influenza, high-dose, quadrivalent, PF 03/19/2022 completed Not Available [facility] 07/11/2023 03:43:34 Tdap 12/19/2021 completed Not Available [facility] 03:43:34 zoster recombinant 12/19/2021 completed Not Available [facility] 07/11/2023 03:43:34 RSV, recombinant, protein subunit RSVpreF, adjuvant reconstituted, 0.5 mL, PF 09/14/2023 completed Inocencia Greene null, [place] - [facility] 11/02/2023 07:49:58 zoster live 10/12/2012 completed Inocencia Greene null, [place] - [facility] 11/02/2023 07:50:55 Influenza, high-dose, quadrivalent, PF 08/05/2023 completed Rodo Suresh [employer] null, [place] - [facility] 08/05/2023 17:40:34 COVID-19, mRNA, LNP-S, PF, isidoro-sucrose, 30 mcg/0.3 mL 03/21/2024 completed Kadie Soto CMA null, [place] - [facility] 03/21/2024 11:03:53 Influenza, high-dose, trivalent, PF 03/21/2024 completed Kadie Soto CMA null, [place] - [facility] 03/21/2024 11:04:06 Past Encounters Encounter ID Performer Location Encounter Start Date Encounter Closed Date Diagnosis/Indication Diagnosis SNOMED-CT Code Diagnosis ICD10 Code [id number] [facility] [address] [place] [phone] 05/03/2024 13:05:22 05/03/2024 14:30:27 Essential tremor 119017092 G25.0 Snoring 46499669 R06.83 Poor balance 645488231 R 27.8 Pain in ri ght hip joint 7570702475 92810 M25.551 Health Concerns Section Related Observation LastModified by Organization Detai ls LastModified Time None Recorded Concern Status LastModified by Organization Details LastModified Time None Recorded Payers Encounter Date Sequence Insurance Name Policy Number Policy Barreto Covered Member ID Barreto Member ID Guarantor Name 05/03/2024 1 [place]ARE [place]: [employer] Skye Hinton [id number] Skye Hinton 05/03/2024 2 [facility] (MEDICARE SUPPLEMENT) Skye Hinton [id number] Skye Hinton Notes Date Note Type Note Provider Name and Address Organization Details Recorded Time 05/03/2024 text/html Skye is here for falling a lot transitioning from sitting to standing.- I got up off the couch and I just started falling.- Frequent dizziness and light-headedness x a few months.- BP sitting 140/86, BP standing 138/90 Medications and allergies verified... Jelena Huizar RN. 1:19 PM - 2:12 PM Skye is here today with concerns of increased falling. She notes feeling light-headed and dizzy often. Symptoms started months ago and worsening. She is here today with her sister, Heather. Friends are calling Heather with concerns about Skye That she is not herself. falls - last week, stood up from seated position on the couch. She felt dizzy so stood there and dizziness improved. She then tried walking forward and fell forward. She notes falls at least once weekly, per Heather, It could be 3 times a week. She has fallen out of bed 3 times, I just wake up and I am on the floor. A few months back she fell out of bed, hit her face and then woke up and went back to bed. She used to be active at the [facility], but she is not allowed to now, she has fallen there 3 different times, in the kitchen and on the stairs. balance - she notes quick turns with her head or entire body cause her to feel off balanced. Every time she bends forward or bends to get something off the floor cause her to keep going. She falls onto her face. She notes when she is tired her balance is worse, usually towards the end of the day, Denies dysuria, notes urinary frequency. Denies URI symptoms. She notes tachycardia symptoms at times, but denies palpitations. 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 Tremor - terrible penmanship. She writes a shopping list and then cannot read it when she gets to the store. migraines - taking amitriptyline at HS. It does help her migraines. RLS - still restless. She is taking pramipexole 0.5mg at it helps. She was referred for a sleep study, but did not go to the visit. She snores loudly. She is sleeping 4-5 hours each night. Most days she does feel refreshed in the am. She has diagnosed JANEE, but could not tolerate the CPAP mask years ago. bilateral hip pain - she notes increased pain when walking without a cart. She think hip pain does aggravate her balance. She is s/p RHR 2018, but notes about 1 yr ago it started bothering her more. [facility] [address] [place] [address], [id number], [place] - [facility] 05/04/2024 12:40:33 OBGyn Episode No OBEpisode recorded.
--- OUTSIDE RECORDS SUMMARY | 2024-05-05 14:07 | XMS_ITS | Data Portability ---
Author Organization [place] [facility], Historical Import Interface Address [address] [place] [address] Assessment Encounter Date Assessment Date Assessment LastModified by Organization Details LastModified Time 11/05/2023 11/05/2023 Diabetes Education, initial, 60 minutes Education provided today: SBGM testing and targets, plate method of meal planning, carb/ carb serving rec's per meal, A1c targets for prevention of complications, exercise Diabetes Education needs: preventing complications, medication review [email or web address] Not available 11/05/2023 16:29:56 12/01/2023 12/01/2023 Diabetes Education, follow up, 60 minutes Education provided today: SBGM results review. follow up re goals, reset action plan, exercise, diet hx review, CGM application and orientation sensor/reader. Diabetes Education needs: CGM report review/glycemic trends, reinforce nutriton guidelines, preventing complications, foot care [email or web address] Not available 12/01/2023 13:53:26 12/16/2023 12/16/2023 I spent a total of 25 minutes on the date of this encounter meeting with the patient, reviewing and completing documentation, and coordinating care as necessary. Not available 12/16/2023 15:12:26 03/18/2024 03/18/2024 I spent a total of 25 minutes on the date of this encounter meeting with the patient, reviewing and completing documentation, and coordinating care as necessary. Not available 03/18/2024 15:05:08 Plan of Treatment Reminders Order Date Submit Date Provider Last Modified By Organization Details Last Modified Time Details Appointments None recorded. Lab CMP, serum or plasma 2023 024 [email or web address] [facility] (Registration ), [address] [place] [address] Dr, [place], [address], 4 11:47:49 magnesium, QN, serum or plasma [address] [facility] (Registration ), [address] [place] [address] [place], [address], 11:47:50 HbA1c (hemoglobi n A1c), blood 2023 [facility], [address] [place] [address], [address], 14:46:18 HbA1c (hemoglobi n A1c), blood - early next year [address] [facility] (Registration ), [address] [place] [address] [place], [address], 15:02:20 lipid panel, serum [address] [facility] (Registration ), [address] [place] [address] [place], [address], 11:47:50 CMP, serum or plasma [address] [facility] (Registration ), [address] [place] [address] [place], [address], 11:47:50 Referral neurologis t referral - please contact [phone] Trina Heather with appointmen ts 2023 024 [facility], [address] [place] [address] [place], [address], 16:35:56 physical therapist referral - please contact [phone] Trina Tamayo Heather with appointmen ts 2023 024 [facility], [address] [place] [address], [address], 4 16:31:39 sleep medicine referral - please contact [phone] Trina Heather with appointmen Eugeniolease call me with any questions - Katie [phone]. 2023 024 ATHENAFAX [facility], [address] [place] [address] [address], [place], [address], 4 07:03:08 Procedures None recorded. Surgeries None recorded. Imaging MAMMO, screening, digital, bilateral - Please call patient to schedule 2023 024 FLORECITA [facility], [address], [place], [address], 4 18:20:47 MRI, brain, w/o contrast - please contact [phone] Trina - DajHeather with appointmen ts 2023 024 ATHENAFAX [facility], [address], [place], [address], 4 06:43:10 XR, hip, unilateral - please contact - Xcwyzve with appointmen ts 2023 024 [email or web address] [facility], [address], [place], [address], 4 12:52:11 Medication Orders metformin 500 mg tablet 2023 024 FLORECITA [facility], [address] [place], [address], 4 15:08:21 Patient TargetsNo targets recorded. Patient Instructions Encounter Date Encounter Id Patient Instructions Last Modified By Organization Details Last Modified Time 11/05/2023 [id number] Test BG before and after one meal daily at least 3 days weekly. Begin walking 10-15 min several days weekly. [email or web address] Not available 11/05/2023 16:41:11 12/01/2023 [id number] 1. Wear CGM for next 10 days, return to 2 x day testing after CGM runs out. 2. Return for CGM download and report review in 3 weeks. 3. increase walking to daily or 6/7 days wk, use step counter now on phone to track steps. [email or web address] Not available 12/01/2023 14:32:33 12/16/2023 [id number] check your feet every day increase dose of metformin to 500 mg 2 pills twice a day Not available 12/16/2023 15:10:44 05/03/2024 [id number] please contact [phone] Heather [facility] appointments [email or web address] Not available 05/03/2024 14:36:13 Reason for Referral Sleep Medicine Referral for Snoring please contact [phone] Belkis Romero with appointmentsPlease call me with any questions - Katie [phone]. Referring Physician: Reva Santacruz [facility], Encounter Date: 05/03/2024 Neurologist Referral for Poo r balance please contact [phone] Belkis Romero with appointments Referring Physician: Reva Santacruz [facility], Encounter Date: 05/03/2024 Physical Therapist Referral for Poor balance please contact [phone] Heather with appointments Referring Physician: Reva Santacruz [facility], Encounter Date: 05/03/2024 Results Created Date Observation Date Name Description Value Unit Range Abnormal Flag Note LastModifiedBy Organization Detail LastModifiedTime 12/16/1912/16/2023 HGB A1C% HGB A1C% 8.0 % 4.0 - 6.0 high Not Available [facility] [address] [place], [address], 12/16/2023 15:58:49 12/16/19 24 12/16/2023 HGB A1C% ave. calc. glucose 186 mg/dL 60 - 115 high Not Available [facility] [address] [place], [address], 12/16/2023 15:58:49 03/18/20 24 03/18/2024 HGB A1C% HGB A1C% 7.2 % 4.0 - 6.0 high Not Available [facility] [address] [place], [address], 03/18/2024 14:46:18 03/18/20 24 03/18/2024 HGB A1C% ave. calc. glucose 160 mg/dL 60 - 115 high Not Available [facility] [address] [place], [address], 03/18/2024 14:46:18 03/24/20 24 03/24/2024 MAMMO , scree howie, digit al, bilat eral No observ ation record ed. [email or web address] [facility] [address], [place], [address], 03/25/2024 17:17:54 Result Notes None recorded. Problems Name Problem SNOMED Code Status Onset Date Resolution Date Notes Provider Name and Address Organization Details Recorded Time [facility] tremor 725555358 Active 2019 Tremor, ess[facility]ia [facility]; Entered By: Reva Santacruz PA-C Sig paulino By: Reva Santacruz PA-C Not Available [facility] 4 03:43:34 Hypercho lesterol emia 92196338 Active 2015 Hypercho lesterol emia; Entered By: Reva Santacruz PA-C Sig paulino By: Reva Santacruz PA-C Sto p Reason: Changed Hypercho lesterol emia; Entered By: Ranjana Weathers Si gned By: Ranjana Weathers Not Available [facility] 4 03:43:33 Refracto ry migraine with aura 806815498 Active 2019 Migraine with aura, with intracta ble migraine , so stated, without mention of status migraino mary; Entered By: Aime Vallejo MD Dalia d By: Aime Vallejo MD Not Available [facility] 4 03:43:34 Dysphagi a 74216096 Active 2015 Dysphagi a, unspecif ied; Entered By: Reva Santacruz PA-C Sig paulino By: Reva Santacruz PA-C Not Available [facility] 4 03:43:34 Chest pain 68907949 Active 2020 Chest pain; Entered By: Reva Santacruz PA-C Sig paulino By: Reva Santacruz PA-C Not Available [facility] 4 03:43:33 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 Implanta tion spinal cord stimulat or; Entered By: Reva Santacruz PA-C Sig paulino By: Reva Santacruz PA-C Not Available [facility] 4 03:43:34 Impaired fasting glycemia 895767898 Completed 201607/27/2022 Abnormal fasting glucose; Entered By: Reva Santacruz PA-C Sig paulino By: Reva Santacruz PA-C Sto p Reason: Changed Not Available [facility] 3 14:03:53 Multinod ular goiter 984695331 Completed 201507/27/2022 Multinod ular goiter; Entered By: Ranjana Weathers Si gned By: Ranjana Weathers St op Reason: Inactive Multino dular goiter; Entered By: Reva Santacruz PA-C Sig paulino By: Reva Santacruz PA-C Sto p Reason: Removed Not Available [facility] 3 14:03:53 Insomnia 065112598 Active 2015 Insomnia ; Entered By: Reva Santacruz PA-C Sig paulino By: Reva Santacruz PA-C Not Available [facility] 4 03:43:33 Osteopen ia 764857106 Active 2019 Osteopen ia, forearm; Entered By: Ana montgomery By: Lexii Merino MA Not Available [facility] 4 03:43:33 Obesity 188229940 Active 2017 Obesity; Entered By: Kendy Redd [employer] Sig paluino By: Kendy Redd APRN Not Available [facility] 4 03:43:34 Mammogra phy abnormal 230731307 Active 2019 Abnormal mammogra m, left breast; Entered By: Reva Santacruz PA-C Sig paulino By: Reva Santacruz PA-C Not Available [facility] 4 03:43:33 Atrophic vaginiti s 89626905 Active 2018 Postmeno pausal atrophic vaginiti s; Entered By: Miley Baldwin PA-C Sig paulino By: Miley Baldwin PA-C Not Available [facility] 4 03:43:34 Increase d frequenc y of urinatio n 034529988 Active 2018 Frequenc y of urinatio n; Entered By: Miley Baldwin PA-C Sig paulino By: Miley Baldwin PA-C Not Available [facility] 4 03:43:33 Obstruct umair sleep apnea syndrome 31284157 Completed 202107/27/2022 Obstruct umair sleep apnea; Entered By: Ranjana Weathers Si gned By: Ranjana Weathers St op Reason: Inactive Obstruc tive sleep apnea; Entered By: Miley Baldwin PA-C Sig paulino By: Miley Baldwin PA-C Sto p Reason: Removed JANEE, moderate ; Entered By: Reva Santacruz PA-C Sig paulino By: Reva Santacruz PA-C; Start Date : 04/15/20 16 Not Available [facility] 3 14:03:54 Noncompl iance with treatmen t 3409258 Active 2019 Noncompl iance uses Rx intermit tently; Entered By: Miley Baldwin PA-C Sig paulino By: Miley Baldwin PA-C Not Available [facility] 4 03:43:34 Preventi ve procedur e Active 2018 Preventa tive health care; Entered By: Miley Baldwin PA-C Sig paulino By: Miley Baldwin PA-C Pre ventativ e health care; Entered By: Reva Santacruz PA-C Sig paulino By: Reva Santacruz PA-C Sto p Reason: Removed; Start Date : 07/25/19 [facility]; Entered By: Ranjana Weathers Si gned By: Ranjana Thomas op Reason: Inactive ; Start Date : 07/25/19 Not Available [facility] 4 03:43:33 Pain in left arm 559858773 Active 2021 Arm pain, left; Entered By: Reva Santacruz PA-C Sig paulino By: Reva Santacruz PA-C Not Available [facility] 4 03:43:33 Migraine 58188893 Completed 201509/23/2021 Migraine s; Entered By: Ranjana Weathers Si gned By: Ranjana Thomas op Reason: Inactive Migrain es; Entered By: Reva Santacruz PA-C Sig paulino By: Reva Santacruz PA-C Sto p Reason: Removed Not Available [facility] 3 14:03:57 Localize d swelling , mass and lump, neck Active 2018 Swelling in neck; Entered By: Reva Santacruz PA-C Sig paulino By: Reva Santacruz PA-C Not Available [facility] 4 03:43:33 Depressi ve disorder 64074356 Completed 201507/27/2022 Depressi on; Entered By: Reva Santacruz PA-C Sig paulino By: Reva Santacruz PA-C Sto p Reason: Changed Depressi on; Entered By: Ranjana Weathers Si gned By: Ranjana Weathers Not Available [facility] 3 14:03:58 Heart murmur 89994089 Active 2015 Cardiac murmur; Entered By: Reva Santacruz PA-C Sig paulino By: Reva Santacruz PA-C Not Available [facility] 4 03:43:34 Impairme nt of balance 171099188 Active 2021 Balance problem; Entered By: Miley Baldwin PA-C Sig paulino By: Miley Baldwin PA-C Bal ance problem; Entered By: Reva Santacruz PA-C Sig paulino By: Reva Santacruz PA-C; Start Date : 05/04/20 Not Available [facility] 4 03:43:34 Memory impairme nt 409752532 Active 2021 Memory deficit; Entered By: Miley Baldwin PA-C Sig paulino By: Miley Baldwin PA-C Mem ory impairme nt; Entered By: Reva Santacruz PA-C Sig paulino By: Reva Santacruz PA-C; Start Date : 05/04/20 Not Available [facility] 4 03:43:34 Benign paroxysm al position al vertigo 787267260 Completed 201907/27/2022 Benign position al vertigo; Entered By: Reva Santacruz PA-C Sig paulino By: Reva Santacruz PA-C Sto p Reason: Changed Not Available [facility] 3 14:03:59 Pre-surg tamara evaluati on Completed 201809/23/2021 Preopera tive exam; Entered By: Ranjana Weathers Si gned By: Ranjana Weathers St op Reason: Inactive Preoper ative exam; Entered By: Monse Martin PA-C Sig paulino By: Monse Martin PA-C Sto p Reason: Removed Not Available [facility] 3 14:03:59 Pill esophagi tis 24519637 Active 2020 Pill esophagi tis; Entered By: Reva Santacruz PA-C Sig paulino By: Reva Santacruz PA-C Not Available [facility] 4 03:43:33 Fibromyo sitis 30727501 Active 2015 Fibromya lgia; Entered By: Reva Santacruz PA-C Sig paulino By: Reva Santacruz PA-C Not Available [facility] 4 03:43:33 Pain in face 30879289 Completed 201607/27/2022 Facial pain; Entered By: Ranjana Weathers Si gned By: Ranjana Weathers St op Reason: Inactive Facial pain; Entered By: Adeline Gutierrez PA-C Sig paulino By: Adeline Gutierrez PA-C Sto p Reason: Removed Not Available [facility] 3 14:04:00 Impaired glucose toleranc e 6626129 Completed 201607/27/2022 Prediabe kevin; Entered By: Reva Santacruz PA-C Sig paulino By: Reva Santacruz PA-C Sto p Reason: Changed Not Available [facility] 3 14:04:00 Vertigo 662759023 Active 2019 Vertigo; Entered By: Adeline Gutiererz PA-C Sig paulino By: Adeline Gutierrez PA-C Not Available [facility] 4 03:43:34 Complex regional pain syndrome 237111595 Active 2015 Complex regional pain syndrome (L arm); Entered By: Reva Santacruz PA-C Sig paulino By: Reva Santacruz PA-C Not Available [facility] 4 03:43:33 Disorder of thyroid gland 52431526 Completed 201507/27/2022 Thyroid disorder ; Entered By: Reva Santacruz PA-C Sig paulino By: Reva Santacruz PA-C Sto p Reason: Changed Not Available [facility] 3 14:04:01 Gastroes ophageal reflux disease 320851126 Active 2015 GERD; Entered By: Reva Santacruz PA-C Sig paulino By: Reva Santacruz PA-C Not Available [facility] 4 03:43:33 Tinea pedis 2619611 Active 2021 Tinea pedis; Entered By: Miley Baldwin PA-C Sig paulino By: Miley Baldwin PA-C Not Available [facility] 4 03:43:34 Hyperkal emia 95233958 Completed 201607/27/2022 Hyperkal emia; Entered By: Reva Santacruz PA-C Sig paulino By: Reva Santacruz PA-C Dulce belinda Stop Date: Hyperka lemia; Entered By: Reva Santacruz PA-C Sig paulino By: Reva Santacruz PA-C Sto p Reason: Changed Not Available [facility] 3 14:04:02 Restless legs 10472314 Active 2015 Restless leg syndrome ; Entered By: Reva Santacruz PA-C Sig paulino By: Reva Santacruz PA-C Not Available [facility] 4 03:43:33 Cough 87365798 Completed 201709/23/2021 Cough due to SURESH inhibito r; Entered By: Ranjana Weathers Si gned By: Ranjana Weathers St op Reason: Inactive Cough due to SURESH inhibito r; Entered By: Miley Baldwin PA-C Sig paulino By: Miley Baldwin PA-C Sto p Reason: Removed Cough; Entered By: Kendy Redd APRN Sig paulino By: Kendy Redd APRN; Start Date : 10/21/19 18 Not Available [facility] 3 14:04:02 Neck pain 69665355 Active 2020 Neck pain; Entered By: Reva Santacruz PA-C Sig paulino By: Reva Santacruz PA-C Not Available [facility] 4 03:43:34 Arthriti s of hip 22009495 Completed 201507/27/2022 Arthriti s, right hip; Entered By: Reva Santacruz PA-C Sig paulino By: Reva Santacruz PA-C Sto p Reason: Changed Not Available [facility] 3 14:04:03 Hyperten sive disorder 33885411 Active 2015 Hyperten saray; Entered By: Reva Santacruz PA-C Sig paulino By: Reva Santacruz PA-C Not Available [facility] 4 03:43:34 Thyroid nodule 189049074 Completed 202107/27/2022 Thyroid nodule; Entered By: Ranjana Weathers Si gned By: Ranjana Weathers St op Reason: Inactive Thyroid nodule; Entered By: Miley Baldwin PA-C Sig paulino By: Miley Baldwin PA-C Sto p Reason: Removed Thyroid nodule; Entered By: Ranjana Weathers Si gned By: Ranjana Weathers; Start Date : 04/15/20 16 Not Available [facility] 3 14:04:03 Osteoart hritis of hip 699527235 Active 2015 OA, right hip; Entered By: Ranjana Weathers Si gned By: Ranjana Weathers Not Available [facility] 4 03:43:33 Pneumoni a 676024799 Active 2020 Pneumoni a; Entered By: Lilia Otto Sig paulino By: Reva Santacruz PA-C Not Available [facility] 4 03:43:33 Type 2 diabetes mellitus 63365743 Active 2016 Diabetes mellitus , type II; Entered By: Reva Santacruz PA-C Sig paulino By: Reva Santacruz PA-C Not Available [facility] 4 03:43:34 Polyp of colon 14304436 Active 2018 Polyp of colon; Entered By: Miley Baldwin PA-C Sig paulino By: Miley Baldwin PA-C Not Available [facility] 4 03:43:34 Notes:Some problems listed i n Documents: #[id number], #[id number], #[id number] could not be added to this patient's chart. Please review these documents and add these problems to the patient's chart manually as needed. Problem Notes None recorded. Procedures Surgical History None recorded. Imaging Results Imaging Date Name Status LastModified by Organiz [facility] Details LastModified Time 03/24/2024 MAMMO, screening, digital, bilateral completed [email or web address] [facility] [address], [place], [address], 03/25/2024 17:17:54 Procedure Notes None recorded. Medical Equipment None Reported. Allergies Allergen ID Allergen Name Allergen Category Reaction Reaction Severity Criticality Documentation Date Start Date Code Code System Note Provider Name and Address Organization Details Recorded Time 70037 aspirin medicatio n chest pain moderate Not available 07/26/20222015 1191 RxNorm React ion: chest pain; Sever ity: Moder ate; Comme nt: Enter ed By: Reva Santacruz PA-C Dalia d By: Reva Santacruz PA-C Type: GPI C ode: [id number] Unco ded: N; Not Available [facility] 3 17:34:10 29792 Tylenol medicatio n Not available Not available Not available 07/26/20222015 3 RxNorm React ion: detox ;Luana rity: Mild; Comme nt: Enter ed By: Reva montgomery By: Reva Santacruz PA-C Type: GPI C ode: [id number] Unco ded: N; Not Available [facility] 3 17:34:10 Medications Name Sig Start Date [...] By: Ashlee montgomery By: Reva Chang PA-C Unc himanshu: N BMN: N Not Available Not Available Not Available losartan 50 mg tablet Take 2 tablet by mouth once a day until 100mg tablets are availabl e 07/16 completed Entered By: Joy montgomery By: Joy Brooks RN Clini lois Date: Rx ID: [id number] Authori zed By: Reva Santacruz PA-C Unc [...] Baldwin PA-C Cli nical Date: Rx ID: [id number] Authori zed By: Miley Baldwin PA-C Unc [...] Reva Chang PA-C Sig paulino By: Reva Ortizi nical Date: 021 Rx ID: [id number] Authori zed By: Reva Tompkins himanshu: N BMN: N Not Available Not Available Not Available metoprolo l succinate ER 50 mg tablet,ex tended release 24 hr One tab once daily for blood pressure and migraine preventi on 10/26 completed Entered By: Reva Chang PA-C Sig paulino By: Reva Chang PA-C Cli nical Date: 020 Rx ID: [id number] Authori zed By: Reva Santacruz PA-C Unc himanshu: N BMN: N Not Available Not Available Not Available sumatript an 100 mg tablet Take 1 tablet by mouth single dose for migraine take right away for migraine headache may repeat in 2 hours if headache not better 01/09 completed Entered By: Karen Reilly LPN Sign ed By: Karen Reilly LPN Clin ical Date: 022 Rx ID: [id number] Authori zed By: Miley Baldwin PA-C Unc [...] Baldwin PA-C Cli nical Date: Rx ID: [id number] Authori zed By: Miley Baldwin PA-C [facility] himanshu: N BMN: N Not Available Not Available Not Available metoprolo l succinate ER 100 mg tablet,ex tended release 24 hr one daily for migraine preventi on and tremor 08/09 completed Entered By: Aime Jacob MD Dalia d By: Aime Jacob MD Clini lois Date: Rx ID: [id number] Authori zed By: Reva Santacruz PA-C Unc [...] Pickering PA-C Cli nical Date: Rx ID: [id number] Authori zed By: Adeline Gutierrez PA-C Unc [...] By: Reva Burks nical Date: Rx ID: [id number] Authori zed By: Reva Santacruz PA-C [facility] himanshu: N BMN: N Not Available [...] PA-C Sig paulino By: Miley Baldwin PA-C Clalexandre nical Date: Rx ID: [id number] Authori zed By: Miley Baldwin PA-C Unc [...] Sneed MA Clini lois Date: Rx ID: [id number] Authori zed By: Aime Vallejo MD Uncod [...] By: Marilyn Maria LPN Clin ical Date: Rx ID: [id number] Authori zed By: Kendy Redd APRN Unc himanshu: N BMN: N Not Available Not Available Not Available levothyro xine 50 mcg tablet TAKE ONE TABLET BY MOUTH EVERY DAY 09/14 completed Not Available Not Available Not Available cephalexi n 500 mg capsule TAKE ONE EVERY 6 HRS DIRETCED 09/03 completed Entered By: Reva Chang PA-C Sig paulino By: Reva Chang PA-C [facility] himanshu: N BMN: N Not Available [...] Redd APRN Cli nical Date: Rx ID: [id number] Authori zed By: Kendy Redd APRN [facility] himanshu: N BMN: N Not Available Not Available Not Available indometha jorje 25 mg capsule one capsule with food or milk twice day orally 3 days 12/22 completed Entered By: Rodo Suresh LPN Sign ed By: Miley Baldwin PA-C Cli nical Date: Rx ID: [id number] Authori zed By: Kendy Redd APRN [facility] himanshu: N BMN: N Not Available [...] a day 05/04 completed Entered By: Lexii Gómez d By: Lexii Merino MA Clini lois Date: Rx ID: [id number] Authori zed By: Miley Baldwin PA-C [facility] himanshu: N BMN: N Not Available Not Available Not Available pravastat in 20 mg tablet Take one tablet every night for high choleste rol 05/04 completed Entered By: Lexii Merino MA Dalia d By: Lexii Merino MA Clini lois Date: Rx ID: [id number] Authori zed By: Reva Santacruz PA-C [facility] himanshu: N BMN: N Not Available [...] PA-C Sig paulino By: Reva Chang PA-C Clalexandre nical Date: Rx ID: [id number] Authori zed By: Reva Santacruz PA-C [facility] himanshu: N BMN: N Not Available Not Available Not Available metoprolo l succinate ER 25 mg tablet,ex tended release 24 hr 1 tablet every night 09/18 completed Entered By: Kraey Vo Sign ed By: Karey Vo Clin ical Date: Rx ID: [id number] Authori zed By: Miley Baldwin PA-C [facility] himanshu: N BMN: N Not Available [...] urinary urgency 05/23 completed Entered By: Lexii Gómez d By: Reva Chang PA-C Cli nical Date: Rx ID: [id number] Authori zed By: Miley Baldwin PA-C Unc [...] Chang PA-C Cli nical Date: Rx ID: [id number] Authori zed By: Reva Santacruz PA-C Unc [...] By: Reva Chang PA-C Cli nical Date: 019 Rx ID: [id number] Authori zed By: Miley Baldwin PA-C Unc himanshu: N BMN: N Not Available Not Available Not Available Lexapro 20 mg tablet one daily for depressi on 04/15 completed Entered By: Adeline Pickering PA-C Sig paulino By: Adeline Pickering PA-C Cli nical Date: Rx ID: [id number] Authori zed By: Miley Baldwin PA-C Unc [...] Not Available Not Available Not Available FreeStyle Gratiot kit use 2x daily for blood sugar [...] PA-C Sig paulino By: Miley Baldwin PA-C [facility] himanshu: N BMN: N Not Available Not Available Not Available Requip XL 4 mg tablet,ex tended release 1-2 at bedtime for restless legs 04/15 completed Entered By: Reva Chang PA-C Sig paulino By: Reva Chang PA-C Cli nical Date: 017 Rx ID: [id number] Authori zed By: Reva Santacruz PA-C [facility] himanshu: N BMN: N Not Available Not Available Not Available Vitamin D 5,000 unit tablet Take 1 tablet every day by oral route. 05/03 completed Not Available Not Available Not Available Prevnar 13 (PF) 0.5 mL intramusc ular syringe disp and administ er one dose 10/20 completed Entered By: Brittani montgomery By: Kendy Redd APRN [facility] himanshu: N BMN: N Not Available Not Available Not Available Lois-Citra te 250 mg-2.5 mcg (100 unit) tablet take 1200 mg daily 05/04 completed Entered By: Lexii montgomery By: Lexii Merino MA Uncod ed: N BMN: N Not Available Not Available Not Available B12 2500MG DAILY 07/08 completed Entered By: Lexii montgomery By: Reva Chang PA-C Cli nical Date: 020 Rx ID: [id number] Authori zed By: Miley Baldwin PA-C [facility] himanshu: Y BMN: N Not Available Not [...] 2-6 months 03/19 completed Entered By: Miley Baldwin PA-C Sig paulino By: Miley Baldwin PA-C Cli nical Date: Rx ID: [id number] Authori zed By: Miley Baldwin PA-C Unc [...] Jacob MD Clini lois Date: Rx ID: [id number] Authori zed By: Aime Vallejo MD Uncod ed: N BMN: N Not Available Not Available Not Available Vitals Date Recorded Body height Body mass index (BMI) Body weight Provider Name and Address Organization Details Last Updated DateTime 11/05/2023 152.4 cm 32.4 kg/m2 55134.[address]N, CDE [address] [place], [address], [facility] 11/05/2023 09:29:53 Date Recorded Body height Body mass index (BMI) Body weight Provider Name and Address Organization Details Last Updated DateTime 12/01/2023 152.4 cm 32.1 kg/m2 03454.[address]N, CDE [address] [place], [address], [facility] 12/01/2023 10:47:50 Date Recorded Body height Body mass index (BMI) Body weight Respiratory rate Oxygen saturation Oxygen saturation in Arterial blood by Pulse oximetry Heart rate Systolic blood pressure Diastolic blood pressure Provider Name and Address Organization Details Last Updated DateTime 4 152.4 cm 32.2 kg/m2 85612.7 4 g 14 /min 96 % 96 % 78 /min 122 mm[Hg] 60 mm[Hg] Rodo Suresh LPN [facility] 14:25:14 Date Recorded Body height Body mass index (BMI) Body weight Heart rate Oxygen saturation Oxygen saturation in Arterial blood by Pulse oximetry Systolic blood pressure Diastolic blood pressure Provider Name and Address Organization Details Last Updated DateTime 152.4 cm 32.1 kg/m2 13651.3 g 76 /min 98 % 98 % 132 mm[Hg] 78 mm[Hg] Kadie Soto CMA [facility] 14:30:59 Date Recorded Body height Body mass index (BMI) Body weight Heart rate Oxygen saturation Oxygen saturation in Arterial blood by Pulse oximetry Systolic blood pressure Diastolic blood pressure Provider Name and Address Organization Details Last Updated DateTime 4 152.4 cm 32 kg/m2 62224.1 5 g 56 /min 97 % 97 % 140 mm[Hg] 86 mm[Hg] Jelena Huizar [facility] 13:14:26 Social History None recorded. Functional Status None recorded. Mental Status None recorded. Family History Nothing Reported Notes:Mother at age 34 for ovarian cancer, Father: at age 80 lung diease, Brother - [place] (age 57), Sister - [place] (age 49) Medical History No medical history recorded. Gynecological HistoryNo gynecological history recorded. Obstetrics History GPAL:G 0 P 0 0 0 0 Immunizations Vaccine Type Date Status Provider Name and Address Organization Details Recorded Time COVID-19, mRNA, LNP-S, bivalent, PF, 30 mcg/0.3 mL dose 03/19/2022 completed Not Available [facility] 07/11/2023 03:43:34 COVID-19, mRNA, LNP-S, bivalent, PF, 30 mcg/0.3 mL dose 10/04/2022 completed Not Available [facility] 07/11/2023 03:43:34 COVID-19, mRNA, LNP-S, bivalent, PF, 50 mcg/0.5 mL or 25mcg/0.25 mL dose 07/23/2020 completed Not Available [facility] 07/11/2023 03:43:34 COVID-19, mRNA, LNP-S, bivalent, PF, 50 mcg/0.5 mL or 25mcg/0.25 mL dose 08/20/2020 completed Not Available [facility] 07/11/2023 03:43:34 COVID-19, mRNA, LNP-S, bivalent, PF, 50 mcg/0.5 mL or 25mcg/0.25 mL dose 05/20/2021 completed Not Available [facility] 07/11/2023 03:43:34 Pneumococcal conjugate PCV 13 05/11/2017 completed Not Available [facility] 07/11/2023 03:43:34 Influenza, high-dose, quadrivalent, PF 03/19/2022 completed Not Available [facility] 07/11/2023 03:43:34 Tdap 12/19/2021 completed Not Available [facility] 03:43:34 zoster recombinant 12/19/2021 completed Not Available [facility] 07/11/2023 03:43:34 RSV, recombinant, protein subunit RSVpreF, adjuvant reconstituted, 0.5 mL, PF 09/14/2023 completed TRAVIS Garcia - [facility] 11/02/2023 07:49:58 zoster live 10/12/2012 completed TRAVIS Garcia - [facility] 11/02/2023 07:50:55 Influenza, high-dose, quadrivalent, PF 08/05/2023 completed Rodo Suresh LPN null, [place] [facility] 08/05/2023 17:40:34 COVID-19, mRNA, LNP-S, PF, isidoro-sucrose, 30 mcg/0.3 mL 03/21/2024 completed Kadie Soto CMA [place], [place] [facility] 03/21/2024 11:03:53 Influenza, high-dose, trivalent, PF 03/21/2024 completed Kadie Soto CMA null, [place] [facility] 03/21/2024 11:04:06 Past Encounters Encounter ID Performer Location Encounter Start Date Encounter Closed Date Diagnosis/Indication Diagnosis SNOMED-CT Code Diagnosis ICD10 Code [id number] MATEO Rocha [address] [place] [address] 07/08/2023 08:18:17 07/08/2023 09:24:17 Migraine 76967061 G43.909 Fibromyalgia 478337779 M 79.7 Renewal of prescription 175027543 Z76.0 Cough 34574057 R05.9 Fatigue 70628522 R53.83 [id number] MATEO OSORIO [address] [place] [address] 08/04/2023 12:35:03 08/04/2023 13:54:27 Active or passive immunization 569753397 Z23 Adult heal th examination 328153846 Z00.01 Fatigue 65908131 R53.83 Cough 32368117 R05.9 Migraine 65183728 G43.90 9 Fibromyalgia 172897695 M 79.7 Renewal of prescription 347109819 Z76.0 Vitamin D deficiency 347 83812 E55.9 Active immunization 3387 9002 Z23 Screening mammography 24 788233 Z12.31 Osteopenia 137634193 M85 .89 [id number] MATEO OSORIO [address] [place] [address] 09/15/2023 15:44:00 09/15/2023 17:07:43 Type 2 diabetes mellitus 22154142 E11.9 Cough 93509883 R05.9 Diabetes mellitus 001428 09 E11.9 Pneumonia caused by Mycoplasma pneumoniae 04577699 J15.7 [id number] MATEO OSORIO [address] [place] [address] 11/03/2023 13:15:51 11/03/2023 14:46:38 Type 2 diabetes mellitus 87812126 E11.9 Diabetes mellitus 419443 09 E11.[id number]N, [address] [place] [address] 11/05/2023 09:03:57 11/05/2023 10:24:23 Type 2 diabetes mellitus 61628121 E11.[id number]N, [address] [place] [address] 12/01/2023 10:00:40 12/01/2023 11:09:38 Type 2 diabetes mellitus 68284124 E11.9 [id number] MATEO OSORIO [address] [place] [address] 12/16/2023 14:08:11 12/16/2023 15:22:54 Type 2 diabetes mellitus 84521831 E11.9 Diabetes mellitus 082579 09 E11.9 [id number] MATEO OSORIO [address] [place] [address] 03/18/2024 14:12:36 03/18/2024 15:12:33 Administration of SARS-CoV-2 vaccine 4523770125 Z23 Administra tion of influenza vaccine 13667408 Z23 Type 2 maddison betes mellitus 19971689 E11.9 History of raised blood lipids 785534587 Z86.39 Non-alcoho lic fatty liver 967591817 K76.0 Screening mammography of bilateral breasts 4631051083 82966 Z12.31 Hypertensive disorder 38 862861 I10 [id number] MATEO Ojeda [address] [place] [address] 05/03/2024 13:05:22 05/03/2024 14:30:27 Essential tremor 508268271 G25.0 Snoring 93037091 R06.83 Poor balance 329654570 R 27.8 Pain in ri ght hip joint 4348885223 00026 M25.551 Health Concerns Section Related Observation LastModified by Organization Detai ls LastModified Time None Recorded Concern Status LastModified by Organization Details LastModified Time None Recorded Advance Directives Directive None Recorded Payers Encounter Date Sequence Insurance Name Policy Number Policy Barreto Covered Member ID Barreto Member ID Guarantor Name 11/05/2023 1 [place] [facility] Skye Hinton [id number] Skye Hinton 11/05/2023 2 [employer] HE[employer] OPTIONS (MEDICARE SUPPLEMENT) Skye Hinton [id number] Skye Hinton 12/01/2023 1 [place] [facility] Skye Hinton [id number] Skye Hinton 12/01/2023 2 [employer] HE[employer] OPTIONS (MEDICARE SUPPLEMENT) Skye Hinton [id number] Skye Hinton 12/16/2023 1 [place] [facility] Skye Hinton [id number] Skye Hinton 12/16/2023 2 [employer] OPTIONS (MEDICARE SUPPLEMENT) Skye Hinton [id number] Skye Hinton 03/18/2024 1 [place] [facility] Skye Hinton [id number] Skye Hinton 03/18/2024 2 [employer] HE[employer] OPTIONS (MEDICARE SUPPLEMENT) Skye Hinton [id number] Skye Hinton 05/03/2024 1 [place] [facility] Skye Hinton [id number] Skye Hinton 05/03/2024 2 [employer] OPTIONS (MEDICARE SUPPLEMENT) Skye Hinton [id number] Skye Hinton Notes Date Note Type Note Provider Name and Address Organization Details Recorded Time 11/05/2023 text/html Skye reports georgiana t she is supposed to take metformin twice a day, but I forget- I'm on too many medications anyway. When asked how long she has had DM, she states about 4 months, (was diagnosed w DM2 in 2017).Comes in with her sister, Heather. EULALIA PABLO RDN, CDE [address] [place], [address], [place] [facility] 11/05/2023 16:41:40 12/01/2023 text/html I cut out the lemonade, and had only one cookie in the past 2 weeks.Reports that she has not increased metformin dose to 2 pills x 2 daily as advised by provider. I'm taking 1 pill twice day; do I need to go up or not?Pt's sister, Heather, accompanying Skye today. EULALIA PABLO RDN, CDE [address] [place], [address], [place] [facility] 12/01/2023 14:32:56 12/16/2023 text/html Skye is back wit h her sister Heather. She is still on metformin twice a day 500 mg. She never increased to two and two. Glendy is helping her check bg twice a day fasting and two hours pc. She is willing to increase Discussed goal is toget 7 or less. Reviewed normal fasting and two hour goals. Doesn't know to check her feet. Had a vulvar abcess all better now. Doesn't wear socks or slippers in the house cholesterol at goal MATEO OSORIO [address] [place], [address], [place] [facility] 12/16/2023 15:13:23 03/18/2024 text/html Skye is here for follow up on diabetes. Her hga1c is 7.2 Skye is here with her sister for follow up she has no concerns Feeling well. Remembering to take her pills Glendy is helping her stay on trackShe labled each one. MATEO OSORIO [address] [place], [address], [place] [facility] 03/18/2024 15:05:13 05/03/2024 text/html Skye is here for falling a lot transitioning from sitting to standing.- I got up off the couch and I just started falling.- Frequent dizziness and light-headedness x a few months.- BP sitting 140/86, BP standing 138/90 Medications and allergies verified... Jelena Bhupendra, RN. 1:19 PM - 2:12 PM Skye [...] She used to be active at the [facility], but she is not allowed to now, [...] it started bothering her more. MATEO Ojeda [address] [place] [address], [address], [place] [facility] 05/04/2024 12:40:33 OBGyn Episode No OBEpisode recorded.
--- OUTSIDE RECORDS SUMMARY | 2024-05-05 14:08 | XMS_ITS | Encounter Summary ---
Author Organization [facility] Address [address] [place] [address] Care Team Providers Care Cow Trimmer Name Role Phone Kizzy Nunez POLYSTYRENE MOLDING MACHINE TENDER Primary Care Provider [phone] Reason for Visit * Reason Comments New Patient Visit * Neurology Procedure (Routine) - Authorization Not Required Specialty Diagnoses / Procedures Referred By Rochelle smith Referred To Contact Neurology Diagnoses Memory impairment Procedures CONSULT NEUROLOGY Aime Vallejo MD Phone: tel: fax: [facility] [address] [place] [address] Phone: tel: fax: Referral ID Status Reason Start Date Expiration Date Visits Requested Visits Authorized [id number] Authorization Not Required 1 1 Encounter Details Date Type Department Care Team (Late st Contact Info) Description 07/02/2021 13:40 EST Office Visit [facility] [address] [place] [address] [id number] Alexandria Ann MD [address] [place] [address] 5667 MCI (mild cognitive impairment) (Primary Dx) Social History Tobacco Use Types Packs/Day Years Used Date Smoking Tobacco: Never Smokeless Tobacco: Never Comments Unknown Sex and Gender Information Value Date Recorded Sex Assigned at Not on file Legal Sex Female 18:16 EST Gender Identity Female 06/24/2021 11:17 EST Sexual Orientation Not on file documented as of this [...] - documented in this encounter Functional Status * Because of a physical, mental, or emotional condition, does this person have difficulty doing errands alone such as visiting a doctor's office or shopping? Answer Date of Assessment Author Yes 07/02/2021 13:52 EST documented as of this encounter Mental Status * Because of a physical, mental, or emotional condition, does this person have serious difficulty concentrating, remembering, or making decisions? Answer Entry Date Author Yes 07/02/2021 13:52 EST documented in this encounter Patient Instructions * Patient Instructions* Alexandria Ann - 07/02/2021 13:40 EST Your MoCA score is 26/30 today (normal) Plan: we will follow-up in February or March to repeat MoCA Follow-up with your PCP about tremor, migraine, and balance. We can see you in this office for these issues if necessary. 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 Her daughter moved into her house after her unexpectedly in February 2021. 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 Habits: non smoker; rare alcohol. Plays [employer] one evening a seek and volunteers at [employer] [facility] obtained from: [employer] and Mild Behavior Impairment checklists completed by daughter She has been followed by Dr. Aime Vallejo at [facility] for migraine, improved on Aimovig (D/Cd re: not covered by insurance). Other diagnoses: essential tremor; RLS Rx pramipexole 0.25 mg hs;fibromyalgia Rx duloxetine and gabapentin Onset cognitive changes: 6-8 months; progressive Examples: Within hours after discussing a plan with her daughter or sister she may forget and make other plans. She has missed important appointments. Her daughter and her sister are teaching her howto enter important dates on her cell telephone. If she is interrupted during a conversation she maylose her train of though and be unable [...] checkbook which Skye denied today, stating that hertremor interferes with writing checks. She shares cooking [...] social tact and sensitivity. Skye contested some ofthese characterizations. Her daughter was not present to provide further information today. Pertinent neuropsychiatric ROS: Longstanding insomnia and daytime fatigue, compensated by a nap several times a week. Poor vision. History of gait instability and several prior falls. History of depression. She states that her mood is not depressed at this time, and she may be sleeping better sinceshe is no longer worrying about her overnight. [...] 06/12/2016 MCV 89.6 06/12/2016 MCH 28.5 06/12/2016 MCHC 31.9 (L) 06/12/2016 14-point Review of Systems [...] for the 07/02/21 encounter (Office Visit) with Alexandria Ann MD Medication Sig Dispense Refill ??? [...] BY MOUTH AT ONSET OF MIGRAINE DIRECTED. MAY REPEAT IN 2 HOURS X 1 NEEDED No Known Allergies Exam: BP 132/78 Pulse 56 Resp 12 General appearance: Alert, pleasant; accompanied today by sister (Heather). Engaged and cooperativefor office MoCA screening MoCA score 26/30, including extra point for education 12 years Executive/visuospatial: 4/5. Obvious kinetic tremor while writing and drawing Namin/3 Attention Immediate recall 5 words (not scored): 5/5 second trial Digit span 2/2 Letter list 06/15 Serial 7s 2/3 Language Repeat sentences: 1 Categorical fluency: 06/15 (12 words/60 sec) Abstraction (analogies): 2/2 Delayed recall: 3/5; with cuein Orientation: 11/18 Assessment and Plan: Encounter Diagnoses Name Primary? MCI (mild cognitive impairment) Yes Comment: Although the MoCA score today is normal at 26/30, Skye's sister and daughter report several examples of short-term memory impairment and some decline in functional skills, e.g., medications,checkbook. Skye also mentioned poor balance and history of falls today which I did not have time toassess, although her gait as she was leaving [...] seeing one of my colleagues in this office for migraine as necessary. Patient Instructions Your MoCA score is 26/30 today (normal) Plan: we will follow-up in February or March to repeat MoCA Follow-up with your PCP about tremor, migraine, and balance. We can see you in this office for these issues if necessary. Alexandria Ann MD I spent a total of 60 minute face to face, including 25 minutes new history and 35 minutes administration MoCA, result review and discussion with the patient documented in this encounter Plan of Treatment Not on file documented as of this encounter Visit Diagnoses Diagnosis MCI (mild cognitive impairment)- Primary Mild cognitive impairment, so stated documented in this encounter Historical Medications * This list may reflect changes made after this encounter. gabapentin (NEURONTIN) 300 mg capsuleIndication s:fibromyalgia Take 900 mg by mouth daily. DULoxetine (CYMBALTA) 30 mg delayed release capsule TAKE 1 CAPSULE BY MOUTH ONCE DAILY IN THE MORNING FOR 7 DAYS THEN INCREASE TO 2 CAPSULES DAILY FOR DEPRESSION/ANX IETY 06/24/2021 PROCHAMBER As directed. 05/07/2021 benzonatate (TESSALON) 200 mg capsule Take by mouth 2 times daily. 05/08/2021 pravastatin (PRAVACHOL) 20 mg tablet Take 20 mg by mouth. metoprolol TARtrate (LOPRESSOR) 25 mg tablet Take 25 mg by mouth as needed. losartan (COZAAR) 50 mg tablet 05/21/2021 pramipexole (MIRAPEX) 0.25 mg tablet TAKE 1 TABLET BY MOUTH TWICE DAILY FOR RESTLESS LEGS 03/25/2021 metFORMIN (GLUCOPHAGE) 500 mg tablet 04/01/2021 SUMAtriptan (IMITREX) 100 mg tablet TAKE 1 TABLET BY MOUTH AT ONSET OF MIGRAINE DIRECTED. MAY REPEAT IN 2 HOURS X 1 NEEDED 05/13/2021 added in this encounter Care Teams Cow Trimmer Relationship Specialty Start Date End Date Kizzy Nunez NP [address] [place] [phone] PCP - General 12/09/12 documented as of this encounter
--- OUTSIDE RECORDS SUMMARY | 2024-05-05 14:08 | XMS_ITS | Referral Summary ---
Author Organization [facility] Address [address] [place] [address] Care Team Providers Care Decal Decorator Name Role Phone Kizzy Nunez RECOVERY UNIT OPERATOR Primary Care Provider [phone] Allergies No known active allergies Medications SUMAtriptan (IMITREX) 100 mg tablet TAKE 1 TABLET BY MOUTH AT ONSET OF MIGRAINE DIRECTED. MAY REPEAT IN 2 HOURS X 1 NEEDED 05/13/2021 Active metFORMIN (GLUCOPHAGE) 500 mg tablet 04/01/2021 Activ e pramipexole (MIRAPEX) 0.25 mg tablet TAKE 1 TABLET BY MOUTH TWICE DAILY FOR RESTLESS LEGS 03/25/2021 Active losartan (COZAAR) 50 mg tablet 05/21/2021 Active metoprolol TARtrate (LOPRESSOR) 25 mg tablet Take 25 mg by mouth as needed. Active pravastatin (PRAVACHOL) 20 mg tablet Take 20 mg by mouth. Active benzonatate (TESSALON) 200 mg capsule Take by mouth 2 times daily. 05/08/2021 Active PROCHAMBER As directed. 05/07/2021 Activ e DULoxetine (CYMBALTA) 30 mg delayed release capsule TAKE 1 CAPSULE BY MOUTH ONCE DAILY IN THE MORNING FOR 7 DAYS THEN INCREASE TO 2 CAPSULES DAILY FOR DEPRESSION/AN XIETY 06/24/2021 Active gabapentin (NEURONTIN) 300 mg capsuleIndicati ons:fibromyalgi a Take 900 mg by mouth daily. Active Social History Tobacco Use Types Packs/Day Years Used Date Smoking Tobacco: Never Smokeless Tobacco: Never Comments Unknown Sex and Gender Information Value Date Recorded Sex Assigned at Not on file Legal Sex Female 18:16 EST Gender Identity Female 06/24/2021 11:17 EST Sexual Orientation Not on file Last Filed Vital Signs Vital Sign Reading Time Taken Comments Blood Pressure 132/78 07/02/2021 1357 EST Pulse 56 07/02/2021 1357 EST Temperature - - Respiratory Rate 12 07/02/2021 1357 EST Oxygen Saturation - - Inhaled Oxygen Concentration - - Weight - - Height - - Body Mass Index - - Functional Status * Because of a physical, mental, or emotional condition, does this person have difficulty doing errands alone such as visiting a doctor's office or shopping? Answer Date of Assessment Author Yes 07/02/2021 13:52 EST Mental Status * Because of a physical, mental, or emotional condition, does this person have serious difficulty concentrating, remembering, or making decisions? Answer Entry Date Author Yes 07/02/2021 13:52 EST Plan of Treatment Not on file Procedures Procedure Name Priority Date/Time Associated Diagnosis Comments HEPATITIS C AB W REFLEX TO HCV RNA BY PCR Routine 12/22/2016 8:30 EDT from Last 3 Months or Most Recently Relevant to Health Maintenance Results * HEPATITIS C AB W REFLEX TO HCV RNA BY PCR (12/22/2016 8:30 EDT) HEPATITIS C AB W/REFLEX - [facility] Negative 12/22/2016 14:16 EDT [facility] Comment:Expected Values: Neg ative. 12/22/2016 8:30 EDT 12/22/2016 13:01 EDT Narrative [facility] - 12/22/2016 14:16 EDT Does PT Have a Latex Allergy? NO us Reva GALINDO CHEMISTRY & BLOOD GAS ORDERABLES Final Result [facility] from Last 3 Months or Most Recently Relevant to Health Maintenance Insurance [facility] [place]ICARE [place] Care Teams Decal Decorator Relationship Specialty Start Date End Date Kizzy Nunez NP [address] [place] [phone] PCP - General 12/09/12
--- OUTSIDE RECORDS SUMMARY | 2024-05-05 14:08 | XMS_ITS | Encounter Summary ---
Author Organization [facility] Address [address] [place] [address] Care Team Providers Care Physician Scientist Name Role Phone Kizzy Nunez HANGAR ATTENDANT Primary Care Provider [phone] Encounter Details Date Type Department Care Team (Late st Contact Info) Description 08/07/2017 Historical Results Only [facility] - [facility] - [address] [place] [address] [place], [place] [id number] Kendy Redd NP [address] [place] [address] Social History Tobacco Use Types Packs/Day Years Used Date Smoking Tobacco: Never Assessed Comments Unknown Sex and Gender Information Value Date Recorded Sex Assigned at Not on file Legal Sex Female 18:16 EST Gender Identity Female 06/24/2021 11:17 EST Sexual Orientation Not on file documented as of this encounter Plan of Treatment Not on file documented as of this encounter Procedures Procedure Name Priority Date/Time Associated Diagnosis Comments GLYCOHEMOGLOBIN POC - CV Routine 08/07/2017 16:33 EST documented in this encounter Results * (ABNORMAL) GLYCOHEMOGLOBIN POC - CV (08/07/2017 16:33 EST) Hemoglobin A1c 6.1(H) 4.0 - 6.0 % 08/07/2017 16:34 EST [facility] AVG CALCULATED GLUCOSE - [facility] 123(H) 60 - 115 MG/DL 08/07/2017 16:34 EST [facility] 08/07/2017 16:3 3 EST 08/07/2017 16:33 EST us Kendy Redd HANGAR ATTENDANT CHEMISTRY & BLOOD GAS ORDERABLES Final Result [facility] documented in this encounter Visit Diagnoses Not on filedocumented in this encounter Care Teams Physician Scientist Relationship Specialty Start Date End Date Kizzy Nunez, HANGAR ATTENDANT [address] [place] [phone] PCP - General 12/09/12 documented as of this encounter
--- OUTSIDE RECORDS SUMMARY | 2024-05-05 14:08 | XMS_ITS | Encounter Summary ---
Author Organization [facility] Address [address] [place] [address] Care Team Providers Care Telemarketer Name Role Phone Unavailable Primary Care Provider Unavailabl e Encounter Details Date Type Department Care Team (Late st Contact Info) Description 12/07/2012 Results Only [facility] Laboratory Services - [facility] ([facility]) [address] [place] [address] Shawn Zuleta, DO [address] [facility] TAMIR [address] [place], [place] [id number] Social History Tobacco Use Types Packs/Day Years [...] Procedure Name Priority Date/Time Associated Diagnosis Comments CYTOPATHOLOGY Routine 12/07/2012 0:00 EDT documented in this encounter Results * CYTOPATHOLOGY (12/07/2012 0:00 EDT) Pathology Report: CYTOPATHOLOGY REPORT Reports generated via electronic interface contain original data; however they are lacking the format of the original report. Caution should be taken when reading/interpreti ng unformatted reports. Name: ? TONY HINTON ? Accession #: ? [id number] : ? 1950 (Age: 62) ??F ?Collect Date: ? 12/07/2012 Location: ? [facility] ? Receive Date: ? 12/08/2012 Provider: ? SHAWN ZULETA DO Copy to: ?[employer]PLOYMENT PROGRAM REPRESENTATIVE ? CYTOLOGIC DIAGNOSIS: THYROID, LEFT LOWER LOBE, PARTIALLY CYSTIC NODULE, ULTRASOUND GUIDED FINE NEEDLE ASPIRATION: - Benign follicular nodule. - Background of chronic lymphocytic thyroiditis. See comment. ? COMMENT: Cytologic evaluation reveals bland follicular cells present in sheets and occasional complex microfollicular arrangements. ??Some of the follicular cells display Hurtheloid changes. ??A moderate amount of colloid is noted in the background. ??Lymphocytic inflammation is present imbedded within the follicular cell sheets. ??(Dr. Mcdonald)/[facility] Document reviewed and electronically signed by: ? JORY RENNER MD Report Date: ??12/08/2012 17:36 By the signature above, the attending physician certifies that he/she has personally conducted a gross and/or microscopic examination of the described specimens and rendered or confirmed the above diagnosis. Specimen Type: ? Thyroid, Fine Needle Aspiration, Left lower lobe Clinical History: ? Left lower lobe thyroid nodule. ??Family history of thyroid cancer. ? Rapid Interpretation: THYROID, LEFT LOWER POLE, PARTIALLY CYSTIC NODULE, ULTRASOUND GUIDED FINE NEEDLE ASPIRATION: Evaluation 1: ? Pass 1-3: ? Follicular cells and Hurthle cells, adequate but given scant nature, additional ?requested. ?Pass 4-5: ? Follicular and Hurthle cells. (Dr. Shahid Newton; 12/07/12 at 2:55 PM_ Gross Description: ? 9 fixed prepared slides, 2 air dried prepared slides, and 1 tube of Cytolyt were received and processed by selective cellular enhancement technique. ? End of Report JOHNNY AUGUSTE 12/07/2012 12/08/2012 9:1 3 EDT us Shawn Zuleta DO PATHOLOGY ORDERABLES Fi nal Result JOHNNY AUGUSTE [address] [place] [address] documented in this encounter Visit Diagnoses Not on filedocumented in this encounter
--- OUTSIDE RECORDS SUMMARY | 2024-05-05 14:08 | XMS_ITS | Encounter Summary ---
Author Organization Health system Address [address] [place] [address] Care Team Providers Care Planning Division Superintendent Name Role Phone Kizzy Nunez MARINE OIL TERMINAL SUPERINTENDENT Primary Care Provider [phone] Encounter Details Date Type Department Care Team (Late st Contact Info) Description 12/30/[address] [facility] - [facility] Lab - Main [place] [address] [place], [place] [id number] Reva Santacruz PA [address] [place] [phone] Social History Tobacco Use Types Packs/Day [...] Diagnosis Comments GLYCOHEMOGLOBIN POC - CV Routine 12/30/2016 9:11 EDT documented in this encounter Results * (ABNORMAL) GLYCOHEMOGLOBIN POC - CV (12/30/2016 9:11 EDT) Hemoglobin A1c 6.0 4.0 - 6.0 % 12/30/2016 9:[address] [facility] AVG CALCULATED GLUCOSE - [facility] 120(H) 60 - 115 MG/DL 12/30/2016 9:[address] [facility] 12/30/2016 9:11 EDT 12/30/2016 9:11 EDT us Reva GALINDO CHEMISTRY & BLOOD GAS ORDERABLES Final Result [facility] documented in this encounter Visit Diagnoses Not on filedocumented in this encounter Care Teams Planning Division Superintendent Relationship Specialty Start Date End Date Kizzy Nunez NP [address] [place] [phone] PCP - General 12/09/12 documented as of this encounter
--- OUTSIDE RECORDS SUMMARY | 2024-05-05 14:08 | XMS_ITS | Encounter Summary ---
Author Organization [facility] Address [address] [place] [address] Care Team Providers Care Fuse Spooler Name Role Phone Kizzy Nunez ERICA Primary Care Provider [phone] Encounter Details Date Type Department Care Team (Latest Contact Info) Description 08/04/2023 0:15 EST - 08/04/2023 23:59 EST Hospital Encounter [facility] Lab - Main [address] [address] [place]app[place] Adjuster, [facility] Lab Discharge Disposition: Home or Self Care Social History Tobacco Use Types Packs/Day Years Used Date Smoking Tobacco: Never Smokeless Tobacco: Never Comments Unknown Sex and Gender Information Value Date Recorded Sex Assigned at Not on file Legal Sex Female 18:16 EST Gender Identity Female 06/24/2021 11:17 EST Sexual Orientation Not on file documented as of this encounter Functional Status * Because of [...] 07/02/2021 13:52 EST documented in this encounter Medications at Time of Discharge benzonatate (TESSALON) 200 mg capsule Take by mouth 2 times daily. 05/08/2021 DULoxetine (CYMBALTA) 30 mg delayed release capsule TAKE 1 CAPSULE BY MOUTH ONCE DAILY IN THE MORNING FOR 7 DAYS THEN INCREASE TO 2 CAPSULES DAILY FOR DEPRESSION/ANX IETY 06/24/2021 gabapentin (NEURONTIN) 300 mg capsuleIndication s:fibromyalgia Take 900 mg by mouth daily. losartan (COZAAR) 50 mg tablet 05/21/2021 metFORMIN (GLUCOPHAGE) 500 mg tablet 04/01/2021 metoprolol TARtrate (LOPRESSOR) 25 mg tablet Take 25 mg by mouth as needed. pramipexole (MIRAPEX) 0.25 mg tablet TAKE 1 TABLET BY MOUTH TWICE DAILY FOR RESTLESS LEGS 03/25/2021 pravastatin (PRAVACHOL) 20 mg tablet Take 20 mg by mouth. PROCHAMBER As directed. 05/07/2021 SUMAtriptan (IMITREX) 100 mg tablet TAKE 1 TABLET BY MOUTH AT ONSET OF MIGRAINE DIRECTED. MAY REPEAT IN 2 HOURS X 1 NEEDED 05/13/2021 documented as of this encounter Discharge Disposition Disposition Code Departure Means Destination Home or Self Care documented in this encounter Plan of Treatment Not on file documented as of this encounter Visit Diagnoses Not on filedocumented in this encounter Care Teams Fuse Spooler Relationship Specialty Start Date End Date Kizzy Nunez NP [address] [place] [phone] PCP - General 12/09/12 documented as of this encounter
--- OUTSIDE RECORDS SUMMARY | 2024-05-05 14:08 | XMS_ITS | Encounter Summary ---
Author Organization [facility] Address [address] [place] [address] Care Team Providers Care Beck Tender Name Role Phone Kizzy Nunez PET WALKER Primary Care Provider [phone] Encounter Details Date Type Department Care Team (Late st Contact Info) Description 03/19/2022 Results Only [facility] Laboratory Services - [facility] [address] [place] [address] Miley Baldwin PA [address] [place] [address] Social History Tobacco Use Types Packs/Day Years [...] 07/02/2021 13:52 EST documented in this encounter Plan of Treatment Not on file documented as of this encounter Procedures Procedure Name Priority Date/Time Associated Diagnosis Comments HEMOGLOBIN A1C Routine 03/19/2022 14:15 EDT documented in this encounter Results * (ABNORMAL) HEMOGLOBIN A1C (03/19/2022 14:15 EDT) HgB A1C% 6.8(H) 4.0 - 6.0 % [facility] [[email or web address]] Average Calculated 146(H) 60 - 115 mg/dL [facility] [[email or web address]] 03/19/2022 14:1 5 EDT us Miley GALINDO CHEMISTRY & BLOOD GAS ORDERAB LES Final Result [facility] [address] [place] [address] documented in this encounter Visit Diagnoses Not on filedocumented in this encounter Care Teams Beck Tender Relationship Specialty Start Date End Date Kizzy Nunez, PET WALKER [address] [place] [phone] PCP - General 12/09/12 documented as of this encounter
--- OUTSIDE RECORDS SUMMARY | 2024-05-05 14:08 | XMS_ITS | Encounter Summary ---
Author Organization [facility] Address [address] [place] [address] Care Team Providers Care Technical Writer Name Role Phone Kizzy Nunez ANIMAL PATHOLOGY TEACHER Primary Care Provider [phone] Encounter Details Date Type Department Care Team (Late st Contact Info) Description 06/12/2016 Historical Results Only [facility] - [facility] Lab - Main [place] [address] [place] [address] Reva Santacruz, MATEO [address] [place] [phone] Social History Tobacco Use Types Packs/Day [...] Procedure Name Priority Date/Time Associated Diagnosis Comments VITAMIN D 25 POC - CV Routine 06/12/2016 13:11 EST LIPID PANEL POC - CV Routine 6 8:39 EST COMPREHENSIVE METABOLIC POC - CV Routine 06/12/2016 8:39 EST MAGNESIUM POC - CV Routine 06/12/2016 8:39 EST CBC W/PLT & DIFF,POINT OF CARE - [facility] Routine 06/12/2016 8:39 EST POCT CHOLESTEROL LDL ([facility]) Routine 06/12/2016 8:39 EST documented in this encounter Results * VITAMIN D 25 POC - [facility] (06/12/2016 13:11 EST) VIT D, 25 HYDROXY - [facility] 45 30 - 100 NG/ML 06/16/2016 13:13 EST [facility] 06/12/2016 13:1 1 EST 06/12/2016 13:11 EST us Reva GALINDO CHEMISTRY & BLOOD GAS ORDERABLES Final Result [facility] * MAGNESIUM POC - [facility] (06/12/2016 8:39 EST) Magnesium 2.00 1.60 - 2.30 MG/DL 06/13/2016 8:39 EST [facility] 06/12/2016 8:39 EST 06/12/2016 8:39 EST us Reva GALINDO CHEMISTRY & BLOOD GAS ORDERABLES Final Result Performing Organization Address City/[facility]/ZIP Co de Phone Number [facility] * LIPID PANEL POC - [facility] (06/12/2016 8:39 EST) Triglyceride 103 0.00 - 150.00 MG/DL 06/13/2016 8:39 EST [facility] Cholesterol 122 0.00 - 200.00 MG/DL 06/13/2016 8:39 EST [facility] HDL 56 40.00 - 60.00 MG/DL 06/13/2016 8:39 EST [facility] 06/12/2016 8:39 EST 06/12/2016 8:39 EST us Reva GALINDO CHEMISTRY & BLOOD GAS ORDERABLES Final Result [facility] * (ABNORMAL) POCT CHOLESTEROL LDL ([facility]) (06/12/2016 8:39 EST) LDL CHOLESTEROL - [facility] 45(L) 60 - 100 mg/dl 06/13/2016 8:39 [facility] 06/12/2016 8:39 EST 06/12/2016 8:39 EST us Reva GALINDO POINT OF CARE TEST ORDERABLES Fi nal Result [facility] * (ABNORMAL) COMPREHENSIVE METABOLIC POC - [facility] (06/12/2016 8:39 EST) Pathologist [facility] Albumin % 3.8 3.50 - 5.00 G/DL 06/13/2016 8:39 [facility] ALKALINE PHOSPHATASE - [facility] 159(H) 38.00 - 126.00 U/L 06/13/2016 8:39 [facility] BILIRUBIN TOTAL 0.7 0.20 - 1.30 MG/DL 06/13/2016 8:39 [facility] BUN - [facility] 11 7.00 - 20.00 MG/DL 06/13/2016 8:39 [facility] CALCIUM - [facility] 9.5 8.50 - 10.50 MG/DL 06/13/2016 8:39 [facility] Chloride 104 98.00 - 107.00 MMOL/L 06/13/2016 8:39 [facility] CO2 Total 23 22.00 - 30.00 MMOL/L 06/13/2016 8:39 [facility] CREATININE 0.8 0.70 - 1.50 MG/DL 06/13/2016 8:39 [facility] Anion Gap 13 7 - 17 06/13/2016 8:39 [facility] GLUCOSE - [facility] 91 70.00 - 100.00 MG/DL 06/13/2016 8:39 [facility] Potassium 5.2(H) 3.50 - 5.10 MMOL/L 06/13/2016 8:39 [facility] Sodium 140 137.00 - 145.00 MMOL/L 06/13/2016 8:39 [facility] TOTAL PROTEIN - [facility] 7.3 6.30 - 8.20 G/DL 06/13/2016 8:39 [facility] SGOT/AST - [facility] 49(H) 15.00 - 46.00 U/L 06/13/2016 8:39 [facility] SGPT/ALT - [facility] 62 13.00 - 69.00 U/L 06/13/2016 8:39 [facility] 06/12/2016 8:39 EST 06/12/2016 8:39 EST us Reva GALINDO CHEMISTRY & BLOOD GAS ORDERABLES Final Result [facility] * (ABNORMAL) CBC W/PLT & DIFF,POINT OF CARE - [facility] (06/12/2016 8:39 EST) Gran # 1.8 1.4 - 6.5 X10E3/UL 06/13/2016 8:39 [facility] GRAN % - [facility] 44.2 42.2 - 75.2 % 06/13/2016 8:39 [facility] HEMATOCRIT - [facility] 39.3 35.0 - 60.0 % 06/13/2016 8:39 [facility] HEMOGLOBIN - [facility] 12.5 11.0 - 18.0 G/DL 06/13/2016 8:39 [facility] LYMPH # - [facility] 1.9 1.2 - 3.4 X10E3/UL 06/13/2016 8:39 [facility] LYMPH% - [facility] 46.7 20.5 - 51.1 % 06/13/2016 8:39 [facility] MEAN CORPUSCULAR HGB - [facility] 28.5 27.0 - 31.0 PG 06/13/2016 8:39 [facility] MEAN CORPUSCULAR HGB CONC - [facility] 31.9(L) 33.0 - 37.0 G/DL 06/13/2016 8:39 [facility] MEAN CELL VOLUME - [facility] 89.6 80.0 - 99.9 FL 06/13/2016 8:39 [facility] MONO # - [facility] 0.4 0.1 - 0.6 X10E3/UL 06/13/2016 8:39 [facility] MONO% - [facility] 9.1 1.7 - 9.3 % 06/13/2016 8:39 [facility] MEAN PLATELET VOLUME - [facility] 6.7(L) 7.8 - 11.0 FL 06/13/2016 8:39 [facility] PLATELET COUNT 278 150 - 450 X10E3/UL 06/13/2016 8:39 [facility] RED BLOOD COUNT - [facility] 4.39 4.00 - 6.00 X10E6/UL 06/13/2016 8:39 [facility] RED CELL DISTRI WIDTH - [facility] 14.8(H) 11.6 - 13.7 % 06/13/2016 8:39 [facility] WHITE BLOOD COUNT - [facility] 4.0(L) 4.5 - 10.5 X10E3/UL 06/13/2016 8:39 [facility] 06/12/2016 8:39 EST 06/12/2016 8:39 EST us Reva GALINDO CHEMISTRY & BLOOD GAS ORDERABLES Final Result [facility] documented in this encounter Visit Diagnoses Not on filedocumented in this encounter Care Teams Technical Writer Relationship Specialty Start Date End Date Kizzy Nunez, ANIMAL PATHOLOGY TEACHER [address] [place] [phone] PCP - General 12/09/12 documented as of this encounter
--- OUTSIDE RECORDS SUMMARY | 2024-05-05 14:08 | XMS_ITS | Encounter Summary ---
Author Organization [facility] Address [address] [place] [address] Care Team Providers Care Buzzsaw Operator Name Role Phone Kizzy Nunez INSURANCE POLICY ISSUE CLERK Primary Care Provider [phone] Encounter Details Date Type Department Care Team (Late st Contact Info) Description 08/08/2019 Results Only [facility] [phone] Reva Santacruz, MATEO [address] [place] [phone] Social History Tobacco Use Types [...] Procedure Name Priority Date/Time Associated Diagnosis Comments COMPREHENSIVE METABOLIC POC - [facility] Routine 08/08/2019 12:26 EST documented in this encounter Results * (ABNORMAL) COMPREHENSIVE METABOLIC POC - [facility] (08/08/2019 12:26 EST) Albumin % 4.2 3.50 - 5.00 G/DL 08/08/2019 12:[address] [facility] ALKALINE PHOSPHATASE - [facility] 71 38.00 - 126.00 U/L 08/08/2019 12:27 [facility] BILIRUBIN TOTAL 0.5 0.20 - 1.30 MG/DL 08/08/2019 12:27 [facility] BUN - [facility] 15 7.00 - 20.00 MG/DL 08/08/2019 12:27 [facility] CALCIUM - [facility] 9.6 8.50 - 10.50 MG/DL 08/08/2019 12:27 [facility] Chloride 104 98.00 - 107.00 MMOL/L 08/08/2019 12:27 [facility] CO2 Total 26 22.00 - 30.00 MMOL/L 08/08/2019 12:27 [facility] CREATININE 0.6(L) 0.70 - 1.50 MG/DL 08/08/2019 12:27 [facility] Anion Gap 9 7 - 17 08/08/2019 12:27 [facility] GLUCOSE - [facility] 145(H) 70.00 - 100.00 MG/DL 08/08/2019 12:27 [facility] Potassium 4.3 3.50 - 5.10 MMOL/L 08/08/2019 12:27 [facility] Sodium 139 137.00 - 145.00 MMOL/L 08/08/2019 12:27 [facility] TOTAL PROTEIN - [facility] 7.5 6.30 - 8.20 G/DL 08/08/2019 12:27 [facility] SGOT/AST - [facility] 28 15.00 - 46.00 U/L 08/08/2019 12:27 [facility] SGPT/ALT - [facility] 34 13.00 - 69.00 U/L 08/08/2019 12:27 [facility] 08/08/2019 12:2 6 EST 08/08/2019 12:26 [facility] - 08/08/2019 12:27 [facility] CHRONIC RENAL IMPAIRMENT IS DEFINED GFR <60 MULTIPLY RESULT BY 1.210 FOR PATIENTS EGFR CALCULATED USING THE IDMS-TRACEABLE MDRD STUDY us Reva GALINDO CHEMISTRY & BLOOD GAS ORDERABLES Final Result [facility] documented in this encounter Visit Diagnoses Not on filedocumented in this encounter Care Teams Buzzsaw Operator Relationship Specialty Start Date End Date Kizzy Nunez, INSURANCE POLICY ISSUE CLERK [address] [place] [phone] PCP - General 12/09/12 documented as of this encounter
--- OUTSIDE RECORDS SUMMARY | 2024-05-05 14:08 | XMS_ITS | Encounter Summary ---
Author Organization [facility] Address [address] [place] [address] Care Team Providers Care Field Service Technician Name Role Phone Kizzy Nunez INSPECTOR SHEET METAL PARTS Primary Care Provider [phone] Encounter Details Date Type Department Care Team (Late st Contact Info) Description 08/08/2019 Results Only [facility]- [facility] [phone] Reva Santacruz, MATEO [address] [place] [phone] Social History Tobacco Use Types [...] Procedure Name Priority Date/Time Associated Diagnosis Comments LIPID PANEL POC - [facility] Routine 08/08/2019 12:26 EST documented in this encounter Results * (ABNORMAL) LIPID PANEL POC - [facility] (08/08/2019 12:26 EST) Triglyceride 127 0.00 - 150.00 MG/DL 08/08/2019 12:27 EST [facility] Cholesterol 186 0.00 - 200.00 MG/DL 08/08/2019 12:27 [facility] HDL 62(H) 40.00 - 60.00 MG/DL 08/08/2019 12:27 [facility] 08/08/2019 12:2 6 EST 08/08/2019 12:26 EST Narrative [facility] - 08/08/2019 12:27 EST CHRONIC RENAL IMPAIRMENT IS DEFINED GFR <60 MULTIPLY RESULT BY 1.210 FOR PATIENTS EGFR CALCULATED USING THE IDMS-TRACEABLE MDRD STUDY us Reva GALINDO CHEMISTRY & BLOOD GAS ORDERABLES Final Result [facility] documented in this encounter Visit Diagnoses Not on filedocumented in this encounter Care Teams Field Service Technician Relationship Specialty Start Date End Date Kizzy Nunez NP [address] [place] [phone] PCP - General 12/09/12 documented as of this encounter
--- OUTSIDE RECORDS SUMMARY | 2024-05-05 14:08 | XMS_ITS | Encounter Summary ---
Author Organization [facility] Address [address] [place] [address] Care Team Providers Care Mortgage Loan Officer Originator Name Role Phone Kizzy Nunez WIRE RIGGER Primary Care Provider [phone] Encounter Details Date Type Department Care Team (Late st Contact Info) Description 03/22/2019 Results Only [facility] - Main [address] [address] Miley Baldwin PA [address] [place] [address] Social History Tobacco Use Types Packs/Day Years [...] Procedure Name Priority Date/Time Associated Diagnosis Comments POCT URINALYSIS Routine 03/22/2019 9:47 EDT documented in this encounter Results * (ABNORMAL) POCT URINALYSIS (03/22/2019 9:47 EDT) URINE APPEARANCE - [facility] Clear CLEAR 03/22/2019 9:47 EDT [facility] URINE BILIRUBIN - DIPSTICK - [facility] Negative NEGATIVE 03/22/2019 9:47 EDT [facility] URINE BLOOD - [facility] Negative NEGATIVE 03/22/2019 9:47 EDT [facility] URINE COLOR - [facility] Yellow YELLOW 03/22/2019 9:47 EDT [facility] URINE GLUCOSE - [place] - [facility] Negative NEGATIVE 03/22/2019 9:47 EDT [facility] URINE KETONE - [facility] Negative NEGATIVE 03/22/2019 9:47 EDT [facility] URINE LEUK ESTERASE - [facility] Trace NEGATIVE 03/22/2019 9:47 EDT [facility] URINE NITRITE - [place] - [facility] Negative NEGATIVE 03/22/2019 9:47 EDT [facility] URINE PH - [facility] 6.0 () 9 9:47 EDT [facility] URINE PROTEIN - D[place] - [facility] Negative NEGATIVE 03/22/2019 9:47 EDT [facility] URINE SPECIFIC GRAVITY - [facility] >=1.030(H) () 03/22/2019 9:47 EDT [facility] URINE UROBILINOGEN - DIP[place] - [facility] 1.0 0.2 - 1.0 EU/DL 03/22/2019 9:47 EDT [facility] 03/22/2019 9:47 EDT 03/22/2019 9:47 EDT us Miley GALINDO POINT OF CARE TEST ORDERABLES Final Result [facility] documented in this encounter Visit Diagnoses Not on filedocumented in this encounter Care Teams Mortgage Loan Officer Originator Relationship Specialty Start Date End Date Kizzy Nunez NP [address] [place] [phone] PCP - General 12/09/12 documented as of this encounter
--- OUTSIDE RECORDS SUMMARY | 2024-05-05 14:08 | XMS_ITS | Encounter Summary ---
Author Organization [facility] Address [address] [place] [address] Care Team Providers Care Automotive Starter Repairer Name Role Phone Kizzy Nunez FLY WINDER Primary Care Provider [phone] Encounter Details Date Type Department Care Team (Late st Contact Info) Description 08/04/2023 [facility] [address] [place] [address] Miley Baldwin PA [address] [place], [place] Encounter for general adult medical examination with abnormal findings (Primary Dx) Social History Tobacco Use Types [...] on file documented as of this encounter Results * (ABNORMAL) VITAMIN B12 (08/04/2023 13:30 EST) Vitamin B12 >1,000(H) 211 - 911 pg/mL 08/05/2023 14:23 EST [facility] Blood VENOUS BLOOD / Unknown Venipuncture / Unknown 08/04/2023 13:30 EST 08/05/2023 12:45 EST Narrative [facility] - 08/05/2023 14:23 EST The results of this assay can be falsely elevated due to the consumption of Biotin. us Miley GALINDO CHEMISTRY & BLOOD GAS ORDERAB LES Final Result Performing Organization Address City/State/[facility] Co de Phone Number [facility] [address] [place] [address] documented in this encounter Visit Diagnoses Diagnosis Encounter for general adult medical examination with abnormal findings- Primary Unspecified general medical examination documented in this encounter Care Teams Automotive Starter Repairer Relationship Specialty Start Date End Date Kizzy Nunez, ERICA [address] [place] [phone] PCP - General 12/09/12 documented as of this encounter
--- OUTSIDE RECORDS SUMMARY | 2024-05-05 14:08 | XMS_ITS | Encounter Summary ---
Author Organization [facility] Address [address] [place] [address] Care Team Providers Care Putter In Name Role Phone Kizzy Nunez ORACLE ENDECA CONSULTANT Primary Care Provider [phone] Encounter Details Date Type Department Care Team (Late st Contact Info) Description 04/30/2022 Lab Requisition [facility] Pathology & Laboratory Medicine - [facility] [address] [place] [address] Ruslan López MD [address] [place] [id number] Disorder of thyroid, unspecified Social History Tobacco Use Types Packs/Day Years [...] Procedure Name Priority Date/Time Associated Diagnosis Comments NON ORTHOPEDIC RADIOLOGIC TECHNOLOGIST/FNA CYTOLOGY Today 04/29/2022 11:35 EST Disorder of thyroid, unspecified documented in this encounter Results * NON ORTHOPEDIC RADIOLOGIC TECHNOLOGIST/FNA CYTOLOGY (04/29/2022 11:35 EST) Amendment Comment This report is amended to clarify that Dr. Pérez was the pathologist who provided the rapid interpretation. There is no change in diagnosis. 08/13/2022 10:57 [facility] Addendum Comment The purpose of this addendum is to clarify where the technical and professional components of this case were performed. No changes to the diagnosis section or other sections of the report were made. The technical component of the specimen processing was performed at the [facility] Pathology Department, [address] [place] [address] (CLIA [id number]). The professional component of the specimen evaluation (slide review and issuing of the final diagnosis) was performed at [facility], [address] [place] [address] (CLIA License Number [id number]). 08/13/2022 10:57 [facility] Addendum electronically signed by Concepcion Pérez MD on 08/13/2022 at 1057 Note to Patient The following pathology results have been interpreted by your pathologist and may be available to you before your health provider has had the opportunity to review them. Please allow time for your provider to receive these results and explore management options, if applicable. 08/13/2022 10:57 [facility] Final Diagnosis A. LEFT THYROID, NODULE, ULTRASOUND-GUIDED FINE NEEDLE ASPIRATION: - Hypocellular specimen with features most consistent with benign follicular nodule. See comment. 08/13/2022 10:57 [facility] Diagnosis Comment The specimen is hypocellular but does fulfill minimal adequacy criteria according to the Emeigh system. Rare, small groups of follicular epithelial cells are present, some of which show nuclear crowding. While the findings are favored to represent a benign follicular nodule, continued follow up is recommended, given the scant cellularity of the specimen. Intradepartmental consultation was obtained. 08/13/2022 10:57 [facility] Attestation By the signature below, the attending physician certifies that they have personally conducted a gross and/or microscopic examination of the described specimens and rendered or confirmed the above diagnosis. 08/13/2022 10:57 [facility] Amendment electronically signed by Concepcion Pérez MD on 05/06/2022 at 1203 at 1158 Rapid Diagnosis A. LEFT THYROID NODULE, ULTRASOUND GUIDED FINE NEEDLE ASPIRATION: Rapid on site Evaluation: Passes 1-3: Predominantly fluid and blood. Rare follicular epithelial groups present. This Rapid on site evaluation was performed by Dr. Pérez at [facility] assisting Dr. Newman on 04/28/2022 at 11:35 AM. 08/13/2022 10:57 [facility] Clinical History Left thyroid nodule; E07.9 08/13/2022 10:57 [facility] Gross Description A. 6 fixed prepared slides, 3 air dried prepared slides, and 1 tube of CytoLyt were received and processed by selective cellular enhancement technique. 08/13/2022 10:57 [facility] Performing Lab [facility] 08/13/2022 10:57 [facility] Scanned Images 08/13/2022 10:57 [facility] Fine Needle Aspirate ENTIRE LEFT LOBE OF THYROID GLAND / Unknown 04/29/2022 11:35 EST 04/30/2022 6:52 EST us Ruslannaga Lópze MD PATHOLOGY ORDERABLES Edited Resu lt - Final [facility] [address] [place] [address] [facility] [address] [place] [address] documented in this encounter Visit Diagnoses Diagnosis Disorder of thyroid, unspecified documented in this encounter Care Teams Putter In Relationship Specialty Start Date End Date Kizzy Nunez NP [address] [place] [phone] PCP - General 12/09/12 documented as of this encounter
--- OUTSIDE RECORDS SUMMARY | 2024-05-05 14:08 | XMS_ITS | Encounter Summary ---
Author Organization [facility] Address [address] [place] [address] Care Team Providers Care Barrel Leveler Name Role Phone Kizzy Nunez SUPERVISOR CHASSIS ASSEMBLY Primary Care Provider [phone] Encounter Details Date Type Department Care Team (Late st Contact Info) Description 12/22/2016 Historical Results Only [facility] - Main [place] [address] [place] [address] Reva Santacruz PA [address] [place] [phone] Social History Tobacco Use Types Packs/Day [...] Associated Diagnosis Comments LIPID PANEL POC - [facility] Routine 12/22/2016 13:00 EDT documented in this encounter Results * (ABNORMAL) LIPID PANEL POC - [facility] (12/22/2016 13:00 EDT) Triglyceride 68 0.00 - 150.00 MG/DL 12/22/2016 13:01 EDT [facility] Cholesterol 161 0.00 - 200.00 MG/DL 12/22/2016 13:01 [facility] HDL 77(H) 40.00 - 60.00 MG/DL 12/22/2016 13:01 EDT [facility] 12/22/2016 13:0 0 EDT 12/22/2016 13:00 EDT us Reva GALINDO CHEMISTRY & BLOOD GAS ORDERABLES Final Result [facility] documented in this encounter Visit Diagnoses Not on filedocumented in this encounter Care Teams Barrel Leveler Relationship Specialty Start Date End Date Kizzy Nunez, SUPERVISOR CHASSIS ASSEMBLY [address] [place] [phone] PCP - General 12/09/12 documented as of this encounter
--- OUTSIDE RECORDS SUMMARY | 2024-05-05 14:08 | XMS_ITS | Encounter Summary ---
Author Organization [facility] Address [address] [place] [address] Care Team Providers Care Smearer Name Role Phone Kizzy Nunez COUNTER HAND Primary Care Provider [phone] Encounter Details Date Type Department Care Team (Late st Contact Info) Description 12/22/2016 Historical Results Only [facility] - Main [place] [address] [place] [address] Reva Santacruz PA [address] [place] [phone] Social History Tobacco Use Types Packs/Day [...] Name Priority Date/Time Associated Diagnosis Comments POCT CHOLESTEROL LDL [place] Routine 12/22/2016 13:00 EDT documented in this encounter Results * POCT CHOLESTEROL LDL ([facility] (12/22/2016 13:00 EDT) LDL CHOLESTEROL - [facility] 70 60 - 100 mg/dl 12/22/2016 13:01 EDT [facility] 12/22/2016 13:0 0 EDT 12/22/2016 13:00 EDT Reva GALINDO POINT OF CARE TEST ORDERABLES Fi nal Result [facility] documented in this encounter Visit Diagnoses Not on filedocumented in this encounter Care Teams Smearer Relationship Specialty Start Date End Date Kizzy Nunez, ERICA [address] [place] [phone] PCP - General 12/09/12 documented as of this encounter
--- OUTSIDE RECORDS SUMMARY | 2024-05-05 14:08 | XMS_ITS | Encounter Summary ---
Author Organization [facility] Address [address] [place] [address] Care Team Providers Care Linderman Machine Operator Name Role Phone Kizzy Nunez QUALITY IMPROVEMENT SPECIALIST Primary Care Provider [phone] Encounter Details Date Type Department Care Team (Late st Contact Info) Description 05/02/2016 Results Only [facility] [phone] Rosa Wild, DO [address] [place] [phone] Social History Tobacco Use Types Packs/Day Years [...] Procedure Name Priority Date/Time Associated Diagnosis Comments SURGICAL PATHOLOGY Routine 05/02/2016 8:35 EST documented in this encounter Results * SURGICAL PATHOLOGY (05/02/2016 8:35 EST) Pathology Report: SURGICAL PATHOLOGY REPORT Reports generated via electronic interface contain original data; however they are lacking the format of the original report. Caution should be taken when reading/interpret ing unformatted reports. Name: ? TONY HINTON ? Accession #: ? [id number] ? : ? 1950 (Age: 65) ??F ? Collect Date: ? 05/02/2016 ? Location: ? [facility] ? Receive Date: ? 05/03/2016 ? Provider: ROSA WILD DO Copy to: ? Final Pathologic Diagnosis: A. SMALL INTESTINE, DUODENUM, BIOPSY: - ??Duodenal mucosa with no specific pathologic features. B. STOMACH, ANTRUM, BIOPSY: - ??Gastric antral mucosa with reactive (chemical) gastropathy. - ??No histological evidence of H. pylori on H&E stain. Document reviewed and electronically signed by: ARMAND MENDOZA MD Report ??Date: 05/05/2016 17:04 By the signature above, the attending physician certifies that he/she has personally conducted a gross and/or microscopic examination of the described specimens and rendered or confirmed the above diagnosis. Specimen(s) Received: A. ??Duodenum bx B. ??Gastric antrum Clinical History: Dysphagia Gross Description: A. ?Received in formalin labelled with proper patient identification (initials B, G) and duodenum bx are three pink-benavidez tissues (0.2 x 0.1 x 0.1 cm to 0.4 x 0.2 x 0.2 cm). Entirely submitted in block A1. B. ?Received in formalin labelled with proper patient identification (initials B, G) and gastric antrum are three pink-benavidez tissues (0.2 x 0.2 x 0.1 cm to 0.3 x 0.3 x 0.1 cm). Entirely submitted in block B1. MATEO Senior (ASCP) 05/05/2016 9:09 AM End of Report [facility] 05/02/2016 8:35 EST 05/03/2016 8:35 EST us Rosa Wild DO PATHOLOGY ORDERABLES Final Res ult [facility] [address] [place] [address] documented in this encounter Visit Diagnoses Not on filedocumented in this encounter Care Teams Linderman Machine Operator Relationship Specialty Start Date End Date Kizzy Nunez NP [address] [place] [phone] PCP - General 12/09/12 documented as of this encounter
--- OUTSIDE RECORDS SUMMARY | 2024-05-05 14:08 | XMS_ITS | Encounter Summary ---
Author Organization [facility] Address [address] [place] [address] Care Team Providers Care Chef Under Name Role Phone Kizzy Nunez LUMBER DRIVER Primary Care Provider [phone] Encounter Details Date Type Department Care Team (Late st Contact Info) Description 08/05/2023 Orders Only [facility] [address] [place] [address] Miley Baldwin PA [address] [place], [place] Encounter for general adult medical examination with abnormal findings Social History Tobacco Use Types Packs/Day Years [...] Name Priority Date/Time Associated Diagnosis Comments VITAMIN B12 Routine 08/04/2023 13:30 EST Encounter for general adult medical examination with abnormal findings documented in this encounter Results * (ABNORMAL) VITAMIN B12 (08/04/2023 13:30 EST) Vitamin B12 >1,000(H) 211 - 911 pg/mL 08/05/2023 14:23 EST [facility] Blood VENOUS BLOOD / Unknown Venipuncture / Unknown 08/04/2023 13:30 EST 08/05/2023 12:45 EST Narrative [facility] - 08/05/2023 14:23 EST The results of this assay can be falsely elevated due to the consumption of Biotin. us Miley GALINDO CHEMISTRY & BLOOD GAS ORDERAB LES Final Result [facility] [address] [place] [address] documented in this encounter Visit Diagnoses Diagnosis Encounter for general adult medical examination with abnormal findings Unspecified general medical examination documented in this encounter Care Teams Chef Under Relationship Specialty Start Date End Date Kizzy Nunez NP [address] [place] [phone] PCP - General 12/09/12 documented as of this encounter
--- OUTSIDE RECORDS SUMMARY | 2024-05-05 14:08 | XMS_ITS | Encounter Summary ---
Author Organization [facility] Address [address] [place] [address] Care Team Providers Care Student Name Role Phone Kizzy Nunez ADULT MINISTRIES DIRECTOR Primary Care Provider [phone] Encounter Details Date Type Department Care Team (Late st Contact Info) Description 09/30/2021 Lab Requisition [facility] Pathology & Laboratory Medicine - [facility] [address] [place] [address] Outr Resulting Lab, Provider Social History Tobacco Use Types Packs/Day Years [...] Procedure Name Priority Date/Time Associated Diagnosis Comments ZZCOVID-19 TEST [facility] PCR Today 09/30/2021 9:35 EDT COVID-19 TESTING Routine 09/30/2021 9:35 EDT documented in this encounter Results * COVID-19 TEST [facility] PCR (09/30/2021 9:35 EDT) Swab 09/30/2021 9:35 EDT 09/30/2021 21:12 EDT us Provider Outr Resulting Lab MICROBIOLOGY - GENER AL ORDERABLES Final Result Performing Organization Address City/[facility]/ZIP Co de Phone Number [facility] [address] [place] [address] * COVID-19 TESTING (09/30/2021 9:35 EDT) COVID-19 rt-PCR Result Negative Negative 10/01/2021 15:20 EDT [facility] Comment: This test has not been FDA cleared or approved. This test has been authorized by FDA under an EUA for use by authorized laboratories. This test has been authorized only for detection of nucleic acid from 2019-nCoV, not for any other viruses or pathogens. This test is only authorized for the duration of the declaration that circumstances exist justifying the authorization of emergency use of in vitro diagnostic tests for detection and/or diagnosis of 2019-nCoV under section 564(b)(1) of Act, 21 U.S.C ?? 360bbb-3(b) (1), unless the authorization is terminated or revoked sooner. Negative results do not preclude 2019-nCoV infection and should not be used as the sole basis for treatment or other patient management decisions. Negative results must be combined with clinical observations, patient history, and epidemiological information. Testing was performed using the dayne SARS-CoV-2 assay ([employer] on the Dayne 6800 System Performing Lab Dayne [address] [facility] 10/01/2021 15:20 EDT [facility] Swab 09/30/2021 9:35 EDT 09/30/2021 21:12 EDT us Provider Outr Resulting Lab MICROBIOLOGY - GENER AL ORDERABLES Final Result Performing Organization Address City/[facility]/ZIP Co de Phone Number [facility] [address] [place] [address] documented in this encounter Visit Diagnoses Not on filedocumented in this encounter Care Teams Student Relationship Specialty Start Date End Date Kizzy Nunez, ERICA [address] [place] [phone] PCP - General 12/09/12 documented as of this encounter
--- OUTSIDE RECORDS SUMMARY | 2024-05-05 14:08 | XMS_ITS | Clinical Summary ---
Author Organization [facility] Address [facility] [place] [address] Care Team Providers Care Pt Sitter Name Role Phone Padmini Noa MOSES Primary Care Provider Allergies Active Allergy Reactions Criticality Noted Date Comments Aspirin Other (See Comments) 04/07/2012 Chest pain with full dose 325 ASA Acetaminophen Palpitations 07/13/2012 Medications Medication Sig Dispensed Refills Start Date End Date Status DULoxetine DR (Cymbalta) [address] capsule Take 90 mg by mouth daily. Active melatonin 10 mg capsule Take 10 mg by mouth. Active propranolol LA (Inderal LA) 80 mg ER 24 hr capsule Take 80 mg by mouth daily. Active albuteroL 90 mcg/actuation HFA Aerosol Inhaler Inhale 2 puffs into the lungs every 4 hours as needed. Use with spacer Active aspirin EC 81 mg EC (DR) tablet Take 81 mg by mouth daily. Active atorvastatin (Lipitor) 40 mg tablet Take 40 mg by mouth daily. Active doxepin (SINEquan) 25 mg capsule Take 25 mg by mouth. Active metoprolol succinate XL (Toprol-XL) 25 mg ER 24 hr tablet Take 25 mg by mouth daily. Active benzonatate (Tessalon) 200 mg capsule Take 200 mg by mouth 3 times daily as needed for Cough. Active amitriptyline (Elavil) 25 mg tablet Take 25 mg by mouth nightly. Active SUMAtriptan (Imitrex) 100 mg tablet Take 100 mg by mouth as needed for Migraine. Active gabapentin (Neurontin) 300 mg capsule Take 900 mg by mouth nightly. Active losartan (Cozaar) 100 mg tablet Take 100 mg by mouth daily. 09/13/2022 Active pramipexole (Mirapex) 0.5 mg tablet Take 0.5 mg by mouth nightly. 09/13/2022 Active Active Problems Problem Noted Date Diagnosed Date H/O thyroidectomy 12/23/2022 Postoperative hypoxia 12/23/2022 Overview (12/24/2022): Transient hypoxia recovering from anesthesia CRPS (complex regional pain syndrome), upper beck b 07/27/2015 Family History Medical History Relation Comments Heart Disease Father Cancer Mother Relation Status Comments Father Mother Social History Tobacco Use Types Packs/Day Years Used Date Smoking Tobacco: Never Smokeless Tobacco: Never Tobacco Cessation:Counseling Given: Not Answered Alcohol Use Standard Drinks/Week Comments Yes 0 (1 standard drink = 0.6 oz pur e alcohol) Very rare DH IPV Inpatient Questions Answer Date Recorded Does Anyone Try to Keep You From Having Contact with Others or Doing Things Outside Your Home? no 12/23/2022 Feels Threatened by Someone no 12/13 Feels Unsafe at Home or Work/School no 12/23/2022 Physical Signs of Abuse Present no 12/23/2022 Sex and Gender Information Value Date Recorded Sex Assigned at Not on file Gender Identity Not on file Sexual Orientation Not on file Last Filed Vital Signs Vital Sign Reading Time Taken Comments Blood Pressure 123/58 02/06/2023 12:16 PM EDT Pulse 70 02/06/2023 12:16 PM EDT Temperature 36.4 ??C (97.6 ??F) 02/06/2023 1 2:16 PM EDT Respiratory Rate 18 02/06/2023 12:1 6 PM EDT Oxygen Saturation 98% 02/06/2023 12: 16 PM EDT Inhaled Oxygen Concentration - - Weight 76.6 kg (168 lb 14.4 oz) 023 12:16 PM EDT Height 152.4 cm (5') 12/23/2022 1:19 PM EDT Body Mass Index 32.99 12/23/2022 1:19 PM EDT Plan of Treatment Health Maintenance Due Date Last Done Comments CT Colonography 1950 Colonoscopy 1950 Colorectal Cancer Screening 1950 FIT DNA 1950 FIT 1950 Sigmoidoscopy (10 year) with FIT yearly 1950 Sigmoidoscopy 1950 Hepatitis C Screening 1968 Tetanus/Diphtheria/Pertussis Vaccines (1 - Tdap) 08/03 Breast Cancer Share Decision Needed 1990 Breast Cancer screening 1990 Zoster vaccine (1 of 2) 2000 Advance Directive 2005 Bone Density Scan 2015 Pneumoccocal Vaccine: 65+ (1 of 1 - PCV) 2015 Covid-19 Vaccine (1 - season) 2024 Influenza (Flu) vaccine (1 o f 1 - Influenza standard series) 02/14/2024 Medical Devices Implanted Type Area Fixture Fabricator Repairer Device Identifier Shelf Expiration Date Model / Serial / Lot [employer] 5 Elite Implantable Pulse Generator Implanted:Qty: 1 on 11/26/2018 by Jose Francisco Alfred MD at [facility] Right: Back [employer] 10/26/2020 3660 / [id number] / Advance Directives * Attempt Cardiopulmonary Resuscitation - Inpatient (Latest Code Status on File) Date Activated Date Inactivated Comments 12/23/2022 8:14 PM 12/24/2022 1:07 PM Question Answer Comments Code Status decision made by: Patient * Full Code Date Activated Date Inactivated Comments 11/26/2018 8:28 AM 11/26/2018 1:49 PM Question Answer Comments Does patient have capacity to make decision: Yes Care Teams Pt Sitter Relationship Specialty Start Date End Date Noa [place], [employer] [address] [place], [place] [address] PCP - General Family Medicine 04/20/15
--- OUTSIDE RECORDS SUMMARY | 2024-05-05 14:08 | XMS_ITS | Clinical Summary ---
Author Organization [facility] Address [address] [place] [address] Care Team Providers Care Manager Civil Name Role Phone Kizzy Nunez MACHINE SWEEPER BRUSH MAKER Primary Care Provider [phone] Allergies No known active allergies Medications SUMAtriptan [...] 11:17 EST Sexual Orientation Not on file Obstetrics History Last Filed Vital Signs Vital Sign Reading Time Taken Comments Blood Pressure 132/78 07/02/2021 1357 EST Pulse 56 07/02/2021 1357 EST Temperature - - Respiratory Rate 12 07/02/2021 1357 EST Oxygen Saturation - - Inhaled Oxygen Concentration - - Weight - - Height - - Body Mass Index - - Plan of Treatment Health Maintenance Due Date Last Done Comments Fall Risk Screening 2015 COVID-19 Vaccine (5 - 2023-2 5 season) 2024 03/19/2022, 05/20/2021, 08/20/2020, Additional history exists RSV Immunization ( o r 60+ Years) (1 - 1-dose 75+ series) 2025 Hepatitis C Screen Completed 12/22/2016 Procedures Procedure Name Priority Date/Time Associated Diagnosis Comments HEPATITIS C AB W REFLEX TO HCV RNA BY PCR Routine 12/22/2016 8:30 EDT from Last 3 Months or Most Recently Relevant to Health Maintenance Results * HEPATITIS C AB W REFLEX TO HCV RNA BY PCR (12/22/2016 8:30 EDT) HEPATITIS C AB W/REFLEX - [facility] Negative 12/22/2016 14:16 EDT [facility] Comment:Expected Values: Neg ative. 12/22/2016 8:30 EDT 12/22/2016 13:01 EDT Narrative [facility] - 12/22/2016 14:16 EDT Does PT Have a Latex Allergy? NO us Reva GALINDO CHEMISTRY & BLOOD GAS ORDERABLES Final Result [facility] from Last 3 Months or Most Recently Relevant to Health Maintenance Insurance [facility] MEDICARE ACO [place] Member Subscriber Plan / Payer (Ef fective 2003-Present) Name:Skye Hinton Member ID:[id number] Relation to Subscriber:Self Name:Mary JaneMatt harmantigist Renee Subscriber ID:[id number] Payer ID:[id number] Group ID:Not on file Type:Medicare ACO [place] Address: [address] [place] [address] MEDICARE [place]CO [place] Care Teams Manager Civil Relationship Specialty Start Date End Date Kizzy Nunez NP [address] [place] [address] [phone] PCP - General 12/09/12
--- OUTSIDE RECORDS SUMMARY | 2024-05-05 14:08 | XMS_ITS | Encounter Summary ---
Author Organization [facility] Address [address] [place] [address] Care Team Providers Care Fish Farm Manager Name Role Phone Kizzy Nunez RACE RELATIONS PROFESSOR Primary Care Provider [phone] Encounter Details Date Type Department Care Team (Late st Contact Info) Description 10/04/2020 Lab Requisition [facility] Pathology & Laboratory Medicine - [facility] [address] [place] [address] Laura Cabral MD [address] [place] [address] [address] [place], [place] [id number] Dysphagia, unspecified Social History Tobacco Use Types Packs/Day [...] Priority Date/Time Associated Diagnosis Comments SURGICAL PATHOLOGY Today 10/03/2020 14 :40 EDT Dysphagia, unspecified documented in this encounter Results * SURGICAL PATHOLOGY (10/03/2020 14:40 EDT) Final Diagnosis A. STOMACH, ANTRUM, BIOPSY: - Gastric antral and fundic mucosa with no significant diagnostic abnormalities. - Negative for Helicobacter pylori on H&E stained sections. B. GASTROESOPHAGEAL JUNCTION, BIOPSY: - Mild chronic inflammation of squamocolumnar mucosa. - Negative for intestinal metaplasia and dysplasia. C. ESOPHAGUS, DISTAL, BIOPSY: - Consistent with reflux esophagitis. 10/04/2020 16:33 [facility] Attestation By the signature below, the attending physician certifies that they have 1) personally conducted a gross and/or microscopic examination of the described specimen(s), and/or personally interpreted the results of laboratory testing of the described specimen(s), and 2) personally rendered or confirmed the above diagnosis. 10/04/2020 16:33 [facility] at 1633 Clinical History Dysphagia 10/04/2020 16:33 [facility] Gross Description A. Received in formalin labelled with proper patient identification (initials B, G) and antrum Bx are four benavidez irregular to nodular tissues ranging from 0.2 x 0.2 x 0.2 cm to 0.4 x 0.3 x 0.2 cm. Entirely submitted in A1. B. Received in formalin labelled with proper patient identification (initials B, G) and GE junction Bx is a benavidez nodular tissue, 0.3 x 0.2 x 0.2 cm. Entirely submitted in B1. C. Received in formalin labelled with proper patient identification (initials B, G) and distal esophagus Bx are 2 irregular to membranous tissues, 0.1 cm in greatest dimension and 0.5 x 0.2 x 0.1 cm. Entirely submitted in C1. MATEO ALDRICH(ASC) 10/04/2020 8:38 10/04/2020 16:33 [facility] Performing Lab [facility] 16:33 [facility] Scanned Images 10/04/2020 16:33 [facility] Tissue ENTIRE ESOPHAGUS / Unknown 10/03/2020 14:40 EDT 10/04/2020 8:31 EDT Tissue specimen (specimen) CARDIOESOPHAGEAL JUNCTION STRUCTURE / Unknown 10/03/2020 14:40 EDT 10/04/2020 8:31 EDT Tissue specimen (specimen) ESOPHAGEAL STRUCTURE / Unknown 10/03/2020 14:40 EDT 10/04/2020 8:31 EDT Laura Cabral MD PATHOLOGY ORDERABLES [facility] al Result [facility] [address] [place] [address] documented in this encounter Visit Diagnoses Diagnosis Dysphagia, unspecified documented in this encounter Care Teams Fish Farm Manager Relationship Specialty Start Date End Date Kizzy Nunez, RACE RELATIONS PROFESSOR [address] [place] [phone] PCP - General 12/09/12 documented as of this encounter
--- OUTSIDE RECORDS SUMMARY | 2024-05-05 14:08 | XMS_ITS | Encounter Summary ---
Author Organization [facility] Address [address] [place] [address] Care Team Providers Care Rewrite Editor Name Role Phone Kizzy Nunez PRESS LOADER Primary Care Provider [phone] Encounter Details Date Type Department Care Team (Late st Contact Info) Description 05/06/2017 Historical Results Only [facility] - [facility] Lab - Main [place] [address] [place], [place] [address] Kendy Redd NP [address] [place] [phone] Social History Tobacco Use Types [...] Diagnosis Comments GLYCOHEMOGLOBIN POC - CV Routine 05/06/2017 9:04 EST documented in this encounter Results * (ABNORMAL) GLYCOHEMOGLOBIN POC - [facility] (05/06/2017 9:04 EST) Hemoglobin A1c 6.3(H) 4.0 - 6.0 % 05/06/2017 9:05 EST [facility] AVG CALCULATED GLUCOSE - CV 130(H) 60 - 115 MG/DL 05/06/2017 9:05 EST [facility] 05/06/2017 9:04 EST 05/06/2017 9:04 EST us Kendy Redd PRESS LOADER CHEMISTRY & BLOOD GAS ORDERABLES Final Result [facility] documented in this encounter Visit Diagnoses Not on filedocumented in this encounter Care Teams Rewrite Editor Relationship Specialty Start Date End Date Kizzy Nunez, PRESS LOADER [address] [place] [phone] PCP - General 12/09/12 documented as of this encounter
--- OUTSIDE RECORDS SUMMARY | 2024-05-05 14:08 | XMS_ITS | Encounter Summary ---
Author Organization [facility] Address [address] [place] [address] Care Team Providers Care Ground Service Equipment Mechanic Name Role Phone Kizzy Nunez CONSUMER LOAN OFFICER Primary Care Provider [phone] Encounter Details Date Type Department Care Team (Late st Contact Info) Description 12/22/2016 Historical Results Only [facility] Lab - Main [place] [address] [place] [address] Reva Santacruz PA [address] [place] [phone] Social History Tobacco Use Types Packs/Day [...] Diagnosis Comments COMPREHENSIVE METABOLIC POC - [facility] Routine 12/22/2016 13:00 EDT documented in this encounter Results * (ABNORMAL) COMPREHENSIVE METABOLIC POC - [facility] (12/22/2016 13:00 EDT) Albumin % 3.9 3.50 - 5.00 G/DL 12/22/2016 13:01 EDT [facility] ALKALINE PHOSPHATASE - [facility] 84 38.00 - 126.00 U/L 12/22/2016 13:01 EDT [facility] BILIRUBIN TOTAL 1.2 0.20 - 1.30 MG/DL 12/22/2016 13:01 [facility] BUN - [facility] 17 7.00 - 20.00 MG/DL 12/22/2016 13:01 [facility] CALCIUM - [facility] 9.3 8.50 - 10.50 MG/DL 12/22/2016 13:01 [facility] Chloride 108(H) 98.00 - 107.00 MMOL/L 12/22/2016 13:01 [facility] CO2 Total 23 22.00 - 30.00 MMOL/L 12/22/2016 13:01 [facility] CREATININE 0.5(L) 0.70 - 1.50 MG/DL 12/22/2016 13:01 [facility] Anion Gap 10 7 - 17 12/22/2016 13:01 [facility] GLUCOSE - [facility] 107(H) 70.00 - 100.00 MG/DL 12/22/2016 13:01 [facility] Potassium 4.1 3.50 - 5.10 MMOL/L 12/22/2016 13:01 [facility] Sodium 141 137.00 - 145.00 MMOL/L 12/22/2016 13:01 [facility] TOTAL PROTEIN - [facility] 7.1 6.30 - 8.20 G/DL 12/22/2016 13:01 [facility] SGOT/AST - [facility] 22 15.00 - 46.00 U/L 12/22/2016 13:01 [facility] SGPT/ALT - [facility] 26 13.00 - 69.00 U/L 12/22/2016 13:01 [facility] 12/22/2016 13:0 0 EDT 12/22/2016 13:00 EDT us Reva GALINDO CHEMISTRY & BLOOD GAS ORDERABLES Final Result [facility] documented in this encounter Visit Diagnoses Not on filedocumented in this encounter Care Teams Ground Service Equipment Mechanic Relationship Specialty Start Date End Date Kizzy Nunez, CONSUMER LOAN OFFICER [address] [place] [address],[address] [phone] PCP - General 12/09/12 documented as of this encounter
--- OUTSIDE RECORDS SUMMARY | 2024-05-05 14:08 | XMS_ITS | Encounter Summary ---
Author Organization [facility] Address [address] [place] [address] Care Team Providers Care Voice Instructor Name Role Phone Kizzy Nunez PROTECTIVE SIGNAL REPAIRER HELPER Primary Care Provider [phone] Encounter Details Date Type Department Care Team (Late st Contact Info) Description 08/08/2019 Results Only [facility]- [facility] [phone] Reva Santacruz, MATEO [address] [place] [phone] Social History Tobacco Use Types [...] Diagnosis Comments GLYCOHEMOGLOBIN POC - CV Routine 08/08/2019 12:26 EST documented in this encounter Results * (ABNORMAL) GLYCOHEMOGLOBIN POC - CV (08/08/2019 12:26 EST) Hemoglobin A1c 6.6(H) 4.0 - 6.0 % 08/08/2019 12:27 EST [facility] AVG CALCULATED GLUCOSE - [facility] 140(H) 60 - 115 MG/DL 08/08/2019 12:27 EST [facility] 08/08/2019 12:2 6 EST 08/08/2019 12:26 EST Narrative [facility] - 08/08/2019 12:27 EST CHRONIC RENAL IMPAIRMENT IS DEFINED GFR <60 MULTIPLY RESULT BY 1.210 FOR PATIENTS EGFR CALCULATED USING THE IDMS-TRACEABLE MDRD STUDY us Reva GALINDO CHEMISTRY & BLOOD GAS ORDERABLES Final Result [facility] documented in this encounter Visit Diagnoses Not on filedocumented in this encounter Care Teams Voice Instructor Relationship Specialty Start Date End Date Kizzy Nunez, PROTECTIVE SIGNAL REPAIRER HELPER [address] [place] [phone] PCP - General 12/09/12 documented as of this encounter
--- OUTSIDE RECORDS SUMMARY | 2024-05-05 14:08 | XMS_ITS | Encounter Summary ---
Author Organization [facility] Address [address] [place] [address] Care Team Providers Care Bag Loader Name Role Phone Kizzy Nunez ARBOR END MAINSPRING FORMER Primary Care Provider [phone] Encounter Details Date Type Department Care Team (Late st Contact Info) Description 12/22/2016 Historical Results Only [facility] Lab - Main [place] [address] [place], [place] [address] Reva Santacruz, MATEO [address] [place] [phone] Social History Tobacco Use Types Packs/Day [...] Procedure Name Priority Date/Time Associated Diagnosis Comments MAGNESIUM POC - CV Routine 12/22/2016 13:00 EDT HEPATITIS C AB W REFLEX TO HCV RNA BY PCR Routine 12/22/2016 8:30 EDT documented in this encounter Results * MAGNESIUM POC - [facility] (12/22/2016 13:00 EDT) Magnesium 1.70 1.60 - 2.30 MG/DL 12/22/2016 13:[address] [facility] 12/22/2016 13:0 0 EDT 12/22/2016 13:00 EDT us eRva GALINDO CHEMISTRY & BLOOD GAS ORDERABLES Final Result [facility] * HEPATITIS C AB W REFLEX TO HCV RNA BY PCR (12/22/2016 8:30 EDT) HEPATITIS C AB W/REFLEX - [facility] Negative 12/22/2016 14:[address] [facility] Comment:Expected Values: Neg ative. 12/22/2016 8:30 EDT 12/22/2016 13:[address] [facility] - 12/22/2016 14:16 EDT Does PT Have a Latex Allergy? NO us Reva GALINDO CHEMISTRY & BLOOD GAS ORDERABLES Final Result Performing Organization Address City/[facility] Co de Phone Number [facility] documented in this encounter Visit Diagnoses Not on filedocumented in this encounter Care Teams Bag Loader Relationship Specialty Start Date End Date Kizzy Nunez NP [address] [place] [phone] PCP - General 12/09/12 documented as of this encounter
--- OUTSIDE RECORDS SUMMARY | 2024-05-05 14:08 | XMS_ITS | Encounter Summary ---
Author Organization [facility] Address [address] [place] [address] Care Team Providers Care Bag Patcher Name Role Phone Kizzy Nunez APN Primary Care Provider [phone] Encounter Details Date Type Department Care Team (Late st Contact Info) Description 09/07/2021 Lab Requisition [facility] Pathology & Laboratory Medicine - [facility] [address] [place] [address] Outr Resulting Lab, Provider Social History Tobacco [...] Procedure Name Priority Date/Time Associated Diagnosis Comments T3, TOTAL Routine 09/06/2021 5:35 EDT documented in this encounter Results * T3, TOTAL (09/06/2021 5:35 EDT) T3, Total 152 97 - 169 ng/dL 09/07/2021 22:36 EDT [facility] Blood VENOUS BLOOD / Unknown 09/06/2021 5:35 EDT 09/07/2021 21:46 EDT us Provider Outr Resulting Lab CHEMISTRY & BLOOD GA S ORDERABLES Final Result Performing Organization Address City/State/[facility] Co de Phone Number [facility] [address] [place] [address] documented in this encounter Visit Diagnoses Not on filedocumented in this encounter Care Teams Bag Patcher Relationship Specialty Start Date End Date Kizzy Nunez NP [address] [place] [phone] PCP - General 12/09/12 documented as of this encounter
--- OUTSIDE RECORDS SUMMARY | 2024-05-05 14:08 | XMS_ITS | Encounter Summary ---
Author Organization [facility] Address [address] [place] [address] Care Team Providers Care Supervisor Melt House Name Role Phone Kizzy Nunez RN BURN Primary Care Provider [phone] Encounter Details Date Type Department Care Team (Late st Contact Info) Description 03/22/2019 Historical Results Only [facility] Lab - Main [place] [address] [place] [address] Miley Baldwin PA [address] [place] [address] Social History Tobacco Use Types Packs/Day Years [...] Procedure Name Priority Date/Time Associated Diagnosis Comments BACTERIAL CULTURE, URINE Routine 03/22/2019 10:00 EDT documented in this encounter Results * BACTERIAL CULTURE, URINE (03/22/2019 10:00 EDT) USUAL UROGENITAL LAYLA - [facility] UUV 03/24/2019 11:30 EDT [facility] CitrateConcentration <10,000 CFU/ML 03/15 11:30 EDT [facility] 03/22/2019 10:0 0 EDT 03/22/2019 18:00 EDT Comment:VOID Narrative [facility] - 03/24/2019 11:30 EDT Does PT Have a Latex Allergy? NO us Miley GALINDO MICROBIOLOGY - GENERAL ORDERA BLES Final Result [facility] documented in this encounter Visit Diagnoses Not on filedocumented in this encounter Care Teams Supervisor Melt House Relationship Specialty Start Date End Date Kizzy Nunez NP [address] [place] [phone] PCP - General 12/09/12 documented as of this encounter
--- OUTSIDE RECORDS SUMMARY | 2024-05-05 14:08 | XMS_ITS | Encounter Summary ---
Author Organization [facility] Address [address] [place] [address] Care Team Providers Care Country Printer Name Role Phone Kizzy Nunez VICE PRESIDENT OF ENGINEERING Primary Care Provider [phone] Encounter Details Date Type Department Care Team (Late st Contact Info) Description 08/08/2019 Results Only [facility]- [facility] [phone] Reva Santacruz, MATEO [address] [place] [address] Social History Tobacco Use Types [...] Procedure Name Priority Date/Time Associated Diagnosis Comments THYROID STIM HORMONE POC - [facility] Routine 08/08/2019 12:26 EST documented in this encounter Results * THYROID STIM HORMONE POC - [facility] (08/08/2019 12:26 EST) THYROID STIM HORMONE - [facility] 3.30 0.45 - 5.33 UIU/ML 08/08/2019 12:27 EST [facility] 08/08/2019 12:2 6 EST 08/08/2019 12:26 EST Narrative [facility] - 08/08/2019 12:27 EST CHRONIC RENAL IMPAIRMENT IS DEFINED GFR <60 MULTIPLY RESULT BY 1.210 FOR PATIENTS EGFR CALCULATED USING THE IDMS-TRACEABLE MDRD STUDY us Reva GALINDO CHEMISTRY & BLOOD GAS ORDERABLES Final Result [facility] documented in this encounter Visit Diagnoses Not on filedocumented in this encounter Care Teams Country Printer Relationship Specialty Start Date End Date Kizzy Nunez, VICE PRESIDENT OF ENGINEERING [address] [place] [phone] PCP - General 12/09/12 documented as of this encounter
--- OUTSIDE RECORDS SUMMARY | 2024-05-05 14:08 | XMS_ITS | Encounter Summary ---
Author Organization [facility] Address [address] [place] [address] Care Team Providers Care Ballistics Tester Name Role Phone Kizzy Nunez ASSOCIATE PROFESSOR OF ECONOMICS Primary Care Provider [phone] Encounter Details Date Type Department Care Team (Late st Contact Info) Description 08/08/2019 Results Only [facility] [phone] Reva Santacruz, MATEO [address] [place] [phone] Social History Tobacco Use Types [...] Date/Time Associated Diagnosis Comments POCT CHOLESTEROL LDL [place] Routine 08/08/2019 12:26 EST documented in this encounter Results * POCT CHOLESTEROL LDL ([facility] (08/08/2019 12:26 EST) LDL CHOLESTEROL - [facility] 99 60 - 100 mg/dl 08/08/2019 12:27 EST [facility] 08/08/2019 12:2 6 EST 08/08/2019 12:26 EST Narrative [facility] - 08/08/2019 12:27 EST CHRONIC RENAL IMPAIRMENT IS DEFINED GFR <60 MULTIPLY RESULT BY 1.210 FOR PATIENTS EGFR CALCULATED USING THE IDMS-TRACEABLE MDRD STUDY us Reva GALINDO POINT OF CARE TEST ORDERABLES Fi nal Result [facility] documented in this encounter Visit Diagnoses Not on filedocumented in this encounter Care Teams Ballistics Tester Relationship Specialty Start Date End Date Kizzy Nunez, ERICA [address] [place] [address] [phone] PCP - General 12/09/12 documented as of this encounter
--- OUTSIDE RECORDS SUMMARY | 2024-05-05 14:08 | XMS_ITS | Encounter Summary ---
Author Organization [facility] Address [address] [place] [address] Care Team Providers Care Log Hauler Name Role Phone Kizzy Nunez BRASS AND WIND INSTRUMENT REPAIRER Primary Care Provider [phone] Encounter Details Date Type Department Care Team (Late st Contact Info) Description 04/15/2016 Historical Results Only [facility] Lab - Main [place] [address] [place] [address] Reva Santacruz, MATEO [address] [place] [phone] Social History Tobacco Use Types Packs/Day [...] Procedure Name Priority Date/Time Associated Diagnosis Comments SURVEILLANCE CULTURE - [facility] Routine 04/15/2016 12:50 EDT documented in this encounter Results * SURVEILLANCE CULTURE - [facility] (04/15/2016 12:50 EDT) Surveillance Culture NO STAPH COAGULASE POSITIVE ISOLATED (NO MRSA) 04/18/2016 12:[address] [facility] Surveillance Culture NO ENTEROCOCCUS SPECIES ISOLATED (NO VRE) 04/18/2016 12:[address] [facility] 04/15/2016 12:5 0 EDT 04/15/2016 14:[address] [facility] - 04/18/2016 12:21 EDT Does PT Have a Latex Allergy? NO us Reva GALINDO CHEMISTRY & BLOOD GAS ORDERABLES Final Result [facility] documented in this encounter Visit Diagnoses Not on filedocumented in this encounter Care Teams Log Hauler Relationship Specialty Start Date End Date Kizzy Nunez, BRASS AND WIND INSTRUMENT REPAIRER [address] [place] [address] [phone] PCP - General 12/09/12 documented as of this encounter
--- OUTSIDE RECORDS SUMMARY | 2024-05-05 14:08 | XMS_ITS | Continuity of Care Document ---
Author Organization [place] - [facility], Medical Address [address] [place] [address] Assessment Encounter Date Assessment Date Assessment LastModified by Organization Details LastModified Time 03/18/2024 03/18/2024 I spent a total of 25 minutes on the date of this encounter meeting with the patient, reviewing and completing documentation, and coordinating care as necessary. [email or web address] Not available 03/18/2024 15:05:08 Plan of Treatment Reminders Order Date Submit Date Provider Last Modified By Organization Details Last Modified Time Details Appointments None recorded. Lab CMP, serum or plasma 2023 024 [email or web address] [facility] (Registration ), [address] [place] [address] [place], [address], 11:47:49 magnesium, QN, serum or plasma 2023 024 [email or web address] 6 [facility] (Registration ), [address] [place] [address] [place], [address], 11:47:50 HbA1c (hemoglobi n A1c), blood 2023 024 [facility], [address] [place], [address], 14:46:18 HbA1c (hemoglobi n A1c), blood - early next year 2023 025 [email or web address] [facility] (Registration ), [address] [place] [address] [place], [address], 15:02:20 lipid panel, serum 2023 [email or web address] 6 [facility] (Registration ), [address] [place] [address] , [place], [address], 11:47:50 CMP, serum or plasma 2023 [email or web address] 6 [facility] (Registration ), [address] [place] [address] [place], [address], 11:47:50 Referral None recorded. Procedures None recorded. Surgeries None recorded. Imaging MAMMO, screening, digital, bilateral - Please call patient to schedule 2023 [facility], [address], [place], [address], 18:20:47 Medication Orders None recorded. Patient TargetsNo targets recorded. Patient InstructionsNo instructions recorded. Reason for Referral None Reported. Results Created Date Observation Date Name Description Value Unit Range Abnormal Flag Note LastModifiedBy Organization Detail LastModifiedTime 03/24/20 24 03/24/2024 MAMMO , scree howie, digit al, bilat eral No observ ation record ed. [email or web address] [facility] [address], [place], [address], 03/25/2024 17:17:54 Result Notes None recorded. Problems Name Problem SNOMED Code Status Onset Date Resolution Date Notes Provider Name and Address Organization Details Recorded Time [facility] tremor 623032514 Active 2019 Tremor, ess[facility]ia [facility]; Entered By: Reva Santacruz PA-C Sig paulino By: Reva Santacruz PA-C Not Available [facility] 4 03:43:34 Hypercho lesterol emia 41108606 Active 2015 Hypercho lesterol emia; Entered By: Reva Santacruz PA-C Sig paulino By: Reva Santacruz PA-C Sto p Reason: Changed Hypercho lesterol emia; Entered By: Ranjana Weathers Si gned By: Ranjana Weathers Not Available [facility] 4 03:43:33 Refracto ry migraine with aura 253228630 Active 2019 Migraine with aura, with intracta ble migraine , so stated, without mention of status migraino mary; Entered By: Aime Vallejo MD Dalia d By: Aime Vallejo MD Not Available [facility] 4 03:43:34 Dysphagi a 91357084 Active 2015 Dysphagi a, unspecif ied; Entered By: Reva Santacruz PA-C Sig paulino By: Reva Santacruz PA-C Not Available [facility] 4 03:43:34 Chest pain 37378758 Active 2020 Chest pain; Entered By: Reva Santacruz PA-C Sig paulino By: Reva Santacruz PA-C Not Available [facility] 4 03:43:33 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 Implanta tion spinal cord stimulat or; Entered By: Reva Santacruz PA-C Sig paulino By: Reva Santacruz PA-C Not Available [facility] 4 03:43:34 Impaired fasting glycemia 405720140 Completed 201607/27/2022 Abnormal fasting glucose; Entered By: Reva Santacruz PA-C Sig paulino By: Reva Santacruz PA-C Sto p Reason: Changed Not Available [facility] 3 14:03:53 Multinod ular goiter 455939169 Completed 201507/27/2022 Multinod ular goiter; Entered By: Ranjana Weathers Si gned By: Ranjana Weathers St op Reason: Inactive Multino dular goiter; Entered By: Reva Santacruz PA-C Sig paulino By: Reva Santacruz PA-C Sto p Reason: Removed Not Available [facility] 3 14:03:53 Insomnia 777920309 Active 2015 Insomnia ; Entered By: Reva Santacruz PA-C Sig paulino By: Reva Santacruz PA-C Not Available [facility] 4 03:43:33 Osteopen ia 601961715 Active 2019 Osteopen ia, forearm; Entered By: Ana [place] By: Lexii Merino MA Not Available [facility] 4 03:43:33 Obesity 778191335 Active 2017 Obesity; Entered By: Kendy Redd APRN Sig paulino By: Kendy Redd APRN Not Available [facility] 4 03:43:34 Mammogra phy abnormal 826614560 Active 2019 Abnormal mammogra m, left breast; Entered By: Reva Santacruz PA-C Sig paulino By: Reva Santacruz PA-C Not Available [facility] 4 03:43:33 Atrophic vaginiti s 91766127 Active 2018 Postmeno pausal atrophic vaginiti s; Entered By: Miley Baldwin PA-C Sig paulino By: Miley Baldwin PA-C Not Available [facility] 4 03:43:34 Increase d frequenc y of urinatio n 059352275 Active 2018 Frequenc y of urinatio n; Entered By: Miley Baldwin PA-C Sig paulino By: Miley Baldwin PA-C Not Available [facility] 4 03:43:33 Obstruct umair sleep apnea syndrome 18490048 Completed 202107/27/2022 Obstruct umair sleep apnea; Entered By: Ranjana Weathers Si gned By: Ranjana Weathers St op Reason: Inactive Obstruc tive sleep apnea; Entered By: Miley Baldwin PA-C Sig paulino By: Miley Baldwin PA-C Sto p Reason: Removed JANEE, moderate ; Entered By: Reva Santacruz PA-C Sig paulino By: Reva Santacruz PA-C; Start Date : 04/15/20 16 Not Available [facility] 3 14:03:54 Noncompl iance with treatmen t 7320744 Active 2019 Noncompl iance uses Rx intermit tently; Entered By: Miley Baldwin PA-C Sig paulino By: Miley Baldwin PA-C Not Available [facility] 4 03:43:34 Preventi ve procedur e Active 2018 [facility]; Entered By: Miley Baldwin PA-C Sig paulino By: Miley Baldwin PA-C Pre ventativ [facility]; Entered By: Reva Santacruz PA-C Sig paulino By: Reva Santacruz PA-C Sto p Reason: Removed; Start Date : 07/25/19 [facility]; Entered By: Ranjana Weathers Si gned By: Ranjana Thomas op Reason: Inactive ; Start Date : 07/25/19 Not Available [facility] 4 03:43:33 Pain in left arm 122443976 Active 2021 Arm pain, left; Entered By: Reva Santacruz PA-C Sig paulino By: Reva Santacruz PA-C Not Available [facility] 4 03:43:33 Migraine 85144403 Completed 201509/23/2021 Migraine s; Entered By: Ranjana Weathers Si gned By: Ranjana Thomas op Reason: Inactive Migrain es; Entered By: Reva Santacruz PA-C Sig paulino By: Reva Santacruz PA-C Sto p Reason: Removed Not Available [facility] 3 14:03:57 Localize d swelling , mass and lump, neck Active 2018 Swelling in neck; Entered By: Reva Santacruz PA-C Sig paulino By: Reva Santacruz PA-C Not Available [facility] 4 03:43:33 Depressi ve disorder 00828625 Completed 201507/27/2022 Depressi on; Entered By: Reva Santacruz PA-C Sig paulino By: Reva Santacruz PA-C Sto p Reason: Changed Depressi on; Entered By: Ranjana Weathers Si gned By: Ranjana Weathers Not Available [facility] 3 14:03:58 Heart murmur 87457139 Active 2015 Cardiac murmur; Entered By: Reva Santacruz PA-C Sig paulino By: Reva Santacruz PA-C Not Available [facility] 4 03:43:34 Impairme nt of balance 703073634 Active 2021 Balance problem; Entered By: Miley Baldwin PA-C Sig paulino By: Miley Baldwin PA-C Bal ance problem; Entered By: Reva Santacruz PA-C Sig paulino By: Reva Santacruz PA-C; Start Date : 05/04/20 Not Available [facility] 4 03:43:34 Memory impairme nt 631753687 Active 2021 Memory deficit; Entered By: Miley Baldwin PA-C Sig paulino By: Miley Baldwin PA-C Mem ory impairme nt; Entered By: Reva Santacruz PA-C Sig paulino By: Reva Santacruz PA-C; Start Date : 05/04/20 Not Available [facility] 4 03:43:34 Benign paroxysm al position al vertigo 814806749 Completed 201907/27/2022 Benign position al vertigo; Entered By: Reva Santacruz PA-C Sig paulino By: Reva Santacruz PA-C Sto p Reason: Changed Not Available [facility] 3 14:03:59 Pre-surg tamara evaluati on Completed 201809/23/2021 Preopera tive exam; Entered By: Ranjana Weathers Si gned By: Ranjana Weathers St op Reason: Inactive Preoper ative exam; Entered By: Monse Martin PA-C Sig paulino By: Monse Martin PA-C Sto p Reason: Removed Not Available [facility] 3 14:03:59 Pill esophagi tis 32304081 Active 2020 Pill esophagi tis; Entered By: Reva Santacruz PA-C Sig paulino By: Reva Santacruz PA-C Not Available [facility] 4 03:43:33 Fibromyo sitis 81871310 Active 2015 Fibromya lgia; Entered By: Reva Santacruz PA-C Sig paulino By: Reva Santacruz PA-C Not Available [facility] 4 03:43:33 Pain in face 95112099 Completed 201607/27/2022 Facial pain; Entered By: Ranjana Weathers Si gned By: Ranjana Weathers St op Reason: Inactive Facial pain; Entered By: Adeline Gutierrez PA-C Sig paulino By: Adeline Gutierrez PA-C Sto p Reason: Removed Not Available [facility] 3 14:04:00 Impaired glucose toleranc e 0660586 Completed 201607/27/2022 Prediabe kevin; Entered By: Reva Santacruz PA-C Sig paulino By: Reva Santacruz PA-C Sto p Reason: Changed Not Available [facility] 3 14:04:00 Vertigo 004114545 Active 2019 Vertigo; Entered By: Adeline Gutierrez PA-C Sig paulino By: Adeline Gutierrez PA-C Not Available [facility] 4 03:43:34 Complex regional pain syndrome 927938107 Active 2015 Complex regional pain syndrome (L arm); Entered By: Reva Santacruz PA-C Sig paulino By: Reva Santacruz PA-C Not Available [facility] 4 03:43:33 Disorder of thyroid gland 36818312 Completed 201507/27/2022 Thyroid disorder ; Entered By: Reva Santacruz PA-C Sig paulino By: Reva Santacruz PA-C Sto p Reason: Changed Not Available [facility] 3 14:04:01 Gastroes ophageal reflux disease 133637574 Active 2015 GERD; Entered By: Reva Santacruz PA-C Sig paulino By: Reva Santacruz PA-C Not Available [facility] 4 03:43:33 Tinea pedis 2677016 Active 2021 Tinea pedis; Entered By: Miley Baldwin PA-C Sig paulino By: Miley Baldwin PA-C Not Available [facility] 4 03:43:34 Hyperkal emia 83291488 Completed 201607/27/2022 Hyperkal emia; Entered By: Reva Santacruz PA-C Sig paulino By: Reva Santacruz PA-C Dulce belinda Stop Date: Hyperka lemia; Entered By: Reva Santacruz PA-C Sig paulino By: Reva Santacruz PA-C Sto p Reason: Changed Not Available [facility] 3 14:04:02 Restless legs 20312065 Active 2015 Restless leg syndrome ; Entered By: Reva Santacruz PA-C Sig paulino By: Reva Santacruz PA-C Not Available [facility] 4 03:43:33 Cough 62718859 Completed 201709/23/2021 Cough due to SURESH inhibito [...] [facility] 3 14:04:02 Neck pain 90470627 Active 2020 Neck pain; Entered By: Reva Santacruz PA-C Sig paulino By: Reva Santacruz PA-C Not Available [facility] 4 03:43:34 Arthriti s of hip 43640833 Completed 201507/27/2022 Arthriti s, right hip; Entered By: Reva Santacruz PA-C Sig paulino By: Reva Santacruz PA-C Sto p Reason: Changed Not Available [facility] 3 14:04:03 Hyperten sive disorder 99353100 Active 2015 Hyperten saray; Entered By: Reva Santacruz PA-C Sig paulino By: Reva Santacruz PA-C Not Available [facility] 4 03:43:34 Thyroid nodule 996096077 Completed 202107/27/2022 Thyroid nodule; Entered By: Ranjana Weathers Si gned By: Ranjana Weathers St op Reason: Inactive Thyroid nodule; Entered By: Miley Baldwin PA-C Sig paulino By: Miley Baldwin PA-C Sto p Reason: Removed Thyroid nodule; Entered By: Ranjana Weathers Si gned By: Ranjana Weathers; Start Date : 04/15/20 16 Not Available [facility] 3 14:04:03 Osteoart hritis of hip 674664782 Active 2015 OA, right hip; Entered By: Ranjana Weathers Si gned By: Ranjana Weathers Not Available [facility] 4 03:43:33 Pneumoni a 116355504 Active 2020 Pneumoni a; Entered By: Lilia Otto Sig paulino By: Reva Santacruz PA-C Not Available [facility] 4 03:43:33 Type 2 diabetes mellitus 45573437 Active 2016 Diabetes mellitus , type II; Entered By: Reva Santacruz PA-C Sig paulino By: Reva Santacruz PA-C Not Available [facility] 4 03:43:34 Polyp of colon 24558074 Active 2018 Polyp of colon; Entered By: Miley Baldwin PA-C Sig paulino By: Miley Baldwin PA-C Not Available [facility] 4 03:43:34 Notes:Some problems listed i n Documents: #[id number], #[id number], #[id number] could not be added to this patient's chart. Please review these documents and add these problems to the patient's chart manually as needed. Problem Notes None recorded. Medical Equipment None Reported. Allergies Allergen ID Allergen Name Allergen Category Reaction Reaction Severity Criticality Documentation Date Start Date Code Code System Note Provider Name and Address Organization Details Recorded Time 76347 aspirin medicatio n chest pain moderate Not available 07/26/20222015 1191 RxNorm React ion: chest pain; Sever ity: Moder ate; Comme nt: Enter ed By: Reva [place] By: Reva Santacruz PA-C Type: GPI C ode: [id number] Unco ded: N; Not Available [facility] 3 17:34:10 54426 Tylenol medicatio n Not available Not available Not available 07/26/2022201543 3 RxNorm React ion: detox ;Luana rity: Mild; Comme nt: Enter ed By: Reva [place] By: Reva Santacruz PA-C Type: GPI C ode: [id number] Unco ded: N; Not Available [facility] 3 17:34:10 Medications Name Sig Start [...] By: Ashlee [place] By: Reva Chang PA-C [facility] himanshu: N BMN: N Not Available Not Available Not Available losartan 50 mg tablet Take 2 tablet by mouth once a day until 100mg tablets are availabl e 07/16 completed Entered By: Joy [place] By: Joy Brooks RN Clini lois Date: Rx ID: [id number] Authori zed By: Reva Santacruz PA-C [facility] himanshu: N BMN: N Not Available Not [...] Baldwin PA-C Cli nical Date: Rx ID: [id number] Authori zed By: Miley Baldwin PA-C Unc [...] Sig paulino By: Reva Ortizi nical Date: Rx ID: [id number] Authori zed By: Reva Santacruz PA-C Unc himanshu: N BMN: N Not Available Not Available Not Available metoprolo l succinate ER 50 mg tablet,ex tended release 24 hr One tab once daily for blood pressure and migraine preventi on 10/26 completed Entered By: Reva Chang PA-C Sig paulino By: Reva Burks nical Date: Rx ID: [id number] Authori zed By: Reva Santacruz PA-C Unc [...] Reilly LPN Clin ical Date: Rx ID: [id number] Authori zed By: Miley Baldwin PA-C Unc [...] Baldwin PA-C Cli nical Date: Rx ID: [id number] Authori zed By: Miley Baldwin PA-C [facility] himanshu: N BMN: N Not Available Not Available Not Available metoprolo l succinate ER 100 mg tablet,ex tended release 24 hr one daily for migraine preventi on and tremor 08/09 completed Entered By: Aime Jacob MD Dalia d By: Aime Jacob MD Clini lois Date: Rx ID: [id number] Authori zed By: Reva Santacruz PA-C Unc [...] Adeline Pickering PA-C Sig paulino By: Adeline Burks nical Date: Rx ID: [id number] Authori zed By: Adeline Gutierrez PA-C Unc [...] By: Reva Burks nical Date: Rx ID: [id number] Authori zed By: Reva Santacruz PA-C Unc [...] Baldwin PA-C Cli nical Date: Rx ID: [id number] Authori zed By: Miley Baldwin PA-C Unc [...] Sneed MA Clini lois Date: Rx ID: [id number] Authori zed By: Aime Vallejo MD Uncod [...] Maria LPN Clin ical Date: Rx ID: [id number] Authori zed By: Kendy Redd APRN Unc [...] Redd APRN Cli nical Date: Rx ID: [id number] Authori zed By: Kendy Redd APRN [facility] himanshu: N BMN: N Not Available Not Available Not Available indometha jorje 25 mg capsule one capsule with food or milk twice day orally 3 days 12/22 completed Entered By: Rodo Suresh LPN Sign ed By: Miley Baldwin PA-C Cli nical Date: Rx ID: [id number] Authori zed By: Kendy Redd APRN Unc [...] a day 05/04 completed Entered By: Lexii [place] By: Lexii Merino MA Clini lois Date: Rx ID: [id number] Authori zed By: Miley Baldwin PA-C [facility] himanshu: N BMN: N Not Available Not Available Not Available pravastat in 20 mg tablet Take one tablet every night for high choleste rol 05/04 completed Entered By: Lexii [place] By: Lexii Merino MA Clini lois Date: Rx ID: [id number] Authori zed By: Reva Santacruz PA-C [facility] himanshu: N BMN: N Not Available Not [...] Chang PA-C Cli nical Date: Rx ID: [id number] Authori zed By: Reva Santacruz PA-C [facility] himanshu: N BMN: N Not Available Not Available Not Available metoprolo l succinate ER 25 mg tablet,ex tended release 24 hr 1 tablet every night 09/18 completed Entered By: Karey Vo Sign ed By: Karey Vo Clin ical Date: Rx ID: [id number] Authori zed By: Miley Baldwin PA-C Unc [...] completed Entered By: Lexii [place] By: Reva Ortizi nical Date: Rx ID: [id number] Authori zed By: Miley Baldwin PA-C Unc [...] Chang PA-C Cli nical Date: Rx ID: [id number] Authori zed By: Reva Santacruz PA-C Unc [...] completed Entered By: Lexii [place] By: Reva Burks nical Date: Rx ID: [id number] Authori zed By: Miley Baldwin PA-C [facility] himanshu: N BMN: N Not Available Not Available Not Available Lexapro 20 mg tablet one daily for depressi on 04/15 completed Entered By: Adeline Pickering PA-C Sig paulino By: Adeline Burks nical Date: Rx ID: [id number] Authori zed By: Miley Baldwin PA-C Unc [...] Not Available Not Available Not Available FreeStyle Mozelle kit use 2x daily for blood sugar [...] PA-C Cli nical Date: 017 Rx ID: [id number] Authori zed By: Reva Santacruz PA-C [facility] himanshu: N BMN: N Not Available Not Available Not Available Vitamin D 5,000 unit tablet Take 1 tablet every day by oral route. 05/03 completed Not Available Not Available Not Available Prevnar 13 (PF) 0.5 mL intramusc ular syringe disp and administ er one dose 10/20 completed Entered By: Brittani [place] By: Kendy Redd [employer] Un[facility] himanshu: N BMN: N Not Available Not Available Not Available Lois-Citra te 250 mg-2.5 mcg (100 unit) tablet take 1200 mg daily 05/04 completed Entered By: Lexii [place] By: Lexii Merino MA Uncod ed: N BMN: N Not Available Not Available Not Available B12 2500MG DAILY 07/08 completed Entered By: Lexii [place] By: Reva Chang PA-C Cli nical Date: 020 Rx ID: [id number] Authori zed By: Miley Baldwin PA-C Unc [...] Baldwin PA-C Cli nical Date: Rx ID: [id number] Authori zed By: Miley Baldwin PA-C Unc [...] Jacob MD Clini lois Date: Rx ID: [id number] Authori zed By: Aime Vallejo MD Uncod ed: N BMN: N Not Available Not Available Not Available Vitals Date Recorded Body height Body mass index (BMI) Body weight Heart rate Oxygen saturation Oxygen saturation in Arterial blood by Pulse oximetry Systolic blood pressure Diastolic blood pressure Provider Name and Address Organization Details Last Updated DateTime 4 152.4 cm 32.1 kg/m2 55567.3 g 76 /min 98 % 98 % 132 mm[Hg] 78 mm[Hg] Kadie Soto CMA [place] [facility] 14:30:59 Social History None recorded. Functional Status None recorded. Mental Status None recorded. Family History Nothing Reported Notes:Mother at age 34 for ovarian cancer, Father: at age 80 lung diease, Brother - [place] (age 57), Sister - [place] (age 49) Medical History No medical history recorded. Gynecological HistoryNo gynecological history recorded. Obstetrics History GPAL:G 0 P 0 0 0 0 Immunizations Vaccine Type Date Status Provider Name and Address Organization Details Recorded Time COVID-19, mRNA, LNP-S, bivalent, PF, 30 mcg/0.3 mL dose 03/19/2022 completed Not Available [facility] 07/11/2023 03:43:34 COVID-19, mRNA, LNP-S, bivalent, PF, 30 mcg/0.3 mL dose 10/04/2022 completed Not Available [facility] 07/11/2023 03:43:34 COVID-19, mRNA, LNP-S, bivalent, PF, 50 mcg/0.5 mL or 25mcg/0.25 mL dose 07/23/2020 completed Not Available [facility] 07/11/2023 03:43:34 COVID-19, mRNA, LNP-S, bivalent, PF, 50 mcg/0.5 mL or 25mcg/0.25 mL dose 08/20/2020 completed Not Available [facility] 07/11/2023 03:43:34 COVID-19, mRNA, LNP-S, bivalent, PF, 50 mcg/0.5 mL or 25mcg/0.25 mL dose 05/20/2021 completed Not Available [facility] 07/11/2023 03:43:34 Pneumococcal conjugate PCV 13 05/11/2017 completed Not Available [facility] 07/11/2023 03:43:34 Influenza, high-dose, quadrivalent, PF 03/19/2022 completed Not Available [facility] 07/11/2023 03:43:34 Tdap 12/19/2021 completed Not Available [facility] 03:43:34 zoster recombinant 12/19/[address] [facility] 07/11/2023 03:43:34 RSV, recombinant, protein subunit RSVpreF, adjuvant reconstituted, 0.5 mL, PF 09/14/2023 completed Inocencia Greene null, [place] [facility] 11/02/2023 07:49:58 zoster live 10/12/2012 completed Inocencia Greene null, [place] [facility] 11/02/2023 07:50:55 Influenza, high-dose, quadrivalent, PF 08/05/2023 completed Rodo Suresh QLIKVIEW DEVELOPER null, [place] [facility] 08/05/2023 17:40:34 COVID-19, mRNA, LNP-S, PF, isidoro-sucrose, 30 mcg/0.3 mL 03/21/2024 completed Kadie Soto HAND BENDER null, [place] [facility] 03/21/2024 11:03:53 Influenza, high-dose, trivalent, PF 03/21/2024 completed Kadie Soto HAND BENDER null, [place] [facility] 03/21/2024 11:04:06 Past Encounters Encounter ID Performer Location Encounter Start Date Encounter Closed Date Diagnosis/Indication Diagnosis SNOMED-CT Code Diagnosis ICD10 Code [id number] MATEO OSORIO [facility] [address] [place] [address] 03/18/2024 14:12:36 03/18/2024 15:12:33 Administration of SARS-CoV-2 vaccine 0407145226 Z23 Administra tion of influenza vaccine 48415157 Z23 Type 2 maddison betes mellitus 95686907 E11.9 History of raised blood lipids 628226257 Z86.39 Non-alcoho lic fatty liver 336078952 K76.0 Screening mammography of bilateral breasts 5355177884 29170 Z12.31 Hypertensive disorder 38 368224 I10 Health Concerns Section Related Observation LastModified by Organization Detai ls LastModified Time None Recorded Concern Status LastModified by Organization Details LastModified Time None Recorded Payers Encounter Date Sequence Insurance Name Policy Number Policy Barreto Covered Member ID Barreto Member ID Guarantor Name 03/18/2024 1 [place]ICARE [place]: [email or web address] Skye Hinton [id number] Skye Hinton 03/18/2024 2 [employer] OPTIONS (MEDICARE SUPPLEMENT) Skye Hinton [id number] Skye Hinton Notes Date Note Type Note Provider Name and Address Organization Details Recorded Time 03/18/2024 text/html Skye is here for follow up on diabetes. Her hga1c is 7.2 Skye is here with her sister for follow up she has no concerns Feeling well. Remembering to take her pills Glendy is helping her stay on trackShe labled each one. MATEO OSORIO [address] [place] [address], [id number], [place] - [facility] 03/18/2024 15:05:13 OBGyn Episode No OBEpisode recorded.
--- OUTSIDE RECORDS SUMMARY | 2024-05-05 14:08 | XMS_ITS | Encounter Summary ---
Author Organization [facility] Address [address] [place] [address] Care Team Providers Care Patch Setter Name Role Phone Kizzy Nunez IRONER MACHINE Primary Care Provider [phone] Encounter Details Date Type Department Care Team (Late st Contact Info) Description 10/12/2018 Historical Results Only [facility] - Main [place] [address] [place] [address] Kendy Redd NP [address] [place] [phone] Social History Tobacco Use Types [...] Procedure Name Priority Date/Time Associated Diagnosis Comments FREE T3 POC - CV Routine 10/12/2018 13 :03 EDT LIPID PANEL POC - CV Routine 9 13:03 EDT COMPREHENSIVE METABOLIC POC - CV Routine 10/12/2018 13:03 EDT GLYCOHEMOGLOBIN POC - CV Routine 10/12/2018 13:03 EDT FREE T4 POC - CV Routine 10/12/2018 13 :03 EDT THYROID STIM HORMONE POC - [facility] Routine 10/12/2018 13:03 EDT POCT CHOLESTEROL LDL ([facility]) Routine 10/12/2018 13:03 EDT MICROALBUMIN, URINE Routine 10/12/2018 1 0:40 EDT URINE [id number] RATIO (ACR) Routine 10/12/2018 10:40 EDT documented in this encounter Results * THYROID STIM HORMONE POC - [facility] (10/12/2018 13:03 EDT) Pathologist [facility] THYROID STIM HORMONE - [facility] 3.16 0.45 - 5.33 UIU/ML 10/12/2018 13:04 EDT [facility] 10/12/2018 13:0 3 EDT 10/12/2018 13:03 EDT Kendy Redd IRONER MACHINE CHEMISTRY & BLOOD GAS ORDERABLES Final Result [facility] * (ABNORMAL) LIPID PANEL POC - [facility] (10/12/2018 13:03 EDT) Pathologist [facility] Triglyceride 152(H) 0.00 - 150.00 MG/DL 10/12/2018 13:04 EDT [facility] Cholesterol 199 0.00 - 200.00 MG/DL 10/12/2018 13:04 EDT [facility] HDL 63(H) 40.00 - 60.00 MG/DL 10/12/2018 13:04 EDT [facility] 10/12/2018 13:0 3 EDT 10/12/2018 13:03 EDT Kendy Redd IRONER MACHINE CHEMISTRY & BLOOD GAS ORDERABLES Final Result [facility] * (ABNORMAL) POCT CHOLESTEROL LDL ([facility]) (10/12/2018 13:03 EDT) Pathologist [facility] LDL CHOLESTEROL - [facility] 106(H) 60 - 100 MG/DL 10/12/2018 13:04 EDT [facility] 10/12/2018 13:0 3 EDT 10/12/2018 13:03 EDT us Kendy Redd IRONER MACHINE POINT OF CARE TEST ORDERABLES Fi nal Result [facility] * (ABNORMAL) GLYCOHEMOGLOBIN POC - [facility] (10/12/2018 13:03 EDT) [facility] Hemoglobin A1c 6.0 4.0 - 6.0 % 10/12/2018 13:04 EDT [facility] AVG CALCULATED GLUCOSE - [facility] 120(H) 60 - 115 MG/DL 10/12/2018 13:04 EDT [facility] 10/12/2018 13:0 3 EDT 10/12/2018 13:03 EDT us Kendy Redd IRONER MACHINE CHEMISTRY & BLOOD GAS ORDERABLES Final Result [facility] * FREE T4 POC - [facility] (10/12/2018 13:03 EDT) [facility] FREE T4 - [facility] 0.73 0.58 - 1.64 NG/DL 10/12/2018 13:04 EDT [facility] 10/12/2018 13:0 3 EDT 10/12/2018 13:03 EDT us Kendy Redd IRONER MACHINE CHEMISTRY & BLOOD GAS ORDERABLES Final Result [facility] * FREE T3 POC - [facility] (10/12/2018 13:03 EDT) Pathologist [facility] T3,FREE - [facility] 3.89 2.40 - 4.00 PG/ML 10/12/2018 13:04 EDT [facility] 10/12/2018 13:0 3 EDT 10/12/2018 13:03 EDT us Kendy Redd NP CHEMISTRY & BLOOD GAS ORDERABLES Final Result [facility] * (ABNORMAL) COMPREHENSIVE METABOLIC POC - [facility] (10/12/2018 13:03 EDT) Albumin % 4.4 3.50 - 5.00 G/DL [facility]2018 [facility] ALKALINE [facility]OSPHATASE - [facility] 74 38.00 - 126.00 U/L 10/12/2018 13:04 [facility] BILIRUBIN TOTAL 1.1 0.20 - 1.30 MG/DL 10/12/2018 13:04 [facility] BUN - [facility] 11 7.00 - 20.00 MG/DL 10/12/2018 13:04 [facility] CALCIUM - [facility] 9.9 8.50 - 10.50 MG/DL 10/12/2018 13:04 [facility] Chloride 110(H) 98.00 - 107.00 MMOL/L 10/12/2018 13:04 [facility] CO2 Total 25 22.00 - 30.00 MMOL/L 10/12/2018 13:04 [facility] CREATININE 0.6(L) 0.70 - 1.50 MG/DL 10/12/2018 13:04 [facility] Anion Gap 9 7 - 17 MMOL/L 10/12/2018 13:04 [facility] GLUCOSE - [facility] 100 70.00 - 100.00 MG/DL 10/12/2018 13:04 [facility] Potassium 4.6 3.50 - 5.10 MMOL/L 10/12/2018 13:04 [facility] Sodium 144 137.00 - 145.00 MMOL/L 10/12/2018 13:04 [facility] TOTAL PROTEIN - [facility] 7.8 6.30 - 8.20 G/DL 10/12/2018 13:04 EDT [facility] SGOT/AST - [facility] 26 15.00 - 46.00 U/L 10/12/2018 13:04 EDT [facility] SGPT/ALT - [facility] 16 13.00 - 69.00 U/L 10/12/2018 13:04 EDT [facility] 10/12/2018 13:0 3 EDT 10/12/2018 13:03 EDT Kendy Redd IRONER MACHINE CHEMISTRY & BLOOD GAS ORDERABLES Final Result Performing Organization Address [facility]/ZIP Co de Phone Number [facility] * MICROALBUMIN, URINE (10/12/2018 10:40 EDT) Albumin, Urine 1.10 <1.7 mg/dL 10/12/2018 13:59 EDT [facility] Lab Urine Albumin to Creatinine Ratio 8.4 ug/mg 10/12/2018 13:59 EDT [facility] Comment: Normal: <30 ug/mg Creat Microalbuminuria: 30-300 ug/mg Creat Clinical albuminuria: >300 ug/mg Creat Creatinine, Urine 130.00 mg/dL 10/12/2018 13:59 EDT [facility] 10/12/2018 10:4 0 EDT 10/12/2018 12:52 EDT Narrative [facility] - 10/12/2018 13:59 EDT Does PT Have a Latex Allergy? NO WHAT TYPE OF COLLECTION IS THIS URINE? RANDOM URINE Kendy Redd IRONER MACHINE HEMATOLOGY & PF4 ORDERABLES Michelle l Result [facility] * ALBUMIN, URINE (10/12/2018 10:40 EDT) Albumin, Urine 1.10 <1.7 mg/dL 10/12/2018 13:59 EDT [facility] Lab Urine Albumin to Creatinine Ratio 8.4 ug/mg 10/12/2018 13:59 EDT [facility] Comment: Normal: <30 ug/mg Creat Microalbuminuria: 30-300 ug/mg Creat Clinical albuminuria: >300 ug/mg Creat Creatinine, Urine 130.00 mg/dL 10/12/2018 13:59 EDT [facility] 10/12/2018 10:4 0 EDT 10/12/2018 12:52 EDT Narrative [facility] - 10/12/2018 13:59 EDT Does PT Have a Latex Allergy? NO WHAT TYPE OF COLLECTION IS THIS URINE? RANDOM URINE us Kendy Redd NP CHEMISTRY & BLOOD GAS ORDERABLES Final Result [facility] documented in this encounter Visit Diagnoses Not on filedocumented in this encounter Care Teams Patch Setter Relationship Specialty Start Date End Date Kizzy Nunez NP [address] [place] [phone] PCP - General 12/09/12 documented as of this encounter
--- OUTSIDE RECORDS SUMMARY | 2024-05-05 14:08 | XMS_ITS | Encounter Summary ---
Author Organization [facility] Address [address] [place] [address] Care Team Providers Care Dipper Fish Name Role Phone iKzzy Nunez CLIENT CONSULTANT Primary Care Provider [phone] Encounter Details Date Type Department Care Team (Late st Contact Info) Description 07/08/2016 Historical Results Only [facility] - Main [place] [address] [place] [address] Reva Santacruz, MATEO [address] [place] [phone] Social History Tobacco Use Types Packs/Day [...] Procedure Name Priority Date/Time Associated Diagnosis Comments BASIC METABOLIC PANEL POCT - [facility] Routine 07/08/2016 13:17 EST documented in this encounter Results * (ABNORMAL) BASIC METABOLIC PANEL POCT - [facility] (07/08/2016 13:17 EST) BUN - [facility] 10 7.00 - 20.00 MG/DL 07/09/2016 13:17 EST [facility] CALCIUM - [facility] 9.3 8.50 - 10.50 MG/DL 07/09/2016 13:17 [facility] Chloride 106 98.00 - 107.00 MMOL/L 07/09/2016 13:17 [facility] CO2 Total 22 22.00 - 30.00 MMOL/L 07/09/2016 13:17 [facility] CREATININE 0.6(L) 0.70 - 1.50 MG/DL 07/09/2016 13:17 [facility] Anion Gap 14 7 - 17 07/09/2016 13:17 [facility] GLUCOSE - [facility] 107(H) 70.00 - 100.00 MG/DL 07/09/2016 13:17 [facility] Potassium 4.3 3.50 - 5.10 MMOL/L 07/09/2016 13:17 [facility] Sodium 142 137.00 - 145.00 MMOL/L 07/09/2016 13:17 [facility] 07/08/2016 13:1 7 EST 07/08/2016 13:17 EST us Reva GALINDO POINT OF CARE TEST ORDERABLES Fi nal Result [facility] documented in this encounter Visit Diagnoses Not on filedocumented in this encounter Care Teams Dipper Fish Relationship Specialty Start Date End Date Kizzy Nunez, CLIENT CONSULTANT [address] [place] [phone] PCP - General 12/09/12 documented as of this encounter
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
--- OUTSIDE RECORDS SUMMARY | 2024-05-05 14:09 | XMS_ITS | Encounter Summary ---
Author Organization [facility] [place] [address] Care Team Providers Care Cargo Station Worker Name Role Phone Noa Washington APRN Primary Care Provider [phone] Reason for Visit * Consultation (Routine) - Closed Specialty Diagnoses / Procedures Referred By Rochelle t Referred To Contact General Surgery Diagnoses Thyroid nodule Ruslan López MD [address] [place] [address] [place] [address] [facility] [address] [place] [address] Referral ID Status Reason Start Date Expiration Date V isits Requested Visits Authorized [id number] Closed Consult, Test & Treat 08/07/2022 08/07/2023 1 1 Encounter Details Date Type Department Care Team ([facility] Contact Info) Description 10/09/2022 2:00 PM EDT Office [place] [address] Kari Fong MD [facility] [place] [address] Jyothi Jon APRN [facility] [place] [address] Thyroid nodule Social History Tobacco Use Types Packs/Day Years Used Date Smoking Tobacco: Never Smokeless Tobacco: Never Tobacco Cessation:Counseling Given: Not Answered Sex and Gender Information Value Date Recorded Sex Assigned at Not on file Gender Identity Not on file Sexual Orientation Not on file documented as of this encounter Last Filed Vital Signs Vital Sign Reading Time Taken Comments Blood Pressure 148/75 10/09/2022 2:25 PM EDT Pulse 69 10/09/2022 2:25 PM EDT Temperature - - Respiratory Rate 14 10/09/2022 2:25 PM EDT Oxygen Saturation 99% 10/09/2022 2:25 PM EDT Inhaled Oxygen Concentration - - Weight 74.4 kg (164 lb 1.6 oz) 10/09/2022 2:25 P M EDT Height 152.4 cm (5') 10/09/2022 2:25 PM EDT Body Mass Index 32.05 10/09/2022 2:25 PM EDT documented in this encounter Progress Notes * Kari Fong MD - 10/09/2022 2:00 PM EDT Endocrine Surgery Initial Consultation HPI: Ms. Skye Hinton is a 72 y.o. year old female referred by Dr. López who presents for evaluation of a left-sided thyroid nodule. She is s/p radioactive iodine ablation in 2012 here at for toxic multinodular goiter. She is on levothyroxine following this treatment. Her left-sided nodule came to attention again recently after a CT scan done to evaluate neck pain. She reports compressive symptoms including dysphagia and left sided neck tenderness. She denies symptoms of hyperthyroidism or hypothyroidism, and recent thyroid function tests are not available to me. There is not personal history of radiation exposure, and the patient has not had prior anterior neck surgery. There is not family history of endocrine tumors or malignancy. Imaging studies to date include a CT scan done in July which is notable for a left sided thyroid nodule which is largely substernal and measures about 4 x 3 x 3 cm. Fine needle aspiration biopsy has been performed and cytology was hypocellular but favored to be benign. She is now referred to me for consideration of surgical management of her thyroid disease. Past Medical History: Diagnosis Date ??? Anemia ??? Anxiety ??? Depression ??? Encounter for blood transfusion ??? Headache(784.0) ??? Hypertension Past Surgical History: Procedure Laterality Date ??? APPENDECTOMY ??? CHOLECYSTECTOMY ??? DEEP BRAIN STIMULATOR PLACEMENT SCS for pain 2007 in [place] ??? HYSTERECTOMY ??? JOINT REPLACEMENT right knee X 2 ??? ORTHOPEDIC SURGERY Right foot surgeries due to fx- has plates ??? ORTHOPEDIC SURGERY Left shoulder surgery many years ago ??? PRO IMPLANT NEUROSTIM/AUDIO VISUAL COLLECTIONS COORDINATOR Right 11/26/2018 INSERT OR REPLACE SPINAL NEUROSTIMULATOR (WRVU 5.19) performed by Jose Francisco Alfred MD at [facility] MAIN OR ??? SPINE SURGERY L5-S1 posterior fusion 03/10/03 Current Outpatient Medications on File Prior to Visit Medication Sig Dispense Refill ??? [DISCONTINUED] DULoxetine (CYMBALTA) 60 mg capsule Take 60 mg by mouth 2 times daily. ??? pravastatin (PRAVACHOL) 20 mg Tablet Take 20 mg by mouth nightly. ??? metoclopramide (REGLAN) 10 mg Tablet take 1 tablet by mouth every 8 hours if needed for nausea or migraines 0 ??? nortriptyline (PAMELOR) 10 mg Capsule TAKE 1 TO 2 CAPSULES BY MOUTH AT BEDTIME FOR SLEEP AND MIGRAINE PREVENTION 0 ??? ibuprofen (ADVIL;MOTRIN) 800 mg Tablet Take 1 tablet by mouth every 8 hours as needed for Pain.Make sure to take this with food and water. 30 tablet 12 ??? metoprolol tartrate (LOPRESSOR) 25 mg Tablet Take 25 mg by mouth as needed. ??? losartan (COZAAR) 50 mg Tablet Take 50 mg by mouth daily. ??? pramipexole (MIRAPEX) 0.25 mg Tablet Take 0.25 mg by mouth 2 times daily. ??? methocarbamol (ROBAXIN) 500 mg Tablet Take 1 tablet by mouth 3 times daily. (Patient not taking: Reported on 01/31/2019) 5 tablet 0 ??? [DISCONTINUED] escitalopram oxalate (LEXAPRO) 20 mg Tablet Take 20 mg by mouth daily. No current facility-administered medications on file prior to visit. Allergies Allergen Reactions ??? Aspirin Other (See Comments) Chest pain ??? Tylenol [Acetaminophen] Palpitations Family History: No thyroid cancer. No pituitary, pancreas or adrenal tumors. No parathyroid disease. 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 Her granddaughtr lives with her. She does notsmoke. No etoh. She does not do any professional public speaking or singing. Review of Systems: 10 of 14 systems reviewed and all negative except as per HPI Patient Vitals for the past 24 hrs: Pulse Resp BP SpO2 10/09/22 1425 69 14 148/75 99 % Body mass index is 32.05 kg/m??. Physical Exam: General: well-appearing, NAD Neuro: Alert and oriented x 3. Cranial nerves II-XII grossly intact. Eyes: no lid lag or proptosis ENT: Moist mucus membranes. Trachea midline Thyroid: large 4+cm nodule on the left. Mobile with swallowing. Lymph: No palpable cervical lymphadenopathy CV: RRR Respiratory: Normal respiratory effort. Lungs clear bilaterally. Extremities well-perfused without edema Skin: warm and dry. No rashes Psych: appropriate affect Labs: TSH in 07/2019 was 3.3 T3 total in 08/2022 was 152 Imaging: Thyroid, Parathyroid and Cervical Ultrasound I performed a thyroid, parathyroid and cervical ultrasound at the time of the clinic visit today using the 12 mHz linear ultrasound transducer. The thyroid, parathyroid and central and bilateral lateral neck lymph node basins were evaluated. Thyroid Isthmus: Thickness: 0.22 cm Nodules: none Right lobe: Lobe: Essentially nonexistant Nodules: none Left lobe: Lobe: 4.4+ x 2.9 x 3.01 cm Nodules: There is a mixed nodule replacing the left thyroid lobe. It has well- defined borders. There are not microcalcifications. There is no/low vascularity. There is substernal extension, but I canvisualize the inferior aspect by angling the probe behind the clavicle. Cervical lymph nodes Central neck: Normal ultrasonographic appearing lymph nodes. Right lateral neck: Normal ultrasonographic appearing lymph nodes. Left lateral neck: Normal ultrasonographic appearing lymph nodes. A/P: Ms. Skye Hinton is a 72 y.o. year old female with a left-sided thyroid nodule and FNA reportedly demonstrating hypocellular but benign ([place] 2) cytology last year. The nodule exceeds 4cm and does have some substernal extension. She has compressive symptoms. I therefore recommended left thyroid lobectomy. I discussed the risks of thyroidectomy including, but not limited to, laryngeal nerve injury resulting in voice changes or hoarseness, low calcium due to damage or removal of one ormore parathyroid glands, bleeding which may require return to the operating room, post-operative infection and other complications related to anesthesia. The patient's questions were answered, and consent was obtained today. We will schedule surgery for the next mutually convenient date. [facility] Data Thyroid Body mass index is 32.05 kg/m??. Prior neck irradiation:No Prior anterior neck surgery: No Pre-operative laryngoscopy: No Anti-coagulation meds (warfarin, heparin, oral thrombin or factor Xa inhibitors): No. Will the patient stop this medication for surgery? N/A Anti-platelet meds (aspirin, clopidogrel): No, Will the patient stop this medication for surgery? N/A Substernal component: YES Symptoms of compression: YES FNA: yes FNA Classification: [place] II documented in this encounter Plan of Treatment Not on file documented as of this encounter Visit Diagnoses Diagnosis Thyroid nodule Nontoxic uninodular goiter documented in this encounter Care Teams Cargo Station Worker Relationship Specialty Start Date End Date Noa Washington, MOSES [address] [place] [address] PCP - General Family Medicine 04/20/15 documented as of this encounter
--- OUTSIDE RECORDS SUMMARY | 2024-05-05 14:09 | XMS_ITS | Encounter Summary ---
[place] [address] Care Team Providers Care Gas Transfer Operator Name Role Phone Noa Washington APRN Primary Care Provider Encounter Details Date Type Department Care Team (Late st Contact Info) Description 10/12/2018 1:00 PM EDT Notes [place] [id number] Social History Tobacco Use Types Packs/Day Years [...] on filedocumented in this encounter Care Teams Gas Transfer Operator Relationship Specialty Start Date End Date Noa Washington APRN [address] [place] [address] PCP - General Family Medicine 04/20/15 documented as of this encounter
--- OUTSIDE RECORDS SUMMARY | 2024-05-05 14:09 | XMS_ITS | Encounter Summary ---
Author Organization [facility] [place] [address] Care Team Providers Care Underwater Hunter Name Role Phone Noa Washington APRN Primary Care Provider [phone] Encounter Details Date Type Department Care Team (Late st Contact Info) Description 07/31/2022 12:05 AM EST Ancillary Procedure Radiology Library at [facility] [place] [address] Noa Washington APRN [address] [place] [address] [place] [address] Social History Tobacco Use Types Packs/Day Years Used Date Smoking Tobacco: Never Smokeless Tobacco: Never Sex and Gender Information Value Date Recorded Sex Assigned at Not on file Gender Identity Not on file Sexual Orientation Not on file documented as of this encounter Plan of Treatment Not on file documented as of this encounter Procedures Procedure Name Priority Date/Time Associated Diagnosis Comments FILM LIBRARY STORAGE ONLY CT CHEST Routine 07/31/2022 12:05 AM EST documented in this encounter Results * Film Library- Storage Only CT Chest (07/31/2022 12:05 AM EST) Narrative [facility] - 10/08/2022 1:12 AM EDT This exam is auto-finalizing. It's purpose is for storage only. Noa Washington APRN IMG FILM LIBRARY ORD ERABLES DH NAY[place] documented in this encounter Visit Diagnoses Not on filedocumented in this encounter Care Teams Underwater Hunter Relationship Specialty Start Date End Date Noa Washington, MELTER ASSISTANT [address] [place] [address] PCP - General Family Medicine 04/20/15 documented as of this encounter
--- OUTSIDE RECORDS SUMMARY | 2024-05-05 14:09 | XMS_ITS | Encounter Summary ---
Author Organization [facility] [place] [address] Care Team Providers Care Forestry Aid Technician Name Role Phone Noa Washington APRN Primary Care Provider [phone] Reason for Visit * Reason Comments Pain Management Low Back Pain Encounter Details Date Type Department Care Team (Late st Contact Info) Description 07/27/2015 10:30 AM EST Office [place] [address] Uri Sánchez MD [facility] [place] [address] Complex regional pain syndrome type 1 of both upper extremities Social History Tobacco Use Types Packs/Day Years [...] documented in this encounter Progress Notes * Uri Sánchez MD - 07/27/2015 11:08 AM EST Ms. Hinton presents today having already seen Dr. Simmons whom she did not really care for and Ms. Veliz who referred her to me because she had questions regarding her spinal cord stimulating device. She has a CRAVE's spinal cord stimulating device and the plan was that she would come and see me once I have the [place] paperwork to review. She states that she has requested the [place] paperwork and was told three weeks ago [...] She has been reprogrammed once by the [facility] approximately seven months ago and was told she needed a new machine which she now has. We discussed the functional zoroastrian program with her but she is not [...] hip pain and knee pain in the [facility] and it seems to work very well [...] going to call the number for the [facility] and try to arrange to have him see her again either in [facility] or the day when Dr. Simmons [...] marijuana, the IV ketamine, and the functional zoroastrian program. documented in this encounter Plan of Treatment Not on file documented as of this encounter Visit Diagnoses Diagnosis Complex regional pain syndrome type 1 of both upper extremities documented in this encounter Care Teams Forestry Aid Technician Relationship Specialty Start Date End Date Noa Washington, MOSES [address] [place] [address] PCP - General Family Medicine 04/20/15 documented as of this encounter
--- OUTSIDE RECORDS SUMMARY | 2024-05-05 14:09 | XMS_ITS | Encounter Summary ---
Author Organization [facility] [place] [address] Care Team Providers Care Tool Distributor Name Role Phone Noa Washington APRN Primary Care Provider [phone] Reason for Visit * Reason Comments Pain Management post op IPG SWAP Encounter Details Date Type Department Care Team (Late st Contact Info) Description 12/06/2018 11:45 AM EDT Office [place] [address] [place] [address] Complex regional pain syndrome type 2 of both upper extremities Social History Tobacco [...] EDT documented in this encounter Patient Instructions * Patient Instructions* Lamont Vasquez PA - 12/06/2018 11:45 AM [...] improve documented in this encounter Progress Notes * Lamont Vasquez PA - 12/06/2018 11:[address] [facility] [place] [address] Phone: PAIN MANAGEMENT FOLLOW UP DATE OF VISIT 12/06/2018 Patient Skye Hinton 1950 REFERRING PROVIDER Noa Washington APRN [address] [place] [address] [place] [address] PRIMARY CARE PROVIDER Noa Washington APRN CHIEF COMPLAINT: Post Op follow up to SCS generator swap done 11/26/2018 HPI Skye Hinton is a 68 y.o. female seen in the [facility] pain clinic 10/12/2018 where this history was [...] [facility]'s) placed in 2006 which was complicated by electrode loosening and IPG battery erosion where she was taken back to OR for IPG battery revision. This was done by a pain clinic in [place]. She is getting adequate paresthesia coverage when he turns on the spinal cord stimulator, however, for the past six months, she noted overheating at the IPG battery site when she charges. She also notes decreased efficacy of the spinal cord stimulator program towards the end of the day. ?? Patient is also seen by [facility] visitor services representative today in clinic. Her spinal cord stimulatorwas placed in 2006 with two 90cm electrodes located at the C2 level. ?? She currently takes Gabapentin and duloxetine for pain. She was scheduled for a generator explant and replacement that was done 11/26/2018. [facility]. She's accompanied by her [...] she can't write. She's shaking with a tremor (her says) even when she's not writing. She's [...] dental problems. Cardiovascular Denies chest pain, palpitations, AK, hypertension, heart murmur. Respiratory Denies cough, SOB, [...] visit following a battery replacement surgery for her SCS that was done 11/26/2018. She had severe pain for 2-3 days following the surgery but says things have settled down. I asked if she's been in touch with the [facility] rep. She says she has not but that she is seeing them immediately when she's done with my visit today. I said I wanted to be sure she's getting all theright programming to take advantage of the device. The surgical site is without erythema, swelling or warmth. No exudate. Site is well healed. I took a photo and entered it into the medical record using [employer] software. The site was prepped and with sterile gloves danitza were removed. Band aids were placed over the area with instructions not to soak the area (baths, pools etc) for another week. Call or return if there is any new redness, swellingor tenderness. Ms. Hinton and her were given an opportunity to ask any further questions and had none at this time. The [facility] was not able to make it to this visit. So, she will contact him to follow up on herprogramming questions. Recommendations: #1 Medications:No new medications at [...] answered to their satisfaction. BECKY FerreraC Physician Supervisor [facility] [address] [address] / [facility] documented in this encounter Plan of Treatment Not on file documented as of this encounter Visit Diagnoses Diagnosis Complex regional pain syndrome type 2 of both upper extremities documented in this encounter Care Teams Tool Distributor Relationship Specialty Start Date End Date Noa Washington APRN [address] [place] [address] PCP - General Family Medicine 04/20/15 documented as of this encounter
--- OUTSIDE RECORDS SUMMARY | 2024-05-05 14:09 | XMS_ITS | Encounter Summary ---
Author Organization [facility] Address [facility] [place] [address] Care Team Providers Care Brine Tank Operator Name Role Phone Kizzy Nunez APRN Primary Care Provider [phone] Reason for Visit * Reason Onset Date Comments Labs Only 04/13/2012 Encounter Details Date Type Department Care Team (Late st Contact Info) Description 04/13/2012 Telephone [place] [address] Winston Mcnulty MD [facility] DR [place] [address] Labs Only Social History Tobacco Use Types Packs/Day Years Used Date Smoking Tobacco: Never Sex and Gender Information Value Date Recorded Sex Assigned at Not on file Gender Identity Not on file Sexual Orientation Not on file documented as of this encounter Miscellaneous Notes * Telephone Encounter - Winston Mcnulty - 04/13/2012 10:20 AM EDT Spoke with patient about her labs. She has hyperthyroidism with negative TSI and h/o MNG. 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 Medical release form has been mailed to patient so we can get records from [place]. She is in severe distress from heat intolerance and wants treatment as soon as possible. I discussed the three possible ways to treat hyperthyroidism. The most recommended being Radio -iodine treatment. I have extensively discussed the role of three ways of treatment and we have come to agreement that Radio-iodine uptake would be best. I have scheduled uptake and scan study done in [facility] and she can get treatment done here. I have placed consult for nuclear medicine. Also I talked to her about being on low iodine diet and I have given the list of foods to avoid andalso gave her a website to look up the foods. So the uptake/scan study will be done one week after she is on low iodine diet and then therapy. She will stay on low iodine upto therapy. Also I have prescribed atenolol 25 mg daily to help with heat intolerance. documented in this encounter Plan of Treatment Not on file documented as of this encounter Visit Diagnoses Not on filedocumented in this encounter Care Teams Brine Tank Operator Relationship Specialty Start Date End Date Kizzy Nunez APRN [facility] [address] [place] [address] PCP - General 04/07/12 04/19/15 documented as of this encounter
--- OUTSIDE RECORDS SUMMARY | 2024-05-05 14:09 | XMS_ITS | Encounter Summary ---
Author Organization [facility] [place] [address] Care Team Providers Care Family Practice Physician Name Role Phone Kizzy Nunez APRN Primary Care Provider [phone] Encounter Details Date Type Department Care Team (Late st Contact Info) Description 05/14/2012 Orders [place] [address] Winston Mcnulty MD [facility] [place] [address] Hyperthyroidism (Primary Dx) Social History Tobacco Use Types Packs/Day Years Used Date Smoking Tobacco: Never Sex and Gender Information Value Date Recorded Sex Assigned at Not on file Gender Identity Not on file Sexual Orientation Not on file documented as of this encounter Plan of Treatment Not on file documented as of this encounter Results * (ABNORMAL) T3 (07/13/2012 2:22 PM EST) T3 Total 175(H) 75 - 170 ng/dL [facility] Blood specimen (specimen) 07/13/2012 2:22 PM EST 07/13/2012 2:35 PM EST Narrative Resulting Agency Comment Spec In Lab Roberto Justice MD CHEMISTRY ORDERABL ES [facility] [employer] * T4, free (07/13/2012 2:22 PM EST) Free T4 1.17 0.90 - 1.60 ng/dL [facility] Blood specimen (specimen) 07/13/2012 2:22 PM EST 07/13/2012 2:35 PM EST Narrative Resulting Agency Comment Spec In Lab Roberto Justice MD CHEMISTRY ORDERABL ES [facility] documented in this encounter Visit Diagnoses Diagnosis Hyperthyroidism- Primary Thyrotoxicosis without mention of goiter or other cause, without mention of thyrotoxic crisis or storm documented in this encounter Care Teams Family Practice Physician Relationship Specialty Start Date End Date Kizzy Nunez APRN [facility] [address] [place] [address] PCP - General 04/07/12 04/19/15 documented as of this encounter
--- OUTSIDE RECORDS SUMMARY | 2024-05-05 14:09 | XMS_ITS | Encounter Summary ---
Author Organization [facility] [place] [address] Care Team Providers Care Nuclear Radiation Engineer Name Role Phone GloriaNoa main MOSES Primary Care Provider [phone] Reason for Visit * Auth/Cert (Routine) Specialty Diagnoses / Procedures Referred By Contac t Referred To Contact Diagnoses H/O thyroidectomy Thyroidectomy Luz Marina Clarke MD [facility] [address] [address] [facility] Referral ID Status Reason Start Date Expiration Date Visits Re quested Visits Authorized [id number] 1 1 Encounter Details Date Type Department Care Team (Latest Contact Info) Description 12/23/2022 1:07 PM EDT - 12/23/2022 9:10 PM EDT Hospital Encounter [place] [address] Luz Marina Clarke MD [facility] [address] [place] [address] Discharge Disposition: Other [facility] Term [facility] Social History Tobacco Use Types Packs/Day Years Used Date Smoking Tobacco: Never Smokeless Tobacco: Never Tobacco Cessation:Counseling Given: Not Answered Alcohol Use Standard Drinks/Week Comments Yes 0 (1 standard drink = 0.6 oz pur e alcohol) Very rare IPV Inpatient Questions Answer Date Recorded Does [...] Sign Reading Time Taken Comments Blood Pressure 156/75 12/23/2022 9:00 PM EDT Pulse 80 12/23/2022 6:17 PM EDT Temperature 36.2 ??C (97.2 ??F) 12/23/2022 5:19 PM ED T Respiratory Rate 16 12/23/2022 9:00 PM EDT 1 6-18 Oxygen Saturation 97% 12/23/2022 9:00 PM EDT Inhaled Oxygen Concentration - - Weight 75 kg (165 lb 5.5 oz) 12/23/2022 1:19 PM EDT Height 152.4 cm (5') 12/23/2022 1:19 PM EDT Body Mass Index 32.29 12/23/2022 1:19 PM EDT documented in this encounter Discharge Instructions * Discharge Instructions* Glendy Nava RN - 12/23/2022 5:10 PM EDT General Anesthesia Discharge Instructions Go home and rest. You may be sleepy for several hours. Take it easy as sudden position changes may cause nausea and/or dizziness. Use caution on stairs. Do not smoke if you are alone. Follow a light to regular diet as tolerated today. If nausea occurs, start with clear liquids, and progress slowly to a regular diet. Do not drive, operate machinery, drink alcoholic beverages or make any legal decisions after havinggeneral anesthesia. The medications given change your reaction time and alter your judgement. IV site -- slight redness is normal, you can use warm compresses. If tenderness and redness increases or foul drainage occurs, please contact your M.D. Patients who have had endotracheal tubes/LMA (tubes used by the anesthesia staff to ensure a safe airway during your operation) may have a sore throat. This is normal and cold liquids or soothing lozenges will help ease this discomfort. Narcotic pain medications can cause constipation, please ask the surgeons office what they recommend for prevention of this. Some non-pharmaceutical means of constipation prevention include increasing intake of fluids, eating more fruits and vegetables as well as fruit juices. If you are uncomfortable and/or unable to urinate within 8 hours of discharge and it is before 5 pm, call your physician. If it is after 5pm go to the closest emergency room or call the hospital stroboscope operator at [phone] and ask for physician director of acquisitions covering for your physician. Questions or problems after 5pm or on a weekend: Call the [facility] stroboscope operator at and ask for the physician director of acquisitions covering for your doctor. * Patient Instructions* Harjit Mayfield MD - 12/23/2022 5:24 PM EDT THYROID LOBECTOMY (HEMITHYROIDECTOMY) PATIENT DISCHARGE INSTRUCTIONS What to Expect Following Surgery: Swelling and/or bruising under and around the incision is normal. It is usually greatest on the second or third day following surgery. You may also feel the sensation of swelling or firmness that canlast for a month or more Your scar will be most visible for 1-2 months following your operation and will gradually fade overthe next 6-8 months. As it heals, a scar often looks more pink or red than the skin around it. You may feel a ???healing ridge?? directly under the incision. This is completely normal and is the result of swelling, healing, and scar formation. Usually, this will go away when healing is complete in 3-6 months. The skin just above and below your incision will feel numb. This will improve over several months but some patients may have a long-term decrease in sensation over these areas. You may notice minor difficulty in swallowing which will improve over time. Your voice may be hoarse or weak at first--this is normal and does not mean there was damage done to the nerves that make the vocal cords move. Your voice will usually go back to normal after severaldays to a few weeks. Incision Care: Neck incisions heal rapidly--usually within a week or two. The incision can get wet in the shower 24 hours after surgery. However, do not submerge the incision underwater (i.e. bath tub, swimming pool, hot tub, etc.) for at least 2 weeks after your operation. Pat the incision dry immediately following your shower. Do not scrub the area vigorously for the next 2 weeks. You have a skin glue closure, and you may notice tiny pieces of yellow/white/marquez material on your washcloth or there may be a thin clear or purplish/marquez crust around the edges of the incision. Thisis normal. The glue will start to come off about a week after surgery. Do not pull off the skin glue in order to allow time for the incision to heal completely. If there is still some glue on your skin 2 weeks after surgery, you may gently wash it away. Do not use any ointments/salves/Vitamin E on the incision for 2 weeks as these may impair early wound healing. After 2 weeks (and after the skin glue is gone), you may apply vitamin E oil or scar creams to the incision. Gentle massage may help soften your scar tissue. Incisions are sensitive to sunlight. For at least 1 year after surgery you should use sunscreen when outdoors for long periods of time to prevent permanent darkening of the scar. This includes tanning booths. Pain Management: You may apply ice or cold packs to the incision for 15-20 minutes several times a day for the first2-3 days following surgery to help with discomfort. You may feel some stiffness/soreness in your shoulders, back, and neck. This may take a few days orweeks to go away completely. You may use moist warm heat, a heating pad, or massage to these areas for 15-20 minutes several times a day. Do not be afraid to move your neck - gently flexing and stretching your neck muscles and light massage will help prevent stiffness NSAIDs (non-steroidal anti-inflammatory drugs) such as ibuprofen (Motrin, Advil) or naproxen (Naprosyn, Aleve) are most helpful for the pain experienced after surgery. Generally, these are even more effective than the stronger pain medications (narcotics or opioids) after thyroid surgery. Take NSAIDS every 6 hours [id number] for the first 3-5 days following surgery to help minimize pain. It is unusual to require opioid pain medications after thyroid surgery. If you were prescribed oxycodone, use only for severe pain, and never take with alcohol. Opioid medications typically cause constipation, so we suggest using a stool softener in addition (metamucil, colace...etc.). Diet & Activity: No restrictions in your diet are necessary. Activity as tolerated by your comfort level. You may return to work as soon as you would like. However, if your job requires heavy lifting or strenuous physical activity, your surgeon may ask you to wait to return to work for two weeks. NO DRIVING for 24 hours after general anesthesia and for at least 8 hours following any dose of an opioid pain medication if one was prescribed for you. Thyroid Hormone: About 25% of patients will require thyroid hormone supplementation after a hemithyroidectomy. A blood test will performed in approximately 6 weeks to determine whether you need this. This lab test will be coordinated with your follow-up appointment. Pathology Report: All specimens removed at surgery are analyzed by a pathologist. This report usually takes approximately 5-7 business days to be ready. As of September 2020, the reports are released directly to your electronic patient portal as soon as they are available. THIS MAY MEAN THAT YOU WILL SEE THE RESULTS BEFORE YOUR SURGEON DOES!!! Dr. Clarke or Jyothi Jon APRN, will call you to discuss the report within 72 hours of its release. Follow-up Appointment: Will be scheduled with Dr. Clarke and/or Jyothi Jon APRN, in 6 weeks If you do not already have a follow up appointment, the date and time as well as any required labs will be mailed to you Please call [phone] to confirm the date and time of your appointment if you do not hear from us in the next 2 weeks Call Doctor for: Call if you have trouble talking or breathing (call 911 if this is severe) Call if you develop numbness or tingling around your mouth/lips or on the tips of your fingers or your hands, as this may mean your calcium is low. This may also be related to pain medication, where the breathing tube was positioned against your lips, the positioning of your arms and hands in the operating room, or how you were positioned when sleeping. If the sensation does not go away within a half hour, or if it worsens prior to that, call us immediately so we can discuss increasing your calcium if we think you need it. Call if your incision becomes red or begins to drain fluid. Call if you have fevers greater than 101 degrees F Call if you have persistent nausea or vomiting (this may be related to opioid pain medications). Call if you begin feeling worse, rather than better, several days after surgery. Phone number for questions: [phone] before 5 PM on weekdays [phone] after 5 PM and on weekends/holidays. Ask for the general surgery resident director of acquisitions. documented in this encounter Medications at Time of Discharge Medication Sig Dispensed Refills Start Date End Date gabapentin (Neurontin) 300 mg capsule Take 900 mg by mouth nightly. losartan (Cozaar) 100 mg tablet Take 100 mg by mouth daily. 09/13/2022 pramipexole (Mirapex) 0.5 mg tablet Take 0.5 mg by mouth nightly. 09/13/[address] (Cymbalta) [address] capsule Take 90 mg by mouth daily. melatonin 10 mg capsule Take 10 mg by mouth. propranolol LA (Inderal LA) 80 mg ER 24 hr capsule Take 80 mg by mouth daily. aspirin EC 81 mg EC (DR) tablet Take 81 mg by mouth daily. atorvastatin (Lipitor) 40 mg tablet Take 40 mg by mouth daily. doxepin (SINEquan) 25 mg capsule Take 25 mg by mouth. metoprolol succinate XL (Toprol-XL) 25 mg ER 24 hr tablet Take 25 mg by mouth daily. benzonatate (Tessalon) 200 mg capsule Take 200 mg by mouth 3 times daily as needed for Cough. amitriptyline (Elavil) 25 mg tablet Take 25 mg by mouth nightly. SUMAtriptan (Imitrex) 100 mg tablet Take 100 mg by mouth as needed for Migraine. albuteroL 90 mcg/actuation HFA Aerosol Inhaler Inhale 2 puffs into the lungs every 4 hours as needed. Use with spacer levothyroxine (Synthroid) 50 mcg tablet Take 50 mcg by mouth daily. 02/06/2023 documented as of this encounter Progress Notes * Glendy Nava RN - 12/23/2022 9:11 PM EDT Patient transferred to the main hospital via ambulance for hypoxia. Patient left on 2 L unable to maintain sats above 90% * Glendy Nava RN - 12/23/2022 8:51 PM EDT Patient continues to desat to the 80s. Patient currently on 2L of oxygen. VSS. Plan to transfer to the Main hospital. Report given to Vee DAWN. Patient going to the [facility]. * Glendy Nava RN - 12/23/2022 7:07 PM EDT Patient's oxygen sats 79-96%. Patient holding her breath and keeping her neck stiff. Anesthesia Dr Little Silver in to see patient and new order received. Patient given a duoneb at this time. In addition, patient ambulated with a walker around the nurses station. Despite attempts patient continued to be unable to maintain her O2 sats. * Catia Iverson RN - 12/23/2022 1:15 PM EDT Brandee Valderrama [place] * Concepcion Salgado RN - 12/22/2022 2:11 PM EDT Spoke with patient NB documented in this encounter H&P Notes * Luz Marina Clarke MD - 12/23/2022 3:22 PM EDT Patient Name: Skey Hinton Patient Age: 72 y.o. Birthdate: 1950 Admit date: 12/23/2022 Attending Physician: Luz Marina Clarke MD Endocrine Surgery Pre-Operative H&P Skye Hinton is a 72 y.o. female with a history of MASSEY and a 4cm left-sided thyroid nodule. Therehave been no significant changes since my office note dated 10/09/22. PMH and PSH unchanged since office visit. Last value Range last 24 hrs Temperature Temp: 36.6 ??C (97.9 ??F) Temp: [36.6 ??C (97.9 ??F)] Heart Rate Heart Rate: 58 Heart Rate: [58] Blood Pressure BP: 198/84 BP: (198)/(84) Respiratory Rate Resp: 16 Resp: [16] SpO2 SpO2: 97 % SpO2: [97 %] Art BP BP (Arterial Line): -- NAD RRR CTAB Soft, nt, nd Ext warm Pre-operative labs and imaging reviewed. A/P: 72 y.o. female with a left-sided thyroid nodule. Plan is to proceed to the OR for left hemithyroidectomy. documented in this encounter Miscellaneous Notes * Brief Op Note - Luz Marina Clarke MD - 12/23/2022 5:01 PM EDT Brief Operative Note Patient Name: Skye Hinton : [id number] MR#: [id number] Case Date: 12/23/2022 Surgeon: Surgeon(s) and Role: * Luz Marina Clarke MD - Primary * Harjit Mayfield MD - Resident - Assisting Preoperative diagnosis: thyroid nodule Postoperative diagnosis: thyroid nodule Procedure(s) (LRB): THYROIDECTOMY, LOBECTOMY, TOTAL, UNILATERAL (WRVU 11.19) (Left) FACIAL NERVE MONITORING, SETUP LARYNGEAL (WRVU 1.57) (N/A) Anesthesia: General Findings: large (3.5-4cm) inferior pole nodule in left thyroid with ~1cm of subclavicular extensionthat delivered easily into cervical thyroidectomy bed, but ruptured in course of dissection. Left upper parathyroid preserved. Left lower parathyroid not seen. Left RLN intact throughout. Complications: none apparent Intake: Intraprocedure Crystalloid Total Intake lactated ringers infusion 800.00 mL Total Intake 800 mL Output Blood Loss 17 mL Total Output 17 mL Net Net Volume 783 mL Transfusion No data found in the last 1 encounters. Output: Estimated Blood Loss: 17 mL Urine Output:: (no urine output recorded) Other Output: (no other output recorded) Drains: none Specimens removed during surgery: Order Name Source Comment Collection Info Order Time SPECIMEN TO PATHOLOGY thyroid nodule Left Thyroid Lobe excision No 12/23/2022 4:51 PM Time specimen removed from patient: 4:50 PM Number of tissue samples (in container) 1 Biospecimen to store? No Disposition: awakened from anesthesia, extubated and taken to the recovery room in a stable condition, having suffered no apparent untoward event. Condition: doing well without problems Attestation: Case Date: 12/23/2022 I was present and I participated during the entire procedure (does not need to include opening and closing). (Please see the Surgical Encounter Summary for any Implant and Specimen details pertinent to this patient.) Surgical Infection Prevention Bundle Used? N/A * Op Note - Luz Marina Clarke MD - 12/23/2022 4:01 PM EDT [facility] [place] Patient Name: Skye Hinton : [id number] MR#: [id number] Case Date: 12/23/2022 Surgeon: Surgeon(s) and Role: * Luz Marina Clarke MD - Primary * Harjit Mayfield MD - Resident - Assisting Preoperative diagnosis: thyroid nodule Postoperative diagnosis: thyroid nodule Procedure(s) (LRB): THYROIDECTOMY, LOBECTOMY, TOTAL, UNILATERAL (WRVU 11.19) (Left) FACIAL NERVE MONITORING, SETUP LARYNGEAL (WRVU 1.57) (N/A) Anesthesia: General Estimated Blood Loss: 17 mL Specimens removed during surgery: Order Name Source Comment Collection Info Order Time SPECIMEN TO PATHOLOGY thyroid nodule Left Thyroid Lobe excision No 12/23/2022 4:51 PM Time specimen removed from patient: 4:50 PM Number of tissue samples (in container) 1 Biospecimen to store? No Drains: * No LDAs found * Surgical Closure: Primary Closure - skin incision is completely closed without any wires, ciro, drains or other devices Disposition: awakened from anesthesia, extubated and taken to the recovery room in a stable condition, having suffered no apparent untoward event. Condition: doing well without problems (Please see the Surgical Encounter Summary for any Implant and Specimen details pertinent to this patient.) HPI/Surgical Indications: Ms. Skye Hinton is a 72 y.o. year old female with a left-sided thyroidnodule and FNA reportedly demonstrating hypocellular but benign ([place] 2) cytology last year. The nodule exceeds 4cm and does have some substernal extension. She has compressive symptoms. I therefore recommended left thyroid lobectomy. Procedure Description: The patient was correctly identified in the preoperative holding area. The risks, benefits, and indications of a thyroidectomy were reviewed with the patient. She was then taken to the operating room and placed on the operating table in the supine position and an identification procedure was performed. Adequate general anesthesia was achieved by anesthesiology with the TIMPIK recurrent laryngeal nerve monitoring system. A natural crease in the anterior neck was marked with a marking pen. This area was infiltrated with 0.25% Sensorcaine with epinephrine. The patient'santerior neck was then prepped and draped in sterile fashion. A timeout procedure was done and all members of the OR team were in agreement. We made a curvilinear incision along the previously marked crease with a scalpel. The incision was carried down through the subcutaneous tissue and platysma muscle using electrocautery. Subplatysmal flaps were created in the cranial and caudal directions. The median raphe of the strap muscles was id entified and this was divided in vertical fashion using electrocautery. This exposed the thyroid gland, which was from its lateral attachments to the strap muscles on the left side using electrocautery. Her tissue was found to be fatty in general, and the soft tissue attachments were somewhat friable consistent with her history of iodine ablation. The middle thyroidal veins were ligatedwith 3-0 silk sutures and Ligasure device. The inferior pole nodule was felt to extend about 1cm below the clavicle, but could be easily delivered with gentle upward retraction. The inferior thyroid vessels were identified and divided using a combination of hand ties and Ligasure device. In the course of retraction for this dissection, the nodule was ruptured. We then identified the recurrent laryngeal nerve as it ran in the tracheoesophageal groove and followed this up to ligament of Quiñonez, ligating vessels to expose the nerve's anterior surface. We then took down the upper pole thyroid vessels with a combination of 2-0 and 3-0 silk sutures and Ligasure device. The left upper parathyroid gland was seen and preserved. The left lower parathyroid was not seen. We then divided the attachments of the ligament of Quiñonez with sharp dissection and 3-0 silk sutures and divided the attachments ofthe thyroid off the pretracheal fascia past the midline with electrocautery. We divided the thyroidthrough its isthmus using the Ligasure device and sent the specimen to pathology. The recurrent spencer ngeal nerve remained intact throughout. We then irrigated the operative field. A Valsalva to 30 millimeters of mercury was accomplished by Anesthesia. Hemostasis was assured. Surgicel was placed in the paratracheal space. We then closed the strap muscles using running 3-0 Vicryl suture, the platysma with interrupted 3-0Vicryl suture, and the skin with running 5-0 Prolene subcuticular suture, followed by placement of Dermabond and removal of the Prolene suture. The patient tolerated the procedure well. Sponge and needle counts were correct upon completion of the procedure. Surgical Infection Prevention Bundle Used? N/A Attestation: Case Date: 12/23/2022 I was present and I participated during the entire procedure (does not need to include opening and closing). LUZ MARINA CLARKE MD 12/23/2022 documented in this encounter Plan of Treatment Not on file documented as of this encounter Procedures Procedure Name Priority Date/Time Associated Diagnosis Comments SPECIMEN TO PATHOLOGY Routine 12/23/2022 4:51 PM EDT SURGICAL PATHOLOGY REPORT Routine 12/23/2022 4:50 PM EDT Needle Electromyography, Larynx Global ([id number]) 12/23/2022 3:30 PM EDT thyroid nodule Total Thyroid Lobectomy Unilateral W/Wo Isthmusectomy ([id number]) 12/23/2022 3:30 PM EDT thyroid nodule documented in this encounter Results * Specimen to Pathology (12/23/2022 4:51 PM EDT) AP Specimen 12/23/2022 4:51 PM EDT 12/23/2022 4:51 PM EDT Narrative [facility] - 12/23/2022 4:51 PM EDT Specimen requisition ordered. ??Separate Pathology report to follow Luz Marina Clarke MD PATHOLOGY/CYTOLOG Y ORDERABLES [facility] [place] [id number] * Surgical Pathology Report (12/23/2022 4:50 PM EDT) Final Diagnosis [id number] ? Location: [facility] The signing pathologist has (i) examined the relevant preparation(s) for the specimen(s) and (ii) rendered or confirmed the diagnosis(es). . ?Surgical Pathology DIAGNOSIS Left thyroid lobe, excision: - Multinodular thyroid hyperplasia with a dominant nodule, 3.2 cm, mixed micro and macrofollicular patterns - Incidental superior parathyroid gland tissue Electronically signed by: ?Erika HOWARD, Afshan Dye Verified: ??12/29/2022 13:12 ??Pathologist Performed at: ??-[facility] [place], [place] [address] Brush Loader And Handle Attacher: Ritu Harrell MD, FCAP, ??CLIA Certificate: [id number] SPECIMEN(S) SUBMITTED A - Left Thyroid Lobe, excision (1) CLINICAL INFORMATION Thyroid nodule SPECIMEN PROCESSING A - Labeled/Fixative: Left thyroid lobe, fresh. Quantity/Size/Blas ght: Single, 4.2 x 3.3 x 1.9 cm, 8.28 g. SPECIMEN DESCRIPTION: Resection Specimen: Disrupted, lobectomy, consisting of left thyroid lobe. External Surface: Benavidez-brown and ragged. ??LESION ?Location: Mid-lobe. ?Description: benavidez-brown nodular lesion with a disrupted posterior surface. The cut surface is predominantly red brown with central areas of rubbery marquez white nodularities. ?Size: 3.2 x 3 x 1.9 cm. ?Contour/capsule : Encapsulated. Parenchyma: Benavidez-marquez and rubbery. Inking: External surface is inked black, isthmus margin is inked blue, and disrupted capsule of the lesion is inked orange Sections/Processi ng: Entirely submitted in 15 cassettes as follows: ?A1-A15: ??Left thyroid lobe and lesion submitted sequentially superior to inferior ??BGT, JNR 12/29/2022 1:12 PM EDT [facility] THYROID STRUCTURE / Unknown 12/23/2022 4:50 PM EDT 12/23/2022 4:50 PM EDT Luz Marina Clarke MD PATHOLOGY/CYTOLOG Y ORDERABLES [facility] [address] [place] [address] documented in this encounter Visit Diagnoses Not on filedocumented in this encounter Administered Medications Inactive Administered Medications - up to 3 most recent administrations Medication Order MAR Action Action Date Dose Rate Site ipratropium-albuteroL (Duoneb) 0.5 mg-3 mg(2.5 mg base)/3 mL nebulizer solution 3 mL 3 mL, Nebulization, ONCE, 1 dose, On Thu12/23/22 at 1930, Day of Surgery (Day of Procedure), Routine Given 12/23/2022 7:07 PM EDT 3 mLs documented in this encounter Active and Recently Administered Medications Times are shown in EDT. Scheduled Medication Order 12/21/2022 12/22/2022 12/23/2022 ipratropium-albuteroL (Duoneb) 0.5 mg-3 mg(2.5 mg base)/3 mL nebulizer solution 3 mL (COMPLETED) 3 mL, Nebulization, ONCE, 1 dose, On Thu12/23/22 at 1930, Day of Surgery (Day of Procedure), Routine 1907 (Given - Provid er: Glendy Nava RN) Continuous Medication Order 12/21/2022 12/22/2022 12/23/2022 lactated ringers infusion (CANCELED) 1,000 mL, at 100 mL/hr, Intravenous, CONTINUOUS, Starting on Thu12/23/22 at 1330, Until Thu12/23/22 at 2114, Day of Surgery (Day of Procedure) 1531 (New Bag - Prov ider: Tory Putnam CRNA)1533 (Anesthesia Volume Adjustment - Provider: Tory Putnam CRNA)1645 (Anesthesia Volume Adjustment - Provider: Jacy Jean CRNA) PRN Medication Order 12/21/2022 12/22/2022 12/23/2022 BUpivacaine-EPINEPHrine (Marcaine-epiNEPHrine) 0.25 %-1:200,000 injection (CANCELED) PRN, Starting on Thu12/23/22 at 1610, Until Thu12/23/22 at 2124, Intra-Operative (Intra-Procedure), Routine 1610 (Given - Provid er: Luz Marina Clarke MD) documented in this encounter Care Teams Nuclear Radiation Engineer Relationship Specialty Start Date End Date Noa Washington, [place] [address] [place] [address] PCP - General Family Medicine 04/20/15 documented as of this encounter
--- OUTSIDE RECORDS SUMMARY | 2024-05-05 14:09 | XMS_ITS | Encounter Summary ---
Author Organization [facility] Address [facility] [place] [address] Care Team Providers Care Raw Products Director Name Role Phone Kizzy Nunez APRN Primary Care Provider [phone] Encounter Details Date Type Department Care Team (Late st Contact Info) Description 07/13/2012 3:00 PM EST Office [place] [address] Winston Mcnulty MD [facility] [place] [address] Hyperthyroidism (Primary Dx); Goiter Discharge Disposition: Home Social History Tobacco Use Types Packs/Day Years Used Date Smoking Tobacco: Never Sex and Gender Information Value Date Recorded Sex Assigned at Not on file Gender Identity Not on file Sexual Orientation Not on file documented as of this encounter Last Filed Vital Signs Vital Sign Reading Time Taken Comments Blood Pressure 120/68 07/13/2012 4:02 PM EST Pulse - - Temperature 36.3 ??C (97.4 ??F) 07/13/2012 4:02 PM ES T f Respiratory Rate 16 07/13/2012 4:02 PM EST Oxygen Saturation - - Inhaled Oxygen Concentration - - Weight 68.5 kg (151 lb) 07/13/2012 4:02 PM EST Height 152.4 cm (5') 07/13/2012 4:02 PM EST Body Mass Index 29.49 07/13/2012 4:02 PM EST documented in this encounter Progress Notes * Ashwin Ortega MD - 07/13/2012 5:52 PM EST Have interviewed and examined patient along with dr. Mcnulty and agree with her recommendationsand plans. * NilamWinston marino - 07/13/2012 4:20 PM EST Ms Hinton is a 61 yr old female who presents for evaluation of hyperthyroidism. She has been diagnosed with hyperthyroidism with MNG and negative TSI. She had radio-ablation done in mid April andis here for a follow up visit. 30 mCi radio-iodine administered without any complications. She feels fine now. States that she feels very hot all the time and it did not get better with atenolol. 2 weeks ago she underwent rt knee replacement and now has some issues with swelling and pain and is in wheel chair. Weight loss/gain- No Sleep disturbances- No Forgetfulness- No Depression- No Vision/eye problems- Feels like looking into keleidoscope Heat sensitivity- Yes- feels hot all the time Dry skin- No Fatigue- No Hair change- No Palpitations- No Increased appetite- No Hyperdefication- No Menstrual irregularities- menopausal Irritability/nervousness- No Muscle weakness/tremor- No Clammy skin- No Intolerance to cold- No Globus sensation- no Difficulty swallowing- no Difficulty breathing- no Hoarseness or voice change- No PMH/PSH/FH/Allergies/MEDs/Social history reviewed ROS Constitutional: No recent weight loss, fevers, chills, night sweats. HEENT: No recent visual changes, hearing changes, headache. Cardiovascular: No chest pain, palpitations, orthopnea. Pulmonary: No shortness of breath. No cough, no wheezing. GI: No abdominal pain, vomiting, significant change in bowel habits. : No dysuria, urinary retention, urinary incontinence. Musculoskeletal: No joint pain. Endocrine: No heat/cold intolerance, polyuria. Skin: No rashes. Neuro: no tremors PE: Blood pressure 120/68, temperature 36.3 ??C (97.4 ??F), resp. rate 16, height 152.4 cm (5'), avjoeg24.493 kg (151 lb). General: well nourished, in no distress Head/Eyes: anicteric, PERRL, No conjunctival injection, no proptosis, no lid lag ENT: without Lesions/exudates Neck: Supple, full ROM, no LAD or masses Thyroid: normal, with no nodules, no bruit CV: RRR, no murmur/gallops/rubs Pulm: Non-labored, CTAB Abd: ND, positive bowel sounds, soft, NT, no masses Peripheral: No edema, palpable DP pulses Neuro: CN intact including visual delarosa, sensation intact to light touch, reflexes in bl knees normal. Skin: no rashes, not dry. A/p: MNG with hyperthyroidism : s/p radio ablation. Now labs with still high total t3 levels but normal t4 levels. Radio-iodine takes sometime about 4 monsths for their complete effect. Depending on her thyroid function test 2 months later will decide if she needs repeat radio-iodine. So will order TSH,t3 in 2 months. Her c/o of feeling hot all the time could be related to hyperthyroidism due to increased metabolism and could be improved with methimazole. But since her t3 is only slightly above normal and she does not have any other symptoms of hyperthyroidism both patient and myself decided we will wait before we start her on anti-thyroid meds. P: Await tsh TSH Total t3 in 2 months F/u with me in 6 months Winston Mcnulty Endocrine Fellow documented in this encounter Plan of Treatment Not on file documented as of this encounter Procedures Procedure Name Priority Date/Time Associated Diagnosis Comments T3 TOTAL STAT 07/13/2012 2:22 PM EST Hyperthyroidism TSH Routine 07/13/2012 2:22 PM EST T4, FREE Routine 07/13/2012 2:22 PM EST Hyperthyroidism documented in this encounter Results * TSH (07/13/2012 2:22 PM EST) Thyroid Stimulating Hormone 2.54 0.27 - 4.20 mcIU/mL [facility] Blood specimen (specimen) 07/13/2012 2:22 PM EST 07/13/2012 2:35 PM EST Narrative Resulting Agency Comment Spec In Lab Roberto Justice MD CHEMISTRY ORDERABL ES Performing Organization Address [facility] Phone Number CANDIDO TATE * (ABNORMAL) T3 (07/13/2012 2:22 PM EST) T3 Total 175(H) 75 - 170 ng/dL CANDIDO SHERIUM Blood specimen (specimen) 07/13/2012 2:22 PM EST 07/13/2012 2:35 PM EST Narrative Resulting Agency Comment Spec In Lab Roberto Justice MD CHEMISTRY ORDERABL ES Performing Organization Address [facility] Phone Number CANDIDO SHERIUM * T4, free (07/13/2012 2:22 PM EST) Free T4 1.17 0.90 - 1.60 ng/dL CANDIDO SHERIUM Blood specimen (specimen) 07/13/2012 2:22 PM EST 07/13/2012 2:35 PM EST Narrative Resulting Agency Comment Spec In Lab Roberto Justice MD CHEMISTRY ORDERABL ES Performing Organization Address [facility] Phone Number CANDIDO TATE documented in this encounter Visit Diagnoses Diagnosis Hyperthyroidism- Primary Thyrotoxicosis without mention of goiter or other cause, without mention of thyrotoxic crisis or storm Goiter Goiter, unspecified documented in this encounter Care Teams Raw Products Director Relationship Specialty Start Date End Date Kizzy Nunez, ROCK LOADER [facility] [address] [place] [address] PCP - General 04/07/12 04/19/15 documented as of this encounter
--- OUTSIDE RECORDS SUMMARY | 2024-05-05 14:09 | XMS_ITS | Encounter Summary ---
[place] [address] Care Team Providers Care University Partnership Rep Name Role Phone GloriaschuyleralexandreNoa MOSES Primary Care Provider [phone] Reason for Referral * Consultation (Routine) - Closed Specialty Diagnoses / Procedures Referred By Rochelle t Referred To Contact General Surgery Diagnoses Thyroid nodule Ruslan López MD [address] [place] [address] [place] [address] [facility] Gen Surgery [address] [place] [phone] Referral ID Status Reason Start Date Expiration Date V isits Requested Visits Authorized [id number] Closed Consult, Test & Treat 08/07/2022 08/07/2023 1 1 Encounter Details Date Type Department Care Team (Late st Contact Info) Description 08/07/2022 Transcribe Orders eDH Incoming Referrals [phone] Ruslan López MD [address] [place] [address] [place] [address] Thyroid nodule Social History Tobacco Use Types Packs/Day Years Used Date Smoking Tobacco: Never Smokeless Tobacco: Never Sex and Gender Information Value Date Recorded Sex Assigned at Not on file Gender Identity Not on file Sexual Orientation Not on file documented as of this encounter Plan of Treatment Scheduled Referrals Name Type Priority Associated Diagnoses Orde r Schedule Referral to General Surgery Outpatient Referral Routine Thyroid nodule Ordered: 08/07/2022 documented as of this encounter Visit Diagnoses Diagnosis Thyroid nodule Nontoxic uninodular goiter documented in this encounter Care Teams University Partnership Rep Relationship Specialty Start Date End Date Noa Washington, MOS[place] [address] [place] [address] PCP - General Family Medicine 04/20/15 documented as of this encounter
--- OUTSIDE RECORDS SUMMARY | 2024-05-05 14:09 | XMS_ITS | Encounter Summary ---
Author Organization [facility] Address [facility] [place] [address] Care Team Providers Care Suspender Maker Name Role Phone Padmini Noa LOPES Primary Care Provider [phone] Reason for Visit * Reason Comments Pain Management * Consultation (Routine) - Closed Specialty Diagnoses / Procedures Referred By Contkasia t Referred To Contact Pain Management Diagnoses SCS battery replacement Miley Baldwin PA [address] [place] [address] [facility] [address] [place] [phone] Referral ID Status Reason Start Date Expiration Date Visits Re quested Visits Authorized [id number] Closed 10/01/2018 10/01/2019 1 1 Encounter Details Date Type Department Care Team (Late st Contact Info) Description 10/12/2018 1:00 PM EDT Office [place] [address] Daniella Scanlon MD [facility] [place] [address] Complex regional pain syndrome type 1 of [...] Sign Reading Time Taken Comments Blood Pressure 135/92 10/12/2018 1:26 PM EDT Pulse 90 10/12/2018 1:26 PM EDT Temperature - - Respiratory Rate - - Oxygen Saturation 99% 10/12/2018 1:26 PM EDT Inhaled Oxygen Concentration - - Weight - - Height - - Body Mass Index - - documented in this encounter Progress Notes * Daniella Scanlon MD - 10/12/2018 1:00 PM EDT [facility] Follow Up visit DOS: 10/12/18 : 1950 CC: my spinal cord stimulator battery over heats when I charge Skye Hinton is a 68 y.o. year old female with a PMH of complex regional pain syndrome type 1 of her bilateral upper extremity and fibromyalgia and she is status post a spinal cord stimulator implantation about 12 years ago. She was last seen in clinic by Dr Sánchez on 07/27/2015. Patient reports she had a spinal cord stimulator ([employer]) placed in 2006 which was complicated by electrode loosening and IPG battery erosion where she was taken back to OR for IPG battery revision. This was done by a pain clinic in [place]. She is getting adequate paresthesia coverage when he turns on the spinal cord stimulator, however, for the past six months, she noted overheating at the IPG battery site when she charges. She also notes decreased efficacy of the spinal cord stimulator program towards the end of the day. Patient is also seen by [facility] [employer] enrollment representative today in clinic. Her spinal cord stimulatorwas placed in 2006 with two 90cm electrodes located at the C2 level. She currently takes Gabapentin and duloxetine for pain. ROS: Constitutional: No unintentional weight loss or gain, fevers, chills, or night sweats. HENT: No recent hearing changes. No difficulty swallowing. Eyes: No recent vision changes. Respiratory: No cough or shortness of breath. Cardiovascular: No chest pain or syncope. GI: No diarrhea, nausea, vomiting, or constipation. : No dysuria, hesitancy, or urgency. No incontinence. Musculoskeletal: No muscle weakness. Skin: No rashes or lesions. Neurologic: No numbness/tingling. No difficulty with balance. Psychiatric: Mood ok. No SI/HI. Sleep is good. Heme/Lymph/Imm: No easy bleeding or brusing. PMH/PSH: Patient Active Problem List Diagnosis Code ??? CRPS (complex regional pain syndrome), upper limb G90.519 Past Medical History: Diagnosis Date ??? Anemia ??? Anxiety ??? Depression ??? Encounter for blood transfusion ??? Headache(784.0) ??? Hypertension Past Surgical History: Procedure Laterality Date ??? APPENDECTOMY ??? CHOLECYSTECTOMY ??? DEEP BRAIN STIMULATOR PLACEMENT SCS for pain 2006 in [place] ??? HYSTERECTOMY ??? JOINT REPLACEMENT right knee X 2 ??? ORTHOPEDIC SURGERY Right foot surgeries due to fx- has plates ??? ORTHOPEDIC SURGERY Left shoulder surgery many years ago ??? SPINE SURGERY L5-S1 posterior fusion 03/10/03 FAMILY HISTORY: Family History Problem Relation Age of Onset ??? Cancer Mother ??? Heart Disease Father FUNCTIONAL STATUS: Independent in all ADLs. MEDICATIONS: Current Outpatient Medications: ??? escitalopram oxalate (LEXAPRO) 20 mg Tablet, Take 20 mg by mouth daily., Disp: , Rfl: ??? lisinopril (PRINIVIL;ZESTRIL) 20 mg Tablet, Take 20 mg by mouth daily., Disp: , Rfl: ??? gabapentin (NEURONTIN) 300 mg Capsule, 3 times daily., Disp: , Rfl: ??? omeprazole (PRILOSEC) 40 mg Capsule, Delayed Release(E.C.), 40 mg daily as needed., Disp: , Rfl: ??? pravastatin (PRAVACHOL) 20 mg Tablet, Take 20 mg by mouth daily., Disp: , Rfl: ??? SUMAtriptan (IMITREX) 50 mg Tablet, Take 50 mg by mouth as needed., Disp: , Rfl: 0 ??? DULoxetine (CYMBALTA) 60 mg capsule, Take 60 mg by mouth 2 times daily., Disp: , Rfl: ??? Cholecalciferol, Vitamin D3, (VITAMIN D-3) 5,000 unit Tab, Take by mouth daily., Disp: , Rfl: PDMP report checked and no inconsistencies are noted. ALLERGIES: Allergies Allergen Reactions ??? Aspirin Other (See Comments) Chest pain ??? Tylenol [Acetaminophen] Palpitations PHYSICAL EXAM: General: Patient is seated comfortably in NAD, well-groomed. HEENT: Head atraumatic, EOMI. Respiratory: Breathing comfortably on RA. Cardiovascular: 2+ peripheral pulses, no swelling Abdominal: non-distended, non-tender to palpation Skin: No appreciable rashes or skin breakdown, IPG battery visible on right gluteal region Psych: Appropriate affect, A&Ox3 , answers questions appropriately Musculoskeletal: Inspection - No gross appendicular or axial deformities Palpation - Some tenderness over the edge of IPG battery with palpation Neurologic: voice network engineer - grossly intact Motor - 5/5 in all planes of motion in all four extremities. Sensation - Intact to light touch throughout all four extremities Gait/Station: Normal gait. No loss of balance noted. Transitions from exam room chair to table without difficulty. TESTS/IMAGING: n/a ASSESSMENT: Patient is a 68 yo female with fibromyalgia, bilateral upper extremities secondary to complex regional pain syndrome type [address] [employer] cervical spinal cord stimulator placement in 2006 by pain clinic in [place] who returns to clinic today and report that for the past six months, she has o verheating sensation when she charges IPG battery with skin irritation, as well as diminishing paresthesia coverage towards the end of day. Exam without skin erosion, surgical site appears well healed. This is likely that patient has end- of life battery from her IPG. She was met with [employer] enrollment representative and he discussed non rechargable IPG battery that will allow her to have the IPG battery inserted deeper and it will allow her to have the burst stimulation program. PLAN: - OR booking sheet filled out for IPG battery swap with Dr Alfred - obtain x-ray of cervical spine and pelvis for visualization of electrode positioning and IPG position - I notified Alana Rolon who will check to see Dr Alfred's OR schedule and availability - patient instructed to obtain medical clearance within 30 days of her scheduled OR date/time Thank you for allowing us the opportunity to participate in Ms Hinton's care. Daniella Scanlon MD [facility] Pain Medicine Specialist CC: Miley Baldwin PA [address] [place] [address] documented in this encounter Plan of Treatment Not on file documented as of this encounter Results * XR Pelvis (Generic) (10/12/2018 2:49 PM EDT) Anatomical Region Laterality Modality Pelvis N/A Digital Radiogra phy Impressions 10/12/2018 3:06 PM EDT As above. Thank you for letting us participate in the care of this patient. For questions regarding this report, please contact the number below. ? Electronically signed by: Maria R Zaidi MD, [facility] ([phone]), at 10/12/2018 3:06 PM Narrative 10/12/2018 3:06 PM EDT EXAMINATION: XR PELVIS (GENERIC) CLINICAL HISTORY: spinal cord stimulator battery, visualization for surgical planning 68-year-old female TECHNIQUE: 1 views of the pelvis COMPARISON: None FINDINGS: AP pelvis: RIGHT total hip arthroplasty without evidence of radiographic complication. There is a very situated over the right iliac wing with wires extending above the superior aspect of the film. Degenerative changes are noted at L5-S1. Bilateral sacroiliac joints are intact. Mild degenerative changes noted in the left acetabular femoral joint. No pelvic ring fracture. Procedure Note Maria R Zaidi MD - 10/12/2018 EXAMINATION: XR PELVIS (GENERIC) CLINICAL HISTORY: spinal cord stimulator battery, visualization forsurgical planning 68-year-old female TECHNIQUE: 1 views of the pelvis COMPARISON: None FINDINGS: AP pelvis: RIGHT total hip arthroplasty without evidence of radiographic complication. There is a very situated over the right iliac wing with wires extendingabove the superior aspect of the film. Degenerative changes are noted atL5-S1. Bilateral sacroiliac joints are intact. Mild degenerative changes noted inthe left acetabular femoral joint. No pelvic ring fracture. IMPRESSION As above. Thank you for letting us participate in the care of this patient. Forquestions regarding this report, please contact the number below. Daniella Scanlon MD IMG DX ORDERABLES documented in this encounter Visit Diagnoses Diagnosis Complex regional pain syndrome type 1 of both upper extremities Complex regional pain syndrome type 1 of both upper extremities documented in this encounter Care Teams Suspender Maker Relationship Specialty Start Date End Date Noa Washington, MARKET RESEARCH SENIOR PROJECT MANAGER [address] [place] [address] PCP - General Family Medicine 04/20/15 documented as of this encounter
--- OUTSIDE RECORDS SUMMARY | 2024-05-05 14:09 | XMS_ITS | Encounter Summary ---
Author Organization [facility] [place] [address] Care Team Providers [employer] Sales Representative Name Role Phone GrupoNoa schroeder MOSES Primary Care Provider [phone] Reason for Visit * Auth/Cert (Routine) Specialty Diagnoses / Procedures Referred By Contac t Referred To Contact Diagnoses H/O thyroidectomy Thyroidectomy Kari Fong MD [facility] [address] [address] [facility] Referral ID Status Reason Start Date Expiration Date Visits Re quested Visits Authorized [id number] 1 1 Encounter Details Date Type Department Care Team (Latest Contact Info) Description 12/23/2022 9:24 PM EDT - 12/24/2022 11:06 AM EDT Hospital Encounter [place] [address] Kari Fong MD [facility] [address] [place] [address] Discharge Disposition: Home Social History Tobacco Use Types Packs/Day Years Used Date Smoking Tobacco: Never Smokeless Tobacco: Never Alcohol Use Standard Drinks/Week Comments Yes 0 (1 standard drink = 0.6 oz pur e alcohol) Very rare [facility] Inpatient Questions Answer Date Recorded Does Anyone [...] Sign Reading Time Taken Comments Blood Pressure 141/73 12/24/2022 7:41 AM EDT Pulse - - Temperature 36.1 ??C (97 ??F) 12/24/2022 7:41 AM EDT Respiratory Rate 20 12/24/2022 7:41 AM EDT Oxygen Saturation 95% 12/24/2022 7:41 AM EDT Inhaled Oxygen Concentration - - Weight - - Height - - Body Mass Index - - documented in this encounter Discharge Summaries * Renzo Gifford MD - 12/24/2022 9:30 AM EDT General Surgery Inpatient - Discharge Summary Patient Name: Skye Hinton Patient Age: 72 y.o. Birthdate: 1950 Admit date: 12/23/2022 Discharge date: 12/24/2022 Admitting Physician: Usha att. providers found Primary Diagnosis: H/O thyroidectomy Secondary Diagnosis: Active Hospital Problems Diagnosis H/O thyroidectomy Postoperative hypoxia Transient hypoxia recovering from anesthesia Resolved Hospital Problems No resolved problems to display. Active Non-Hospital Problems Diagnosis CRPS (complex regional pain syndrome), upper limb HPI (per 12/23 H&P): Skye Hinton is a 72 y.o. female with PMH MASSEY and 4cm left-sided thyroid nodule now s/p left thyroidectomy. Of note, patient operative course was uncomplicated. Post-operatively, patient with difficulty waking up from anesthesia. Requiring oxygen to maintain oxygen saturation above 90%, with decreases to upper 70s. Patient given duoneb and ambulated with walker around nursing station, despite this she continued to have low O2 saturations. Decision was made to keep patient in the hospital overnight given drowsiness and oxygen saturation. At bedside, Patient denies fevers, chills, nausea, vomiting, chest pain, and shortness of breath. Endorses mild pain to neck. Patient appeared awake, no issues with drowsiness. Patient satting 99% atbedside with 2L NC. Denies any changes to voice, except for minimal hoarseness. Operations/Major Procedures: Operations: THYROIDECTOMY, LOBECTOMY, TOTAL, UNILATERAL (WRVU 11.19) (Left) FACIAL NERVE MONITORING, SETUP LARYNGEAL (WRVU 1.57) (N/A) Operative Findings: The patient was correctly identified in the preoperative holding area. The risks, benefits, and indications of a thyroidectomy were reviewed with the patient. She was then taken to the operating room and placed on the operating table in the supine position and an identification procedure was performed. Adequate general anesthesia was achieved by anesthesiology with the View[employer] Digital[employer] recurrent laryngeal nerve monitoring system. A natural crease in the anterior neck was marked with a marking pen. This area was infiltrated with 0.25% Sensorcaine with epinephrine. The patient's anterior neck was then prepped and draped in [...] were correct upon completion of the procedure. Hospital Course: Skye Hinton was taken to the operating room where the above procedures were performed. She tolerated the operation well and without complication. She was admitted post-operativelyfor clinical monitoring and further management. The patient's hospital course was uncomplicated. Patient experienced difficulty waking up from anesthesia and required oxygen to maintain O2 sat above 90% post-operatively. Patient was admitted satting 99% on 2L NC. Overnight her supplemental oxygen was weaned without issue. Prior to discharge patient's pain was well controlled with oral pain medications, patient was voiding without difficulty, and wound(s) were intact and healing appropriately. Patient was tolerating a Regular diet. Vitals were within normal limits and patient was determined medically ready for discharge to home on 12/24/2022. Detailed Summary of Daily Events: 12/23/22 POD 0: S/p left thyroidectomy, difficulty waking from anesthesia and hypoxia, satting well on 2L NC 12/24/22 POD 1: Patient satting well on RA, fully awake and alert, walked 8 min on RA and satting 92-97 with NAD Important Studies and Lab Data: See below. Pathology: Pending Microbiology: None Labs: No results for input(s): WBC, HGB, HCT, PLATELET in the last 72 hours. No results for input(s): PT, INR, PTT in the last 72 hours. No results for input(s): NA, K, CL, CO2, BUN, CREATININE, GLUCOSE, CALCIUM, MAGNESIUM, PHOS in the last 72 hours. No results for input(s): PROT, ALBUMIN, BILITOT, BILIDIR, ALKPHOS, AST, ALT in the last 72 hours. Studies: None Discharge Exam: Last value Range last 12 hrs Temperature Temp: 36.1 ??C (97 ??F) Temp: [36.1 ??C (97 ??F)] Heart Rate Heart Rate: -- Blood Pressure BP: 141/73 BP: (141-146)/(73-89) Respiratory Rate Resp: 20 Resp: [20] SpO2 SpO2: 95 % SpO2: [95 %-96 %] I/Os: I/O last 3 completed shifts: In: 220 [P.O.:220] Out: 520 [Urine:520] I/O this shift: In: - Out: 200 [Urine:200] GEN: resting comfortably in bed, conversant, NAD HEENT: normocephalic, atraumatic Neck: incision c/d/i, no strikethrough/drainage, no erythema CV: regular rate CHEST: comfortable work of breathing on RA ABD: soft, non tender, nondistended EXTR: WWP, moving all extremities spontaneously, no edema NEURO: awake and alert, grossly intact, nonfocal, follows commands Discharge Plans: Discharge to: Home VNA: No Discharge Conditions/Prognosis: Stable Discharge Medications: The following medications have been prescribed for you. If you notice any adverse reactions to your medications, please contact your primary care physician immediately or go tothe nearest Emergency Department. Your Medications Continued medications, unchanged Dose Details albuteroL 90 mcg/actuation HFA Aerosol Inhaler Inhale 2 puffs into the lungs every 4 hours as needed. Use with spacer 2 puff Refills: 0 amitriptyline 25 mg tablet Commonly known as: Elavil Take 25 mg by mouth nightly. 25 mg Refills: 0 aspirin EC 81 mg EC (DR) tablet Take 81 mg by mouth daily. 81 mg Refills: 0 atorvastatin 40 mg tablet Commonly known as: Lipitor Take 40 mg by mouth daily. 40 mg Refills: 0 benzonatate 200 mg capsule Commonly known as: Tessalon Take 200 mg by mouth 3 times daily as needed for Cough. 200 mg Refills: 0 doxepin 25 mg capsule Commonly known as: SINEquan Take 25 mg by mouth. 25 mg Refills: [address] capsule Commonly known as: Cymbalta Take 90 mg by mouth daily. 90 mg Refills: 0 gabapentin 300 mg capsule Commonly known as: Neurontin Take 900 mg by mouth nightly. 900 mg Refills: 0 levothyroxine 50 mcg tablet Commonly known as: Synthroid Take 50 mcg by mouth daily. 50 mcg Refills: 0 losartan 100 mg tablet Commonly known as: Cozaar Take 100 mg by mouth daily. 100 mg Refills: 0 melatonin 10 mg capsule Take 10 mg by mouth. 10 mg Refills: 0 metoprolol succinate XL 25 mg ER 24 hr tablet Commonly known as: Toprol-XL Take 25 mg by mouth daily. 25 mg Refills: 0 pramipexole 0.5 mg tablet Commonly known as: Mirapex Take 0.5 mg by mouth nightly. 0.5 mg Refills: 0 propranolol LA 80 mg ER 24 hr capsule Commonly known as: Inderal LA Take 80 mg by mouth daily. 80 mg Refills: 0 SUMAtriptan 100 mg tablet Commonly known as: Imitrex Take 100 mg by mouth as needed for Migraine. 100 mg Refills: 0 STOPPED Medications erenumab-aooe 70 mg/mL Auto-Injector Commonly known as: Aimovig Autoinjector Updated Allergies/ADRs: Allergies Allergen Reactions Aspirin Other (See Comments) Chest pain with full dose 325 ASA Tylenol [Acetaminophen] Palpitations Scheduled Appointments: Future Appointments Date Time Provider Department Center 02/06/2023 11:20 AM LAB, THREE L Lab 3L [facility] 02/06/2023 12:20 PM Jyothi Jon APRN [facility] [facility] [place] Outpatient Services/Studies: No discharge procedures on file. Instructions Given to Patient at Discharge: An After Visit Summary was printed and given to the patient. Patient Instructions THYROID LOBECTOMY (HEMITHYROIDECTOMY) PATIENT DISCHARGE INSTRUCTIONS What [...] anti-inflammatory drugs) such as ibuprofen (Motrin, Advil) and naproxen (Naprosyn, Aleve) or acetaminophen (Tylenol) are most helpful for the pain experienced after surgery. Generally, these are even more effective than the stronger pain medications (narcotics or opioids) after thyroid surgery. Please do not take Tylenol given your allergy. Take NSAIDS every 6 hours [id number] for the first 3-5 days following surgery [...] THE RESULTS BEFORE YOUR SURGEON DOES!!! Dr. Fong or Jyothi Jon APRN, will call you to discuss the report within 72 hours of its release. Follow-up Appointment: Will be scheduled with Dr. Fong and/or Jyothi Jon APRN, in 6 weeks If you do not already have a follow up appointment, the date and time as well as any required labs will be mailed to you Please call [phone] to confirm the date and time of [...] days after surgery. Phone number for questions: [phone] before 5 PM on weekdays [phone] after 5 PM and on weekends/holidays. Ask for the general surgery resident personal computer network engineer. General Instructions None Follow-up Recommendations for Providers: Medication changes - None Diet changes - None Other - None You should schedule an appointment to see your Primary Care Physician within 1-2 weeks for a post hospital follow-up. CC: Noa Washington APRN Signed: Renzo Gifford MD Surgical Oncology Service Team Pager #[phone] 12/24/2022 documented in this encounter Discharge Instructions * Patient Instructions* Renzo Gifford MD - 12/24/2022 8:45 AM EDT THYROID LOBECTOMY (HEMITHYROIDECTOMY) PATIENT DISCHARGE INSTRUCTIONS [...] anti-inflammatory drugs) such as ibuprofen (Motrin, Advil) and naproxen (Naprosyn, Aleve) or acetaminophen (Tylenol) are most helpful for the pain experienced after surgery. Generally, these are even more effective than the stronger pain medications (narcotics or opioids) after thyroid surgery. Please do not take Tylenol given your allergy. Take NSAIDS every 6 hours [id number] for the first 3-5 days following surgery [...] THE RESULTS BEFORE YOUR SURGEON DOES!!! Dr. Fong or Jyothi Jon APRN, will call you to discuss the report within 72 hours of its release. Follow-up Appointment: Will be scheduled with Dr. Fnog and/or Jyothi Jon APRN, in 6 weeks If you do not already have a follow up appointment, the date and time as well as any required labs will be mailed to you Please call [phone] to confirm the date and time of [...] days after surgery. Phone number for questions: [phone] before 5 PM on weekdays [phone] after 5 PM and on weekends/holidays. Ask for the general surgery resident personal computer network engineer. documented in this encounter Medications at Time [...] capsule Take 80 mg by mouth daily. albuteroL 90 mcg/actuation HFA Aerosol Inhaler Inhale 2 puffs into the lungs every 4 hours as needed. Use with spacer aspirin EC 81 mg EC (DR) tablet [...] mg by mouth as needed for Migraine. levothyroxine (Synthroid) 50 mcg tablet Take 50 mcg by mouth daily. 02/06/2023 documented as of this encounter Progress Notes * Vannesa Mead RN - 12/24/2022 10:21 AM EDT [facility] Short Stay Unit Discharge Note All relevant discharge milestones have been met by the patent. After Visit Summary and discharge teaching reviewed with the patient. IV access has been discontinued. All personal belongings have been returned to the patient/family upon their departure from the unit. Patient has been discharged to home The patient has been discharged without VNA services. * Vannesa Mead RN - 12/24/2022 9:11 AM EDT Pt up and walking with AUDIOVISUAL PRODUCTION SPECIALIST on RA for 8min and 300ft. At rest SpO2 of 95% noted with no signs of distress. Walking with staff patient had a consistent SpO2 of 95%. O2 low with ambulation noted to be 92% with no signs of increased work of breathing. High of 97%. Pt tolerated ambulatory test well. documented in this encounter H&P Notes * Jan Quintana MD - 12/23/2022 9:41 PM EDT Surgical Oncology Admission History & Physical Patient Name: Skye Hinton MR#: [id number] : 1950 Admission Date: 12/23/2022 Indication for Admission: H/O thyroidectomy History of Present Illness: Skye Hinton is a 72 y.o. female with PMH MASSEY and 4cm left-sided thyroid nodule now s/p left thyroidectomy. Of note, patient operative course was uncomplicated. Post-operatively, patient with difficulty waking up from anesthesia. Requiring oxygen to maintain oxygen saturation above 90%, with decreases to upper 70s. Patient given duoneb and ambulated with walker around nursing station, despite this she continued to have low O2 saturations. Decision was made to keep patient in the hospital overnight given drowsiness and oxygen saturation. At bedside, Patient denies fevers, chills, nausea, vomiting, chest pain, and shortness of breath. Endorses mild pain to neck. Patient appeared awake, no issues with drowsiness. Patient satting 99% atbedside with 2L NC. Denies any changes to voice, except for minimal hoarseness. Past Medical History: Past Medical History: Diagnosis Date Anemia Anxiety Depression Encounter for blood transfusion Headache(784.0) Hypertension Patient Active Problem List Diagnosis Code CRPS (complex regional pain syndrome), upper limb G90.519 H/O thyroidectomy E89.0 Past Surgical History: Past Surgical History: Procedure Laterality Date APPENDECTOMY CHOLECYSTECTOMY DEEP BRAIN STIMULATOR PLACEMENT SCS for pain 2006 in [place] HYSTERECTOMY JOINT REPLACEMENT right knee X 2 ORTHOPEDIC SURGERY Right foot surgeries due to fx- has plates ORTHOPEDIC SURGERY Left shoulder surgery many years ago PRO IMPLANT NEUROSTIM/ASSISTANT PROFESSOR OF NURSING Right 11/26/2018 INSERT OR REPLACE SPINAL NEUROSTIMULATOR (WRVU 5.19) performed by Jose Francisco Alfred MD at [facility] MAIN OR SPINE SURGERY L5-S1 posterior fusion 03/10/03 Home Medications: Medications Prior to Admission Medication Sig Dispense Refill Last Dose gabapentin (Neurontin) 300 mg capsule Take 900 mg by mouth nightly. losartan (Cozaar) 100 mg tablet Take 100 mg by mouth daily. pramipexole (Mirapex) 0.5 mg tablet Take 0.5 mg by mouth nightly. DULoxetine DR (Cymbalta) [address] capsule Take 90 mg by mouth daily. melatonin 10 mg capsule Take 10 mg by mouth. propranolol LA (Inderal LA) 80 mg ER 24 hr capsule Take 80 mg by mouth daily. albuteroL 90 mcg/actuation HFA Aerosol Inhaler Inhale 2 puffs into the lungs every 4 hours as needed. Use with spacer aspirin EC 81 mg EC (DR) tablet [...] mg by mouth as needed for Migraine. levothyroxine (Synthroid) 50 mcg tablet Take 50 mcg by mouth daily. Allergies: Allergies Allergen Reactions Aspirin Other (See Comments) Chest pain Tylenol [Acetaminophen] Palpitations Past Family History: Family History Problem Relation Age of Onset Cancer Mother Heart Disease Father Social History: Social History Tobacco Use Smoking status: Never Smokeless tobacco: Never Vaping Use Vaping Use: Never used Substance Use Topics Alcohol use: Yes Comment: Very rare Drug use: Never ROS: As per HPI. Remainder of ROS is otherwise noncontributory. Vitals: Last Value Range last 24 hrs Temperature Temp: [36.2 ??C (97.2 ??F)-36.6 ??C (97.9 ??F)] Heart Rate Heart Rate: [58-88] Heart Rate From SP02 Min: 70 bpm Max: 92 bpm Blood Pressure BP: (118-198)/(68-112) BP (Arterial Line): -- Respiratory Rate Resp: [16] SpO2 SpO2: [86 %-98 %] O2 Device Physical Exam: GEN: resting comfortably in bed, pleasant, conversant, NAD HEENT: normocephalic, atraumatic Incision Clean, dry, intact, with no erythema or induration. Endorses mild tenderness. CHEST: comfortable work of breathing on 2LNC CV: regular rate, well perfused ABD: soft, nontender, nondistended. EXTR: moving all extremities spontaneously, No edema NEURO: awake and alert, grossly intact, nonfocal, follows commands Labs: No results for input(s): WBC, HGB, HCT, PLATELET, PT, INR, PTT in the last 72 hours. No results for input(s): NA, K, CL, CO2, BUN, CREATININE, GLUCOSE, CALCIUM, MAGNESIUM, PHOS in the last 72 hours. Assessment and Plan: Skye Hinton is a 72 y.o. female with PMH MASSEY and 4cm left-sided thyroid nodule now s/p left thyroidectomy. Plan: - Regular Diet - Continue ASA, Atorvastatin, Metoprolol, Propranolol, Cymbalta, Gabapentin - SQH DVT Ppx - Zofran PRN for nausea - Will give 1x dose of oxycodone for pain control - Level of Care Med / Surg - Code Status: Attempt Cardiopulmonary Resuscitation - Inpatient Jan Quintana MD 12/23/2022 Surgical Oncology Service Team pager [phone] documented in this encounter Plan of Treatment Not on file documented as of this encounter Visit Diagnoses Diagnosis H/O thyroidectomy- Primary Other postprocedural status documented in this encounter Admitting Diagnoses Diagnosis H/O thyroidectomy Other postprocedural status documented in this encounter Administered Medications Inactive Administered Medications - up to 3 most recent administrations Medication Order MAR Action Action Date Dose Rate Site gabapentin (Neurontin) capsule 900 mg 900 mg, Oral, NIGHTLY, First dose on Thu12/23/22 at 2215, Until Discontinued, Routine Given 12/23/2022 10:21 PM EDT 900 mg heparin (porcine) (5,000 units/1 mL) subcutaneous injection 5,000 Units 5,000 Units, Subcutaneous, EVERY 12 HOURS SCHEDULED (2 times per day), First dose on Thu12/23/22 at 2215, Until Discontinued, Routine Given 12/24/2022 8:44 AM EDT 5,000 Units Given 12/23/2022 10:21 PM EDT 5,000 Units ondansetron (pf) (Zofran) (2 mg/mL) injection 4-8 mg 4-8 mg, Intravenous, EVERY 8 HOURS PRN, Starting on Thu12/23/22 at 2127, Until Thu12/24/22 at 1307, Nausea, Start with 4mg and if ineffective in 30 minutes, give an additional 4mg If multiple antiemetics are ordered, give ondansetron first. ondansetron (Zofran) tablet 4-8 mg 4-8 mg, Oral, EVERY 8 HOURS PRN, Starting on Thu12/23/22 at 2127, Until Thu12/24/22 at 1307, Nausea, Vomiting, If multiple antiemetics are ordered, use ondansetron first. PO Preferred. If patient unable to take PO, may give IV if ordered. Start with 4mg and if ineffective in 45 minutes, give an additional 4mg. If unable to take PO, may give IV., Routine oxyCODONE (Roxicodone) tablet 5 mg 5 mg, Oral, ONCE, 1 dose, On Thu12/23/22 at 2245, Routine Given 12/23/2022 10:21 PM EDT 5 mg oxyCODONE (Roxicodone) tablet 5 mg 5 mg, Oral, ONCE, 1 dose, On Thu12/24/22 at 0445, Routine Given 12/24/2022 4:02 AM EDT 5 mg sodium chloride 0.9 % (flush) (BD PosiFlush Normal Saline 0.9) flush 5 mL 5 mL, Intravenous, 2 TIMES DAILY, First dose on Thu12/23/22 at 2215, Until Discontinued, Routine Given 12/24/2022 8:46 AM EDT 5 mLs Given 12/23/2022 10:21 PM EDT 5 mLs documented in this encounter Active and Recently Administered Medications Times are shown in EDT. Scheduled Medication Order 12/22/2022 12/23/2022 12/24/2022 aspirin EC tablet 81 mg 81 mg, Oral, DAILY, First dose on Thu12/24/22 at 0900, Until Discontinued, Routine 0900 (Not Given - Provider: Zenaida Schroeder LPN - Reason: Patient/family refused) atorvastatin (Lipitor) tablet 40 mg 40 mg, Oral, DAILY, First dose on Thu12/24/22 at 1700, Until Discontinued, Routine DULoxetine DR (Cymbalta) capsule 90 mg 90 mg, Oral, DAILY, First dose on Thu12/24/22 at 0900, Until Discontinued, Routine 0900 (Not Given - Provider: Zenaida Schroeder LPN - Reason: Patient/family refused) gabapentin (Neurontin) capsule 900 mg 900 mg, Oral, NIGHTLY, First dose on Thu12/23/22 at 2215, Until Discontinued, Routine 2220 (Given - Provider: Vee Mendez RN) heparin (porcine) (5,000 units/1 mL) subcutaneous injection 5,000 Units 5,000 Units, Subcutaneous, EVERY 12 HOURS SCHEDULED (2 times per day), First dose on Thu12/23/22 at 2215, Until Discontinued, Routine 2220 (Given - Provider: Vee Mendez RN) 0844 (Given - Provider: Zenaida Schroeder LPN) metoprolol succinate XL (Toprol-XL) tablet 25 mg 25 mg, Oral, DAILY, First dose on Thu12/24/22 at 0900, Until Discontinued, DO NOT CRUSH OR OPEN, Routine 09 (Not Given - Provider: Zenaida Schroeder LPN - Reason: Patient/family refused) oxyCODONE (Roxicodone) tablet 5 mg (COMPLETED) 5 mg, Oral, ONCE, 1 dose, On Thu12/23/22 at 2245, Routine 2220 (Given - Provider: Vee Mendez RN) oxyCODONE (Roxicodone) tablet 5 mg (COMPLETED) 5 mg, Oral, ONCE, 1 dose, On Thu12/24/22 at 0445, Routine 0402 (Given - Provid er: Vee Mendez RN) propranolol LA (Inderal LA) capsule 80 mg 80 mg, Oral, DAILY, First dose on Thu12/24/22 at 0900, Until Discontinued, DO NOT CRUSH OR OPEN, Routine 09 (Not Given - Provider: Zenaida Schroeder LPN - Reason: Patient/family refused) senna-docusate (Pericolace) 8.6-50 mg per tablet 2 tablet 2 tablet, Oral, 2 TIMES DAILY, First dose on Thu12/23/22 at 2215, Until Discontinued, Hold for loose stool. , Routine 2215 (Not Given - Provider: Vee Mendez RN - Reason: Patient/family refused) 0900 (Not Given - Provider: Zenaida Schroeder LPN - Reason: Patient/family refused) sodium chloride 0.9 % (flush) (BD PosiFlush Normal Saline 0.9) flush 5 mL 5 mL, Intravenous, 2 TIMES DAILY, First dose on Thu12/23/22 at 2215, Until Discontinued, Routine 222 (Given - Provider: Vee Mendez RN) 0846 (Given - Provider: Zenaida Schroeder LPN) PRN Medication Order 12/22/2022 12/23/2022 12/24/2022 lidocaine (Xylocaine) 1% (10 mg/mL) injection 3 mg 3 mg (0.3 mL), Subcutaneous, ONCE PRN, 1 dose, Starting on Thu12/23/22 at 2127, Until Thu12/24/22 at 1307, for discomfort with PIV insertion, Routine ondansetron (pf) (Zofran) (2 mg/mL) injection 4-8 mg(Linked Group 1) 4-8 mg, Intravenous, EVERY 8 HOURS PRN, Starting on Thu12/23/22 at 2127, Until Thu12/24/22 at 1307, Nausea, Start with 4mg and if ineffective in 30 minutes, give an additional 4mg If multiple antiemetics are ordered, give ondansetron first. ondansetron (Zofran) tablet 4-8 mg(Linked Group 1) 4-8 mg, Oral, EVERY 8 HOURS PRN, Starting on Thu12/23/22 at 2127, Until Thu12/24/22 at 1307, Nausea, Vomiting, If multiple antiemetics are ordered, use ondansetron first. PO Preferred. If patient unable to take PO, may give IV if ordered. Start with 4mg and if ineffective in 45 minutes, give an additional 4mg. If unable to take PO, may give IV., Routine sodium chloride 0.9 % (flush) (BD PosiFlush Normal Saline 0.9) flush 5-20 mL 5-20 mL, Intravenous, EVERY 1 MIN PRN, Starting on Thu12/23/22 at 7, Until Thu12/24/22 at 1307, flush, Flush pertains to all indwelling lines. Flush per protocol found in the job aid using the link provided on this medication record., Routine Linked Groups Order Group 1: ondansetron (Zofran) tablet 4-8 mgJump to med 4-8 mg, Oral, EVERY 8 HOURS PRN, Starting on Thu12/23/22 at 2127, Until Thu12/24/22 at 1307, Nausea, Vomiting, If multiple antiemetics are ordered, use ondansetron first. PO Preferred. If patient unable to take PO, may give IV if ordered. Start with 4mg and if ineffective in 45 minutes, give an additional 4mg. If unable to take PO, may give IV., Routine Or ondansetron (pf) (Zofran) (2 mg/mL) injection 4-8 mgJump to med 4-8 mg, Intravenous, EVERY 8 HOURS PRN, Starting on Thu12/23/22 at 2126, Until Thu12/24/22 at 1307, Nausea, Start with 4mg and if ineffective in 30 minutes, give an additional 4mg If multiple antiemetics are ordered, give ondansetron first. documented in this encounter Care Teams Security Systems Sales Representative Relationship Specialty Start Date End Date Noa Washington, [place] [address] [place] [address] PCP - General Family Medicine 04/20/15 documented as of this encounter
--- OUTSIDE RECORDS SUMMARY | 2024-05-05 14:09 | XMS_ITS | Encounter Summary ---
Author Organization [facility] [place] [address] Care Team Providers Care Pan Helper Name Role Phone Noa Washington APRN Primary Care Provider [phone] Encounter Details Date Type Department Care Team (Late st Contact Info) Description 06/03/2001 Orders Only Radiology and Cardiology Results [address] [place] [address] Apd Conversion, Results Provider, Social History Tobacco Use Types Packs/Day Years Used Date Smoking Tobacco: Never Assessed Sex and Gender Information Value Date Recorded Sex Assigned at Not on file Gender Identity Not on file Sexual Orientation Not on file documented as of this encounter Plan of Treatment Not on file documented as of this encounter Procedures Procedure Name Priority Date/Time Associated Diagnosis Comments TSH Routine 06/03/2001 4:55 PM EST FERRITIN Routine 06/03/2001 4:55 PM EST documented in this encounter Results * (ABNORMAL) Ferritin (06/03/2001 4:55 PM EST) Ferritin 130.0(Exte rnal Lab) 10.2 - 265 NG/ML CONVERSION 06/03/2001 4:55 PM EST Results Provider Apd Conversion MD CHANDAN WHITE ORDERABLES CONVERSION * (ABNORMAL) TSH (06/03/2001 4:55 PM EST) Thyroid Stimulating Hormone 0.17(ExtL ) 0.46 - 4.68 mIU/L CHELSEY WELLS CONVERSION 06/03/2001 4:55 PM EST Results Provider Apd Conversion MD CHANDAN WHITE ORDERABLES Performing Organization Address City/State/[facility] Co de Phone Number CHELSEY WELLS CONVERSION documented in this encounter Visit Diagnoses Not on filedocumented in this encounter Care Teams Pan Helper Relationship Specialty Start Date End Date Noa Washington, FOUNDER AND CHIEF TECHNICAL OFFICER [address] [place] [address] PCP - General Family Medicine 04/20/15 documented as of this encounter
--- OUTSIDE RECORDS SUMMARY | 2024-05-05 14:09 | XMS_ITS | Encounter Summary ---
Author Organization [facility] [place] [address] Care Team Providers Care News Assistant Name Role Phone Noa Washington APRN Primary Care Provider [phone] Encounter Details Date Type Department Care Team (Latest Contact Info) Description 02/06/2023 Travel Social History Tobacco Use Types Packs/Day Years [...] on filedocumented in this encounter Care Teams News Assistant Relationship Specialty Start Date End Date Noa Washington APRN [place] [place] [address] PCP - General Family Medicine 04/20/15 documented as of this encounter
--- OUTSIDE RECORDS SUMMARY | 2024-05-05 14:09 | XMS_ITS | Encounter Summary ---
Author Organization [facility] [place] [address] Care Team Providers Care Finisher Operator Name Role Phone Kizzy Nunez APRN Primary Care Provider [phone] Reason for Visit * Reason Onset Date Comments Medication Refill 09/20/2014 Encounter Details Date Type Department Care Team (Late st Contact Info) Description 09/20/2014 Refill [place] [address] Roque Simmons MD [facility] [place] [address] Chronic pain Social History Tobacco Use Types Packs/Day Years [...] pain documented in this encounter Care Teams Finisher Operator Relationship Specialty Start Date End Date Kizzy Nunez APRN [facility] [address] [place] [address] PCP - General 04/07/12 04/19/15 documented as of this encounter
--- OUTSIDE RECORDS SUMMARY | 2024-05-05 14:09 | XMS_ITS | Encounter Summary ---
Author Organization [facility] Address [facility] [place] [address] Care Team Providers Care Customer Success Associate Name Role Phone MeghnaNoa taveras UNDERCOLLAR MAKER Primary Care Provider [phone] Reason for Visit * Reason Comments Pain Management Encounter Details Date Type Department Care Team (Late st Contact Info) Description 01/31/2019 10:00 AM EDT Office Visit [facility] at [facility] [place], [facility] [place] [address] Lamont Vasquez PA [facility] [place] [address] Complex regional pain syndrome type 2 of [...] Progress Notes * Lamont Vasquez PA - 01/31/2019 10:00 AM EDT PAIN CLINIC FOLLOW-UP DATE OF VISIT 01/31/2019 Patient Skye Hinton 1950 PRIMARY CARE PROVIDER Noa Washington APRN CHIEF COMPLAINT: Post SCS generator swap follow up HPI: Skye Hinton is a 68 y.o. female is here today accompanied by her to follow up in the [facility] for post SCS generator swap follow up. I saw her 12/06/2018 after her generator swap that was done 11/26/2018. This history was noted at that visit: Skye Hinton is a 68 y.o. female seen in the [facility] pain clinic 10/12/2018 where this history was noted: ?? Skye Hinton??is a??68 y.o.??year old female??with a PMH of complex regional pain syndrome type 1of her bilateral upper extremity and fibromyalgia and [...] is also seen by [facility] inbound customer service representative today in clinic. Her spinal cord stimulatorwas placed in 2006 with two 90cm electrodes located at the C2 level. ?? She currently takes Gabapentin and duloxetine for pain.? She was scheduled for a generator explant and replacement that was done 11/26/2018. She now comes [facility] for follow up. She's accompanied [...] (her says) even when she's not writing. ?? [...] what. She can't lay on her side without her left arm hurting. She's not opened the box from [facility]. She says she didn't have anything explained. [...] 60 mg by mouth [address] Prescription Monitoring Program were checked and 1 prescription was reported. 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 Cardiovascular Denies chest pain, palpitations, MO, hypertension, heart murmur. Respiratory Denies cough, SOB, [...] by her to follow up in the [facility] Pain Clinic for post SCS generator swap [...] will try to contact them to see if they will agree to meet her at a [...] f/u with [facility] in attendance Skye Hinton had the opportunity to ask questions and indicated that all questions were answered to her satisfaction. Lamont Vasquez PA-C Physician Television Audio Engineer [facility] [address] [address] [facility] documented in this encounter Plan of Treatment Not on file documented as of this encounter Visit Diagnoses Diagnosis Complex regional pain syndrome type 2 of both upper extremities documented in this encounter Care Teams Customer Success Associate Relationship Specialty Start Date End Date Noa Washington, [place] [address] [place] [address] PCP - General Family Medicine 04/20/15 documented as of this encounter
--- OUTSIDE RECORDS SUMMARY | 2024-05-05 14:09 | XMS_ITS | Encounter Summary ---
Author Organization [facility] Address [facility] [place] [address] Care Team Providers Care Oracle Scm Consultant Name Role Phone Noa Washington APRN Primary Care Provider [phone] Encounter Details Date Type Department Care Team (Late st Contact Info) Description 11/29/2018 Orders Only [place] [id number] Brian Gonzalez MD [facility] [place] [address] Social History Tobacco Use Types Packs/Day Years Used Date Smoking Tobacco: Never Smokeless Tobacco: Never Sex and Gender Information Value Date Recorded Sex Assigned at Not on file Gender Identity Not on file Sexual Orientation Not on file documented as of this encounter Progress Notes * Brian Gonzalez MD - 11/29/2018 12:42 PM [...] hours as needed to her pharmacy in [place]. Brian Gonzalez MD Pain Fellow documented in this encounter Plan of Treatment Not on file documented as of this encounter Visit Diagnoses Not on filedocumented in this encounter Care Teams Oracle Scm Consultant Relationship Specialty Start Date End Date Noa Washington APRN [address] [place] [address] PCP - General Family Medicine 04/20/15 documented as of this encounter
--- OUTSIDE RECORDS SUMMARY | 2024-05-05 14:09 | XMS_ITS | Encounter Summary ---
Author Organization [facility] [place] [address] Care Team Providers Care Synchronizer Name Role Phone Noa Washington APRN Primary Care Provider Encounter Details Date Type Department Care Team (Late st Contact Info) Description 11/26/2018 8:30 AM EDT - 11/26/2018 10:28 AM EDT [place] [address] Jose Francisco Alfred MD [facility] [place] [address] INSERT OR REPLACE SPINAL NEUROSTIMULATOR (WRVU 5.19) Social History Tobacco Use Types Packs/Day Years Used Date Smoking Tobacco: Never Smokeless Tobacco: Never Sex and Gender Information Value Date Recorded Sex Assigned at Not on file Gender Identity Not on file Sexual Orientation Not on file documented as of this encounter Last Filed Vital Signs Vital Sign Reading Time Taken Comments Blood Pressure 140/67 11/26/2018 10:15 AM EDT Pulse 70 11/26/2018 9:48 AM EDT Temperature 36.4 ??C (97.5 ??F) 11/26/2018 9:48 AM ED T Respiratory Rate 16 11/26/2018 7:15 AM EDT Oxygen Saturation 100% 11/26/2018 10:15 AM EDT Inhaled Oxygen Concentration - - Weight 71.7 kg (158 lb) 11/26/2018 7:15 AM EDT Height 152.4 cm (5') 11/26/2018 7:15 AM EDT Body Mass Index 30.86 11/26/2018 7:15 AM EDT documented in this encounter Discharge Instructions * Discharge Instructions* Israel Chand RN - 11/26/2018 9:57 AM EDT [...] of infection: increasing redness, swelling, foul drainage, if occurs contact M.D. Patients who have had endotrachial [...] which usually goes away in 12-24 hours. * Patient Instructions* Ashwin Salmon MD - 11/26/2018 9:57 AM EDT DBS IPG REPLACEMENT DISCHARGE INSTRUCTIONS PRESCRIPTION INSTRUCTIONS: Please see the medication reconciliation list on this discharge summary for a current list of your medications. Stop the use of blood thinning medications until instructed otherwise by your surgical team. This includes medications known as antiplatelet, anticoagulant, and non-steroidal anti-inflammatory (NSAIDs) drugs. Common qzlt-aqp-agwoeog medications which should be avoided include Aspirin, ibuprofen, and naproxen among others. These medications are sometimes combined with other drugs or are sold undera trade name. Common prescription medications which should [...] pain. DO NOT use alcohol, drive, or operate heavy machinery while taking these medications. These medications may cause constipation. Stool softeners - Constipation relief: medications such as docusate or senakot Stool softeners are commonly used after surgery to help make stools easier to pass. These medications can be obtained xbek-fef-boscviy and their use is recommended on an [...] and absorbable sutures. The sutures will dissolve on their own and do not need to be removed. DIET: - You may resume your usual diet. - A well-balanced diet is recommended for wound healing. - Prune juice or prunes can be added to your diet to assist with any constipation. ACTIVITY: - You may increase your activities as tolerated. - Restrict strenuous activity (such as running, jumping, jogging, shoveling, etc.) until cleared byyour surgical team DRIVING: - You may return to driving 2 days after surgery. FOLLOW UP PLAN: [ X ] Your scheduled postoperative follow up appointments are listed under the Future Appointmentsand Orders section of this document documented in this encounter Medications at Time of Discharge Medication Sig Dispensed Refills Start Date End Date losartan (COZAAR) 50 mg Tablet Take 50 mg by mouth daily. 10/09/2022 pramipexole (MIRAPEX) 0.25 mg Tablet Take 0.25 mg by mouth 2 times daily. 10/09/2022 escitalopram oxalate (LEXAPRO) 20 mg Tablet Take 20 mg by mouth daily. 10/09/2022 pravastatin (PRAVACHOL) 20 mg Tablet Take 20 mg by mouth daily. 05/07/2015 12/06/2018 DULoxetine (CYMBALTA) 60 mg capsule Take 60 mg by mouth 2 times daily. 10/09/2022 cephALEXin (KEFLEX) 250 mg Capsule take 1 capsule by mouth three times a day UNTIL GONE 0 06/22/2018 12/06/2018 metoclopramide (REGLAN) 10 mg Tablet take 1 tablet by mouth every 8 hours if needed for nausea or migraines 0 06/18/2018 10/09/2022 nortriptyline (PAMELOR) 10 mg Capsule TAKE 1 TO 2 CAPSULES BY MOUTH AT BEDTIME FOR SLEEP AND MIGRAINE PREVENTION 0 10/14/2018 10/09/2022 metoprolol tartrate (LOPRESSOR) 25 mg Tablet Take 25 mg by mouth as needed. 10/09/2022 methocarbamol (ROBAXIN) 500 mg Tablet Take 1 tablet by mouth 3 times daily. 5 tablet 11/26/2018 10/09/2022 traMADol (ULTRAM) 50 mg Tablet Take 1 tablet by mouth every 6 hours as needed for Pain. 10 tablet 11/26/2018 12/06/2018 documented as of this encounter Progress Notes * Natalia Wei, RN - 11/26/2018 2:02 PM EDT 11/29/2018 Patient very upset when post procedure call done. 8/10 pain all w/e. Called Dr. Alfred's office, who suggested calling pain service. Spoke with pain service who will have one of the nurses doa follow up call to patient. * Israel Chand RN - 11/26/2018 1:46 PM EDT Patient alert and oriented, vital signs stable. Reviewed discharge instructions; patient and verbalized understanding. Copy of instruction sheet with contact numbers for questions/concerns with . Pain assessment documented - improving. IV removed. Patient escorted out of department via wheelchair with staff. * Israel Chand RN - 11/26/2018 11:02 AM [...] feels this is manageable to go home. * Israel Chand RN - 11/26/2018 10:32 AM EDT VSS. Patient c/o left arm/wrist pain. No chest pain. Heat pack applied. 610 and increasing to 9/10. documented in this encounter H&P Notes * Ashwin Salmon MD - 11/26/2018 8:32 AM EDT Neurosurgery Pre-operative H&P 11/26/2018 Skye Hinton [id number] CC: IPG replacement HPI: Skye Hinton [...] Nerves: CN II - Visual acuity and delarosa grossly intact, PERRL CN III, IV, - [...] planning documented in this encounter Miscellaneous Notes * Op Note - Ashwin Salmon MD - 11/26/2018 12:45 PM EDT Operative Note Patient Name: Skye Hinton : [id number] MR#: [id number] Case Date: 11/26/2018 Surgeon: Surgeon(s) and Role: [...] limited to, pain, scar, hemorrhage, infection, stroke, seizure, CSF leak, weakness, paralysis, numbness, tingling, no improvement in patient's condition, possible need for further surgical intervention, coma, and . Procedure Detail: The patient was brought to the operating room where a timeout was performed to verify the correct patient, procedure, and surgical site. The patient then underwent successful induction of anesthesia.IVs and lines were placed by the anesthesia service. DVT prophylaxis in the form of SCDs was initiated. IV antibiotics were administered by the anesthesia service. All extremities and pressure pointswere adequately padded and accounted for. The patient was positioned supine. The prior IPG incision was located on the right flank. The area was then prepped and draped in the usual sterile fashion. Local anesthetic was injected along the planned incision. Skin incision was made using a #15 blade. Hemostasis was obtained.. We then used blunt dissection to dissect in the pocket until we encountered the capsule around the previous [...] Implant Name Type Inv. Item Serial No. Wheelchair Driver Lot No. LRB No. Used Action Proclaim 5 Elite Implantable Pulse Generator [id number] [employer] 1 Implanted Drains: None Disposition: awakened from anesthesia, extubated and taken to the recovery room in a stable condition, having suffered no apparent untoward event. * Brief Op Note - Jose Francisco Alfred MD - 11/26/2018 9:37 AM EDT Brief Operative Note Patient Name: Skye Hinton : [id number] MR#: [id number] Case Date: 11/26/2018 Surgeon: Surgeon(s) and Role: [...] Scheduled Orders Name Type Priority Associated Diagnoses Orde r Schedule XR Fluoro No Rad <1Hr - OR Use Imaging Routine Once PRN (for Ra diant use) for 1 Occurrences starting 11/26/2018 until 11/26/2018 documented as of this encounter Procedures Procedure Name Priority Date/Time Associated Diagnosis Comments IMPLANTABLE DEVICES SCAN 11/29/2018 12:00 AM EDT EKG 12-LEAD STAT 11/26/2018 11:04 AM EDT Complex regional pain syndrome type 1 of both upper extremities MODIFIER,NEUROSTIMULATO R,RECHARGEABLE 11/26/2018 8:38 AM EDT CRPS INSERT OR REPLACE SPINAL NEUROSTIMULATOR (WRVU 5.19) 11/26/2018 8:38 AM EDT CRPS documented in this encounter Results * SCAN DOC: IMPLANTABLE DEVICES (11/29/2018 12:00 AM EDT) Narrative 11/29/2018 12:00 AM EDT Ordered by an unspecified provider. Scanning Provider MEDIA MGR SCAN EXT O RDR/RSLT * EKG 12 Lead (11/26/2018 11:04 AM EDT) Ventricular rate 59 BPM MUSE SYSTEM Atrial Rate 59 BPM MUSE SYSTEM P-R Interval 144 ms MUSE SYSTEM QRS Duration 70 ms MUSE SYSTEM Q-T Interval 438 ms MUSE SYSTEM QTC Calculated (Bezet) 433 ms MUSE SYSTEM Calculated P [place] 37 degrees MUSE SYSTEM Calculated R [place] 3 degrees MUSE SYSTEM Calculated T [place] 15 degrees MUSE SYSTEM INTERPRETATION Sinus bradycardia Nonspecific ST abnormality Abnormal ECG When compared with ECG of 20-JAN-1995 17:00, No significant change was found Confirmed by MD Torin, Francisco Javier ([id number]) on 11/26/2018 2:44:35 PM MUSE SYSTEM 11/26/2018 11:0 4 AM EDT 11/26/2018 2:44 PM EDT Patria J Torin GEOSPATIAL PROGRAM MANAGEMENT OFFICER ECG ORDERABLES MUSE SYSTEM documented in this encounter Visit Diagnoses Not on filedocumented in this encounter Administered Medications Inactive Administered Medications - up to 3 most recent administrations Medication Order MAR Action Action Date Dose Rate Site bacitracin injection ONCE PRN, Starting on Thu11/26/18 at 0905, Until Thu11/26/18 at 1606, Intra-Operative (Intra-Procedure), Routine Given 11/26/2018 9:05 AM EDT 10,000 Units 19- Surgical Site ketorolac (TORADOL) 15 mg/mL injection 1 dose, Starting on Thu11/26/18 at 1122, Until Thu11/26/18 at 1130, ISRAEL CHAND: cabinet override Given 11/26/2018 11:30 AM EDT 30 mg lidocaine-EPINEPHrine 1 %-1:200,000 injection ONCE PRN, Starting on Thu11/26/18 at 0905, Until Thu11/26/18 at 1606, Intra-Operative (Intra-Procedure), Routine Given 11/26/2018 9:05 AM EDT 18 mLs 19- Surgical Site methocarbamol (ROBAXIN) tablet 500 mg 500 mg, Oral, ONCE, 1 dose, On Thu11/26/18 at 1200, Routine Given 11/26/2018 12:00 PM EDT 500 mg documented in this encounter Active and Recently Administered Medications Times are shown in EDT. Scheduled Medication Order 11/24/2018 11/25/2018 11/26/2018 methocarbamol (ROBAXIN) tablet 500 mg 500 mg, Oral, ONCE, 1 dose, On Thu11/26/18 at 1200, Routine 1200 (Given - Provid er: Lynda Powell RN) Continuous Medication Order 11/24/2018 11/25/2018 11/26/2018 lactated ringers infusion (CANCELED) 1,000 mL, at 100 mL/hr, Intravenous, CONTINUOUS, Starting on Thu11/26/18 at 0745, Until Thu11/26/18 at 1349, Day of Surgery (Day of Procedure) 0840 (New Bag - Prov ider: Zachary Humphreys)0849 (Canceled Entry - Provider: Zachary Humphreys)0930 (Anesthesia Volume Adjustment - Provider: Zachary Humphreys) PRN Medication Order 11/24/2018 11/25/2018 11/26/2018 bacitracin injection (CANCELED) ONCE PRN, Starting on Thu11/26/18 at 0905, Until Thu11/26/18 at 1606, Intra-Operative (Intra-Procedure), Routine 904 (Given - Provid er: Jose Francisco Alfred MD - Comment: Bacitracin 10,000 units diluted in 1 liter of NaCl 0.9%.) lidocaine-EPINEPHrine 1 %-1:200,000 injection (CANCELED) ONCE PRN, Starting on Thu11/26/18 at 0905, Until Thu11/26/18 at 1606, Intra-Operative (Intra-Procedure), Routine 09 (Given - Provid er: Jose Francisco Alfred MD) No Frequency Medication Order 11/24/2018 11/25/2018 11/26/2018 ketorolac (TORADOL) 15 mg/mL injection (COMPLETED) 1 dose, Starting on Thu11/26/18 at 1122, Until Thu11/26/18 at 1130, ISRAEL CHAND.: cabinet override 1130 (Given - Provid er: Israel Chand RN) documented in this encounter Care Teams Synchronizer Relationship Specialty Start Date End Date Noa Washington, GEOSPATIAL PROGRAM MANAGEMENT OFFICER [address] [place] [address] PCP - General Family Medicine 04/20/15 documented as of this encounter
--- OUTSIDE RECORDS SUMMARY | 2024-05-05 14:09 | XMS_ITS | Encounter Summary ---
Author Organization [facility] [place] [address] Care Team Providers Care Sharepoint Admin Name Role Phone Kizzy Nunez APRN Primary Care Provider [phone] Encounter Details Date Type Department Care Team (Late st Contact Info) Description 04/13/2012 Orders [place] [address] Winston Mcnulty MD [facility] [place] [address] Toxic multinodul goiter (Primary Dx) Social History Tobacco Use Types Packs/Day Years Used Date Smoking Tobacco: Never Sex and Gender Information Value Date Recorded Sex Assigned at Not on file Gender Identity Not on file Sexual Orientation Not on file documented as of this encounter Plan of Treatment Not on file documented as of this encounter Results * NM I-131cap ther per mCi (05/07/2012 1:20 PM EST) Anatomical Region Laterality Modality Other 05/07/2012 1:20 PM EST Narrative 05/07/2012 1:28 PM EST Examination I-131 INITIAL THERAPY Clinical History MNG goiter with hyperthyroidism. Getting scan at outside hospital. Comparison None ?? Technique The treatment of hyperthyroidism using radioactive iodine, as well as alternative forms of therapy were discussed with the patient. The patient was told about possible side effect and necessary precautions. Possible outcomes, including the potential of permanent hypothyroidism were mentioned. Informed consent was signed. The patient received 30.7mCi of I-131 administered orally and left the department in good condition. Findings/Impression 30.7 mCi of I-131 was administered without complication. Procedure Note Abdiaziz Tovar MD - 05/07/2012 Examination I-131 INITIAL THERAPY Clinical History MNG goiter with hyperthyroidism. Getting scan at outside hospital. Comparison None Technique The treatment of hyperthyroidism using radioactive iodine, as well as alternative forms of therapy were discussed with the patient. The patientwas told about possible side effect and necessary precautions. Possibleoutcomes, including the potential of permanent hypothyroidism were mentioned. Informed consent was signed. The patient received 30.7mCi of I-131administered orally and left the department in good condition. Findings/Impression 30.7 mCi of I-131 was administered without complication. Roberto Justice MD IMG NM ORDERABLES documented in this encounter Visit Diagnoses Diagnosis Toxic multinodul goiter- Primary Toxic multinodular goiter without mention of thyrotoxic crisis or storm Toxic multinodul goiter Toxic multinodular goiter without mention of thyrotoxic crisis or storm documented in this encounter Care Teams Sharepoint Admin Relationship Specialty Start Date End Date Kizzy Nunez APRN [facility] [address] [place] [address] PCP - General 04/07/12 04/19/15 documented as of this encounter
--- OUTSIDE RECORDS SUMMARY | 2024-05-05 14:09 | XMS_ITS | Encounter Summary ---
Author Organization [facility] [place] [address] Care Team Providers Care Legal Librarian Name Role Phone Kizzy Nunez APRN Primary Care Provider [phone] Reason for Visit * Reason Onset Date Comments Other 04/20/2012 Encounter Details Date Type Department Care Team (Late st Contact Info) Description 04/20/2012 [place] [address] Geno Dhaliwal [facility] [address] [place] [address] Other Social History Tobacco Use Types Packs/Day Years Used Date Smoking Tobacco: Never Sex and Gender Information Value Date Recorded Sex Assigned at Not on file Gender Identity Not on file Sexual Orientation Not on file documented as of this encounter Miscellaneous Notes * Telephone Encounter - Geno Dhaliwal, RN - 04/20/2012 10:28 AM EST This patient wants you to call her please. She didn't give a reason. [phone] documented in this encounter Plan of Treatment Not on file documented as of this encounter Visit Diagnoses Not on filedocumented in this encounter Care Teams Legal Librarian Relationship Specialty Start Date End Date Kizzy Nunez APRN [facility] [address] [place] [address] PCP - General 04/07/12 04/19/15 documented as of this encounter
--- OUTSIDE RECORDS SUMMARY | 2024-05-05 14:09 | XMS_ITS | Encounter Summary ---
Author Organization [facility] Address [facility] [place] [address] Care Team Providers Care Press Manager Name Role Phone Noa [place] APRN Primary Care Provider [phone] Encounter Details Date Type Department Care Team (Late st Contact Info) Description 11/26/2018 8:39 AM EDT Anesthesia Event [place] [address] Renzo Méndez MD [facility] DR [place] [address] Cheng Hemphill MD [facility] DR [place] [address] Anesthesia Record Procedure Summary Procedure Name Responsible Anesthesiologist Anesthesia Start Time Anesthesia Stop Time INSERT OR REPLACE SPINAL NEUROSTIMULATOR (WRVU 5.19) (Right: Back) Renzo Méndez MD 11/26/18 0839 11/26/18 0950 Events Date Time Event Comment 11/26/2018 0838 0839 AN Verify 0839 Start 0839 An Start Data 0840 Anesthesia Ready 0905 Procedure Start 0937 Procedure Stop 0938 an stop data 0946 Recovery or ICU Handoff Anjelica ent care was transferred to the destination unit staff after review of the patient's medical history, current anesthetic/surgical status and plan, according to the Provider Handoff Checklist. 0950 Recovery or ICU Handoff Anjelica ent care was transferred to the destination unit staff after review of the patient's medical history, current anesthetic/surgical status and plan, according to the Provider Handoff Checklist. 0950 Stop Meds Name Total Midazolam 2 mg Propofol 10 mg Propofol INF 541.34 mg ceFAZolin 2 g lactated ringers infusion 500 mL * Agents Name O2 Air N2O Sevoflurane (et) O2 Auxiliary Flowmeter 1 * Blood No blood administrations on file. Lines, Drains, and Airways Type Details Placement Removal (RETIRED) Peripheral IV Line - Single Lumen 11/26/18; 0848; metacarpal vein (top of hand), left; 20 gauge; 11/26/18; 1355 11/26/18 0848 by Zachary Humphreys MD 11/26/18 1355 by Sue Chand RN Incision 11/26/18; 0905; back ; 02/10/22 (LDA cleanup utility RA#[id number]); 1715 (LDA cleanup utility RA#[id number]) 11/26/18 0905 by Katie Mesa RN 02/10/22 1715 by Komal Delgado documented in this encounter Social History Tobacco Use Types Packs/Day Years Used Date Smoking Tobacco: Never Smokeless Tobacco: Never Sex and Gender Information Value Date Recorded Sex Assigned at Not on file Gender Identity Not on file Sexual Orientation Not on file documented as of this encounter OR Notes * Anesthesia Postprocedure Evaluation - Zachary Humphreys - 11/26/2018 9:49 AM EDT Department of Anesthesiology Post-procedure Note Patient: Skye Hinton Procedure Summary Date: 11/26/18 Room / Location: [address] MAIN OR Anesthesia Start: 838 Anesthesia Stop: Procedures: INSERT OR REPLACE SPINAL NEUROSTIMULATOR (WRVU 5.19) (Right Back) MODIFIER,NEUROSTIMULATOR,RECHARGEABLE (Right Back) Diagnosis: (CRPS) Surgeon: Jose Francisco Alfred MD Responsible Provider: Renzo Méndez MD Anesthesia Type: MAC ASA Status: 2 All Anesthesia Providers: Anesthesiologist: Renzo Méndez MD Bakery Team Leader: Cheng Hemphill MD; Zachary Humphreys MD Vitals Value Taken Time BP Temp Pulse Resp SpO2 99 % 11/26/2018 9:48 AM Pain Level Vitals shown include unvalidated device data. Patient Location: PACU/SDP Level of Consciousness: Awake and Alert Pain Management: Satisfactory Analgesia PONV: Cardiovascular Status: At Baseline Respiratory Status: At Baseline Postoperative Fluid Status: Intravascular EUvolemia Possible Anesthetic Complications: NONE apparent at time of evaluation Final Primary Anesthesia Type: MAC (The anesthetic type performed was the same as planned.) Comments: * Anesthesia Preprocedure Evaluation - Renzo Méndez MD [...] STIMULATOR PLACEMENT SCS for pain 2006 in [place] ??? HYSTERECTOMY ??? JOINT REPLACEMENT right knee [...] Note documented in this encounter Miscellaneous Notes * Addendum Note - Zachary Humphreys - 11/26/2018 11:10 AM EDT Addendum created [...] Site ceFAZolin (ANCEF) 1g in dextrose 5% 50mL PRN, Starting on Thu11/26/18 at 0903, Until Thu11/26/18 at 0950, Administer over 30 Minutes, Anesthesia Intra-op Given 11/26/2018 9:03 AM EDT 2 g lactated ringers infusion 1,000 mL, at 100 mL/hr, Intravenous, CONTINUOUS, Starting on Thu11/26/18 at 0745, Until Thu11/26/18 at 1349, Day of Surgery (Day of Procedure) New Bag 11/26/2018 8:40 AM EDT midazolam (PF) (VERSED) multi-dose injection PRN, Starting on Thu11/26/18 at 0839, Until Thu11/26/18 at 0950, Anesthesia Intra-op, Routine Given 11/26/2018 8:44 AM EDT 1 mg Given 11/26/2018 8:39 AM EDT 1 mg propofol (DIPRIVAN) 10 mg/mL bolus injection (Anesthesia) PRN, Starting on Thu11/26/18 at 0906, Until Thu11/26/18 at 0950, Anesthesia Intra-op Given 11/26/2018 9:06 AM EDT 10 mg propofol (DIPRIVAN) infusion CONTINUOUS PRN, Starting on Thu11/26/18 at 0842, Until Thu11/26/18 at 0950, Anesthesia Intra-op, Routine Rate/Dose Change 11/26/2018 9:15 AM EDT 130 mcg/kg/min 55.9 mL/hr Rate/Dose Change 11/26/2018 9:06 AM EDT 120 mcg/kg/min 51. 6 mL/hr New Bag 11/26/2018 8:42 AM EDT 80 mcg/kg/min 34.4 mL/hr documented in this encounter Care Teams Press Manager Relationship Specialty Start Date End Date Noa [place] APRN [address] [place] [address] PCP - General Family Medicine 04/20/15 documented as of this encounter
--- OUTSIDE RECORDS SUMMARY | 2024-05-05 14:09 | XMS_ITS | Encounter Summary ---
Author Organization [facility] [place] [address] Care Team Providers Care Environmental Lawyer Name Role Phone GloriaNoa main MOSES Primary Care Provider [phone] Reason for Visit * Auth/Cert (Routine) Specialty Diagnoses / Procedures Referred By Contkasia t Referred To Contact Diagnoses H/O thyroidectomy Thyroidectomy Luz Marina Clarke MD [facility] [address] [place] [address] [facility] Referral ID Status Reason Start Date Expiration Date Visits Re quested Visits Authorized [id number] 1 1 Encounter Details Date Type Department Care Team (Late st Contact Info) Description 12/23/2022 3:10 PM EDT - 12/23/2022 5:28 PM EDT Surgery [place] [address] Luz Marina Clarke MD [facility] [address] [place] [address] THYROIDECTOMY, LOBECTOMY, TOTAL, UNILATERAL (WRVU 11) Social History Tobacco Use Types Packs/Day Years Used Date Smoking Tobacco: Never Smokeless Tobacco: Never Tobacco Cessation:Counseling Given: Not Answered Alcohol Use Standard Drinks/Week Comments Yes 0 (1 standard drink = 0.6 oz pur e alcohol) Very rare [facility] Inpatient Questions Answer Date Recorded Does Anyone [...] Sign Reading Time Taken Comments Blood Pressure 158/95 12/23/2022 5:19 PM EDT Pulse 74 12/23/2022 5:19 PM EDT Temperature 36.2 ??C (97.2 ??F) 12/23/2022 5:19 PM ED T Respiratory Rate 16 12/23/2022 5:19 PM EDT Oxygen Saturation 96% 12/23/2022 5:19 PM EDT Inhaled Oxygen Concentration - - [...] closest emergency room or call the hospital coal drier operator at [phone] and ask for physician esl instructional assistant covering for your physician. Questions or problems after 5pm or on a weekend: Call the [facility] coal drier operator at and ask for the physician esl instructional assistant covering for your doctor. * Patient Instructions* [...] thyroid surgery. Take NSAIDS every 6 hours [id number] for the first 3-5 days following surgery [...] will be mailed to you Please call [phone] to confirm the date and time of [...] days after surgery. Phone number for questions: [phone] before 5 PM on weekdays [phone] after 5 PM and on weekends/holidays. Ask for the general surgery resident esl instructional assistant. documented in this encounter Medications at Time [...] and keeping her neck stiff. Anesthesia Dr Mazariegosed in to see patient and new order [...] - 12/23/2022 3:22 PM EDT Patient Name: Skye Hinton Patient Age: 72 [...] PM EDT Brief Operative Note Patient Name: Skey Hinton : [id number] MR#: [id number] Case Date: 12/23/2022 Surgeon: Surgeon(s) and Role: [...] Clarke MD - 12/23/2022 4:01 PM EDT [facility] Operative Note Patient Name: Skye Hinton : [id number] MR#: [id number] Case Date: 12/23/2022 Surgeon: Surgeon(s) and Role: [...] and FNA reportedly demonstrating hypocellular but benign ([place] 2) cytology last year. The nodule exceeds [...] anesthesia was achieved by anesthesiology with the [employer] recurrent laryngeal nerve monitoring system. A natural [...] 4:50 PM EDT Needle Electromyography, Larynx Global ([id number]) 12/23/2022 3:30 PM EDT thyroid nodule Total Thyroid Lobectomy Unilateral W/Wo Isthmusectomy ([id number]) 12/23/2022 3:30 PM EDT thyroid nodule documented in this encounter Results * Specimen to Pathology (12/23/2022 4:51 PM EDT) AP Specimen 12/23/2022 4:51 PM EDT 12/23/2022 4:51 PM EDT Narrative [facility] - 12/23/2022 4:51 PM EDT Specimen requisition ordered. ??Separate Pathology report to follow Luz Marina Clarke MD PATHOLOGY/CYTOLOG Y ORDERABLES [facility] [place] [address] * Surgical Pathology Report (12/23/2022 4:50 PM EDT) Final Diagnosis [id number] ? Location: [facility] The signing pathologist has [...] Dye Verified: ??12/29/2022 13:12 ??Pathologist Performed at: ??-[facility] Dept. of Pathology, [place] [address] Shell Molder: Ritu Harrell MD, FCAP, ??CLIA Certificate: [id number] SPECIMEN(S) SUBMITTED A - Left Thyroid Lobe, [...] lesion submitted sequentially superior to inferior ??BGT, RODNEYR 12/29/2022 1:12 PM EDT [facility] THYROID STRUCTURE / Unknown 12/23/2022 4:50 PM EDT 12/23/2022 4:50 PM EDT Luz Marina Clarke MD PATHOLOGY/CYTOLOG Y ORDERABLES [facility] [place] [id number] [facility] [place] [address] documented in this encounter Visit Diagnoses Not on filedocumented in this encounter Administered Medications Inactive Administered Medications - up to 3 most recent administrations Medication Order MAR Action Action Date Dose Rate Site BUpivacaine-EPINEPHrine (Marcaine-epiNEPHrine) 0.25 %-1:200,000 injection PRN, Starting on Thu12/23/22 at 1610, Until Thu12/23/22 at 2124, Intra-Operative (Intra-Procedure), Routine Given 12/23/2022 4:10 PM EDT 10 mLs 19- Surgical Site ipratropium-albuteroL (Duoneb) 0.5 mg-3 mg(2.5 mg [...] MD) documented in this encounter Care Teams Environmental Lawyer Relationship Specialty Start Date End Date Noa [place], SECTION REPAIRER [address] [place] [address] PCP - General Family Medicine 04/20/15 documented as of this encounter
--- OUTSIDE RECORDS SUMMARY | 2024-05-05 14:09 | XMS_ITS | Encounter Summary ---
Author Organization [place] [id number] Care Team Providers Care Flyer Builder Name Role Phone Noa [place] APRN Primary Care Provider [phone] Encounter Details Date Type Department Care Team (Late st Contact Info) Description 07/31/2022 Ancillary Procedure Radiology Library [place] [address] Noa [place] APRN [address] [place] [address] [place] [address] Social History Tobacco Use Types Packs/Day Years [...] Priority Date/Time Associated Diagnosis Comments FILM LIBRARY - STORAGE ONLY CT NECK Routine 07/31/2022 12:00 AM EST documented in this encounter Results * Film Library- Storage Only CT Neck (07/31/2022 12:00 AM EST) Narrative [facility] - 10/08/2022 1:12 AM EDT This exam is auto-finalizing. It's purpose is for storage only. Noa [place] APRN IMG FILM LIBRARY ORD ERABLES [facility] Isabela ID documented in this encounter Visit Diagnoses Not on filedocumented in this encounter Care Teams Flyer Builder Relationship Specialty Start Date End Date Noa [place], MOSES [address] [place] [address] PCP - General Family Medicine 04/20/15 documented as of this encounter
--- OUTSIDE RECORDS SUMMARY | 2024-05-05 14:09 | XMS_ITS | Encounter Summary ---
Author Organization [facility] Address [facility] [place] [address] Care Team Providers Care Rn Clinical Review Name Role Phone GloriaNoa main MOSES Primary Care Provider [phone] Encounter Details Date Type Department Care Team (Latest Contact Info) Description 10/12/2018 2:12 PM EDT - 10/12/2018 11:59 PM EDT Hospital Encounter XRay at [address] [place] [address] Daniella Scanlon MD [facility] [address] Complex regional pain syndrome type 1 of both upper extremities Discharge Disposition: Home Social History Tobacco Use Types Packs/Day Years Used Date Smoking Tobacco: Never Smokeless Tobacco: Never Sex and Gender Information Value Date Recorded Sex Assigned at Not on file Gender Identity Not on file Sexual Orientation Not on file documented as of this encounter Medications at Time of Discharge Medication Sig Dispensed Refills Start Date End Date cephALEXin (KEFLEX) 250 mg Capsule take 1 capsule by mouth three times a day UNTIL GONE 0 06/22/2018 12/06/2018 metoclopramide (REGLAN) 10 mg Tablet take 1 tablet by mouth every 8 hours if needed for nausea or migraines 0 06/18/2018 10/09/2022 escitalopram oxalate (LEXAPRO) 20 mg Tablet Take 20 mg by mouth daily. 10/09/2022 lisinopril (PRINIVIL;ZESTRIL) 20 mg Tablet Take 20 mg by mouth daily. 11/26/2018 gabapentin (NEURONTIN) 300 mg Capsule 3 times daily. 04/18/2015 11/26/2018 omeprazole (PRILOSEC) 40 mg Capsule, Delayed Release(E.C.) 40 mg daily as needed. 05/28/201511/13 pravastatin (PRAVACHOL) 20 mg Tablet Take 20 mg by mouth daily. 05/07/2015 12/06/2018 SUMAtriptan (IMITREX) 50 mg Tablet Take 50 mg by mouth as needed. 0 02/14/2015 11/26/2018 DULoxetine (CYMBALTA) 60 mg capsule Take 60 mg by mouth 2 times daily. 10/09/2022 Cholecalciferol, Vitamin D3, (VITAMIN D-3) 5,000 unit Tab Take by mouth daily. 11/26/2018 documented as of this encounter Plan of Treatment Not on file documented as of this encounter Procedures Procedure Name Priority Date/Time Associated Diagnosis Comments XR PELVIS Routine 10/12/2018 2:49 PM EDT Complex regional pain syndrome type 1 of both upper extremities documented in this encounter Results * XR Pelvis (Generic) (10/12/2018 2:49 PM EDT) Anatomical Region Laterality Modality Pelvis N/A Digital Radiogra phy Impressions 10/12/2018 3:06 PM EDT As above. Thank you for letting us participate in the care of this patient. For questions regarding this report, please contact the number below. ? Electronically signed by: Maria R Zaidi MD, [facility] ([phone]), at 10/12/2018 3:06 PM Narrative 10/12/2018 3:06 [...] extremities documented in this encounter Care Teams Rn Clinical Review Relationship Specialty Start Date End Date Noa [place], HOME INSURANCE AGENT [address] [place] [address] PCP - General Family Medicine 04/20/15 documented as of this encounter
--- OUTSIDE RECORDS SUMMARY | 2024-05-05 14:09 | XMS_ITS | Encounter Summary ---
Author Organization [facility] Address [facility] [place] [address] Care Team Providers Care Admitting Interviewer Name Role Phone MeghnaNoa taveras AADC PLANS STAFF OFFICER Primary Care Provider [phone] Encounter Details Date Type Department Care Team (Late st Contact Info) Description 01/05/2023 Telephone [place] [id number] Kari Fong MD [facility] [place] [address] Social History Tobacco Use Types Packs/Day Years [...] encounter Miscellaneous Notes * Telephone Encounter - Kari Fong MD - 01/05/2023 4:05 PM EDT I have been trying for a week to get in touch with Ms. Hinton by phone. Her VM is full and she does not have the electronic patient portal set up, so I called her alternate contact today, her SisterHeather, to check in. Heather tells me that Skye is doing really well. In fact, she was heading outto play bingo with her when I called. She says that her voice sounds normal. I let her know that the pathology was benign, and she told me she would convey that message. documented in this encounter Plan of Treatment Not on file documented as of this encounter Visit Diagnoses Not on filedocumented in this encounter Care Teams Admitting Interviewer Relationship Specialty Start Date End Date Noa [place], MOSES [address] [place] [address] PCP - General Family Medicine 04/20/15 documented as of this encounter
--- OUTSIDE RECORDS SUMMARY | 2024-05-05 14:09 | XMS_ITS | Encounter Summary ---
Author Organization [facility] [place] [address] Care Team Providers Care Bonbon Cream Warmer Name Role Phone MeghnaNoa taveras ORCHID GROWER Primary Care Provider Encounter Details Date Type Department Care Team (Latest Contact Info) Description 11/26/2018 6:45 AM EDT - 11/26/2018 2:02 PM EDT Hospital Encounter [place] [address] Jose Francisco Alfred MD [facility] [place] [address] Complex regional pain syndrome type 1 of [...] AM ED T Respiratory Rate 16 11/26/2018 11:45 AM EDT [...] anticoagulant, and non-steroidal anti-inflammatory (NSAIDs) drugs. Common hdei-uuf-fpzpuxi medications which should be avoided include Aspirin, [...] to pass. These medications can be obtained dsts-qcf-kvjjkaw and their use is recommended on an [...] of this encounter Progress Notes * Natalia Wei RN - 11/26/2018 2:02 PM [...] EDT Neurosurgery Pre-operative H&P 11/26/2018 Skye Hinton [id number] CC: IPG replacement HPI: Skye Hinton [...] STIMULATOR PLACEMENT SCS for pain 2006 in [place] ??? HYSTERECTOMY ??? JOINT REPLACEMENT right knee [...] Operative Note Patient Name: Skye Hinton : [id number] MR#: [id number] Case Date: 11/26/2018 Surgeon: Surgeon(s) and Role: [...] Implant Name Type Inv. Item Serial No. Calculation Clerk Lot No. LRB No. Used Action Proclaim 5 Elite Implantable Pulse Generator [id number] [employer] 1 Implanted Drains: None Disposition: awakened from anesthesia, extubated and taken to the recovery room in a stable condition, having suffered no apparent untoward event. * Brief Op Note - Jose Francisco Alfred MD - 11/26/2018 9:37 AM EDT Brief Operative Note Patient Name: Skye Hinton : [id number] MR#: [id number] Case Date: 11/26/2018 Surgeon: Surgeon(s) and Role: [...] (Bezet) 433 ms MUSE SYSTEM Calculated P [place] 37 degrees MUSE SYSTEM Calculated R [place] 3 degrees MUSE SYSTEM Calculated T [place] 15 degrees MUSE SYSTEM INTERPRETATION Sinus bradycardia Nonspecific ST abnormality Abnormal ECG When compared with ECG of 20-JAN-1995 17:00, No significant change was found Confirmed by MD Torin, Francisco Javier ([id number]) on 11/26/2018 2:44:35 PM MUSE SYSTEM 11/26/2018 11:0 4 AM EDT 11/26/2018 2:44 PM EDT Patria J Torin ORCHID GROWER ECG ORDERABLES MUSE SYSTEM documented in this encounter Visit Diagnoses Diagnosis Complex regional pain syndrome type 1 of both upper extremities documented in this encounter Administered Medications Inactive Administered Medications - up to 3 most recent administrations Medication Order MAR Action Action Date Dose Rate Site ketorolac (TORADOL) 15 mg/mL injection 1 dose, Starting on Thu11/26/18 at 1122, Until Thu11/26/18 at 1130, ISRAEL CHAND: cabinet override Given 11/26/2018 11:30 AM EDT 30 mg methocarbamol (ROBAXIN) tablet 500 mg 500 mg, [...] Provider: Zachary Humphreys) PRN Medication Order 11/24/2018 11/25/201811/2611/26/2018 bacitracin injection (CANCELED) ONCE PRN, Starting on [...] RN) documented in this encounter Care Teams Bonbon Cream Warmer Relationship Specialty Start Date End Date Noa [place], ORCHID GROWER [address] [place] [address] PCP - General Family Medicine 04/20/15 documented as of this encounter
--- OUTSIDE RECORDS SUMMARY | 2024-05-05 14:09 | XMS_ITS | Encounter Summary ---
Author Organization [facility] [place] [address] Care Team Providers Care Mailroom Personnel Name Role Phone Noa [place] APRN Primary Care Provider [phone] Encounter Details Date Type Department Care Team (Late st Contact Info) Description 06/03/2001 Orders Only Radiology and Cardiology Results [address] [place] [address] Apd Conversion, Results Provider, Social [...] Procedure Name Priority Date/Time Associated Diagnosis Comments SEDIMENTATION RATE Routine 06/03/2001 4: 55 PM EST documented in this encounter Results * (ABNORMAL) Sedimentation rate (06/03/2001 4:55 PM EST) Sedimentation Rate Automated 16(Net Developer al Lab) 0 - 30 mm/hr CHELSEY WELLS CONVERSION 06/03/2001 4:55 PM EST Results Provider Apd Conversion HEMAT OLOGY ORDERABLES CHELSEY MARTINEZ CONVERSION documented in this encounter Visit Diagnoses Not on filedocumented in this encounter Care Teams Mailroom Personnel Relationship Specialty Start Date End Date Noa [place] APRN [address] [place] [address] PCP - General Family Medicine 04/20/15 documented as of this encounter
--- OUTSIDE RECORDS SUMMARY | 2024-05-05 14:09 | XMS_ITS | Encounter Summary ---
Author Organization [place] [address] Care Team Providers Care Director Business Intelligence Name Role Phone Noa [place] APRN Primary Care Provider [phone] Encounter Details Date Type Department Care Team (Late st Contact Info) Description 06/03/2001 Orders Only Radiology and Cardiology Results [address] [place] [address] Apd Conversion, Results Provider, Social [...] Date/Time Associated Diagnosis Comments VITAMIN B12 Routine 06/03/2001 4:55 PM EST documented in this encounter Results * (ABNORMAL) Vitamin B12 (06/03/2001 4:55 PM EST) Vitamin B12 535.0(Exte rnal Lab) 199 - 732 pg/mL CHELSEY WELLS CONVERSION 06/03/2001 4:55 PM EST Results Provider Apd Conversion MD CHANDAN WHITE ORDERABLES CHELSEYSARA WELLS CONVERSION documented in this encounter Visit Diagnoses Not on filedocumented in this encounter Care Teams Director Business Intelligence Relationship Specialty Start Date End Date Noa [place] APRN [address] [place] [address] PCP - General Family Medicine 04/20/15 documented as of this encounter
--- OUTSIDE RECORDS SUMMARY | 2024-05-05 14:09 | XMS_ITS | Encounter Summary ---
Author Organization [facility] [place] [address] Care Team Providers Care Farm Operator Name Role Phone Gloriajose david Noa MOSES Primary Care Provider [phone] Reason for Visit * Auth/Cert (Routine) Specialty Diagnoses / Procedures Referred By Rochelle smith Referred To Contact Diagnoses H/O thyroidectomy Thyroidectomy Kari Fong MD [facility] [place] [address] [facility] Referral ID Status Reason Start Date Expiration Date Visits Re quested Visits Authorized [id number] 1 1 Encounter Details Date Type Department Care Team (Late st Contact Info) Description 12/23/2022 3:31 PM EDT Anesthesia [place] [address] Alvin Blanc MD [facility] DR [place] [address] Marilyn Moise MD [facility] [place] [address] Anesthesia Record Procedure Summary Procedure Name Responsible Anesthesiologist Anesthesia Start Time Anesthesia Stop Time THYROIDECTOMY, LOBECTOMY, TOTAL, UNILATERAL (WRVU 11.19) (Left: Neck) Alvin Blanc MD 12/23/22 1531 12/23/22 1721 Events Date Time Event Comment 12/23/2022 1406 1531 AN Verify 1531 Start 1531 An Start Data 1542 An Induction 1544 An Intubation 1545 Anesthesia Ready 1626 Handoff Intra-procedure anesthesia care was transferred after review of the patient's history, current anesthetic/surgical status and procedural plan, anticipated issues and expected post-operative course (including disposition.) IRA JEAN CRNA 1715 Extubation/LMA Out 1715 an stop data 1721 Recovery or ICU Handoff Anjelica ent care was transferred to the destination unit staff after review of the patient's medical history, current anesthetic/surgical status and plan, according to the Provider Handoff Checklist. 1721 Stop Meds Name Total Midazolam 2 mg IV Lidocaine 100 mg Propofol 150 mg ePHEDrine 35 mg Ondansetron 8 mg Dexamethasone 8 mg Glycopyrrolate 0.2 mg Propofol INF 243.75 mg HYDROmorphone 2 mg/mL 1.2 mg Succinylcholine 100 mg ceFAZolin 2 g lactated ringers infusion 800 mL * Agents Name O2 Air N2O Sevoflurane (et) * Blood No blood administrations on file. Lines, Drains, and Airways Type Details Placement Removal Incision 12/23/22; 1610; neck 12/23/22 16 10 by Marti Mcpherson, RN (RETIRED) Peripheral IV Line - Single Lumen brachial vein, left; [id number] catheter system; Anatomical Landmarks; 20 gauge; Catia DAWN; 12/23/22; 1800 12/23/22 1404 by 12/23/22 1800 by Concepcion Fraser, RN ETT Mask Ventilation: Ea sy (1); ETT Type: Cuffed, [place], NIM; ETT Size: 6 mm; Indirect: Video; Notes: Asleep, Pre-O2, Stylette; Attempts: 2; Laryngoscopy Grade: 1; ETT Placement Verified By: Auscultation, Capnometry, Visual; Secured at Teeth: 22 cm; Inserted by: CELESTINE Putnam; Removal Date: 12/23/22; Removal Time: 17112/23/22 1542 by Tory Putnam CRNA 12/23/22 1715 by Ira Jean CRNA (RETIRED) Peripheral IV Line - Single Lumen 12/23/22; 1549; cephalic vein (lateral side of arm), right; [id number] catheter system; 22 gauge; MD Jayashree; no longer indicated, removed per policy/procedure, catheter/device intact; 12/24/22; 0949 12/23/22 1549 by Tory Putnam CRNA 12/24/22 0949 by Leticia Milian LNA documented in this encounter Social History Tobacco [...] OR Notes * Anesthesia Postprocedure Evaluation - Alvin Blanc MD - 12/23/2022 5:40 PM EDT Department of Anesthesiology Post-procedure Note Patient: Skye Hinton Procedure Summary Date: 12/23/22 Room / Location: [facility] [place] [address] [place] [address] Anesthesia Start: 153 Anesthesia Stop: 172 Procedures: THYROIDECTOMY, LOBECTOMY, TOTAL, UNILATERAL (WRVU 11.19) (Left: Neck) FACIAL NERVE MONITORING, SETUP LARYNGEAL (WRVU 1.57) (Neck) Diagnosis: (thyroid nodule) Surgeons: Kari Fong MD Responsible Provider: Alvin Blanc MD Anesthesia Type: general ASA Status: 2 All Anesthesia Providers: Anesthesiologist: Alvin Blanc MD DOCK COORDINATOR: Tory Putnam CRNA; Ira Jean CRNA Vitals Value Taken Time BP 118/68 12/23/22 1730 Temp Pulse 83 12/23/22 1739 Resp 16 12/23/22 1719 SpO2 98 % 12/23/22 1739 Pain Level Vitals shown include unvalidated device data. Patient Location: PACU[facility] Level of Consciousness: Conscious but Sleepy Pain Management: Satisfactory Analgesia PONV: None Cardiovascular Status: At Baseline and Hemodynamically Stable Respiratory Status: Stable Respiratory Status and Supplemental O2 (NC or FM) Postoperative Fluid Status: Intravascular EUvolemia Possible Anesthetic Complications: NONE apparent at time of evaluation Final Primary Anesthesia Type: General (The anesthetic type performed was the same as planned.) Comments: Pt awake and cooperative, but remained quite sleepy after approx 3 hours in recovery. Required O2 to maintain SaO2 above 90%. Undisturbed pt would drift off and drop O2 to upper 70s. Mild improvement with nebulizer treatment, but remained dependent on O2 to maintain above 90%. Pain well controlled. Discussed her status with family who was uncomfortable taking her home (over [address]) given her ongoing sleepiness. Discussed with surgeon who agreed that most prudent plan of action wasto admit for observation at the [facility] hospital. Transfer to [facility] Short Stay unit initiated, RN report given to staff, EMS called and pt transported in stable condition. * Anesthesia Preprocedure Evaluation - Alvin Blanc MD - 12/23/2022 1:37 PM EDT Pre-Anesthesia Evaluation for: Skye Hinton a 72 y.o. female. Procedure(s): THYROIDECTOMY, LOBECTOMY, TOTAL, UNILATERAL (WRVU 11.19) FACIAL NERVE MONITORING, SETUP LARYNGEAL (WRVU 1.57) Patient Active Problem List Diagnosis Date Noted CRPS (complex regional pain syndrome), upper limb 07/27/2015 Past Medical History: Diagnosis Date Anemia Anxiety Depression Encounter for blood transfusion Headache(784.0) Hypertension Past Surgical History: Procedure Laterality Date APPENDECTOMY CHOLECYSTECTOMY DEEP BRAIN STIMULATOR PLACEMENT SCS for pain 2007 in [place] HYSTERECTOMY JOINT REPLACEMENT right knee X 2 ORTHOPEDIC SURGERY Right foot surgeries due to fx- has plates ORTHOPEDIC SURGERY Left shoulder surgery many years ago PRO IMPLANT NEUROSTIM/DISH NETWORK INSTALLER Right 11/26/2018 INSERT OR REPLACE SPINAL NEUROSTIMULATOR (WRVU 5.19) performed by Jose Francisco Alfred MD at [facility] MAIN OR SPINE SURGERY L5-S1 posterior fusion 03/10/03 Social History Tobacco Use Smoking status: Never Smokeless tobacco: Never Substance Use Topics Alcohol use: Yes Comment: Very rare Social History Substance and Sexual Activity Drug Use Never Allergies Allergen Reactions Aspirin Other (See Comments) Chest pain Tylenol [Acetaminophen] Palpitations Medications: MAR and/or home medications have been reviewed. Physical Exam: Preprocedure Vitals Current as of 12/23/22 1337 BP: 198/84 Pulse: 58 Resp: 16 SpO2: 97 Temp: 36.6 ??C (97.9 ??F) Height: 152.4 cm (5') (12/23/22) Weight: 75 kg (165 lb 5.5 oz) (12/23/22) BMI: 32.29 IBW: 45.5 kg (100 lb 4.9 oz) Last edited 12/23/22 1319 by KD Airway Assessment: Mallampati: III TM distance: <3 FB Neck ROM: full Cardiovascular Assessment: Rhythm: regular Pulmonary Assessment: unlabored breathing Dental Assessment: - normal exam Misc Assessment: IV access: Peripheral line Last Filed Perioperative Cognitive Screening None Anesthesia Plan: ASA 2 general, with a(n) intravenous induction Skye Hinton is a 72 y.o. female who presents for PMH: HTN, Thyroid dz, HLD, Headaches Anesth Hx: reports no issues w/ anesthesia. Multiple orthopedic surgeries in recent yrs. METS > 4, denies card/pulm hx or symptoms. Labs: No results for input(s): WBC, HGB, HCT, PLATELET in the last 7068 hours. No results for input(s): NA, K, CL, CO2, BUN, CREATININE in the last 7068 hours. No results for input(s): AST, ALT, ALKPHOS, BILITOT, BILIDIR in the last 7068 hours. No results for input(s): PT, INR, PTT in the last 168 hours. No results found for: ABORH Pt is appropriately NPO Anesthetic Plan GA with ETT Standard ASA monitors, IV access Region - Other Informed Consent: Anesthetic plan and risks discussed with patient. Plan discussed with attending. Anesthesia Screening documented in this encounter Miscellaneous Notes * Addendum Note - Alvin Blanc MD - 12/23/2022 9:09 PM EDT Addendum created 12/23/222108 by Alvin Blanc MD Clinical Note Signed documented in this encounter Plan of Treatment Not on file documented as of this encounter Visit Diagnoses Not on filedocumented in this encounter Administered Medications Inactive Administered Medications - up to 3 most recent administrations Medication Order MAR Action Action Date Dose Rate Site ceFAZolin (Ancef) 1 g in dextrose 5% 50 mL infusion Intravenous, PRN, Starting on Thu12/23/22 at 1556, Until Thu12/23/22 at 1721, Administer over 30 Minutes, Anesthesia Intra-op Given 12/23/2022 3:56 PM EDT 2 g dexAMETHasone (Decadron) injection Intravenous, PRN, Starting on Thu12/23/22 at 1555, Until Thu12/23/22 at 1721, Anesthesia Intra-op, Routine Given 12/23/2022 3:55 PM EDT 8 mg ePHEDrine sulfate (5 mg/mL) multi-dose injection Intravenous, PRN, Starting on Thu12/23/22 at 1607, Until Thu12/23/22 at 1721, Anesthesia Intra-op, Routine Given 12/23/2022 5:05 PM EDT 5 mg Given 12/23/2022 5:02 PM EDT 10 mg Given 12/23/2022 4:29 PM EDT 10 mg glycopyrrolate (Robinul) (0.2 mg/mL) multi-dose injection Intravenous, PRN, Starting on Thu12/23/22 at 1630, Until Thu12/23/22 at 1721, Anesthesia Intra-op, Routine Given 12/23/2022 5:05 PM EDT 0.1 mg Given 12/23/2022 4:30 PM EDT 0.1 mg HYDROmorphone (Dilaudid) (2 mg/mL) multi-dose injection solution Intravenous, PRN, Starting on Thu12/23/22 at 1548, Until Thu12/23/22 at 1721, Anesthesia Intra-op, Routine Given 12/23/2022 4:54 PM EDT 0.2 mg Given 12/23/2022 4:34 PM EDT 0.2 mg Given 12/23/2022 4:14 PM EDT 0.4 mg lactated ringers infusion 1,000 mL, at 100 mL/hr, Intravenous, CONTINUOUS, Starting on Thu12/23/22 at 1330, Until Thu12/23/22 at 2114, Day of Surgery (Day of Procedure) New Bag 12/23/2022 3:31 PM EDT lidocaine (pf) (Xylocaine) (20 mg/mL) 2% injection syringe Intravenous, PRN, Starting on Thu12/23/22 at 1542, Until Thu12/23/22 at 1721, Anesthesia Intra-op, Routine Given 12/23/2022 3:42 PM EDT 100 mg midazolam (pf) (Versed) (1 mg/mL) multi-dose injection Intravenous, PRN, Starting on Thu12/23/22 at 1531, Until Thu12/23/22 at 1721, Anesthesia Intra-op, Routine Given 12/23/2022 3:37 PM EDT 1 mg Given 12/23/2022 3:31 PM EDT 1 mg ondansetron (pf) (Zofran) (2 mg/mL) injection Intravenous, PRN, Starting on Thu12/23/22 at 1555, Until Thu12/23/22 at 1721, Anesthesia Intra-op, Routine Given 12/23/2022 4:55 PM EDT 4 mg Given 12/23/2022 3:55 PM EDT 4 mg propofoL (Diprivan) (10 mg/mL) infusion Intravenous, CONTINUOUS PRN, Starting on Thu12/23/22 at 1548, Until Thu12/23/22 at 1721, Anesthesia Intra-op, Routine New Bag 12/23/2022 3:48 PM EDT 50 mcg/kg/min 22.5 mL/hr propofoL (Diprivan) 10 mg/mL bolus injection (Anesthesia) Intravenous, PRN, Starting on Thu12/23/22 at 1542, Until Thu12/23/22 at 1721, Anesthesia Intra-op Given 12/23/2022 3:42 PM EDT 150 mg succinylcholine (Anectine;Quelicin) (20 mg/mL) injection Intravenous, PRN, Starting on Thu12/23/22 at 1542, Until Thu12/23/22 at 1721, Anesthesia Intra-op, Routine Given 12/23/2022 3:42 PM EDT 100 mg documented in this encounter Care Teams Farm Operator Relationship Specialty Start Date End Date Noa Washington, BRIM SETTER [address] [place] [address] PCP - General Family Medicine 04/20/15 documented as of this encounter
--- OUTSIDE RECORDS SUMMARY | 2024-05-05 14:09 | XMS_ITS | Encounter Summary ---
[place] [address] Care Team Providers Care Special Services Agent Name Role Phone Noa Washington APRN Primary Care Provider [phone] Encounter Details Date Type Department Care Team (Late st Contact Info) Description 11/26/2018 [place] [id number] Unknown None Social History Tobacco Use Types Packs/Day Years Used Date Smoking Tobacco: Never Smokeless Tobacco: Never Sex and Gender Information Value Date Recorded Sex Assigned at Not on file Gender Identity Not on file Sexual Orientation Not on file documented as of this encounter Plan of Treatment Pending Results Name Type Priority Associated Diagnoses Date /Time EKG 12 Lead ECG Routine 11/26/2018 11 :06 AM EDT documented as of this encounter Procedures Procedure Name Priority Date/Time Associated Diagnosis Comments EKG 12-LEAD Routine 11/26/2018 11:06 AM EDT EKG 12-LEAD Routine 11/26/2018 11:06 AM EDT documented in this encounter Results * EKG 12 Lead (11/26/2018 11:06 AM EDT) Ventricular rate 62 BPM MUSE SYSTEM Atrial Rate 62 BPM MUSE SYSTEM P-R Interval 140 ms MUSE SYSTEM QRS Duration 70 ms MUSE SYSTEM Q-T Interval 438 ms MUSE SYSTEM QTC Calculated (Bezet) 444 ms MUSE SYSTEM Calculated P Ketchum 49 degrees MUSE SYSTEM Calculated R Ketchum 0 degrees MUSE SYSTEM Calculated T Ketchum 15 degrees MUSE SYSTEM INTERPRETATION Normal sinus rhythm Normal ECG When compared with ECG of 26-NOV-2018 11:04, (unconfirmed) No significant change was found Confirmed by MD Torin, Francisco Javier ([id number]) on 11/26/2018 2:44:39 PM MUSE SYSTEM 11/26/2018 11:0 6 AM EDT 11/26/2018 2:44 PM EDT Unknown ECG ORDERABLES MUSE SYSTEM documented in this encounter Visit Diagnoses Not on filedocumented in this encounter Care Teams Special Services Agent Relationship Specialty Start Date End Date Noa Washington, DIRECTOR OF REHABILITATIVE SERVICES [address] [place] [address] PCP - General Family Medicine 04/20/15 documented as of this encounter
--- OUTSIDE RECORDS SUMMARY | 2024-05-05 14:09 | XMS_ITS | Encounter Summary ---
Author Organization [facility] [place] [address] Care Team Providers Care Utility Accounts Director Name Role Phone GloriaNoa main MOSES Primary Care Provider [phone] Encounter Details Date Type Department Care Team (Late st Contact Info) Description 02/06/2023 12:20 PM EDT Office [place] [phone] Jyothi Jon HOME ENERGY CONSULTANT SUPERVISOR [facility] [place] [address] H/O thyroidectomy Social History Tobacco Use Types Packs/Day Years Used Date Smoking Tobacco: Never Smokeless Tobacco: Never Alcohol Use Standard Drinks/Week Comments Yes 0 (1 standard drink = 0.6 oz pur e alcohol) Very rare [facility] Inpatient Questions Answer Date Recorded Does [...] 14.4 oz) 023 12:16 PM EDT Height - - Body Mass Index 32.99 12/23/2022 1:19 PM EDT documented in this encounter Progress Notes * Jyothi Jon, HOME ENERGY CONSULTANT SUPERVISOR - 02/06/2023 12:20 PM EDT Thyroid Lobectomy Follow Up Subjective: Ms. Skye Hinton is a very pleasant 72 y.o. year old female who is 6 weeks s/p left thyroid lobectomy for multiple thyroid nodules with a dominant left sided nodule. She is doing well. She is not having issues with pain or difficulty swallowing. She reports extreme fatigue. She tells me she stopped taking her levothyroxine prior to surgery as the prescription ran out. She was on 50 mcg. Exam: Patient Vitals for the past 24 hrs: Temp Pulse Resp BP SpO2 02/06/23 1216 36.4 ??C (97.6 ??F) 70 18 123/58 98 % Healing anterior neck incision no ridge. No hematoma or seroma. Voice appears normal. Pathology: Left thyroid lobe, excision: - Multinodular thyroid hyperplasia with a dominant nodule, 3.2 cm, mixed micro and macrofollicular patterns - Incidental superior parathyroid gland tissue Labs: Lab Results Component Value Date TSH 17.60 (H) 02/06/2023 Assessment and Plan: Ms. Skye Hinton is a very pleasant 72 y.o. year old female s/p left thyroid lobectomy who is doing very well post-operatively without evidence of complications. I discussed the pathology results with the patient and recommended no further treatment. TSH today was high, so she will require thyroid hormone supplementation. I have sent a prescription to her pharmacy for 100 mcg. I have given her a lab slip for a repeat TSH in 4 weeks. I will call her with results. I discussed scar massage with vitamin E to aid in incisional appearance and discussed the importance of UV light protection on scar healing. Overall, she is doing very well post-operatively and I recommended follow up with me on an as needed basis hereafter. Jyothi Jon APRN documented in this encounter Plan of Treatment Not on file documented as of this encounter Results * (ABNORMAL) TSH (02/06/2023 11:36 AM EDT) Thyroid Stimulating Hormone 17.60(H) 0.27 - 4.20 mcIU/mL [facility] Comment: Reference Interval (mcIU/mL): Females: ??First Trimester: 0.23-3.88 ??Second Trimester: 0.22-3.90 ??Third Trimester: 0.44-4.66 Blood 02/06/2023 11:3 6 AM EDT 02/06/2023 11:49 AM EDT Narrative Resulting Agency Comment Spec In Lab Jyothi Jon APRN CHEMISTRY ORDERABLE S [facility] [place] [address] documented in this encounter Visit Diagnoses Diagnosis H/O thyroidectomy Other postprocedural status documented in this encounter Care Teams Utility Accounts Director Relationship Specialty Start Date End Date Noa Washington APRN [address] [facility] [place] [address] PCP - General Family Medicine 04/20/15 documented as of this encounter
--- OUTSIDE RECORDS SUMMARY | 2024-05-05 14:09 | XMS_ITS | Encounter Summary ---
Author Organization [facility] Address [facility] [place] [address] Care Team Providers Care Logging Equipment Mechanic Name Role Phone GloriaNoa main MOSES Primary Care Provider [phone] Encounter Details Date Type Department Care Team (Latest Contact Info) Description 10/12/2018 2:12 PM EDT - 10/12/2018 11:59 PM EDT Hospital Encounter XRay at [address] [place] [address] Daniella Scanlon MD [facility] [place] [address] Complex regional pain syndrome type 1 of [...] Name Priority Date/Time Associated Diagnosis Comments XR CERVICAL SPINE 2 OR 3 VIEWS Routine 10/12/2018 2:48 PM EDT Complex regional pain syndrome type 1 of both upper extremities documented in this encounter Results * XR Cervical Spine 2 Or 3 Views (10/12/2018 2:48 PM EDT) Anatomical Region Laterality Modality C-spine N/A Digital Radiogra phy Impressions 10/12/2018 2:58 PM EDT Proximal tips of spinal cord stimulator device approximate the posterior elements of C1. Cervical spine alignment normal. Mild C6-7 arthropathy. Thank you for letting us participate in the care of this patient. For questions regarding this report, please contact the number below. ? Electronically signed by: Inocente Batista [facility] ([phone]), at 10/12/2018 2:58 PM Narrative 10/12/2018 2:58 PM EDT EXAMINATION: XR CERVICAL SPINE 2 OR 3 VIEWS CLINICAL HISTORY: spinal cord stimulator placement at C2, visualize for positioning of electrodes, AP and lateral TECHNIQUE: 2 views of the cervical spine COMPARISON: None FINDINGS: Proximal tips of spinal cord stimulator device approximate the posterior elements of C1. Cervical spine alignment normal. Mild C6-7 arthropathy. Procedure Note Inocente Batista MD - 10/12/2018 EXAMINATION: XR CERVICAL SPINE 2 OR 3 VIEWS CLINICAL HISTORY: spinal cord stimulator placement at C2, visualize for positioning of electrodes, AP and lateral TECHNIQUE: 2 views of the cervical spine [...] extremities documented in this encounter Care Teams Logging Equipment Mechanic Relationship Specialty Start Date End Date Noa Washington, MOSES [address] [place] [address] PCP - General Family Medicine 04/20/15 documented as of this encounter
--- OUTSIDE RECORDS SUMMARY | 2024-05-05 14:09 | XMS_ITS | Encounter Summary ---
Author Organization [facility] [place] [address] Care Team Providers Care Tax Staff Accountant Name Role Phone Kizzy Nunez APRN Primary Care Provider [phone] Encounter Details Date Type Department Care Team (Late st Contact Info) Description 05/14/2012 Orders [place] [address] Winston Mcnulty MD [facility] [place] [address] Hyperthyroidism (Primary Dx) Social History Tobacco Use Types Packs/Day Years Used Date Smoking Tobacco: Never Sex and Gender Information Value Date Recorded Sex Assigned at Not on file Gender Identity Not on file Sexual Orientation Not on file documented as of this encounter Plan of Treatment Scheduled Orders Name Type Priority Associated Diagnoses Orde r Schedule T4, free Lab Routine Hyperthyroidism Expected: 06/16/2012, Expires: 3 T3 Lab STAT Hyperthyroidism Expected: 06/16/2012 (Approximate), Expires: 05/14/2013 documented as of this encounter Visit Diagnoses Diagnosis Hyperthyroidism- Primary Thyrotoxicosis without mention of goiter or other cause, without mention of thyrotoxic crisis or storm documented in this encounter Care Teams Tax Staff Accountant Relationship Specialty Start Date End Date Kizzy Nunez APRN [facility] [address] [place] [address] PCP - General 04/07/12 04/19/15 documented as of this encounter
--- OUTSIDE RECORDS SUMMARY | 2024-05-05 14:09 | XMS_ITS | Encounter Summary ---
[place] [address] Care Team Providers Care Boat Joiner Name Role Phone Noa Washington APRN Primary Care Provider [phone] Encounter Details Date Type Department Care Team (Late st Contact Info) Description 12/06/2018 11:45 AM EDT Notes [place] [id number] Social History Tobacco Use Types Packs/Day Years [...] on filedocumented in this encounter Care Teams Boat Joiner Relationship Specialty Start Date End Date Noa Washington APRN [address] [place] [address] PCP - General Family Medicine 04/20/15 documented as of this encounter
--- OUTSIDE RECORDS SUMMARY | 2024-05-05 14:09 | XMS_ITS | Encounter Summary ---
Author Organization [facility] Address [facility] [place] [address] Care Team Providers Care Economic Development Coordinator Name Role Phone Kizzy Nunez APRN Primary Care Provider [phone] Encounter Details Date Type Department Care Team (Late st Contact Info) Description 05/04/2012 Orders [place] [address] Winston Mcnulty MD [facility] [place] [address] Social History Tobacco Use Types Packs/Day Years Used Date Smoking Tobacco: Never Sex and Gender Information Value Date Recorded Sex Assigned at Not on file Gender Identity Not on file Sexual Orientation Not on file documented as of this encounter Plan of Treatment Not on file documented as of this encounter Procedures Procedure Name Priority Date/Time Associated Diagnosis Comments FILM LIBRARY STORAGE ONLY NUCLEAR MEDICINE Routine 05/04/2012 9:15 AM EST documented in this encounter Results * FILM LIBRARY- STORAGE ONLY NUCLEAR MEDICINE (05/04/2012 9:15 AM EST) 05/04/2012 9:15 AM EST Narrative [facility] - 01/02/2014 7:03 PM EDT This is a non-reportable exam. Procedure Note Renzo Vasquez - 01/02/2014 This is a non-reportable exam. Winston Hood MD IMG FILM LIBR DINO ORDERABLES RAD [address] [place] [address] documented in this encounter Visit Diagnoses Not on filedocumented in this encounter Care Teams Economic Development Coordinator Relationship Specialty Start Date End Date Kizzy Nunez APRN [facility] [address] [place] [address] PCP - General 04/07/12 04/19/15 documented as of this encounter
--- OUTSIDE RECORDS SUMMARY | 2024-05-05 14:09 | XMS_ITS | Encounter Summary ---
Author Organization [facility] Address [facility] [place] [address] Care Team Providers Care Ebd Teacher Name Role Phone Kizzy Nunez APRN Primary Care Provider [phone] Encounter Details Date Type Department Care Team (Late st Contact Info) Description 05/05/2012 External Results XRay at [address] [address] Winston Mcnulty MD [facility] [place] [address] Social History Tobacco Use Types Packs/Day Years Used Date Smoking Tobacco: Never Sex and Gender Information Value Date Recorded Sex Assigned at Not on file Gender Identity Not on file Sexual Orientation Not on file documented as of this encounter Plan of Treatment Not on file documented as of this encounter Procedures Procedure Name Priority Date/Time Associated Diagnosis Comments PET SCAN (SCAN) Routine 05/04/2012 documented in this encounter Results * Scan Doc: PET Scan (05/04/2012) Anatomical Region Laterality Modality Other Winston Hood MD [facility] N EXT ORDR/RSLT documented in this encounter Visit Diagnoses Not on filedocumented in this encounter Care Teams Ebd Teacher Relationship Specialty Start Date End Date Kizzy Nunez APRN [facility] [address] [place] [address] PCP - General 04/07/12 04/19/15 documented as of this encounter
--- OUTSIDE RECORDS SUMMARY | 2024-05-05 14:09 | XMS_ITS | Encounter Summary ---
[facility] [place] [address] Care Team Providers Care Manager Media Relations Name Role Phone Noa Washington APRN Primary Care Provider Encounter Details Date Type Department Care Team (Latest Contact Info) Description 10/09/2022 Travel Social History Tobacco Use Types Packs/Day [...] on filedocumented in this encounter Care Teams Manager Media Relations Relationship Specialty Start Date End Date Noa Washington APRN [address] [place] [address] PCP - General Family Medicine 04/20/15 documented as of this encounter
--- OUTSIDE RECORDS SUMMARY | 2024-05-05 14:09 | XMS_ITS | Encounter Summary ---
[place] [address] Care Team Providers Care Linux Kernel Developer Name Role Phone Noa Washington APRN Primary Care Provider [phone] Encounter Details Date Type Department Care Team (Late st Contact Info) Description 11/02/2018 Telephone [place] [id number] Demetra Burton Social History Tobacco Use Types Packs/Day Years Used Date Smoking Tobacco: Never Smokeless Tobacco: Never Sex and Gender Information Value Date Recorded Sex Assigned at Not on file Gender Identity Not on file Sexual Orientation Not on file documented as of this encounter Miscellaneous Notes * Telephone Encounter - Demetra Stallings - 11/02/2018 10:33 AM EDT Skye Hinton called at 10:30am today to check what her date for surgery would be. She advised that during her pre-admit call she was told that her date had been changed to the 14th, she wanted to confirm this with someone in the Pain Clinic. I clarified with Irma Mckeon. The patient should not need a call back. documented in this encounter Plan of Treatment Not on file documented as of this encounter Visit Diagnoses Not on filedocumented in this encounter Care Teams Linux Kernel Developer Relationship Specialty Start Date End Date Noa Washington APRN [facility] [address] [place], [place] [address] PCP - General Family Medicine 04/20/15 documented as of this encounter
[2024-05-05 14:13] LABS: Hemoglobin A1C 7.5 % (<5.7)
[2024-05-05 14:20] LABS: ALT 29 U/L (14-59); AST 20 U/L (15-37); Albumin 3.9 g/dL (3.4-5.0); Alkaline Phosphatase 81 U/L (46-116); Anion Gap 8.4 mmol/L (3-11); BUN 12 mg/dL (7-18); Bilirubin, Total 1.25 mg/dL (0.2-1.0); CO2 29.6 mmol/L (21.0-32.0); CREATININE 1.1 mg/dL (0.55-1.02); Calcium 9.6 mg/dL (8.5-10.1); Calculated LDL 56 mg/dL (<100); Chloride 106 mmol/L (98-107); Cholesterol 153 mg/dL (<200); Estimated GFR 53.06 (mL/min/1.73m2); Glucose 142 mg/dL (74-106); HDL Cholesterol 69 mg/dL (40-60); Magnesium 1.8 mg/dL (1.8-2.4); Potassium 3.7 mmol/L (3.5-5.1); Sodium 144 mmol/L (136-145); Total Protein 8.2 g/dL (6.4-8.2); Triglyceride 141 mg/dL (<150)
== END 2024-05-05 14:05 | disposition home or self-care (01) ==
LOC: LBO 14:06
PROVIDERS: PCP Physician Assistant Medical; Visit Provider Physician Assistant Medical
DX: Z86.39 Personal history of other endocrine, nutritional and metabolic disease (principal); E11.9 Type 2 diabetes mellitus without complications
CPT/HCPCS: 36415; 80053; 80061; 73502; 83036; 83735

== ENCOUNTER 2024-05-18 01:13 | Outpatient (CLI) | payer MEDICARE, SELFPAY ==
--- NOTE | 2024-05-18 | DI.CT_ITS ---
Exam(s) CT HEAD WO EXAM: CT HEAD WO CLINICAL HISTORY: POOR BALANCE,R27.8. TECHNIQUE: Imaging Protocol: Axial computed tomography images with coronal and sagittal reformatted images were created and reviewed COMPARISON: CT CT HEAD FACIAL WO from 03/26/2023 FINDINGS: Ventricles and Extra axial spaces: Normal in size and morphology for the patient's age. Hemorrhage: None. Cerebral parenchyma: No evidence of acute infarct or mass. White matter changes of small vessel dis ease. Right frontoparietal lacunar infarct again noted. Midline shift: None. Brainstem/Cerebellum: Normal. Calvarium: Normal. Visualized Paranasal sinuses:Clear. Mastoids: Clear. Soft Tissues: Unremarkable. ORBITS: Unremarkable. PITUITARY: Not enlarged. IMPRESSION: No acute intracranial process. RADIATION DOSE DELIVERED: 866.3mGy.cm Total DLP DATA REPOSITORY: All CT scans at this facility are submitted to the National Radiology Data Registry (NRDR) Dose Index Registry (DIR) with the [employer] (ACR). RADIATION OPTIMIZATION: All CT scans at this facility use at least one of these dose optimization te chniques: automated exposure control; mA and/or kV adjustment per patient size (includes targeted exa ms where dose is matched to clinical indication); or iterative reconstruction.
== END 2024-05-18 01:33 ==
PROVIDERS: PCP Physician Assistant Medical; Visit Provider Physician Assistant Medical
DX: R27.8 Other lack of coordination (principal)
CPT/HCPCS: 70450

== ENCOUNTER 2024-06-27 15:26 | Outpatient (CLI) | payer MEDICARE, SELFPAY ==
--- NOTE | 2024-06-27 11:15 | DI.RAD_ITS ---
Exam(s) XR KNEE LT 3V AP,LAT,SHELDON EXAM: XR KNEE LT 3V AP,LAT,SHELDON CLINICAL HISTORY: L knee pain. TECHNIQUE: 2D digital imaging was performed. Three views. COMPARISON: No exams were available for comparison FINDINGS: BONES: No acute fracture is present. No bony destructive lesion is seen. Enthesophyte at quadricep s insertion on patella. JOINTS: The knee is normally aligned. No joint effusion is seen. Mild patellofemoral joint space na rrowing. The femoral tibial joint spaces are maintained. Mild periarticular spurring throughout. SOFT TISSUE: Normal. IMPRESSION: Moderate degenerative changes of the patellofemoral joint DATA REPOSITORY: RADIATION DOSE DELIVERED:
== END 2024-06-27 15:27 | disposition home or self-care (01) ==
LOC: DIORS 15:27
PROVIDERS: PCP Physician Assistant Medical; Referring Provider Physician Assistant Medical; Visit Provider Physician Assistant
DX: S89.92XA Unspecified injury of left lower leg, initial encounter; W19.XXXA Unspecified fall, initial encounter
CPT/HCPCS: 73562; 99213

== ENCOUNTER → 2024-07-21 10:16 | Outpatient (BNVA) | payer MEDICARE, SELFPAY | PROVIDERS: PCP Physician Assistant Medical; Referring Provider Physician Assistant Medical; Visit Provider Student in an Organized Health Care Education/Training Program | DX: S80.02XD Contusion of left knee, subsequent encounter (principal); X58.XXXD Exposure to other specified factors, subsequent encounter | CPT/HCPCS: 99213 ==

== ENCOUNTER → 2024-09-13 13:02 | Outpatient (BNVA) | payer MEDICARE, SELFPAY | PROVIDERS: PCP Physician Assistant Medical; Referring Provider Physician Assistant Medical; Visit Provider Psychiatry & Neurology Neurology | DX: G25.0 Essential tremor (principal); R41.3 Other amnesia; R26.89 Other abnormalities of gait and mobility | CPT/HCPCS: 99215; G2212 ==

== ENCOUNTER 2024-10-28 11:02 | Outpatient (CLI) | payer MEDICARE, SELFPAY ==
[2024-10-28 10:42] LABS: Hemoglobin A1C 7.1 % (<5.7)
[2024-10-28 11:11] LABS: ALT 28 U/L (14-59); AST 25 U/L (15-37); Albumin 3.9 g/dL (3.4-5.0); Alkaline Phosphatase 74 U/L (46-116); Anion Gap 8.7 mmol/L (3-11); BUN 22 mg/dL (7-18); CO2 26.3 mmol/L (21.0-32.0); CREATININE 1.2 mg/dL (0.55-1.02); Calcium 9.3 mg/dL (8.5-10.1); Calculated LDL 38 mg/dL (<100); Chloride 105 mmol/L (98-107); Cholesterol 120 mg/dL (<200); Glucose 130 mg/dL (74-106); HDL Cholesterol 59 mg/dL (>or=50); Magnesium 1.5 mg/dL (1.8-2.4); Potassium 3.8 mmol/L (3.5-5.1); Sodium 140 mmol/L (136-145); TSH 44.62 uIU/mL (0.36-3.74); Total Protein 7.9 g/dL (6.4-8.2); Triglyceride 115 mg/dL (<150); Vitamin B12 555 pg/mL (193-986)
[2024-10-28 11:28] LABS: FREE T4 0.63 ng/dL (0.76-1.46)
[2024-10-28 18:13] LABS: T3,Free 2.5 pg/mL (2.8-5.3)
== END 2024-10-28 11:03 | disposition home or self-care (01) ==
LOC: LBO 11:03
PROVIDERS: PCP Physician Assistant Medical; Visit Provider Physician Assistant Medical
DX: E11.9 Type 2 diabetes mellitus without complications (principal); G25.0 Essential tremor; E78.00 Pure hypercholesterolemia, unspecified; I10 Essential (primary) hypertension; R41.3 Other amnesia
CPT/HCPCS: 36415; 80053; 80061; 82607; 83036; 83735; 84439; 84443; 84481

== ENCOUNTER 2024-11-11 09:21 | Outpatient (CLI) | payer MEDICARE, SELFPAY ==
--- NOTE | 2024-11-11 08:30 | DI.RAD_ITS ---
Exam(s) XR KNEE LT 4V+ EXAM: XR KNEE LT 4V+ CLINICAL HISTORY: LEFT KNEE INJURY. TECHNIQUE: 2D digital imaging was performed. COMPARISON: CR XR KNEE LT 3V AP,LAT,SHELDON from 06/27/2024 FINDINGS: Four views No evidence of fracture. There is a small joint effusion. Mild-moderate degenerative changes in the medial lateral compartment and mild-moderate degenerative changes in the patellofemoral compartment. Bone density normal. No osseous lesions. . IMPRESSION: DATA REPOSITORY: RADIATION DOSE DELIVERED:
== END 2024-11-11 09:22 | disposition home or self-care (01) ==
LOC: DIORS 09:21
PROVIDERS: PCP Physician Assistant Medical; Referring Provider Physician Assistant Medical; Visit Provider Physician Assistant
DX: S89.92XA Unspecified injury of left lower leg, initial encounter (principal); M70.52 Other bursitis of knee, left knee; X58.XXXA Exposure to other specified factors, initial encounter
CPT/HCPCS: 20610; J1010; 73564

== ENCOUNTER → 2024-12-27 09:45 | Outpatient (BNVA) | payer MEDICARE, SELFPAY | PROVIDERS: PCP Physician Assistant Medical; Referring Provider Physician Assistant Medical; Visit Provider Psychiatry & Neurology Neurology | DX: G25.0 Essential tremor (principal); R41.3 Other amnesia; R26.89 Other abnormalities of gait and mobility; Z96.82 Presence of neurostimulator | CPT/HCPCS: 99215 ==

== ENCOUNTER → 2025-01-16 08:37 | Outpatient (BNVA) | payer MEDICARE, SELFPAY | PROVIDERS: PCP Physician Assistant Medical; Referring Provider Physician Assistant Medical; Visit Provider Student in an Organized Health Care Education/Training Program | DX: M70.52 Other bursitis of knee, left knee (principal) | CPT/HCPCS: 99213 ==

== ENCOUNTER 2025-01-16 10:41 | Outpatient (CLI) | payer MEDICARE, SELFPAY ==
[2025-01-16 15:06] LABS: Hemoglobin A1C 7.0 % (<5.7)
[2025-01-16 16:16] LABS: ALT 35 U/L (14-59); AST 24 U/L (15-37); Albumin 3.9 g/dL (3.4-5.0); Alkaline Phosphatase 88 U/L (46-116); Anion Gap 11.1 mmol/L (3-11); BUN 12 mg/dL (7-18); Bilirubin, Total 0.7 mg/dL (0.2-1.0); CO2 28.9 mmol/L (21.0-32.0); Calcium 9.4 mg/dL (8.5-10.1); Chloride 103 mmol/L (98-107); Estimated GFR 67.08 (mL/min/1.73m2); Glucose 172 mg/dL (74-106); Magnesium 2.0 mg/dL (1.8-2.4); Potassium 3.7 mmol/L (3.5-5.1); Sodium 143 mmol/L (136-145); Total Protein 8.1 g/dL (6.4-8.2); Vitamin B12 500 pg/mL (193-986)
== END 2025-01-16 10:42 | disposition home or self-care (01) ==
LOC: LBO 10:42
PROVIDERS: PCP Physician Assistant Medical; Visit Provider Physician Assistant Medical
DX: E11.9 Type 2 diabetes mellitus without complications (principal)
CPT/HCPCS: 36415; 80053; 99213; 82607; 83036; 83735

== ENCOUNTER 2025-01-27 13:43 | Outpatient (CLI) | payer MEDICARE, SELFPAY ==
[2025-01-27 17:32] LABS: TSH 37.90 uIU/mL (0.36-3.74)
[2025-01-28 21:23] LABS: T3,Free 2.1 pg/mL (2.8-5.3)
== END 2025-01-27 13:44 | disposition home or self-care (01) ==
LOC: LBO 02-09 13:44
PROVIDERS: PCP Physician Assistant Medical; Visit Provider Physician Assistant Medical
DX: E03.9 Hypothyroidism, unspecified (principal)
CPT/HCPCS: 36415; 84439; 84443; 84481

== ENCOUNTER 2025-02-01 09:58 | Outpatient (CLI) | payer MEDICARE, SELFPAY ==
--- NOTE | 2025-02-01 15:16 | DI.CT_ITS ---
Exam(s) CT LUMBAR SPINE WO EXAM: CT LUMBAR SPINE WO CLINICAL HISTORY: POOR BALANCE R26.89 ABNL GAIT AND MOBILITY. TECHNIQUE: Imaging Protocol: Axial computed tomography images with coronal and sagittal reformatted images were created and reviewed COMPARISON: CR XR DEXA BONE DENSITY W/WO AZEEM from 08/13/2023 FINDINGS: Bones: There are no fractures, listhesis, nor pars defects. There are no lytic osseous lesions evident.Schmorl's node invaginations are in incidentally noted in opposing inferior and superior endplates of T11 and T12. There is no lumbar scoliosis. Some disc space narrowing at L2-3 noted. INDIVIDUAL LEVELS: T12-L1:No disc herniation nor canal stenosis. Facet joints unremarkable. No foraminal stenosis. L1-2: No disc herniation nor canal stenosis. Facet joints unremarkable. No foraminal stenosis. L2-3: There is moderate relatively uniform disc space narrowing at this level. There is broad annular bulging. There is severe central spinal canal stenosis at this level due to broad annular bulging, short AP dimensions of the pedicles and some facet arthropathy. There is also some stippled calcification noted within both ligamentum flavum at this level. There is mild bilateral foraminal stenosis. L3-4: There is relatively preserved disc height at this level. No disc herniation. Central canal dimensions are lower normal. There is evidence of prior right partial laminectomy at this level. Mild-moderate facet arthropathy evident. There is no significant foraminal stenosis on either side at this level. L4-5: Preserved disc height. No listhesis. There is some calcification noted in what appears to be a small posterior subligamentous disc protrusion slightly indents the central thecal sac at this level/mild central canal stenosis. There are degenerative changes in both facet joints and what appears to be prior bone graft material bilaterally. However, there is no evidence of significant foraminal stenosis on either side at this level. L5-S1: Normal disc height. No disc herniation. Central canal dimensions are lower normal. Facet arthropathy. There is no significant foraminal stenosis at this level. Sacroiliac joints exhibit intra-articular vacuum phenomena. No evidence of sacroiliitis nor ankylosis. No fractures nor osseous lesions seen in the sacrum. PARASPINAL SOFT TISSUES: Visualized paraspinal tissues appear unremarkable. IMPRESSION: 1. The main finding is severe central spinal canal stenosis at the L2-3 level which is due to broad annular bulging, short AP dimensions of the pedicles, and some facet joint degenerative changes. 2. There is also a partially calcified relatively focal central posterior subligamentous disc protrusion at L4-5 level. 3. There is evidence of prior surgery as described above (no hardware). RADIATION DOSE DELIVERED: 735.2mGy.cm Total DLP DATA REPOSITORY: All CT scans at this facility are submitted to the National Radiology Data Registry (NRDR) Dose Index Registry (DIR) with the [employer] (ACR). RADIATION OPTIMIZATION: All CT scans at this facility use at least one of these dose optimization techniques: automated exposure control; mA and/or kV adjustment per patient size (includes targeted exams where dose is matched to clinical indication); or iterative reconstruction.
== END 2025-02-01 10:18 ==
LOC: DI 09:59
PROVIDERS: PCP Physician Assistant Medical; Visit Provider Physician Assistant Medical
DX: M48.061 Spinal stenosis, lumbar region without neurogenic claudication (principal); R26.89 Other abnormalities of gait and mobility
CPT/HCPCS: 72131

== ENCOUNTER → 2025-03-20 10:26 | Outpatient (BNVA) | payer MEDICARE, SELFPAY | PROVIDERS: PCP Physician Assistant Medical; Referring Provider Physician Assistant Medical; Visit Provider Podiatrist | DX: G57.62 Lesion of plantar nerve, left lower limb (principal); M67.02 Short Achilles tendon (acquired), left ankle; E11.42 Type 2 diabetes mellitus with diabetic polyneuropathy; E11.51 Type 2 diabetes mellitus with diabetic peripheral angiopathy without gangrene | CPT/HCPCS: 64455; J0702; J1100 ==

== ENCOUNTER 2025-03-26 17:28 | Emergency (ER) | payer MEDICARE, SELFPAY ==
[2025-03-26 17:29] VITALS: BP 173/80; PULSE 73; RESP 18; TEMP 36.1; O2SAT 97
--- NOTE | 2025-03-26 18:30 | DI.CT_ITS ---
Exam(s) CT HEAD CERVICAL SPINE WO EXAM: CT HEAD CERVICAL SPINE WO CLINICAL HISTORY: head injury 3 days ago. TECHNIQUE: Imaging Protocol: Axial computed tomography images with coronal and sagittal reformatted images were created and reviewed COMPARISON: CT CT HEAD WO from 05/18/2024 FINDINGS: Head CT Ventricles and Extra axial spaces: Normal in size and morphology for the patient's age. Hemorrhage: None. Cerebral parenchyma: No evidence of mass or acute infarct. Stable white matter changes consistent with microvascular disease. Midline shift: None. Brainstem/Cerebellum: Normal. Calvarium: Normal. Visualized Paranasal sinuses/Mastoids: Clear. Soft tissues: Unremarkable. Cervical Spine CT BONES: Vertebral body heights are maintained. Alignment is normal. There is no evidence of acute fracture. Mild degenerative disc changes and facet degenerative changes are seen. Spinal stimulator leads are noted. SOFT TISSUES: No paraspinal hematoma. The airway appears intact. No pneumothorax is seen at the lung apices. IMPRESSION: Head CT: No acute abnormality. C-spine CT: Artifact related to spinal cord stimulator leads. No acute abnormality is identified. The preliminary [facility] report was reviewed. RADIATION DOSE DELIVERED: 1,286.76mGy.cm Total DLP DATA REPOSITORY: All CT scans at this facility are submitted to the National Radiology Data Registry (NRDR) Dose Index Registry (DIR) with the [employer] (ACR). RADIATION OPTIMIZATION: All CT scans at this facility use at least one of these dose optimization techniques: automated exposure control; mA and/or kV adjustment per patient size (includes targeted exams where dose is matched to clinical indication); or iterative reconstruction.
--- NOTE | 2025-03-26 18:40 | W.ED.GENAD ---
Discharge Plan Disposition Patient Disposition: Home Condition: Good Discharge Details Clinical Impression: Concussion Primary Care Provider: Miley Baldwin ED Provider: Ida Burrell Home Meds and New Rx's Prescriptions: No Action levothyroxine 50 mcg tablet 100 mcg PO DAILY losartan 50 mg tablet 100 mg PO DAILY magnesium oxide 500 mg capsule 500 mg PO DAILY primidone 50 mg tablet 25 mg PO QHS Qty: 45 3RF melatonin 10 mg capsule 10 mg PO HS PRN propranolol 80 mg capsule,extended release 24 hr 80 mg PO DAILY ergocalciferol (vitamin D2) 1,250 mcg (50,000 unit) capsule 1,250 mcg PO QWEEK metformin 500 mg tablet 1,000 mg PO BID pramipexole 0.5 mg tablet 0.5 mg PO QHS cholecalciferol (vitamin D3) 5,000 UNIT tablet 1 tab PO DAILY omeprazole 20 mg capsule,delayed release(DR/EC) 20 mg PO HS aspirin 81 mg Tablet,Delayed Release (Dr/Ec) 81 mg PO DAILY Qty: 0 0RF atorvastatin 40 mg Tablet 40 mg PO HS Qty: 30 0RF Discharge Instructions Instructions: Post-Concussion Syndrome ED Additional Instructions: Your symptoms are most consistent with a concussion. I recommend that you call your primary care provider to be reevaluated within the week Please avoid sports or activities with the risk of head injury to avoid second impact syndrome, a potentially fatal complication of concussion that occurs after repeat head injury while concussed. You may do gentle activities such as walking, but do not return to sports until you are cleared by your primary care provider. Get plenty of rest. Eat regular meals and drink plenty of fluids to stay well-hydrated. Avoid screens for the next 48 hours to reduce duration of concussion symptoms. You may use Tylenol and/or ibuprofen as needed for discomfort. If you experience worsening concussion symptoms I recommend that you rest your eyes in a dark, cool room for 15 to 20 minutes. Return to emergency care if you develop new severe headaches, uncontrollable vomiting, weakness, episodes of passing out, or if you are very worried and need to be rechecked again immediately HPI General Date/Time Provider Initiated Documentation: 03/26/25 17:45. HPI Narrative: Skye is a 74 year old female who presents to the emergency department today for evaluation of head injury. She presents today accompanied by her son and sister for evaluation of headache and dizziness following head injury 4 days ago. She was standing on a chair fixing a curtain when she lost her balance and fell from chair, hit head on baseboard. Reports persistent headaches across top of her head, dizziness, left-sided neck pain, and nausea. Admits to mild photophobia. No tinnitus, vision changes, bleeding from nose or ears, chest pain, difficulty breathing, or weakness in arms or legs. Using Tylenol and Advil without relief; took Tylenol at 1300 hours today. History of balance issues without recent exacerbation; balance and walking are normal. PMH significant for T2DM, history of migraine, baseline essential tremor and balance issues, osteopenia Related Data Home Medications ?Medication ?Instructions ?Recorded ?Confirmed cholecalciferol (vitamin D3) 125 1 tab PO DAILY 03/12/15 03/26/25 mcg (5,000 unit) tablet losartan 50 mg tablet 100 mg PO DAILY 04/26/19 03/26/25 melatonin 10 mg capsule 10 mg PO HS PRN 08/09/20 03/26/25 propranolol 80 mg capsule,24 80 mg PO DAILY 08/09/20 03/26/25 hr,extended release omeprazole 20 mg capsule,delayed 20 mg PO HS 09/04/21 03/26/25 release aspirin 81 mg tablet,delayed 81 mg PO DAILY #0 tabs 09/10/21 03/26/25 release atorvastatin 40 mg tablet 40 mg PO HS #30 tabs 09/10/21 03/26/25 levothyroxine 50 mcg tablet 100 mcg PO DAILY 04/28/23 03/26/25 ergocalciferol (vitamin D2) 1,250 1,250 mcg PO QWEEK 05/09/24 03/26/25 mcg (50,000 unit) capsule metformin 500 mg tablet 1,000 mg PO BID 05/09/24 03/26/25 pramipexole 0.5 mg tablet 0.5 mg PO QHS 05/09/24 03/26/25 magnesium oxide 500 mg capsule 500 mg PO DAILY 12/27/24 03/26/25 primidone 50 mg tablet 25 mg (1/2 x 50 mg) PO QHS #45 tabs 12/27/24 03/26/25 Previous Rx's ?Medication ?Instructions ?Recorded aspirin 81 mg tablet,delayed 81 mg PO DAILY #0 tabs 09/10/21 release atorvastatin 40 mg tablet 40 mg PO HS #30 tabs 09/10/21 primidone 50 mg tablet 25 mg (1/2 x 50 mg) PO QHS #45 tabs 12/27/24 Allergies Allergy/AdvReac Type Severity Reaction Status Date / Time acetaminophen (From Tylenol) Allergy Severe chest pain Unverified 03/26/25 17:34 aspirin Allergy Severe CHEST PAIN Unverified 03/26/25 17:34 General Stated Complaint: HeadInjury KIMBERLY: 3 Exam Narrative Exam Narrative: General Appearance: Normal. Patient alert and oriented, no acute distress Vital signs: Within normal limits, hypertension noted HEENT: Head: Tenderness with palpation across crown of head, no scalp bogginess/soft spots or depressions. Eyes: PERRL, EOMs intact.. ENT: No bleeding from nose or ears, no raccoon eyes or Cardona sign. Neck: No C-spine tenderness/step-off/deformity. Mild trapezius tenderness on left side. Back, Musculoskeletal: No other abnormalities. Skin: Warm and dry, no rash. Neurological: Alert and oriented. Cranial nerves II-XII intact. Normal Romberg, rapid alternating movements, finger finger, finger nose, gait. 5/5 muscle strength upper and lower extremities, sensation grossly intact. No weakness in arms or legs. Coordination and balance per baseline Psychiatric: Normal. Course Vital Signs Vital signs: Vital Signs Temperature 36.1 C L 03/26/25 17:29 Pulse 73 03/26/25 17:29 Respiratory Rate 18 03/26/25 17:29 Blood Pressure 173/80 H 03/26/25 17:29 Pulse Oximetry 97 03/26/25 17:29 Temperature 36.1 C L 03/26/25 17:29 Pulse 73 03/26/25 17:29 Respiratory Rate 18 03/26/25 17:29 Respiratory Effort Normal, Non-Labored 03/26/25 18:30 Respiratory Depth Normal 03/26/25 18:30 Respiratory Pattern Normal 03/26/25 18:30 Blood Pressure 173/80 H 03/26/25 17:29 Pulse Oximetry 97 03/26/25 17:29 Pain Level 8 03/26/25 17:29 Medical Decision Making 74-year-old female with headache and dizziness following head injury 4 days ago. Reports neck pain and nausea without vomiting. No vision changes, bleeding from nose or ears, chest pain, difficulty breathing, or weakness in arms or legs. History and presentation consistent with concussion: Suspected due to headache, dizziness, and history of head injury. Plan: CT scan of head and neck to rule out intracranial bleeding. - Intracranial bleeding: Considered due to head injury. Plan: CT scan of head and neck to rule out bleeding. ED Course: - CT scan of head and neck ordered - Administered Tylenol Final Assessment: CT head and neck performed, no acute abnormalities noted. Clinical Impression: - Concussion Reviewed discharge instructions with patient and her family, including symptomatic management, concussion care, close follow-up with PCP, and red flags indicate need for return to emergency care. Disposition: - Follow-Up: Call primary care physician tomorrow for appointment this week. Patient Education: Advised headache from concussion may persist. Emphasized importance of follow-up with primary care physician. Patient consented to the use of [facility] Imaging Data Radiologic Study: Radiologist's impression: PROCEDURE INFORMATION: Exam: CT Head Without Contrast Exam date and time: 03/26/2025 6:56 PM Age: 74 years old Clinical indication: Other: Head injury 3 days ago TECHNIQUE: Imaging protocol: Computed tomography of the head without contrast. COMPARISON: CT HEAD WO 05/18/2024 8:22 AM FINDINGS: Brain: No acute intracranial hemorrhage, mass-effect, midline shift, or extra-axial collection is seen. There is patchy white matter hypoattenuation, nonspecific but commonly seen as a chronic sequela of small vessel ischemic disease. The marquez white matter differentiation appears preserved. There is mild symmetric parenchymal volume loss. Cerebral ventricles: The ventricular system and basilar cisterns appear appropriate in size and configuration. Paranasal sinuses: The visualized paranasal sinuses appear well-aerated. Mastoid air cells: The left mastoid air cells appear clear. The right mastoid temporal bone is underpneumatized; however, the mastoid air cells which are present appear clear. Auditory system: The middle ear cavities appear clear. Orbital cavities: The globes and intraorbital structures appear grossly intact. Bones: The bony calvarium appears intact. No depressed skull fracture is seen. Soft tissues: No gross focal scalp hematoma is seen. IMPRESSION: No acute intracranial hemorrhage or depressed skull fracture. SKYE WHITTEN Preliminary Radiology Report Page 2 of 3 PROCEDURE INFORMATION: Exam: CT Cervical Spine Without Contrast Exam date and time: 03/26/2025 6:56 PM Age: 74 years old Clinical indication: Other: Head injury 3 days ago TECHNIQUE: Imaging protocol: Computed tomography of the cervical spine without contrast. COMPARISON: CT CAROTID NECK CTA 07/31/2022 10:14 PM FINDINGS: Limitations: Extensive streak artifact from metallic leads in the spinal canal. Bones/joints: No acute cervical fracture or malalignment is seen. A defect in the posterior arch of C1 has a developmental appearance. C2-C3: Disc height preserved. No central canal narrowing or neural foraminal narrowing. C3-C4: Disc height preserved. No central canal narrowing or significant foraminal narrowing. C4-C5: Disc height preserved. No central canal narrowing or significant foraminal narrowing. C5-C6: Disc height preserved. No central canal narrowing or significant neural foraminal narrowing. C6-C7: Mild loss of disc height with anterior osteophytes. Posterior osteophytic ridging with bilateral uncovertebral hypertrophy. No cervical stenosis. Mild right-sided foraminal narrowing. Moderate leftsided foraminal narrowing. C7-T1: Disc height preserved. No central canal narrowing or significant neural foraminal narrowing. Spinal cord: There are metallic leads in the cervical spinal canal terminating at the C1-C2 level with an appearance suggesting spinal cord stimulator leads. Correlation with procedure history recommended. Thyroid: Thyroid gland not confidently visualized suggesting thyroid atrophy, prior surgery, or developmentally ectopic thyroid gland. Clinical correlation and correlation with thyroid function testing recommended to exclude thyroid insufficiency. Lungs: The lung apices appear clear. Soft tissues: Within the limits of the exam, no gross soft tissue fluid collection is seen in the neck. IMPRESSION: 1. No acute cervical fracture or malalignment is seen. 2. Metallic leads in the spinal canal. Spinal cord stimulator? Correlation with procedure history recommended. 3. Thyroid gland not confidently visualized. Correlation with surgical history and correlation with thyroid function testing recommended to exclude thyroid insufficiency. 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 (Acute) Pes anserinus bursitis of left knee (Acute) DEPO MEDROL 11/11/24 Contusion of left knee (Acute) Left knee injury (Acute) COVID (Acute) Pharyngoesophageal dysphagia (Acute) Nasal septal perforation (Acute) Thyroid nodule (Acute) Thyroid mass (Acute) Chronic headache (Acute) Migraine headache without aura (Acute) Hyperlipidemia (Acute) Status post insertion of nerve stimulator (Acute) Migraine aura occurring with and without headache (Acute) Dysphagia (Acute) Type 2 diabetes mellitus (Acute) Obesity (Chronic) Abnormal mammogram (Acute) Non compliance with medical treatment (Acute) Osteopenia of forearm (Acute) Vertigo (Acute) Memory impairment (Acute) Essential tremor (Acute) Balance problem (Acute) Pill esophagitis (Acute) Diverticulosis (Acute) FH: colon cancer (Acute) Closed trimalleolar fracture of right ankle (Acute 08/24/13) Medical History Cough due to SURESH inhibitor Postmenopause atrophic vaginitis Neck swelling Abnormal mammogram of left breast Noncompliance with medication regimen Osteopenia Chest pain Pneumonitis Cervicalgia (08/24/14) -Left-sided. I still believe this is musculoskeletal. I still do not appreciate any evidence of infection. History of colon polyps Swelling, mass, or lump in head and neck Facial pain Restless leg syndrome Multinodular goiter Insomnia Hypercholesterolemia Accelerated essential hypertension Osteoarthritis of right hip JANEE (obstructive sleep apnea) Cardiac murmur Migraines Thyroid disorder GERD (gastroesophageal reflux disease) Depression Complex regional pain syndrome i of left upper limb Hyperkalemia Colon polyp 08/06/2010 Fibromyalgia Borderline diabetic Frequent urination Surgical History S/P lumbar spine operation History of lobectomy of thyroid Left, 12/2022, benign nodule S/P insertion of spinal cord stimulator History of esophagogastroduodenoscopy (EGD) (~09/2020) Hx of foot surgery R Hx of total hip arthroplasty R Hx of total knee arthroplasty R x 2 EGD - MAC (05/02/16) Family History Father Diabetes Sister Heart disease Social History Smoking/Tobacco Use Status: Never Smoking risk assessment performed?: Yes Alcohol Intake: current Alcohol Intake frequency: holidays/special occasions only Alcohol type: hard liquor Drug use: Never Substance use type: does not use Household members: none Number of Children: 2 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
[2025-03-26] MEDS: Acetaminophen 325 MG TAB 650 MG PO (18:52)
--- NOTE | 2025-03-26 19:54 | DI.VRAD_ITS ---
PROCEDURE INFORMATION: Exam: CT Head Without Contrast Exam date and time: 03/26/2025 6:56 PM Age: 74 years old Clinical indication: Other: Head injury 3 days ago TECHNIQUE: Imaging protocol: Computed tomography of the head without contrast. COMPARISON: CT HEAD WO 05/18/2024 8:22 AM FINDINGS: Brain: No acute intracranial hemorrhage, mass-effect, midline shift, or extra-axial collection is seen. There is patchy white matter hypoattenuation, nonspecific but commonly seen as a chronic sequela of small vessel ischemic disease. The marquez white matter differentiation appears preserved. There is mild symmetric parenchymal volume loss. Cerebral ventricles: The ventricular system and basilar cisterns appear appropriate in size and configuration. Paranasal sinuses: The visualized paranasal sinuses appear well-aerated. Mastoid air cells: The left mastoid air cells appear clear. The right mastoid temporal bone is underpneumatized; however, the mastoid air cells which are present appear clear. Auditory system: The middle ear cavities appear clear. Orbital cavities: The globes and intraorbital structures appear grossly intact. Bones: The bony calvarium appears intact. No depressed skull fracture is seen. Soft tissues: No gross focal scalp hematoma is seen. IMPRESSION: No acute intracranial hemorrhage or depressed skull fracture. PROCEDURE INFORMATION: Exam: CT Cervical Spine Without Contrast Exam date and time: 03/26/2025 6:56 PM Age: 74 years old Clinical indication: Other: Head injury 3 days ago TECHNIQUE: Imaging protocol: Computed tomography of the cervical spine without contrast. COMPARISON: CT CAROTID NECK CTA 07/31/2022 10:14 PM FINDINGS: Limitations: Extensive streak artifact from metallic leads in the spinal canal. Bones/joints: No acute cervical fracture or malalignment is seen. A defect in the posterior arch of C1 has a developmental appearance. C2-C3: Disc height preserved. No central canal narrowing or neural foraminal narrowing. C3-C4: Disc height preserved. No central canal narrowing or significant foraminal narrowing. C4-C5: Disc height preserved. No central canal narrowing or significant foraminal narrowing. C5-C6: Disc height preserved. No central canal narrowing or significant neural foraminal narrowing. C6-C7: Mild loss of disc height with anterior osteophytes. Posterior osteophytic ridging with bilateral uncovertebral hypertrophy. No cervical stenosis. Mild right-sided foraminal narrowing. Moderate left-sided foraminal narrowing. C7-T1: Disc height preserved. No central canal narrowing or significant neural foraminal narrowing. Spinal cord: There are metallic leads in the cervical spinal canal terminating at the C1-C2 level with an appearance suggesting spinal cord stimulator leads. Correlation with procedure history recommended. Thyroid: Thyroid gland not confidently visualized suggesting thyroid atrophy, prior surgery, or developmentally ectopic thyroid gland. Clinical correlation and correlation with thyroid function testing recommended to exclude thyroid insufficiency. Lungs: The lung apices appear clear. Soft tissues: Within the limits of the exam, no gross soft tissue fluid collection is seen in the neck. IMPRESSION: 1. No acute cervical fracture or malalignment is seen. 2. Metallic leads in the spinal canal. Spinal cord stimulator? Correlation with procedure history recommended. 3. Thyroid gland not confidently visualized. Correlation with surgical history and correlation with thyroid function testing recommended to exclude thyroid insufficiency. Dictated and Authenticated by: Daniel Villatoro MD. Orderin Alessandra Prieto MD
[2025-03-26 20:17] VITALS: BP 171/65; PULSE 63; RESP 18; TEMP 36.6; O2SAT 98
== END 2025-03-26 20:20 | disposition home or self-care (01) ==
PROVIDERS: Emergency Provider Nurse Practitioner Family; PCP Physician Assistant Medical
DX: S06.0XAA Concussion with loss of consciousness status unknown, initial encounter (principal); W19.XXXA Unspecified fall, initial encounter
CPT/HCPCS: 99284; 99283; 70450; 72125

== ENCOUNTER → 2025-04-06 10:16 | Outpatient (BNVA) | payer MEDICARE, SELFPAY | PROVIDERS: PCP Physician Assistant Medical; Referring Provider Physician Assistant Medical; Visit Provider Podiatrist | DX: G57.62 Lesion of plantar nerve, left lower limb (principal); E11.42 Type 2 diabetes mellitus with diabetic polyneuropathy; M67.02 Short Achilles tendon (acquired), left ankle; E11.51 Type 2 diabetes mellitus with diabetic peripheral angiopathy without gangrene; I70.223 Atherosclerosis of native arteries of extremities with rest pain, bilateral legs | CPT/HCPCS: 64455; 93922; J0702; J1100 ==

== ENCOUNTER → 2025-04-10 08:57 | Outpatient (BNVA) | payer MEDICARE, SELFPAY | PROVIDERS: PCP Physician Assistant Medical; Referring Provider Physician Assistant Medical; Visit Provider Student in an Organized Health Care Education/Training Program | DX: M70.52 Other bursitis of knee, left knee (principal); M17.12 Unilateral primary osteoarthritis, left knee | CPT/HCPCS: 99213; 20610; J1010 ==

== ENCOUNTER → 2025-04-10 11:15 | Outpatient (BNVA) | payer MEDICARE, SELFPAY | PROVIDERS: PCP Physician Assistant Medical; Referring Provider Physician Assistant Medical; Visit Provider Psychiatry & Neurology Neurology | DX: G25.0 Essential tremor (principal); R41.3 Other amnesia; R26.89 Other abnormalities of gait and mobility; Z96.82 Presence of neurostimulator; E11.59 Type 2 diabetes mellitus with other circulatory complications; I10 Essential (primary) hypertension | CPT/HCPCS: 99214 ==

== ENCOUNTER → 2025-05-04 10:11 | Outpatient (BNVA) | payer MEDICARE, SELFPAY | PROVIDERS: PCP Physician Assistant Medical; Referring Provider Physician Assistant Medical; Visit Provider Podiatrist | DX: G57.62 Lesion of plantar nerve, left lower limb (principal); M67.02 Short Achilles tendon (acquired), left ankle; E11.42 Type 2 diabetes mellitus with diabetic polyneuropathy; E11.51 Type 2 diabetes mellitus with diabetic peripheral angiopathy without gangrene; I70.223 Atherosclerosis of native arteries of extremities with rest pain, bilateral legs; R25.2 Cramp and spasm | CPT/HCPCS: 64455; J0702; J1100 ==